=== PATIENT | female | born 1965 | race Caucasian/White ===

== ENCOUNTER → 2017-02-22 | Outpatient (CLI) | payer OTHER ==
[~2017-02-22] MED LIST: ACET-2267 PO; AMLO1CAP PO; GABA-488 PO; GABA300S2 PO; HYDR4TAB49 PO; IBUP-2055 PO; METF500T4 PO; METF500T8 PO; OMEP40CA36 PO; [UNRECOGNIZED DRUG - CODE] PO
--- NOTE | 2017-02-22 12:03 | Diagnostic Imaging Report ---
Ultrasound of the neck. INDICATION: Left neck fullness. FINDINGS: The area of fullness in the lateral left side of the neck demonstrates no underlying fluid collection or mass. IMPRESSION: Negative study. If symptoms persist or there is high index of suspicion, then further evaluation with an MRI or CT could be considered. Dictated by: Dictated on workstation # [id number]
== END ==
LOC: RAD 08:06
PROVIDERS: ATTEND Nurse Practitioner Family
DX: R22.1 Localized swelling, mass and lump, neck (principal)
CPT/HCPCS: 76536

== ENCOUNTER → 2017-10-16 | Outpatient (CLI) | payer OTHER | LOC: CARD 11:44 | PROVIDERS: ATTEND Internal Medicine Cardiovascular Disease | DX: R07.89 Other chest pain (principal); R06.09 Other forms of dyspnea; I10 Essential (primary) hypertension; G47.33 Obstructive sleep apnea (adult) (pediatric); E78.5 Hyperlipidemia, unspecified | CPT/HCPCS: 93306 ==

== ENCOUNTER → 2017-10-31 | Outpatient (CLI) | payer OTHER ==
[~2017-10-31] MED LIST changes: +CATHETER FLUSH 10 ML SYR IV PRN; +REGADENOSON 0.4 MG/5 ML SYR (LEXISCAN) IV ONE
[2017-10-31 13:32] VITALS: BP 166/82
--- NOTE | 2017-10-31 22:32 | STRESS TEST ---
DATE OF SERVICE: 10/31/2017 LEXISCAN MYOVIEW STRESS TEST REPORT Baseline heart rate is 78. Baseline blood pressure 149/88. Baseline EKG is sinus rhythm with no ischemic changes. SUMMARY: The patient was injected with 10.94 mCi of technetium-99 Myoview and the resting images were obtained. Then, the patient received 0.4 mg of Lexiscan followed by 30.9 mCi of technetium-99 Myoview. Throughout the test, there were no EKG changes. The resting and stress images were reviewed and compared in the short axis, horizontal long axis and vertical long axis views. Review of the images showed breast attenuation with reversible ischemia involving the whole anterior wall and anterolateral wall. SSS is 9. SDS 5. TID value is 0.99. On the gated images, the left ventricle appeared to be in normal size with normal contractility. Calculated ejection fraction 71%. CONCLUSION: 1. The patient tolerated Lexiscan well. 2. Breast attenuation with reversible ischemia involving the whole anterior wall and anterolateral wall. 3. Normal left ventricular size with normal contractility. Calculated ejection fraction 71%. Job ID: [id number] DocumentID: [id number] Dictated Date: 10/31/2017 16:14:28 Tar Roofer Date: 10/31/2017 19:20:13 Dictated By: FANI VALLEJO MD
== END ==
LOC: CARD 11:14
PROVIDERS: ATTEND Internal Medicine Cardiovascular Disease
DX: R07.89 Other chest pain (principal); R06.09 Other forms of dyspnea; I10 Essential (primary) hypertension; E78.5 Hyperlipidemia, unspecified; G47.33 Obstructive sleep apnea (adult) (pediatric)
CPT/HCPCS: 78452; 93017

== ENCOUNTER 2017-11-07 06:33 | Day surgery (SDC) | payer OTHER ==
[~2017-11-07] VITALS: Ht 167.6 cm; Wt 123.8 kg
[2017-11-07] VITALS (11 sets, daily range): BP systolic 116–138; BP diastolic 62–79
[~2017-11-07 06:33] MED LIST changes: -CATHETER FLUSH 10 ML SYR IV PRN; -REGADENOSON 0.4 MG/5 ML SYR (LEXISCAN) IV ONE
--- OUTSIDE RECORDS SUMMARY | 2017-11-07 06:36 | XMS REPORT ---
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 Problem Arthritis M19.90 Active Problem Gastroesophageal reflux disease without esophagitis K21.9 Active Problem Swelling of both eyes H57.8 Active Problem Edema R60.9 Active Problem Swelling R60.9 Active Problem General medical exam Z00.00 Active Problem Essential hypertension I10 Active Problem Mild intermittent asthma with acute exacerbation J45.21 Active Problem History of knee replacement procedure of right knee Z96.651 Active Assessment Swelling of both eyes H57.8 Active Assessment Swelling R60.9 Active Problem Moderate persistent asthma without complication J45.40 Active Medications Medication Code System Code Instructions Start Date End Date Status Dosage Lotrel [facility] 57191998014 10-40 MG Orally Once a day 1 capsule Hydrochlorothiazide [facility] [address]-05 25 MG Orally & Wednesday February 10, 2016 1 tablet Hydrocodone-Acetaminophen [facility] [address]-36 7.5-325 MG Orally every 6 hrs 1 tablet as needed Voltaren [facility] [address]-85 1 % Transdermal daily prn February 10, 2016 1 gram to 2 large joints Tylenol Extra Strength [facility] [address]-34 500 mg May 19, 2014 3 tablet 3 times per day Omeprazole [facility] [address]-77 40 MG Orally Once a day June 10, 2015 1 capsule Multi Complete [facility] 72851-[address] Orally not defined [place] [facility] [address]-94 5-325 MG Orally 2 times a day prn Sep 23, 2015 1 tablet as needed Aspir-81 [facility] [address]-35 81 MG Orally Once a day 1 tablet Procedures Procedure Coding System Code Date Office Visit, Est Pt., Level 3 CPT-4 65828 March 08, 2016 VENIPUNCT, ROUTINE* CPT-4 22732 March 08, 2016 COMPREHEN METABOLIC PANEL CPT-4 73831 March 08, 2016 Vital Signs Date/Time: March 08, 2016 Temperature 98.2 F Weight 274.0 lbs Height 66 in BMI 44.22 Index Blood Pressure Diastolic 80 mmHg Blood Pressure Systolic 128 mmHg Results Name Result Date Reference Range Unit Abnormality Flag ROUTINE VENIPUNCTURE Summary Purpose eClinicalWorks Submission
--- OUTSIDE RECORDS SUMMARY | 2017-11-07 06:36 | XMS REPORT ---
Author Author MISA KING [facility] Address [address] [place] [address] Care Team Providers Care Outsole Skiver Name Role Phone MISA KING Unavailable PROBLEMS Type Condition ICD9-CM Code [id number] Code Onset Dates Condition Status SNOMED Code Problem General medical exam Z00.00 Active 801340154 Problem Edema of both feet R60.0 Active 429580314 Problem Mild intermittent asthma with acute exacerbation J45.21 Active 919639748 Problem Moderate persistent asthma without complication J45.40 Active 475734151 Problem Gastroesophageal reflux disease without esophagitis K21.9 Active 653048897 Problem Arthritis M19.90 Active 8227626 Problem Essential hypertension I10 Active 64686661 Problem Dyspnea on exertion R06.09 Active 35241913 Problem Type 2 diabetes mellitus with diabetic nephropathy, 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 Active 39923410 Problem Long-term use of high-risk medication Z79.899 Active 532066472 Problem Hyperkalemia E87.5 Active 46499042 Problem Atypical mole D22.9 Active 053572344 Problem Hyperlipidemia LDL goal <70 E78.5 Active 36104059 ALLERGIES Substance Reaction Event Type Date Status Ultram Unknown Drug Allergy Jan, Active Tylox Unknown Drug Allergy Jan, Active Talwin Unknown Drug Allergy Jan, Active Fentanyl Unknown Drug Allergy Jan, Active Darvon Unknown Drug Allergy Jan, Active Darvocet-n 100 Unknown Drug Allergy Jan, Active SOCIAL HISTORY Never Assessed PLAN OF CARE Activity Details Follow Up 4 Weeks Reason:BP/Swelling VITAL SIGNS Height 66 in 2017-02-07 Weight 286.8 lbs 2017-02-07 Temperature 98.2 degrees Fahrenheit 2017-02-07 Heart Rate 78 bpm 2017-02-07 Respiratory Rate 18 2017-02-07 BMI 46.29 kg/m2 2017-02-07 Blood pressure systolic 144 mmHg 2017-02-07 Blood pressure diastolic 84 mmHg 2017-02-07 MEDICATIONS Medication Instructions Dosage Frequency Start Date End Date Duration Status Omeprazole 40 mg Orally Once a day 1 capsule 24h May, Active MetFORMIN HCl ER 500 MG Orally bid 1 tablet with evening meal 12h Active PredniSONE 20 MG Orally Once a day 1 tablet 24h Jan, Jan, 5 days Active Hydrocodone-Acetaminophen 5-325 MG Orally daily prn 1/2 tablet Jan, Active Lotrel 10-40 MG Orally Once a day 1 capsule 24h 30 days Active Albuterol Sulfate HFA 108 (90 Base) MCG/ACT Inhalation 4 times a day 2 puffs as needed 6h Oct, Active Glucocard Expression Monitor w/Device as directed Nov, Active Chlorthalidone 25 MG Orally Once a day 1 tablet in the morning 24h Jan, 30 day(s) Active [place] 5-325 MG Orally 2 times a day prn 1 tablet as needed Aug, Active Glucocard Expression Test - In Vitro test once daily as directed Nov, Active RESULTS Name Result Date Reference Range A1C (IN HOUSE) 2017-02-07 A1C IN HOUSE 6.6 4.3 - 5.6 % Previous A1c 6.4 Lot [id number] Exp date 11/2018 MICROALBUMIN, URINE (IN HOUSE) 2017-02-07 MICROALBUMIN normal Lot # [id number] Exp date 12/2017 Clarity clear Color yellow ALB 10 CRE 200 A:C (IN HOUSE) <30 Control + Control Lot # Exp date CMP 2017-02-07 Glucose, Serum 149 65-99 BUN 10 6-24 Creatinine, Serum 0.65 0.57-1.00 eGFR If NonAfricn Am 104 >59 eGFR If Africn Am 120 >59 BUN/Creatinine Ratio 15 9-23 Sodium, Serum 138 134-144 Potassium, Serum 4.7 3.5-5.2 Chloride, Serum 98 96-106 Carbon Dioxide, Total 25 18-29 Calcium, Serum 9.9 8.7-10.2 Protein, Total, Serum 7.2 6.0-8.5 Albumin, Serum 4.3 3.5-5.5 Globulin, Total 2.9 1.5-4.5 A/G Ratio 1.5 1.2-2.2 Bilirubin, Total 0.9 0.0-1.2 Alkaline Phosphatase, S 88 39-117 AST (SGOT) 21 0-40 ALT (SGPT) 28 0-32 Xray : Hip, Left 2 views (IN HOUSE) 2017-02-07 Xray : Knee, Left 3 views (IN HOUSE) 2017-02-07 PROCEDURES Procedure Date Ordered Result Body Site GLYCATED HEMOGLOBIN TEST February 07, 2017 MICROALBUMIN, SEMIQUANT February 07, 2017 VENIPUNCT, ROUTINE* February 07, 2017 X-RAY EXAM OF KNEE, 3 February 07, 2017 X-RAY EXAM HIP UNI 2-3 VIEWS February 07, 2017 COMPREHEN METABOLIC PANEL February 07, 2017 IMMUNIZATIONS No Known Immunizations MEDICAL (GENERAL) HISTORY Type Description Date Medical History hypertension Medical History gastroesophageal reflux disease (GERD) Medical History asthma Medical History type II diabetes Medical History depression Medical History anxiety Medical History ovarian cysts Medical History Moderate to severe arthritis knees Medical History BEATA- Has CPAP but doesn't use can't sleep with it on Surgical History tonsillectomy 1977 Surgical History appendectomy, cholecystectomy 1980 Surgical History arthroscopic knee surgery 1999 Surgical History total hysterectomy d/t endometriosis 2006 Surgical History right knee replacement 09/2015 Hospitalization History Hospitalization for surgery Hospitalization History Pneumonia
--- OUTSIDE RECORDS SUMMARY | 2017-11-07 06:36 | XMS REPORT ---
Author Author MISA KING [facility] eClinicalWorks Address Unknown Phone Unavailable Care Team Providers Care Weatherization Installer Name Role Phone MISA KING CP Unavailable Allergies, Adverse Reactions, Alerts Substance Reaction Event Type Ultram Info Not Available Drug Allergy Tylox Info Not Available Drug Allergy Talwin Info Not Available Drug Allergy Fentanyl Info Not Available Drug Allergy Darvon Info Not Available Drug Allergy Darvocet-n 100 Info Not Available Drug Allergy Problems Problem Type Condition Code Onset Dates Condition Status Problem Essential hypertension I10 Active Problem History of knee replacement procedure of right knee Z96.651 Active Problem General medical exam Z00.00 Active Problem Anxiety about health F41.8 Active Problem Edema of both feet R60.0 Active Problem Hyperkalemia E87.5 Active Problem Edema R60.9 Active Problem Mild intermittent asthma with acute exacerbation J45.21 Active Problem Swelling R60.9 Active Problem Swelling of both eyes H57.8 Active Assessment 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 Assessment Arthritis M19.90 Active Assessment Anxiety about health F41.8 Active Assessment Hyperkalemia E87.5 Active Problem Moderate persistent asthma without complication J45.40 Active Problem 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 Assessment Essential hypertension I10 Active Problem Gastroesophageal reflux disease without esophagitis K21.9 Active Assessment Edema of both feet R60.0 Active Problem Arthritis M19.90 Active Medications Medication Code System Code Instructions Start Date End Date Status Dosage Valium [facility] [address]-11 10 mg Orally 30 minutes prior to dental work Jul 13, 2016 1 Omeprazole [facility] [address]-83 40 MG Orally Once a day June 10, 2015 1 capsule Voltaren [facility] [address]-44 1 % Transdermal daily prn 1 gram to 2 large joints Lotrel [facility] 57802421007 10-40 MG Orally Once a day 1 capsule [place] [facility] [address]-66 5-325 MG Orally 2 times a day prn Sep 23, 2015 1 tablet as needed Hydrochlorothiazide [facility] [address]-14 25 MG Orally & Sunday 1 tablet Procedures Procedure Coding System Code Date COMPREHEN METABOLIC PANEL CPT-4 70302 Jul 13, 2016 VENIPUNCT, ROUTINE* CPT-4 09459 Jul 13, 2016 GLYCATED HEMOGLOBIN TEST CPT-4 40751 Jul 13, 2016 Office Visit, Est Pt., Level 4 CPT-4 31264 Jul 13, 2016 Vital Signs Date/Time: Jul 13, 2016 Cardiac Monitoring Heart Rate 80 bpm Weight 269.4 lbs Height 66 in BMI 43.48 Index Blood Pressure Diastolic 82 mmHg Blood Pressure Systolic 124 mmHg Results No Known Results Summary Purpose eClinicalWorks Submission
--- OUTSIDE RECORDS SUMMARY | 2017-11-07 06:36 | XMS REPORT ---
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 Problem Arthritis M19.90 Active Problem Gastroesophageal reflux disease without esophagitis K21.9 Active Problem Moderate persistent asthma without complication J45.40 Active Problem Swelling of both eyes H57.8 Active Problem Edema R60.9 Active Problem Swelling R60.9 Active Problem General medical exam Z00.00 Active Problem Essential hypertension I10 Active Problem Mild intermittent asthma with acute exacerbation J45.21 Active Problem History of knee replacement procedure of right knee Z96.651 Active Medications Medication Code System Code Instructions Start Date End Date Status Dosage Lotrel [facility] [address]-20 10-40 MG Orally Once a day- appt needed for futher refills 1 capsule Results No Known Results Summary Purpose eClinicalWorks Submission
--- OUTSIDE RECORDS SUMMARY | 2017-11-07 06:36 | XMS REPORT ---
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
--- OUTSIDE RECORDS SUMMARY | 2017-11-07 06:36 | XMS REPORT ---
Author Author MISA KING [facility] eClinicalWorks Address Unknown Phone Unavailable Care Team Providers Care Rag Willow Operator Name Role Phone MISA KING CP Unavailable Allergies, Adverse Reactions, Alerts Substance Reaction Event Type Ultram Info Not Available Drug Allergy Tylox Info Not Available Drug Allergy Talwin Info Not Available Drug Allergy Fentanyl Info Not Available Drug Allergy Darvon Info Not Available Drug Allergy Darvocet-n 100 Info Not Available Drug Allergy Problems Problem Type Condition Code Onset Dates Condition Status Problem Gastroesophageal reflux disease without esophagitis K21.9 Active Problem Essential hypertension I10 Active Problem Arthritis M19.90 Active Problem Swelling R60.9 Active Problem Swelling of both eyes H57.8 Active Problem Edema of both feet R60.0 Active Problem History of knee replacement procedure of right knee Z96.651 Active Problem General medical exam Z00.00 Active Problem Edema R60.9 Active Problem Mild intermittent asthma with acute exacerbation J45.21 Active Assessment Mild intermittent asthma with acute exacerbation J45.21 Active Assessment Essential hypertension I10 Active Assessment Edema of both feet R60.0 Active Assessment 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 Problem Moderate persistent asthma without complication J45.40 Active Assessment Arthritis M19.90 Active Problem 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 Medications Medication Code System Code Instructions Start Date End Date Status Dosage Omeprazole [facility] [address]-27 40 MG Orally Once a day June 10, 2015 1 capsule Lotrel [facility] 68934702512 10-40 MG Orally Once a day 1 capsule Multi Complete [facility] [address] Orally not defined Voltaren [facility] [address]-56 1 % Transdermal daily prn 1 gram to 2 large joints [place] [facility] [address]-96 5-325 MG Orally 2 times a day prn Sep 23, 2015 1 tablet as needed Hydrochlorothiazide [facility] [address]-43 25 MG Orally & Wednesday February 10, 2016 1 tablet Procedures Procedure Coding System Code Date COMPREHEN METABOLIC PANEL CPT-4 15936 Jul 06, 2016 ASSAY OF MAGNESIUM CPT-4 42175 Jul 06, 2016 NATRIURETIC PEPTIDE CPT-4 06529 Jul 06, 2016 VENIPUNCT, ROUTINE* CPT-4 66307 Jul 06, 2016 Office Visit, Est Pt., Level 4 CPT-4 11141 Jul 06, 2016 Vital Signs Date/Time: Jul 06, 2016 Cardiac Monitoring Heart Rate 80 bpm Weight 271.5 lbs Height 66 in BMI 43.82 Index Blood Pressure Diastolic 88 mmHg Blood Pressure Systolic 136 mmHg Results No Known Results Summary Purpose eClinicalWorks Submission
--- OUTSIDE RECORDS SUMMARY | 2017-11-07 06:37 | XMS REPORT ---
Author Author MISA KING [facility] eClinicalWorks Address Unknown Phone Unavailable Care Team Providers Care Oil Well Driller Name Role Phone MISA KING CP Unavailable Allergies, Adverse Reactions, Alerts Substance Reaction Event Type Ultram Info Not Available Drug Allergy Tylox Info Not Available Drug Allergy Talwin Info Not Available Drug Allergy Fentanyl Info Not Available Drug Allergy Darvon Info Not Available Drug Allergy Darvocet-n 100 Info Not Available Drug Allergy Problems Problem Type Condition Code Onset Dates Condition Status Problem Edema R60.9 Active Problem Swelling R60.9 Active Problem Swelling of both eyes H57.8 Active Problem Skin ulcer of foot including toes, right, limited to breakdown of skin L97.511 Active Assessment Long-term use of high-risk medication Z79.899 Active Problem Yeast dermatitis B37.2 Active Assessment Swelling R60.9 Active Assessment Bronchitis J40 Active Problem Long-term use of high-risk medication Z79.899 Active Problem Anxiety about health F41.8 Active Problem Edema of both feet R60.0 Active Problem Encounter for dental examination Z01.20 Active Problem Hyperkalemia E87.5 Active Problem Moderate persistent asthma without complication J45.40 Active Problem 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 Assessment 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 Assessment Essential hypertension I10 Active Problem Essential hypertension I10 Active Problem General medical exam Z00.00 Active Problem Gastroesophageal reflux disease without esophagitis K21.9 Active Problem History of knee replacement procedure of right knee Z96.651 Active Problem Arthritis M19.90 Active Problem Mild intermittent asthma with acute exacerbation J45.21 Active Medications Medication Code System Code Instructions Start Date End Date Status Dosage Potassium Chloride CR NDC 0 10 MEQ Orally every other day Oct 11, 2016 Nov 10, 2016 1 tablet [place] [facility] [address]-25 5-325 MG Orally 2 times a day prn Sep 23, 2015 1 tablet as needed Mucinex [facility] [address]-07 600 MG Orally every 12 hrs 1 tablet as needed Zaroxolyn [facility] [address]-31 2.5 MG Orally every other day Oct 11, 2016 1 tablet Augmentin [facility] [address]-37 875-125 MG Orally every 12 hrs Oct 11, 2016 Oct 21, 2016 1 tablet Omeprazole [facility] [address]-08 40 mg Orally Once a day June 10, 2015 1 capsule Lotrel [facility] 43190260542 10-40 MG Orally Once a day 1 capsule MetFORMIN HCl ER [facility] [address]-03 500 MG Orally Once a day 1 tablet with evening meal Procedures Procedure Coding System Code Date VENIPUNCT, ROUTINE* CPT-4 41545 Oct 11, 2016 Office Visit, Est Pt., Level 4 CPT-4 46893 Oct 11, 2016 COMPREHEN METABOLIC PANEL CPT-4 63641 Oct 11, 2016 Vital Signs Date/Time: Oct 11, 2016 Cardiac Monitoring Heart Rate 76 bpm Weight 281.1 lbs Height 66 in BMI 45.37 Index Blood Pressure Diastolic 98 mmHg Blood Pressure Systolic 150 mmHg Results Name Result Date Reference Range Unit Abnormality Flag ROUTINE VENIPUNCTURE CMP ----Sodium, Serum 141 26226321 136-144 mmol/L ----BUN/Creatinine Ratio 22 03950939 9-23 ----Chloride, Serum 98 82488737 97-106 mmol/L ----Potassium, Serum 4.5 96693732 3.5-5.2 mmol/L ----Calcium, Serum 9.8 88249684 8.7-10.2 mg/dL ----Protein, Total, Serum 7.3 78548484 6.0-8.5 g/dL ----Carbon Dioxide, Total 27 54608133 18-29 mmol/L ----A/G Ratio 1.5 15973993 1.1-2.5 ----eGFR If NonAfricn Am 103 35081249 >59 mL/min/1.73 ----Bilirubin, Total 0.4 41366879 0.0-1.2 mg/dL ----eGFR If Africn Am 119 75080477 >59 mL/min/1.73 ----BUN 15 63797960 6-24 mg/dL ----Albumin, Serum 4.4 89701642 3.5-5.5 g/dL ----Globulin, Total 2.9 20161011 1.5-4.5 g/dL ----Creatinine, Serum 0.67 20161011 0.57-1.00 mg/dL ----ALT (SGPT) 22 20161011 0-32 IU/L ----Glucose, Serum 124 20161011 65-99 mg/dL H ----Alkaline Phosphatase, S 99 20161011 39-117 IU/L ----AST (SGOT) 15 20161011 0-40 IU/L Summary Purpose eClinicalWorks Submission
--- OUTSIDE RECORDS SUMMARY | 2017-11-07 06:37 | XMS REPORT ---
Author Author MISA KING [facility] eClinicalWorks Address Unknown Phone Unavailable Care Team Providers Care Account Development Associate Name Role Phone MISA KING CP Unavailable Allergies, Adverse Reactions, Alerts Substance Reaction Event Type Ultram Info Not Available Drug Allergy Tylox Info Not Available Drug Allergy Talwin Info Not Available Drug Allergy Fentanyl Info Not Available Drug Allergy Darvon Info Not Available Drug Allergy Darvocet-n 100 Info Not Available Drug Allergy Problems Problem Type Condition Code Onset Dates Condition Status Problem Mild intermittent asthma with acute exacerbation J45.21 Active Problem Swelling of both eyes H57.8 Active Problem Edema R60.9 Active Problem Yeast dermatitis B37.2 Active Assessment Skin ulcer of foot including toes, right, limited to breakdown of skin L97.511 Active Problem Encounter for dental examination Z01.20 Active Assessment Yeast dermatitis B37.2 Active Problem Skin ulcer of foot including toes, right, limited to breakdown of skin L97.511 Active Problem Edema of both feet R60.0 Active Problem Swelling R60.9 Active Problem Hyperkalemia E87.5 Active Problem Anxiety about health F41.8 Active Assessment Edema of both feet R60.0 Active Problem Moderate persistent asthma without complication J45.40 Active Assessment 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 Assessment Essential hypertension I10 Active Problem Arthritis M19.90 Active Problem Essential hypertension I10 Active Problem 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 Problem General medical exam Z00.00 Active Problem Gastroesophageal reflux disease without esophagitis K21.9 Active Problem History of knee replacement procedure of right knee Z96.651 Active Medications Medication Code System Code Instructions Start Date End Date Status Dosage [place] [facility] [address]-42 5-325 MG Orally 2 times a day prn Sep 23, 2015 1 tablet as needed Bactrim DS [facility] [address]-26 800-160 MG Orally Twice a day Aug 29, 2016 Sep 08, 2016 1 tablet MetFORMIN HCl ER [facility] [address]-65 500 MG Orally Once a day 1 tablet with evening meal Lotrel [facility] 84011647653 10-40 MG Orally Once a day 1 capsule Ventolin HFA [facility] [address]-55 90 mcg/actuation May 18, 2014 inhale 2 puff by Inhalation route as needed every 6 hours PRN for cough or wheeze Diflucan [facility] [address]-56 100 MG Orally daily Aug 29, 2016 Sep 08, 2016 1 tablet Hydrochlorothiazide [facility] [address]-81 25 MG Orally & Sunday 1 tablet Omeprazole [facility] [address]-88 40 MG Orally Once a day June 10, 2015 1 capsule Procedures Procedure Coding System Code Date Office Visit, Est Pt., Level 5 CPT-4 30583 Aug 29, 2016 ROCEPHIN 1 GM (IM) CPT-4 J0696 Aug 29, 2016 GLUCOSE BLOOD TEST CPT-4 93018 Aug 29, 2016 THER/PROPH/DIAG INJ, SC/IM CPT-4 57304 Aug 29, 2016 Vital Signs Date/Time: Aug 29, 2016 Cardiac Monitoring Heart Rate 80 bpm Weight 277 lbs Height 66 in BMI 44.70 Index Blood Pressure Diastolic 90 mmHg Blood Pressure Systolic 140 mmHg Results Name Result Date Reference Range Unit Abnormality Flag GLUCOSE FINGERSTICK (IN HOUSE) ----GLU FINGERSTICK [id number] ----Lot # [id number] ----Exp date 10/08/201620160829 Summary Purpose eClinicalWorks Submission
--- OUTSIDE RECORDS SUMMARY | 2017-11-07 06:37 | XMS REPORT ---
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
--- OUTSIDE RECORDS SUMMARY | 2017-11-07 06:37 | XMS REPORT ---
Author Author BRENDAN KRAMER [facility] Address [address] [place] [address] Care Team Providers Care Furnace Door Tender Name Role Phone BRENDAN KRAMER Unavailable PROBLEMS Type Condition ICD9-CM Code [id number] Code Onset Dates Condition Status SNOMED Code Problem History of knee replacement procedure of right knee Z96.651 Active 584488171 Problem Edema R60.9 Active 035619588 Problem Mild intermittent asthma with acute exacerbation J45.21 Active 906789531 Problem Encounter for dental examination Z01.20 Active 343105094 Problem Hyperkalemia E87.5 Active 72663376 Problem Swelling R60.9 Active 09477665 Problem Swelling of both eyes H57.8 Active 15904869 Problem Anxiety about health F41.8 Active 150221627 Problem Edema of both feet R60.0 Active 247558134 Assessment Encounter for dental examination Z01.20 15 Jul, 2016 Active 171509281 Problem Gastroesophageal reflux disease without esophagitis K21.9 Active 182414438 Problem Arthritis M19.90 Active 4784870 Problem Moderate persistent asthma without complication J45.40 Active 599395255 Problem Essential hypertension I10 Active 29030105 Problem 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 79676639 Problem General medical exam Z00.00 Active 551296918 ALLERGIES Substance Reaction Event Type Date Status Ultram Unknown Drug Allergy 15 Jul, 2016 Active Tylox Unknown Drug Allergy 15 Jul, 2016 Active Talwin Unknown Drug Allergy 15 Jul, 2016 Active Fentanyl Unknown Drug Allergy Jul, Active Darvon Unknown Drug Allergy Jul, Active Darvocet-n 100 Unknown Drug Allergy Jul, Active SOCIAL HISTORY No smoking Hx information available PLAN OF CARE VITAL SIGNS Heart Rate 75 bpm 2016-08-10 Blood pressure systolic 123 mmHg 2016-08-10 Blood pressure diastolic 53 mmHg 2016-08-10 MEDICATIONS Medication Instructions Dosage Frequency Start Date End Date Duration Status Hydrochlorothiazide 25 MG Orally & Sunday 1 tablet 15 day(s) Active Lotrel 10-40 MG Orally Once a day 1 capsule 24h Active Omeprazole 40 MG Orally Once a day 1 capsule 24h 16 May, 2015 Active Omeprazole 40 MG Orally Once a day 1 capsule 24h 30 Active Singulair 10 MG Orally Once a day 1 tablet in the evening 24h Active Ventolin HFA 90 mcg/actuation inhale 2 puff by Inhalation route as needed every 6 hours PRN for cough or wheeze Apr, Active [place] 5-325 MG Orally 2 times a day prn 1 tablet as needed Aug, Active RESULTS No Results PROCEDURES Procedure Date Ordered Related Diagnosis Body Site INTRAORL-PERIAPICAL 1 FILM 16537 Aug 10, 2016 INTRAORL-PERIAPICAL EA ADD FILM Aug 10, 2016 INTRAORL-PERIAPICAL EA ADD FILM Aug 10, 2016 INTRAORL-PERIAPICAL EA ADD FILM Aug 10, 2016 INTRAORL-PERIAPICAL EA ADD FILM Aug 10, 2016 IMMUNIZATIONS No Known Immunizations
--- OUTSIDE RECORDS SUMMARY | 2017-11-07 06:37 | XMS REPORT ---
Author Author MISA KING Organization eClinicalWorks Address Unknown Phone Unavailable Care Team Providers Care Safety Inspector Name Role Phone MISA KING CP Unavailable [...]
--- OUTSIDE RECORDS SUMMARY | 2017-11-07 06:37 | XMS REPORT ---
Author Author MISA KING [facility] Address [address] [place] [address] Care Team Providers Care Encyclopedia Research Worker Name Role Phone MISA KING Unavailable PROBLEMS Type Condition ICD9-CM Code [id number] Code Onset Dates Condition Status SNOMED Code Problem History of knee replacement procedure of right knee Z96.651 Active 050204363 Problem Edema R60.9 Active 448125521 Problem Mild intermittent asthma with acute exacerbation J45.21 Active 291568673 Problem Encounter for dental examination Z01.20 Active 093762127 Problem Hyperkalemia E87.5 Active 71802395 Problem Swelling R60.9 Active 12772707 Problem Swelling of both eyes H57.8 Active 92759649 Problem Anxiety about health F41.8 Active 772416797 Problem Edema of both feet R60.0 Active 643834463 Problem Gastroesophageal reflux disease without esophagitis K21.9 Active 971817558 Problem Arthritis M19.90 Active 0414640 Problem Moderate persistent asthma without complication J45.40 Active 612204781 Problem Essential hypertension I10 Active 28039825 Problem 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
--- OUTSIDE RECORDS SUMMARY | 2017-11-07 06:37 | XMS REPORT ---
Author Author MISA KING Organization [facility] Address [address] [place] [address] Care Team Providers Care Clinical Nursing Manager Name Role Phone MISA KING Unavailable PROBLEMS Type Condition ICD9-CM Code [id number] Code Onset Dates Condition Status SNOMED Code Problem General medical exam Z00.00 Active 272194142 Problem Edema of both feet R60.0 Active 078076691 Problem Mild intermittent asthma with acute exacerbation J45.21 Active 056566457 Problem Moderate persistent asthma without complication J45.40 Active 933318462 Problem Gastroesophageal reflux disease without esophagitis K21.9 Active 326199021 Problem Arthritis M19.90 Active 6635373 Problem Essential hypertension I10 Active 60007974 Problem Dyspnea on exertion R06.09 Active 68642493 Problem Type 2 diabetes mellitus with diabetic nephropathy, 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 Active 68256845 Problem Long-term use of high-risk medication Z79.899 Active 910883499 Problem Hyperkalemia E87.5 Active 65626075 Problem Atypical mole D22.9 Active 345035018 Problem Hyperlipidemia LDL goal <70 E78.5 Active 53911398 ALLERGIES No Known Allergies SOCIAL HISTORY No smoking Hx information available PLAN OF CARE VITAL SIGNS MEDICATIONS Medication Instructions Dosage Frequency Start Date End Date Duration Status Glucocard Expression Test - In Vitro test once daily as directed Nov, Active Glucocard Expression Monitor w/Device as directed Nov, Active RESULTS No Results PROCEDURES No Known procedures IMMUNIZATIONS No Known Immunizations
--- OUTSIDE RECORDS SUMMARY | 2017-11-07 06:37 | XMS REPORT ---
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 Assessment Essential hypertension I10 Active Assessment Gastroesophageal reflux disease without esophagitis K21.9 Active Assessment History of knee replacement procedure of right knee Z96.651 Active Problem General medical exam Z00.00 Active Problem Essential hypertension I10 Active Problem History of knee replacement procedure of right knee Z96.651 Active Problem 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 [address]-22 7.5-325 MG Orally every 6 hrs 1 tablet as needed Hydromorphone HCl [facility] [address]-67 4 MG Orally every 4 hrs 1 tablet as needed [place] [facility] [address]-11 5-325 MG Orally 2 times a day prn Sep 23, 2015 1 tablet as needed Lotrel [facility] [address]-54 10-40 MG Orally Once a day 1 capsule Tylenol Extra Strength [facility] [address]-00 500 mg May 19, 2014 3 tablet 3 times per day Aspir-[address] [facility] [address]-25 81 MG Orally Once a day 1 tablet Omeprazole [facility] [address]-36 40 MG Orally Once a day June 10, 2015 1 capsule Multi Complete [facility] [address] Orally not defined Procedures Procedure Coding System Code Date Office Visit, Est Pt., Level 4 CPT-4 72592 Oct 19, 2015 Vital Signs Date/Time: Oct 19, 2015 Temperature 98.3 F Weight 262.5 lbs Height 66 in BMI 42.36 Index Blood Pressure Diastolic 82 mmHg Blood Pressure Systolic 132 mmHg Cardiac Monitoring Heart Rate 76 bpm Results No Known Results Summary Purpose eClinicalWorks Submission
--- OUTSIDE RECORDS SUMMARY | 2017-11-07 06:37 | XMS REPORT ---
Author Author MISA KING Organization [facility] Address [address] [place] [address] Care Team Providers Care Pharmacy Picking Tech Name Role Phone MISA KING Unavailable PROBLEMS Type Condition ICD9-CM Code LVV86-KS Code Onset Dates Condition Status SNOMED Code Problem General medical exam Z00.00 Active 111529306 Problem Edema of both feet R60.0 Active 830317119 Problem Mild intermittent asthma with acute exacerbation J45.21 Active 422672739 Problem Moderate persistent asthma without complication J45.40 Active 898410861 Problem Gastroesophageal reflux disease without esophagitis K21.9 Active 409187403 Problem Arthritis M19.90 Active 6448232 Problem Essential hypertension I10 Active 07263196 Problem Dyspnea on exertion R06.09 Active 83490420 Problem Type 2 diabetes mellitus with diabetic nephropathy, 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 Active 40031610 Problem Long-term use of high-risk medication Z79.899 Active 464225418 Problem Hyperkalemia E87.5 Active 00308493 Problem Atypical mole D22.9 Active 990976293 Problem Hyperlipidemia LDL goal <70 E78.5 Active 26474276 ALLERGIES No Information SOCIAL HISTORY Never Assessed PLAN OF CARE VITAL SIGNS MEDICATIONS No Known Medications RESULTS Name Result Date Reference Range Ultrasound : Neck 2017-02-22 PROCEDURES No Known procedures IMMUNIZATIONS No Known Immunizations MEDICAL (GENERAL) HISTORY [...]
--- OUTSIDE RECORDS SUMMARY | 2017-11-07 06:37 | XMS REPORT ---
Author Author MISA KING [facility] Address [address] [place] [address] Care Team Providers Care Court Manager Name Role Phone MISA KING Unavailable PROBLEMS Type Condition ICD9-CM Code GQS81-RA Code Onset Dates Condition Status SNOMED Code Problem General medical exam Z00.00 Active 640304944 Problem Edema of both feet R60.0 Active 040206026 Problem Mild intermittent asthma with acute exacerbation J45.21 Active 627120711 Problem Moderate persistent asthma without complication J45.40 Active 124756923 Problem Gastroesophageal reflux disease without esophagitis K21.9 Active 945630635 Problem Arthritis M19.90 Active 6057326 Problem Essential hypertension I10 Active 81449091 Problem Dyspnea on exertion R06.09 Active 76745637 Problem Type 2 diabetes mellitus with diabetic nephropathy, 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 Active 82398777 Problem Long-term use of high-risk medication Z79.899 Active 553442149 Problem Hyperkalemia E87.5 Active 47229163 Problem Atypical mole D22.9 Active 985648100 Problem Hyperlipidemia LDL goal <70 E78.5 Active 94348293 ALLERGIES Substance Reaction Event Type Date Status Ultram Unknown Drug Allergy March, Active Tylox Unknown Drug Allergy March, Active Talwin Unknown Drug Allergy March, Active Fentanyl Unknown Drug Allergy March, Active Darvon Unknown Drug Allergy March, Active Darvocet-n 100 Unknown Drug Allergy March, Active SOCIAL HISTORY Never Assessed PLAN OF CARE Activity Details Follow Up 6-8 weeks Reason:DM VITAL SIGNS Height 66 in 2017-04-19 Weight 275.7 lbs 2017-04-19 Temperature 98.0 degrees Fahrenheit 2017-04-19 Heart Rate 76 bpm 2017-04-19 Respiratory Rate 20 2017-04-19 BMI 44.49 kg/m2 2017-04-19 Blood pressure systolic 142 mmHg 2017-04-19 Blood pressure diastolic 94 mmHg 2017-04-19 MEDICATIONS Medication Instructions Dosage Frequency Start Date End Date Duration Status Glucocard Expression Test - In Vitro test once daily as directed Active Lotrel 10-40 MG Orally Once a day 1 capsule 24h 30 days Active Glucocard Expression Monitor w/Device as directed Nov, Active Chlorthalidone 25 MG Orally Once a day 1 tablet in the morning 24h 90 days Active Omeprazole 40 mg Orally Once a day 1 capsule 24h May, Active MetFORMIN HCl ER 500 mg Orally bid 2 am 1 pm 12h 30 days Active Krill Oil [place]-3 300 MG Orally 2 times a day 1 capsule 12h Active Pravastatin Sodium 20 mg Orally Once a day 1 tablet 24h Active Hydrocodone-Acetaminophen 5-325 MG Orally daily prn 1/2 tablet March, Active RESULTS No Results PROCEDURES Procedure Date Ordered Result Body Site COMPREHEN METABOLIC PANEL April 19, 2017 ASSAY OF MAGNESIUM April 19, 2017 VENIPUNCT, ROUTINE* April 19, 2017 IMMUNIZATIONS No Known Immunizations MEDICAL (GENERAL) [...]
--- OUTSIDE RECORDS SUMMARY | 2017-11-07 06:38 | XMS REPORT ---
Author Author MISA KING [facility] Address [address] [place] [address] Care Team Providers Care Embedded Linux Developer Name Role Phone MISA KING Unavailable PROBLEMS Type Condition ICD9-CM Code [id number] Code Onset Dates Condition Status SNOMED Code Problem History of knee replacement procedure of right knee Z96.651 Active 881330167 Problem Edema R60.9 Active 436138858 Problem Mild intermittent asthma with acute exacerbation J45.21 Active 849361095 Problem Encounter for dental examination Z01.20 Active 441916373 Problem Hyperkalemia E87.5 Active 19201288 Problem Swelling R60.9 Active 00680155 Problem Swelling of both eyes H57.8 Active 64083033 Problem Anxiety about health F41.8 Active 511762406 Problem Edema of both feet R60.0 Active 731499452 Problem Gastroesophageal reflux disease without esophagitis K21.9 Active 938665334 Problem Arthritis M19.90 Active 6451438 Problem Moderate persistent asthma without complication J45.40 Active 105692820 Problem Essential hypertension I10 Active 47386968 Problem 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
--- OUTSIDE RECORDS SUMMARY | 2017-11-07 06:38 | XMS REPORT ---
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 Medications Medication Code System Code Instructions Start Date End Date Status Dosage Diclofenac Sodium [facility] [address]-20 75 MG Orally Twice a day Oct 29, 2015 1 tablet Lotrel [facility] [address]-86 10-40 MG Orally Once a day 1 capsule Triamcinolone Acetonide [facility] [address]-53 0.1 % Externally Twice a day 1 application to affected area as needed Serafina [facility] [address]-57 5-325 MG Orally 2 times a day prn Sep 23, 2015 1 tablet as needed Gabapentin [facility] [address]-90 300 MG Orally Once a day at bed June 01, 2015 1 capsule Tylenol Extra Strength [facility] [address]-09 500 mg May 19, 2014 3 tablet 3 times per day MetFORMIN HCl ER [facility] [address]-88 500 MG Orally Once a day 1 tablet with evening meal Omeprazole [facility] [address]-19 40 MG Orally Once a day June 10, 2015 1 capsule Procedures Procedure Coding System Code Date COMPREHEN METABOLIC PANEL CPT-4 67881 Sep 23, 2015 ELECTROCARDIOGRAM, TRACING CPT-4 43021 Sep 23, 2015 COMPLETE CBC W/AUTO DIFF WBC CPT-4 03192 Sep 23, 2015 VENIPUNCT, ROUTINE* CPT-4 58856 Sep 23, 2015 Office Visit, Est Pt., Level 4 CPT-4 92727 Sep 23, 2015 Vital Signs Date/Time: Sep 23, 2015 Temperature 97.5 F Weight 270.8 lbs Height 66 in BMI 43.70 Index Blood Pressure Diastolic 84 mmHg Blood Pressure Systolic 138 mmHg Cardiac Monitoring Heart Rate 76 bpm Results Name Result Date Reference Range Unit Abnormality Flag ROUTINE VENIPUNCTURE Summary Purpose eClinicalWorks Submission
--- OUTSIDE RECORDS SUMMARY | 2017-11-07 06:38 | XMS REPORT ---
Author Author MISA KING Organization eClinicalWorks Address Unknown Phone Unavailable Care Team Providers Care Clinical Quality Analyst Name Role Phone MISA KING CP Unavailable Allergies No Known Allergies Problems Problem Type Condition Code Onset Dates Condition Status Problem Mild intermittent asthma with acute exacerbation J45.21 Active Problem Swelling of both eyes H57.8 Active Problem Edema R60.9 Active Problem Yeast dermatitis B37.2 Active Problem Encounter for dental examination Z01.20 Active Problem Skin ulcer of foot including toes, right, limited to breakdown of skin L97.511 Active Problem Edema of both feet R60.0 Active Problem Swelling R60.9 Active Problem Hyperkalemia E87.5 Active Problem Anxiety about health F41.8 Active Problem Moderate persistent asthma without complication J45.40 Active Problem Arthritis M19.90 Active Problem Essential hypertension I10 Active Problem 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
--- OUTSIDE RECORDS SUMMARY | 2017-11-07 06:38 | XMS REPORT ---
Author Author MISA KING [facility] eClinicalWorks Address Unknown Phone Unavailable Care Team Providers Care Bulk Delivery Driver Name Role Phone MISA KING CP Unavailable [...] procedure of right knee Z96.651 Active Medications No Known Medications Results No Known Results Summary Purpose eClinicalWorks Submission
--- OUTSIDE RECORDS SUMMARY | 2017-11-07 06:38 | XMS REPORT ---
Author Author MATTHEW YOST [facility] Address [address] [place] [address] Care Team Providers Care Cargo And Container Inspector Name Role Phone MATTHEW YOST Unavailable PROBLEMS Type Condition ICD9-CM Code [id number] Code Onset Dates Condition Status SNOMED Code Problem General medical exam Z00.00 Active 611083988 Problem Edema of both feet R60.0 Active 838120961 Problem Mild intermittent asthma with acute exacerbation J45.21 Active 614237617 Problem Moderate persistent asthma without complication J45.40 Active 765785555 Problem Gastroesophageal reflux disease without esophagitis K21.9 Active 602024689 Problem Arthritis M19.90 Active 0136869 Problem Essential hypertension I10 Active 57040452 Problem Dyspnea on exertion R06.09 Active 09994092 Problem Type 2 diabetes mellitus with diabetic nephropathy, 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 Active 08777856 Problem Long-term use of high-risk medication Z79.899 Active 923066717 Problem Hyperkalemia E87.5 Active 07521443 Problem Atypical mole D22.9 Active 465701746 Problem Hyperlipidemia LDL goal <70 E78.5 Active 80110052 ALLERGIES No Known Allergies SOCIAL HISTORY No smoking Hx information available PLAN OF CARE VITAL SIGNS MEDICATIONS No Known Medications RESULTS No Results PROCEDURES No Known procedures IMMUNIZATIONS No Known Immunizations
--- OUTSIDE RECORDS SUMMARY | 2017-11-07 06:38 | XMS REPORT ---
Author Author MISA KING Organization [employer] Address Unknown Phone Unavailable Care Team Providers Care Fishery Biologist Name Role Phone MISA KING CP Unavailable [...]
--- OUTSIDE RECORDS SUMMARY | 2017-11-07 06:38 | XMS REPORT ---
Author Author MATTHEW YOST [facility] Address [address] [place] [address] Care Team Providers Care Log Chain Worker Name Role Phone MATTHEW YOST Unavailable PROBLEMS Type Condition ICD9-CM Code [id number] Code Onset Dates Condition Status SNOMED Code Problem General medical exam Z00.00 Active 876678776 Problem Edema of both feet R60.0 Active 590936187 Problem Mild intermittent asthma with acute exacerbation J45.21 Active 723070340 Problem Moderate persistent asthma without complication J45.40 Active 401580705 Problem Gastroesophageal reflux disease without esophagitis K21.9 Active 356392710 Problem Arthritis M19.90 Active 7034945 Problem Essential hypertension I10 Active 38606363 Problem Dyspnea on exertion R06.09 Active 81245605 Problem Type 2 diabetes mellitus with diabetic nephropathy, 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 Active 98920462 Problem Long-term use of high-risk medication Z79.899 Active 914613831 Problem Hyperkalemia E87.5 Active 56615936 Problem Atypical mole D22.9 Active 944804168 Problem Hyperlipidemia LDL goal <70 E78.5 Active 58341793 ALLERGIES Substance Reaction Event Type Date Status Ultram Unknown Drug Allergy Nov, Active Tylox Unknown Drug Allergy Nov, Active Talwin Unknown Drug Allergy Nov, Active Fentanyl Unknown Drug Allergy Nov, Active Darvon Unknown Drug Allergy Nov, Active Darvocet-n 100 Unknown Drug Allergy Nov, Active SOCIAL HISTORY No smoking Hx information available PLAN OF CARE Activity Details Follow Up prn Reason: VITAL SIGNS Height 66 in 2016-12-04 Weight 280.7 lbs 2016-12-04 Temperature 97.4 degrees Fahrenheit 2016-12-04 Heart Rate 72 bpm 2016-12-04 Respiratory Rate 18 2016-12-04 BMI 45.30 kg/m2 2016-12-04 Blood pressure systolic 128 mmHg 2016-12-04 Blood pressure diastolic 80 mmHg 2016-12-04 MEDICATIONS Medication Instructions Dosage Frequency Start Date End Date Duration Status Albuterol Sulfate HFA 108 (90 Base) MCG/ACT Inhalation 4 times a day 2 puffs as needed 6h 10 Oct, 2016 Active Amlodipine Besylate 10 mg Orally Once a day MUST HAVE APPT FOR REFILL 1 tablet Jul, Active Fluticasone Propionate 0.005 % Externally Twice a day 1 application to affected area 12h Nov, Active MetFORMIN HCl ER 500 MG Orally Once a day 1 tablet with evening meal 24h Active Lotrel 10-40 MG Orally Once a day 1 capsule 24h 30 days Active Cortisporin 1 % Externally Twice a day 1 application to affected area 12h Nov, 14 days Active Omeprazole 40 mg Orally Once a day 1 capsule 24h May, Active RESULTS No Results PROCEDURES Procedure Date Ordered Related Diagnosis Body Site Office Visit, Est Pt., Level 3 Dec 04, 2016 IMMUNIZATIONS No Known Immunizations
--- OUTSIDE RECORDS SUMMARY | 2017-11-07 06:38 | XMS REPORT ---
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 Problem Gastroesophageal reflux disease without esophagitis K21.9 Active Assessment Dental examination Z01.20 Active Problem Arthritis M19.90 Active Medications Medication Code System Code Instructions Start Date End Date Status Dosage Voltaren [facility] [address]-94 1 % Transdermal daily prn 1 gram to 2 large joints [place] [facility] [address]-19 5-325 MG Orally 2 times a day prn Sep 23, 2015 1 tablet as needed Hydrochlorothiazide [facility] [address]-70 25 MG Orally & Wednesday February 10, 2016 1 tablet Omeprazole [facility] [address]-62 40 MG Orally Once a day June 10, 2015 1 capsule Multi Complete [facility] 49714-[address]12 Orally not defined Lotrel [facility] [id number] 10-40 MG Orally Once a day 1 capsule Amoxicillin [facility] [address]-02 500 MG Orally 1 hour before dental treatment Jul 13, 2016 4 tablets Procedures Procedure Coding System Code Date PANORAMIC FILM SEE ALSO CODE 65772 CPT-4 D0330 Jul 13, 2016 LTD ORAL EVALUATION - PROBLEM FOCUS CPT-4 D0140 Jul 13, 2016 Vital Signs Date/Time: Jul 13, 2016 Blood Pressure Diastolic 64 mmHg Blood Pressure Systolic 119 mmHg Results No Known Results Summary Purpose [employer] Submission
--- OUTSIDE RECORDS SUMMARY | 2017-11-07 06:38 | XMS REPORT ---
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 Name Role Phone MISA KING CP Unavailable Allergies, Adverse Reactions, Alerts Substance Reaction Event Type Ultram Info Not Available Drug Allergy Tylox Info Not Available Drug Allergy Talwin Info Not Available Drug Allergy Fentanyl Info Not Available Drug Allergy Darvon Info Not Available Drug Allergy Darvocet-n 100 Info Not Available Drug Allergy Problems Problem Type Condition ICD-9 Code Onset Dates Condition Status Problem Pain in joint, upper arm 719.42 Active Problem Elevated blood pressure reading without diagnosis of hypertension 796.2 Active Problem Pain in joint, lower leg 719.46 Active Problem Unspecified arthropathy, site unspecified 716.90 Active Problem Shortness of breath 786.05 Active Problem Screening for hypertension V81.1 Active Problem Essential hypertension, benign 401.1 Active Problem Urinary tract infection, site not specified 599.0 Active Problem Esophageal reflux 530.81 Active Problem Diabetes mellitus without mention of complication, type II or unspecified type, uncontrolled 250.02 Active Problem Unspecified bacterial pneumonia 482.9 Active Problem Other and unspecified hyperlipidemia 272.4 Active Assessment Upper respiratory infection 465.9 Active Problem Candidiasis of skin and nails 112.3 Active Problem Unspecified breast screening V76.10 Active Problem Other nonspecific abnormal serum enzyme levels 790.5 Active Problem Routine gynecological examination V72.31 Active Problem Chest pain, unspecified 786.50 Active Problem Other specified counseling V65.49 Active Medications Medication Code System Code Instructions Start Date End Date Status Dosage PrednisoLONE [facility] [address]-68 10 mg Orally 2 times a day Jul 28, 2015 Aug 02, 2015 1 Lotrel [facility] [address]-66 10-40 MG Orally Once a day 1 capsule Diclofenac Sodium [facility] [address]-00 75 MG Orally Twice a day Oct 29, 2015 1 tablet Tylenol Extra Strength [facility] [address]-70 500 mg May 19, 2014 3 tablet 3 times per day Azithromycin [facility] [address]-71 250 MG Orally Once a day Jul 28, 2015 Aug 04, 2015 2 tablets on the first day, then 1 tablet daily for 6 days Gabapentin [facility] [address]-00 300 MG Orally Once a day at bed June 01, 2015 1 capsule Omeprazole [facility] [address]-87 40 MG Orally Once a day June 10, 2015 1 capsule Triamcinolone Acetonide [facility] [address]-20 0.1 % Externally Twice a day 1 application to affected area as needed Procedures Procedure Coding System Code Date Office Visit, Est Pt., Level 3 CPT-4 78803 Jul 28, 2015 Vital Signs Date/Time: Jul 28, 2015 Temperature 97.1 F Weight 256.9 lbs Height 66 in BMI 41.46 Index Blood Pressure Diastolic 84 mmHg Blood Pressure Systolic 132 mmHg Cardiac Monitoring Heart Rate 76 bpm Results No Known Results Summary Purpose [employer] Submission
--- OUTSIDE RECORDS SUMMARY | 2017-11-07 06:38 | XMS REPORT ---
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 Director Name Role Phone MISA KING CP Unavailable Allergies, Adverse Reactions, Alerts Substance Reaction Event Type Ultram Info Not Available Drug Allergy Tylox Info Not Available Drug Allergy Talwin Info Not Available Drug Allergy Fentanyl Info Not Available Drug Allergy Darvon Info Not Available Drug Allergy Darvocet-n 100 Info Not Available Drug Allergy Problems Problem Type Condition Code Onset Dates Condition Status Assessment Moderate persistent asthma without complication J45.40 Active Assessment Arthritis M19.90 Active Assessment 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 Assessment History of long-term use of multiple prescription drugs Z92.29 Active Problem Arthritis M19.90 Active Problem Gastroesophageal reflux disease without esophagitis K21.9 Active Problem Essential hypertension I10 Active Assessment Essential hypertension I10 Active Assessment Gastroesophageal reflux disease without esophagitis K21.9 Active Problem 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 Problem Moderate persistent asthma without complication J45.40 Active Medications Medication Code System Code Instructions Start Date End Date Status Dosage Gabapentin [facility] [address]-80 300 MG Orally Once a day at bed June 01, 2015 1 capsule Lotrel [facility] [address]-21 10-40 MG Orally Once a day 1 capsule Omeprazole [facility] [address]-01 40 MG Orally Once a day June 10, 2015 1 capsule MetFORMIN HCl ER [facility] [address]-45 500 MG Orally Once a day 1 tablet with evening meal Triamcinolone Acetonide [facility] [address]-74 0.1 % Externally Twice a day 1 application to affected area as needed Tylenol Extra Strength [facility] [address]-21 500 mg May 19, 2014 3 tablet 3 times per day Diclofenac Sodium [facility] [address]-36 75 MG Orally Twice a day Oct 29, 2015 1 tablet Procedures Procedure Coding System Code Date COMPREHEN METABOLIC PANEL CPT-4 36395 Sep 09, 2015 COMPLETE CBC W/AUTO DIFF WBC CPT-4 36067 Sep 09, 2015 GLYCATED HEMOGLOBIN TEST CPT-4 49738 Sep 09, 2015 VENIPUNCT, ROUTINE* CPT-4 42494 Sep 09, 2015 Office Visit, Est Pt., Level 4 CPT-4 31579 Sep 09, 2015 Vital Signs Date/Time: Sep 09, 2015 Temperature 97.6 F Weight 264.3 lbs Height 66 in BMI 42.65 Index Blood Pressure Diastolic 86 mmHg Blood Pressure Systolic 142 mmHg Cardiac Monitoring Heart Rate 78 bpm Results Name Result Date Reference Range Unit Abnormality Flag A1C (IN HOUSE) Summary Purpose [employer] Submission
--- OUTSIDE RECORDS SUMMARY | 2017-11-07 06:40 | XMS REPORT | Continuity of Care Document ---
Author Author [facility] Address Unknown Phone Unavailable Allergies Active Description Code Type Severity Reaction Onset Reported/Identified Relationship to Patient Clinical Status Yes Darvocet-N 100 Drug Allergy N/A N/A 09/01/2013 Yes Darvon Drug Allergy N/A N/A 09/01/2013 Yes fentanyl Drug Allergy N/A N/A 09/01/2013 Yes Talwin Drug Allergy N/A N/A 09/01/2013 Yes Tylox Drug Allergy N/A N/A 09/01/2013 Yes Ultram Drug Allergy N/A N/A 09/01/2013 Yes acetaminophen [id number] Drug Allergy Severe RESP DISTRESS 09/30/2015 Yes fentanyl [id number] Drug Allergy Severe ARRHYTHMIA 09/30/2015 Yes oxycodone [id number] Drug Allergy Severe RESP DISTRESS 09/30/2015 Yes pentazocine [id number] Drug Allergy Severe RESP DISTRESS 09/30/2015 Yes propoxyphene [id number] Drug Allergy Severe ARRHYTHMIA 09/30/2015 Yes oxycodone [id number] Drug Allergy Severe RESP DISTRESS, 10/08/2015 Medications Problems Date Dx Coded Attending Type Code Diagnosis Diagnosed By 09/01/2013 ELVIS TREVINO DO 250.02 DIABETES MELLITUS WITHOUT MENTION OF COMPLICATION TYPE II OR UNSPECIFIED TYPE UNCONTROLLED 09/01/2013 ELVIS TREVINO DO 401.1 BENIGN ESSENTIAL HYPERTENSION 09/01/2013 ELVIS TREVINO DO 250.02 DIABETES MELLITUS WITHOUT MENTION OF COMPLICATION TYPE II OR UNSPECIFIED TYPE UNCONTROLLED 09/01/2013 ELVIS TREVINO DO 401.1 BENIGN ESSENTIAL HYPERTENSION 09/01/2013 ELVIS TREVINO DO 250.02 DIABETES MELLITUS WITHOUT MENTION OF COMPLICATION TYPE II OR UNSPECIFIED TYPE UNCONTROLLED 09/01/2013 ELVIS TREVINO DO 401.1 BENIGN ESSENTIAL HYPERTENSION 09/01/2013 ELVIS TREVINO DO 250.02 DIABETES MELLITUS WITHOUT MENTION OF COMPLICATION TYPE II OR UNSPECIFIED TYPE UNCONTROLLED 09/01/2013 TREVINO DO, ELVIS K 401.1 BENIGN ESSENTIAL HYPERTENSION 09/01/2013 TREVINO DO, ELVIS K 250.02 DIABETES MELLITUS WITHOUT MENTION OF COMPLICATION TYPE II OR UNSPECIFIED TYPE UNCONTROLLED 09/01/2013 TREVINO DO, ELVIS K 401.1 BENIGN ESSENTIAL HYPERTENSION 09/01/2013 TREVINO DO, ELVIS K 250.02 DIABETES MELLITUS WITHOUT MENTION OF COMPLICATION TYPE II OR UNSPECIFIED TYPE UNCONTROLLED 09/01/2013 TREVINO DO, ELVIS K 401.1 BENIGN ESSENTIAL HYPERTENSION 09/01/2013 TREVINO DO, ELVIS K 250.02 DIABETES MELLITUS WITHOUT MENTION OF COMPLICATION TYPE II OR UNSPECIFIED TYPE UNCONTROLLED 09/01/2013 TREVINO DO, ELVIS K 401.1 BENIGN ESSENTIAL HYPERTENSION 09/01/2013 TREVINO DO, ELVIS K 250.02 DIABETES MELLITUS WITHOUT MENTION OF COMPLICATION TYPE II OR UNSPECIFIED TYPE UNCONTROLLED 09/01/2013 TREVINO DO, ELVIS K 401.1 BENIGN ESSENTIAL HYPERTENSION 09/01/2013 TREVINO DO, ELVIS K 250.02 DIABETES MELLITUS WITHOUT MENTION OF COMPLICATION TYPE II OR UNSPECIFIED TYPE UNCONTROLLED 09/01/2013 TREVINO DO, ELVIS K 401.1 BENIGN ESSENTIAL HYPERTENSION 09/01/2013 RAJOTTE ONLINE JOURNALIST, ERICK A 250.02 DIABETES MELLITUS WITHOUT MENTION OF COMPLICATION TYPE II OR UNSPECIFIED TYPE UNCONTROLLED 09/01/2013 RAJOTTE ONLINE JOURNALIST, ERICK A 401.1 BENIGN ESSENTIAL HYPERTENSION 09/01/2013 TREVINO DO, ELVIS K 250.02 DIABETES MELLITUS WITHOUT MENTION OF COMPLICATION TYPE II OR UNSPECIFIED TYPE UNCONTROLLED 09/01/2013 TREVINO DO, ELVIS K 401.1 BENIGN ESSENTIAL HYPERTENSION 09/01/2013 TREVINO DO, ELVIS K 250.02 DIABETES MELLITUS WITHOUT MENTION OF COMPLICATION TYPE II OR UNSPECIFIED TYPE UNCONTROLLED 09/01/2013 TREVINO DO, ELVIS K 401.1 BENIGN ESSENTIAL HYPERTENSION 09/01/2013 TREVINO DO, ELVIS K 250.02 DIABETES MELLITUS WITHOUT MENTION OF COMPLICATION TYPE II OR UNSPECIFIED TYPE UNCONTROLLED 09/01/2013 TREVINO DO, ELVIS K 401.1 BENIGN ESSENTIAL HYPERTENSION 09/01/2013 MADL ONLINE JOURNALIST, MISA L 250.02 DIABETES MELLITUS WITHOUT MENTION OF COMPLICATION TYPE II OR UNSPECIFIED TYPE UNCONTROLLED 09/01/2013 MADL ONLINE JOURNALIST, MISA L 401.1 BENIGN ESSENTIAL HYPERTENSION 09/01/2013 TREVINO DO, ELVIS K 250.02 DIABETES MELLITUS WITHOUT MENTION OF COMPLICATION TYPE II OR UNSPECIFIED TYPE UNCONTROLLED 09/01/2013 TREVINO DO, ELVIS K 401.1 BENIGN ESSENTIAL HYPERTENSION 09/01/2013 MADL ONLINE JOURNALIST, MISA L 250.02 DIABETES MELLITUS WITHOUT MENTION OF COMPLICATION TYPE II OR UNSPECIFIED TYPE UNCONTROLLED 09/01/2013 MADL ONLINE JOURNALIST, MISA L 401.1 BENIGN ESSENTIAL HYPERTENSION 09/01/2013 TREVINO DO, ELVIS K 250.02 DIABETES MELLITUS WITHOUT MENTION OF COMPLICATION TYPE II OR UNSPECIFIED TYPE UNCONTROLLED 09/01/2013 TREVINO DO, ELVIS K 401.1 BENIGN ESSENTIAL HYPERTENSION 09/01/2013 MADL ONLINE JOURNALIST, MISA L 250.02 DIABETES MELLITUS WITHOUT MENTION OF COMPLICATION TYPE II OR UNSPECIFIED TYPE UNCONTROLLED 09/01/2013 MADL ONLINE JOURNALIST, MISA L 401.1 BENIGN ESSENTIAL HYPERTENSION 09/01/2013 TREVINO DO, ELVIS K 250.02 DIABETES MELLITUS WITHOUT MENTION OF COMPLICATION TYPE II OR UNSPECIFIED TYPE UNCONTROLLED 09/01/2013 TREVINO DO, ELVIS K 401.1 BENIGN ESSENTIAL HYPERTENSION 09/01/2013 TREVINO DO, ELVIS K 250.02 DIABETES MELLITUS WITHOUT MENTION OF COMPLICATION TYPE II OR UNSPECIFIED TYPE UNCONTROLLED 09/01/2013 TREVINO DO, ELVIS K 401.1 BENIGN ESSENTIAL HYPERTENSION 09/01/2013 MADL ONLINE JOURNALIST, MISA L 250.02 DIABETES MELLITUS WITHOUT MENTION OF COMPLICATION TYPE II OR UNSPECIFIED TYPE UNCONTROLLED 09/01/2013 MADL ONLINE JOURNALIST, MISA L 401.1 BENIGN ESSENTIAL HYPERTENSION 09/01/2013 MADL ONLINE JOURNALIST, MISA L 250.02 DIABETES MELLITUS WITHOUT MENTION OF COMPLICATION TYPE II OR UNSPECIFIED TYPE UNCONTROLLED 09/01/2013 MADL ONLINE JOURNALIST, MISA L 401.1 BENIGN ESSENTIAL HYPERTENSION 09/01/2013 TREVINO DO, ELVIS K 250.02 DIABETES MELLITUS WITHOUT MENTION OF COMPLICATION TYPE II OR UNSPECIFIED TYPE UNCONTROLLED 09/01/2013 TREVINO DO, ELVIS K 401.1 BENIGN ESSENTIAL HYPERTENSION 09/01/2013 TREVINO DO, ELVIS K 250.02 DIABETES MELLITUS WITHOUT MENTION OF COMPLICATION TYPE II OR UNSPECIFIED TYPE UNCONTROLLED 09/01/2013 TREVINO DO, ELVIS K 401.1 BENIGN ESSENTIAL HYPERTENSION 09/01/2013 MADL ONLINE JOURNALIST, MISA L 250.02 DIABETES MELLITUS WITHOUT MENTION OF COMPLICATION TYPE II OR UNSPECIFIED TYPE UNCONTROLLED 09/01/2013 MADL ONLINE JOURNALIST, MISA L 401.1 BENIGN ESSENTIAL HYPERTENSION 09/01/2013 TREVINO DO, ELVIS K 250.02 DIABETES MELLITUS WITHOUT MENTION OF COMPLICATION TYPE II OR UNSPECIFIED TYPE UNCONTROLLED 09/01/2013 TREVINO DO, ELVIS K 401.1 BENIGN ESSENTIAL HYPERTENSION 09/01/2013 MADL ONLINE JOURNALIST, MISA L 250.02 DIABETES MELLITUS WITHOUT MENTION OF COMPLICATION TYPE II OR UNSPECIFIED TYPE UNCONTROLLED 09/01/2013 MADL ONLINE JOURNALIST, MISA L 401.1 BENIGN ESSENTIAL HYPERTENSION 09/01/2013 MADL ONLINE JOURNALIST, MISA L 250.02 DIABETES MELLITUS WITHOUT MENTION OF COMPLICATION TYPE II OR UNSPECIFIED TYPE UNCONTROLLED 09/01/2013 MADL ONLINE JOURNALIST, MISA L 401.1 BENIGN ESSENTIAL HYPERTENSION 09/01/2013 TREVINO DO, ELVIS K 250.02 DIABETES MELLITUS WITHOUT MENTION OF COMPLICATION TYPE II OR UNSPECIFIED TYPE UNCONTROLLED 09/01/2013 TREVINO DO, ELVIS K 401.1 BENIGN ESSENTIAL HYPERTENSION 09/01/2013 MADL ONLINE JOURNALIST, MISA L 250.02 DIABETES MELLITUS WITHOUT MENTION OF COMPLICATION TYPE II OR UNSPECIFIED TYPE UNCONTROLLED 09/01/2013 MADL ONLINE JOURNALIST, MISA L 401.1 BENIGN ESSENTIAL HYPERTENSION 09/01/2013 MADL ONLINE JOURNALIST, MISA L 250.02 DIABETES MELLITUS WITHOUT MENTION OF COMPLICATION TYPE II OR UNSPECIFIED TYPE UNCONTROLLED 09/01/2013 MADL ONLINE JOURNALIST, MISA L 401.1 BENIGN ESSENTIAL HYPERTENSION 09/01/2013 MADL ONLINE JOURNALIST, MISA L 250.02 DIABETES MELLITUS WITHOUT MENTION OF COMPLICATION TYPE II OR UNSPECIFIED TYPE UNCONTROLLED 09/01/2013 MADL ONLINE JOURNALIST, MISA L 401.1 BENIGN ESSENTIAL HYPERTENSION 09/01/2013 TREVINO DO, ELVIS K 250.02 DIABETES MELLITUS WITHOUT MENTION OF COMPLICATION TYPE II OR UNSPECIFIED TYPE UNCONTROLLED 09/01/2013 TREVINO DO, ELVIS K 401.1 BENIGN ESSENTIAL HYPERTENSION 09/01/2013 MADL ONLINE JOURNALIST, MISA L 250.02 DIABETES MELLITUS WITHOUT MENTION OF COMPLICATION TYPE II OR UNSPECIFIED TYPE UNCONTROLLED 09/01/2013 MADL ONLINE JOURNALIST, MISA L 401.1 BENIGN ESSENTIAL HYPERTENSION 09/01/2013 MADL ONLINE JOURNALIST, MISA L 250.02 DIABETES MELLITUS WITHOUT MENTION OF COMPLICATION TYPE II OR UNSPECIFIED TYPE UNCONTROLLED 09/01/2013 MADL ONLINE JOURNALIST, MISA L 401.1 BENIGN ESSENTIAL HYPERTENSION 09/15/2013 URIEL SANDOVAL ELVIS K 272.4 HYPERLIPIDEMIA 09/15/2013 TREVINO DO, ELVIS K 272.4 HYPERLIPIDEMIA 09/15/2013 TREVINO DO, ELVIS K 272.4 HYPERLIPIDEMIA 09/15/2013 TREVINO DO, ELVIS K 272.4 HYPERLIPIDEMIA 09/15/2013 TREVINO DO, ELVIS K 272.4 HYPERLIPIDEMIA 09/15/2013 TREVINO DO, ELVIS K 272.4 HYPERLIPIDEMIA 09/15/2013 TREVINO DO, ELVIS K 272.4 HYPERLIPIDEMIA 09/15/2013 RAJOTTE ONLINE JOURNALIST, ERICK A 272.4 HYPERLIPIDEMIA 09/15/2013 TREVINO DO, ELVIS K 272.4 HYPERLIPIDEMIA 09/15/2013 TREVINO DO, ELVIS K 272.4 HYPERLIPIDEMIA 09/15/2013 TREVINO DO, ELVIS K 272.4 HYPERLIPIDEMIA 09/15/2013 MADL ONLINE JOURNALIST, MISA L 272.4 HYPERLIPIDEMIA 09/15/2013 TREVINO DO, ELVIS K 272.4 HYPERLIPIDEMIA 09/15/2013 MADL ONLINE JOURNALIST, MISA L 272.4 HYPERLIPIDEMIA 09/15/2013 TREVINO DO, ELVIS K 272.4 HYPERLIPIDEMIA 09/15/2013 MADL ONLINE JOURNALIST, MISA L 272.4 HYPERLIPIDEMIA 09/15/2013 TREVINO DO, ELVIS K 272.4 HYPERLIPIDEMIA 09/15/2013 TREVINO DO, ELVIS K 272.4 HYPERLIPIDEMIA 09/15/2013 MADL ONLINE JOURNALIST, MISA L 272.4 HYPERLIPIDEMIA 09/15/2013 MADL ONLINE JOURNALIST, MISA L 272.4 HYPERLIPIDEMIA 09/15/2013 TREVINO DO, ELVIS K 272.4 HYPERLIPIDEMIA 09/15/2013 TREVINO DO, ELVIS K 272.4 HYPERLIPIDEMIA 09/15/2013 MADL ONLINE JOURNALIST, MISA L 272.4 HYPERLIPIDEMIA 09/15/2013 TREVINO DO, ELVIS K 272.4 HYPERLIPIDEMIA 09/15/2013 MADL ONLINE JOURNALIST, MISA L 272.4 HYPERLIPIDEMIA 09/15/2013 MADL ONLINE JOURNALIST, MISA L 272.4 HYPERLIPIDEMIA 09/15/2013 TREVINO DO, ELVIS K 272.4 HYPERLIPIDEMIA 09/15/2013 MADL ONLINE JOURNALIST, MISA L 272.4 HYPERLIPIDEMIA 09/15/2013 MADL ONLINE JOURNALIST, MISA L 272.4 HYPERLIPIDEMIA 09/15/2013 MADL ONLINE JOURNALIST, MISA L 272.4 HYPERLIPIDEMIA 09/15/2013 TREVINO DO, ELVIS K 272.4 HYPERLIPIDEMIA 09/15/2013 MADL ONLINE JOURNALIST, MISA L 272.4 HYPERLIPIDEMIA 09/15/2013 MADL ONLINE JOURNALIST, MISA L 272.4 HYPERLIPIDEMIA 10/13/2013 TREVINO DO, ELVIS K 790.5 OTHER NONSPECIFIC ABNORMAL SERUM ENZYME LEVELS 10/13/2013 TREVINO DO, ELVIS K 790.5 ABNORMAL HEPATIC ENZYME 10/13/2013 TREVINO DO, ELVIS K 790.5 ABNORMAL HEPATIC ENZYME 10/13/2013 TREVINO DO, ELVIS K 790.5 ABNORMAL HEPATIC ENZYME 10/13/2013 TREVINO DO, ELVIS K 790.5 ABNORMAL HEPATIC ENZYME 10/13/2013 TREVINO DO, ELVIS K 790.5 ABNORMAL HEPATIC ENZYME 10/13/2013 RAJOTTE ONLINE JOURNALIST, ERICK A 790.5 ABNORMAL HEPATIC ENZYME 10/13/2013 TREVINO DO, ELVIS K 790.5 ABNORMAL HEPATIC ENZYME 10/13/2013 TREVINO DO, ELVIS K 790.5 ABNORMAL HEPATIC ENZYME 10/13/2013 TREVINO DO, ELVIS K 790.5 ABNORMAL HEPATIC ENZYME 10/13/2013 MADL ONLINE JOURNALIST, MISA L 790.5 ABNORMAL HEPATIC ENZYME 10/13/2013 TREVINO DO, ELVIS K 790.5 ABNORMAL HEPATIC ENZYME 10/13/2013 MADL ONLINE JOURNALIST, MISA L 790.5 ABNORMAL HEPATIC ENZYME 10/13/2013 TREVINO DO, ELVIS K 790.5 ABNORMAL HEPATIC ENZYME 10/13/2013 MADL ONLINE JOURNALIST, MISA L 790.5 ABNORMAL HEPATIC ENZYME 10/13/2013 TREVINO DO, ELVIS K 790.5 ABNORMAL HEPATIC ENZYME 10/13/2013 TREVINO DO, ELVIS K 790.5 ABNORMAL HEPATIC ENZYME 10/13/2013 MADL ONLINE JOURNALIST, MISA L 790.5 ABNORMAL HEPATIC ENZYME 10/13/2013 MADL ONLINE JOURNALIST, MISA L 790.5 ABNORMAL HEPATIC ENZYME 10/13/2013 TREVINO DO, ELVIS K 790.5 ABNORMAL HEPATIC ENZYME 10/13/2013 TREVINO DO, ELVIS K 790.5 ABNORMAL HEPATIC ENZYME 10/13/2013 MADL ONLINE JOURNALIST, MISA L 790.5 ABNORMAL HEPATIC ENZYME 10/13/2013 TREVINO DO, ELVIS K 790.5 ABNORMAL HEPATIC ENZYME 10/13/2013 MADL ONLINE JOURNALIST, MISA L 790.5 ABNORMAL HEPATIC ENZYME 10/13/2013 MADL ONLINE JOURNALIST, MISA L 790.5 ABNORMAL HEPATIC ENZYME 10/13/2013 TREVINO DO, ELVIS K 790.5 ABNORMAL HEPATIC ENZYME 10/13/2013 MADL ONLINE JOURNALIST, MISA L 790.5 ABNORMAL HEPATIC ENZYME 10/13/2013 MADL ONLINE JOURNALIST, MISA L 790.5 ABNORMAL HEPATIC ENZYME 10/13/2013 MADL ONLINE JOURNALIST, MISA L 790.5 ABNORMAL HEPATIC ENZYME 10/13/2013 TREVINO DO, ELVIS K 790.5 ABNORMAL HEPATIC ENZYME 10/13/2013 MADL ONLINE JOURNALIST, MISA L 790.5 ABNORMAL HEPATIC ENZYME 10/13/2013 MADL ONLINE JOURNALIST, MISA L 790.5 ABNORMAL HEPATIC ENZYME 11/17/2013 TREVINO DO, ELVIS K 465.9 UPPER RESPIRATORY INFECTION 11/17/2013 TREVINO DO, ELVIS K 465.9 UPPER RESPIRATORY INFECTION 11/17/2013 TREVINO DO, ELVIS K 465.9 UPPER RESPIRATORY INFECTION 11/17/2013 TREVINO DO, ELVIS K 465.9 UPPER RESPIRATORY INFECTION 11/17/2013 TREVINO DO, ELVIS K 465.9 UPPER RESPIRATORY INFECTION 11/17/2013 RAJOTTE ONLINE JOURNALIST, ERICK A 465.9 UPPER RESPIRATORY INFECTION 11/17/2013 TREVINO DO, ELVIS K 465.9 UPPER RESPIRATORY INFECTION 11/17/2013 TREVINO DO, ELVIS K 465.9 UPPER RESPIRATORY INFECTION 11/17/2013 TREVINO DO, ELVIS K 465.9 UPPER RESPIRATORY INFECTION 11/17/2013 MADL ONLINE JOURNALIST, MISA L 465.9 UPPER RESPIRATORY INFECTION 11/17/2013 TREVINO DO, ELVIS K 465.9 UPPER RESPIRATORY INFECTION 11/17/2013 MADL ONLINE JOURNALIST, MISA L 465.9 UPPER RESPIRATORY INFECTION 11/17/2013 TREVINO DO, ELVIS K 465.9 UPPER RESPIRATORY INFECTION 11/17/2013 MADL ONLINE JOURNALIST, MISA L 465.9 UPPER RESPIRATORY INFECTION 11/17/2013 TREVINO DO, ELVIS K 465.9 UPPER RESPIRATORY INFECTION 11/17/2013 TREVINO DO, ELVIS K 465.9 UPPER RESPIRATORY INFECTION 11/17/2013 MADL ONLINE JOURNALIST, MISA L 465.9 UPPER RESPIRATORY INFECTION 11/17/2013 MADL ONLINE JOURNALIST, MISA L 465.9 UPPER RESPIRATORY INFECTION 11/17/2013 TREVINO DO, ELVIS K 465.9 UPPER RESPIRATORY INFECTION 11/17/2013 TREVINO DO, ELVIS K 465.9 UPPER RESPIRATORY INFECTION 11/17/2013 MADL ONLINE JOURNALIST, MISA L 465.9 UPPER RESPIRATORY INFECTION 11/17/2013 TREVINO DO, ELVIS K 465.9 UPPER RESPIRATORY INFECTION 11/17/2013 MADL ONLINE JOURNALIST, MISA L 465.9 UPPER RESPIRATORY INFECTION 11/17/2013 MADL ONLINE JOURNALIST, MISA L 465.9 UPPER RESPIRATORY INFECTION 11/17/2013 TREVINO DO, ELVIS K 465.9 UPPER RESPIRATORY INFECTION 11/17/2013 MADL ONLINE JOURNALIST, MISA L 465.9 UPPER RESPIRATORY INFECTION 11/17/2013 MADL ONLINE JOURNALIST, MISA L 465.9 UPPER RESPIRATORY INFECTION 11/17/2013 MADL ONLINE JOURNALIST, MISA L 465.9 UPPER RESPIRATORY INFECTION 11/17/2013 TREVINO DO, ELVIS K 465.9 UPPER RESPIRATORY INFECTION 11/17/2013 MADL ONLINE JOURNALIST, MISA L 465.9 UPPER RESPIRATORY INFECTION 11/17/2013 MADL ONLINE JOURNALIST, MISA L 465.9 UPPER RESPIRATORY INFECTION 12/19/2013 TREVINO DO, ELVIS K 482.9 BACTERIAL PNEUMONIA 12/19/2013 TREVINO DO, ELVIS K 482.9 BACTERIAL PNEUMONIA 12/19/2013 TREVINO DO, ELVIS K 482.9 BACTERIAL PNEUMONIA 12/19/2013 TREVINO DO, ELVIS K 482.9 BACTERIAL PNEUMONIA 12/19/2013 RAJOTTE ONLINE JOURNALIST, ERICK A 482.9 BACTERIAL PNEUMONIA 12/19/2013 TREVINO DO, ELVIS K 482.9 BACTERIAL PNEUMONIA 12/19/2013 TREVINO DO, ELVIS K 482.9 BACTERIAL PNEUMONIA 12/19/2013 TREVINO DO, ELVIS K 482.9 BACTERIAL PNEUMONIA 12/19/2013 MADL ONLINE JOURNALIST, MISA L 482.9 BACTERIAL PNEUMONIA 12/19/2013 TREVINO DO, ELVIS K 482.9 BACTERIAL PNEUMONIA 12/19/2013 MADL ONLINE JOURNALIST, MISA L 482.9 BACTERIAL PNEUMONIA 12/19/2013 TREVINO DO, ELVIS K 482.9 BACTERIAL PNEUMONIA 12/19/2013 MADL ONLINE JOURNALIST, MISA L 482.9 BACTERIAL PNEUMONIA 12/19/2013 TREVINO DO, ELVIS K 482.9 BACTERIAL PNEUMONIA 12/19/2013 TREVINO DO, ELVIS K 482.9 BACTERIAL PNEUMONIA 12/19/2013 MADL ONLINE JOURNALIST, MISA L 482.9 BACTERIAL PNEUMONIA 12/19/2013 MADL ONLINE JOURNALIST, MISA L 482.9 BACTERIAL PNEUMONIA 12/19/2013 TREVINO DO, ELVIS K 482.9 BACTERIAL PNEUMONIA 12/19/2013 TREVINO DO, ELVIS K 482.9 BACTERIAL PNEUMONIA 12/19/2013 MADL ONLINE JOURNALIST, MISA L 482.9 BACTERIAL PNEUMONIA 12/19/2013 TREVINO DO, ELVIS K 482.9 BACTERIAL PNEUMONIA 12/19/2013 MADL ONLINE JOURNALIST, MISA L 482.9 BACTERIAL PNEUMONIA 12/19/2013 MADL ONLINE JOURNALIST, MISA L 482.9 BACTERIAL PNEUMONIA 12/19/2013 TREVINO DO, ELVIS K 482.9 BACTERIAL PNEUMONIA 12/19/2013 MADL ONLINE JOURNALIST, MISA L 482.9 BACTERIAL PNEUMONIA 12/19/2013 MADL ONLINE JOURNALIST, MISA L 482.9 BACTERIAL PNEUMONIA 12/19/2013 MADL ONLINE JOURNALIST, MISA L 482.9 BACTERIAL PNEUMONIA 12/19/2013 TREVINO DO, ELVIS K 482.9 BACTERIAL PNEUMONIA 12/19/2013 MADL ONLINE JOURNALIST, MISA L 482.9 BACTERIAL PNEUMONIA 12/19/2013 MADL ONLINE JOURNALIST, MISA L 482.9 BACTERIAL PNEUMONIA 01/27/2014 TREVINO DO, ELVIS K 716.90 ARTHRITIS/ ARTHROPATHY, UNSPECIFIED 01/27/2014 MITCH BENAVIDES APRNYL A 716.90 ARTHRITIS/ ARTHROPATHY, UNSPECIFIED 01/27/2014 TREVINO DO, ELVIS K 716.90 ARTHRITIS/ ARTHROPATHY, UNSPECIFIED 01/27/2014 TREVINO DO, ELVIS K 716.90 ARTHRITIS/ ARTHROPATHY, UNSPECIFIED 01/27/2014 TREVINO DO, ELVIS K 716.90 ARTHRITIS/ ARTHROPATHY, UNSPECIFIED 01/27/2014 MADL ONLINE JOURNALIST, MISA L 716.90 ARTHRITIS/ ARTHROPATHY, UNSPECIFIED 01/27/2014 TREVINO DO, ELVIS K 716.90 ARTHRITIS/ ARTHROPATHY, UNSPECIFIED 01/27/2014 MADL ONLINE JOURNALIST, MISA L 716.90 ARTHRITIS/ ARTHROPATHY, UNSPECIFIED 01/27/2014 TREVINO DO, ELVIS K 716.90 ARTHRITIS/ ARTHROPATHY, UNSPECIFIED 01/27/2014 MADL ONLINE JOURNALIST, MISA L 716.90 ARTHRITIS/ ARTHROPATHY, UNSPECIFIED 01/27/2014 TREVINO DO, ELVIS K 716.90 ARTHRITIS/ ARTHROPATHY, UNSPECIFIED 01/27/2014 TREVINO DO, ELVIS K 716.90 ARTHRITIS/ ARTHROPATHY, UNSPECIFIED 01/27/2014 MADL ONLINE JOURNALIST, MISA L 716.90 ARTHRITIS/ ARTHROPATHY, UNSPECIFIED 01/27/2014 MADL ONLINE JOURNALIST, MISA L 716.90 ARTHRITIS/ ARTHROPATHY, UNSPECIFIED 01/27/2014 TREVINO DO, ELVIS K 716.90 ARTHRITIS/ ARTHROPATHY, UNSPECIFIED 01/27/2014 TREVINO DO, ELVIS K 716.90 ARTHRITIS/ ARTHROPATHY, UNSPECIFIED 01/27/2014 MADL ONLINE JOURNALIST, MISA L 716.90 ARTHRITIS/ ARTHROPATHY, UNSPECIFIED 01/27/2014 TREVINO DO, ELVIS K 716.90 ARTHRITIS/ ARTHROPATHY, UNSPECIFIED 01/27/2014 MADL ONLINE JOURNALIST, MISA L 716.90 ARTHRITIS/ ARTHROPATHY, UNSPECIFIED 01/27/2014 MADL ONLINE JOURNALIST, MISA L 716.90 ARTHRITIS/ ARTHROPATHY, UNSPECIFIED 01/27/2014 TREVINO DO, ELVIS K 716.90 ARTHRITIS/ ARTHROPATHY, UNSPECIFIED 01/27/2014 MADL ONLINE JOURNALIST, MISA L 716.90 ARTHRITIS/ ARTHROPATHY, UNSPECIFIED 01/27/2014 MADL ONLINE JOURNALIST, MISA L 716.90 ARTHRITIS/ ARTHROPATHY, UNSPECIFIED 01/27/2014 MADL ONLINE JOURNALIST, MISA L 716.90 ARTHRITIS/ ARTHROPATHY, UNSPECIFIED 01/27/2014 TREVINO DO, ELVIS K 716.90 ARTHRITIS/ ARTHROPATHY, UNSPECIFIED 01/27/2014 MADL ONLINE JOURNALIST, MISA L 716.90 ARTHRITIS/ ARTHROPATHY, UNSPECIFIED 01/27/2014 MADL ONLINE JOURNALIST, MISA L 716.90 ARTHRITIS/ ARTHROPATHY, UNSPECIFIED 01/28/2014 MAKAYLA ONLINE JOURNALISTERICK 786.05 SHORTNESS OF BREATH 01/28/2014 TREVINO DO, ELVIS K 786.05 SHORTNESS OF BREATH 01/28/2014 TREVINO DO, ELVIS K 786.05 SHORTNESS OF BREATH 01/28/2014 TREVINO DO, ELVIS K 786.05 SHORTNESS OF BREATH 01/28/2014 MADL ONLINE JOURNALIST, MISA L 786.05 SHORTNESS OF BREATH 01/28/2014 TREVINO DO, ELVIS K 786.05 SHORTNESS OF BREATH 01/28/2014 MADL ONLINE JOURNALIST, MISA L 786.05 SHORTNESS OF BREATH 01/28/2014 TREVINO DO, ELVIS K 786.05 SHORTNESS OF BREATH 01/28/2014 MADL ONLINE JOURNALIST, MISA L 786.05 SHORTNESS OF BREATH 01/28/2014 TREVINO DO, ELVIS K 786.05 SHORTNESS OF BREATH 01/28/2014 TREVINO DO, ELVIS K 786.05 SHORTNESS OF BREATH 01/28/2014 MADL ONLINE JOURNALIST, MISA L 786.05 SHORTNESS OF BREATH 01/28/2014 MADL ONLINE JOURNALIST, MISA L 786.05 SHORTNESS OF BREATH 01/28/2014 TREVINO DO, ELVIS K 786.05 SHORTNESS OF BREATH 01/28/2014 TREVINO DO, ELVIS K 786.05 SHORTNESS OF BREATH 01/28/2014 MADL ONLINE JOURNALIST, MISA L 786.05 SHORTNESS OF BREATH 01/28/2014 TREVINO DO, ELVIS K 786.05 SHORTNESS OF BREATH 01/28/2014 MADL ONLINE JOURNALIST, MISA L 786.05 SHORTNESS OF BREATH 01/28/2014 MADL ONLINE JOURNALIST, MISA L 786.05 SHORTNESS OF BREATH 01/28/2014 TREVINO DO, ELVIS K 786.05 SHORTNESS OF BREATH 01/28/2014 MADL ONLINE JOURNALIST, MISA L 786.05 SHORTNESS OF BREATH 01/28/2014 MADL ONLINE JOURNALIST, MISA L 786.05 SHORTNESS OF BREATH 01/28/2014 MADL ONLINE JOURNALIST, MISA L 786.05 SHORTNESS OF BREATH 01/28/2014 TREVINO DO, ELVIS K 786.05 SHORTNESS OF BREATH 01/28/2014 MADL ONLINE JOURNALIST, MISA L 786.05 SHORTNESS OF BREATH 01/28/2014 MADL ONLINE JOURNALIST, MISA L 786.05 SHORTNESS OF BREATH 02/03/2014 TREVINO DO, ELVIS K V65.49 OTHER SPECIFIED COUNSELING 02/03/2014 TREVINO DO, ELVIS K V72.31 TRAINING AND DEVELOPMENT MANAGER EXAM, ROUTINE 02/03/2014 TREVINO DO, ELVIS K V76.10 BREAST CANCER SCREENING 02/03/2014 TREVINO DO, ELVIS K V65.49 OTHER SPECIFIED COUNSELING 02/03/2014 TREVINO DO, ELVIS K V72.31 TRAINING AND DEVELOPMENT MANAGER EXAM, ROUTINE 02/03/2014 TREVINO DO, ELVIS K V76.10 BREAST CANCER SCREENING 02/03/2014 TREVINO DO, ELVIS K V65.49 OTHER SPECIFIED COUNSELING 02/03/2014 TREVINO DO, ELVIS K V72.31 TRAINING AND DEVELOPMENT MANAGER EXAM, ROUTINE 02/03/2014 TREVINO DO, ELVIS K V76.10 BREAST CANCER SCREENING 02/03/2014 MADL ONLINE JOURNALIST, MISA L V65.49 OTHER SPECIFIED COUNSELING 02/03/2014 MADL ONLINE JOURNALIST, MISA L V72.31 TRAINING AND DEVELOPMENT MANAGER EXAM, ROUTINE 02/03/2014 MADL ONLINE JOURNALIST, MISA L V76.10 BREAST CANCER SCREENING 02/03/2014 TREVINO DO, ELVIS K V65.49 OTHER SPECIFIED COUNSELING 02/03/2014 TREVINO DO, ELVIS K V72.31 TRAINING AND DEVELOPMENT MANAGER EXAM, ROUTINE 02/03/2014 TREVINO DO, ELVIS K V76.10 BREAST CANCER SCREENING 02/03/2014 MADL ONLINE JOURNALIST, MISA L V65.49 OTHER SPECIFIED COUNSELING 02/03/2014 MADL ONLINE JOURNALIST, MISA L V72.31 TRAINING AND DEVELOPMENT MANAGER EXAM, ROUTINE 02/03/2014 MADL ONLINE JOURNALIST, MISA L V76.10 BREAST CANCER SCREENING 02/03/2014 TREVINO DO, ELVIS K V65.49 OTHER SPECIFIED COUNSELING 02/03/2014 TREVINO DO, ELVIS K V72.31 TRAINING AND DEVELOPMENT MANAGER EXAM, ROUTINE 02/03/2014 TREVINO DO, ELVIS K V76.10 BREAST CANCER SCREENING 02/03/2014 MADL ONLINE JOURNALIST, MISA L V65.49 OTHER SPECIFIED COUNSELING 02/03/2014 MADL ONLINE JOURNALIST, MISA L V72.31 TRAINING AND DEVELOPMENT MANAGER EXAM, ROUTINE 02/03/2014 MADL ONLINE JOURNALIST, MISA L V76.10 BREAST CANCER SCREENING 02/03/2014 TREVINO DO, ELVIS K V65.49 OTHER SPECIFIED COUNSELING 02/03/2014 TREVINO DO, ELVIS K V72.31 TRAINING AND DEVELOPMENT MANAGER EXAM, ROUTINE 02/03/2014 TREVINO DO, ELVIS K V76.10 BREAST CANCER SCREENING 02/03/2014 TREVINO DO, ELVIS K V65.49 OTHER SPECIFIED COUNSELING 02/03/2014 TREVINO DO, ELVIS K V72.31 TRAINING AND DEVELOPMENT MANAGER EXAM, ROUTINE 02/03/2014 TREVINO DO, ELVIS K V76.10 BREAST CANCER SCREENING 02/03/2014 MADL ONLINE JOURNALIST, MISA L V65.49 OTHER SPECIFIED COUNSELING 02/03/2014 MADL ONLINE JOURNALIST, MISA L V72.31 TRAINING AND DEVELOPMENT MANAGER EXAM, ROUTINE 02/03/2014 MADL ONLINE JOURNALIST, MISA L V76.10 BREAST CANCER SCREENING 02/03/2014 MADL ONLINE JOURNALIST, MISA L V65.49 OTHER SPECIFIED COUNSELING 02/03/2014 MADL ONLINE JOURNALIST, MISA L V72.31 TRAINING AND DEVELOPMENT MANAGER EXAM, ROUTINE 02/03/2014 MADL ONLINE JOURNALIST, MISA L V76.10 BREAST CANCER SCREENING 02/03/2014 TREVINO DO, ELVIS K V65.49 OTHER SPECIFIED COUNSELING 02/03/2014 TREVINO DO, ELVIS K V72.31 TRAINING AND DEVELOPMENT MANAGER EXAM, ROUTINE 02/03/2014 TREVINO DO, ELVIS K V76.10 BREAST CANCER SCREENING 02/03/2014 TREVINO DO, ELVIS K V65.49 OTHER SPECIFIED COUNSELING 02/03/2014 TREVINO DO, ELVIS K V72.31 TRAINING AND DEVELOPMENT MANAGER EXAM, ROUTINE 02/03/2014 TREVINO DO, ELVIS K V76.10 BREAST CANCER SCREENING 02/03/2014 MADL ONLINE JOURNALIST, MISA L V65.49 OTHER SPECIFIED COUNSELING 02/03/2014 MADL ONLINE JOURNALIST, MISA L V72.31 TRAINING AND DEVELOPMENT MANAGER EXAM, ROUTINE 02/03/2014 MADL ONLINE JOURNALIST, MISA L V76.10 BREAST CANCER SCREENING 02/03/2014 TREVINO DO, ELVIS K V65.49 OTHER SPECIFIED COUNSELING 02/03/2014 TREVINO DO, ELVIS K V72.31 TRAINING AND DEVELOPMENT MANAGER EXAM, ROUTINE 02/03/2014 TREVINO DO, ELVIS K V76.10 BREAST CANCER SCREENING 02/03/2014 MADL ONLINE JOURNALIST, MISA L V65.49 OTHER SPECIFIED COUNSELING 02/03/2014 MADL ONLINE JOURNALIST, MISA L V72.31 TRAINING AND DEVELOPMENT MANAGER EXAM, ROUTINE 02/03/2014 MADL ONLINE JOURNALIST, MISA L V76.10 BREAST CANCER SCREENING 02/03/2014 MADL ONLINE JOURNALIST, MISA L V65.49 OTHER SPECIFIED COUNSELING 02/03/2014 MADL ONLINE JOURNALIST, MISA L V72.31 TRAINING AND DEVELOPMENT MANAGER EXAM, ROUTINE 02/03/2014 MADL ONLINE JOURNALIST, MISA L V76.10 BREAST CANCER SCREENING 02/03/2014 TREVINO DO ELVIS K V65.49 OTHER SPECIFIED COUNSELING 02/03/2014 TREVINO DO ELVIS K V72.31 TRAINING AND DEVELOPMENT MANAGER EXAM, ROUTINE 02/03/2014 TREVINO DO ELVIS K V76.10 BREAST CANCER SCREENING 02/03/2014 MADL ONLINE JOURNALIST, MISA L V65.49 OTHER SPECIFIED COUNSELING 02/03/2014 MADL ONLINE JOURNALIST, MISA L V72.31 TRAINING AND DEVELOPMENT MANAGER EXAM, ROUTINE 02/03/2014 MADL ONLINE JOURNALIST, MISA L V76.10 BREAST CANCER SCREENING 02/03/2014 MADL ONLINE JOURNALIST, MISA L V65.49 OTHER SPECIFIED COUNSELING 02/03/2014 MADL ONLINE JOURNALIST, MISA L V72.31 TRAINING AND DEVELOPMENT MANAGER EXAM, ROUTINE 02/03/2014 MADL ONLINE JOURNALIST, MISA L V76.10 BREAST CANCER SCREENING 02/03/2014 MADL ONLINE JOURNALIST, MISA L V65.49 OTHER SPECIFIED COUNSELING 02/03/2014 MADL ONLINE JOURNALIST, MISA L V72.31 TRAINING AND DEVELOPMENT MANAGER EXAM, ROUTINE 02/03/2014 MADL ONLINE JOURNALIST, MISA L V76.10 BREAST CANCER SCREENING 02/03/2014 TREVINO DO ELVIS K V65.49 OTHER SPECIFIED COUNSELING 02/03/2014 TREVINO DO ELVIS K V72.31 TRAINING AND DEVELOPMENT MANAGER EXAM, ROUTINE 02/03/2014 TREVINO DO, ELVIS K V76.10 BREAST CANCER SCREENING 02/03/2014 MADL ONLINE JOURNALIST, MISA L V65.49 OTHER SPECIFIED COUNSELING 02/03/2014 MADL ONLINE JOURNALIST, MISA L V72.31 TRAINING AND DEVELOPMENT MANAGER EXAM, ROUTINE 02/03/2014 MADL ONLINE JOURNALIST, MISA L V76.10 BREAST CANCER SCREENING 02/03/2014 MADL ONLINE JOURNALIST, MISA L V65.49 OTHER SPECIFIED COUNSELING 02/03/2014 MADL ONLINE JOURNALIST, MISA L V72.31 TRAINING AND DEVELOPMENT MANAGER EXAM, ROUTINE 02/03/2014 MADL ONLINE JOURNALIST, MISA L V76.10 BREAST CANCER SCREENING 03/31/2014 TREVINO DO, ELVIS K 530.81 ESOPHAGEAL REFLUX 03/31/2014 MADL ONLINE JOURNALIST, MISA L 530.81 ESOPHAGEAL REFLUX 03/31/2014 TREVNIO DO, ELVIS K 530.81 ESOPHAGEAL REFLUX 03/31/2014 MADL ONLINE JOURNALIST, MISA L 530.81 ESOPHAGEAL REFLUX 03/31/2014 TREVINO DO, ELVIS K 530.81 ESOPHAGEAL REFLUX 03/31/2014 MADL ONLINE JOURNALIST, MISA L 530.81 ESOPHAGEAL REFLUX 03/31/2014 TREVINO DO, ELVIS K 530.81 ESOPHAGEAL REFLUX 03/31/2014 TREVINO DO, ELVIS K 530.81 ESOPHAGEAL REFLUX 03/31/2014 MADL ONLINE JOURNALIST, MISA L 530.81 ESOPHAGEAL REFLUX 03/31/2014 MADL ONLINE JOURNALIST, MISA L 530.81 ESOPHAGEAL REFLUX 03/31/2014 TREVINO DO, ELVIS K 530.81 ESOPHAGEAL REFLUX 03/31/2014 TREVINO DO, ELVIS K 530.81 ESOPHAGEAL REFLUX 03/31/2014 MADL ONLINE JOURNALIST, MISA L 530.81 ESOPHAGEAL REFLUX 03/31/2014 TREVINO DO, ELVIS K 530.81 ESOPHAGEAL REFLUX 03/31/2014 MADL ONLINE JOURNALIST, MISA L 530.81 ESOPHAGEAL REFLUX 03/31/2014 MADL ONLINE JOURNALIST, MISA L 530.81 ESOPHAGEAL REFLUX 03/31/2014 TREVINO DO, ELVIS K 530.81 ESOPHAGEAL REFLUX 03/31/2014 MADL ONLINE JOURNALIST, MISA L 530.81 ESOPHAGEAL REFLUX 03/31/2014 MADL ONLINE JOURNALIST, MISA L 530.81 ESOPHAGEAL REFLUX 03/31/2014 MADL ONLINE JOURNALIST, MISA L 530.81 ESOPHAGEAL REFLUX 03/31/2014 TREVINO DO, ELVIS K 530.81 ESOPHAGEAL REFLUX 03/31/2014 MADL ONLINE JOURNALIST, MISA L 530.81 ESOPHAGEAL REFLUX 03/31/2014 MADL ONLINE JOURNALIST, MISA L 530.81 ESOPHAGEAL REFLUX 05/05/2014 HUMPHREY SAMSON DO Ot 327.23 OBSTRUCTIVE SLEEP APNEA (ADULT) (PEDIATR 05/05/2014 HUMPHREY SAMSON DO Ot 401.9 HYPERTENSION NOS 05/12/2014 MADL ONLINE JOURNALIST, MISA L 786.50 UNSPECIFIED CHEST PAIN 05/12/2014 TREVINO DO, ELVIS K 786.50 UNSPECIFIED CHEST PAIN 05/12/2014 MADL ONLINE JOURNALIST, MISA L 786.50 UNSPECIFIED CHEST PAIN 05/12/2014 TREVINO DO, ELVIS K 786.50 UNSPECIFIED CHEST PAIN 05/12/2014 MADL ONLINE JOURNALIST, MISA L 786.50 UNSPECIFIED CHEST PAIN 05/12/2014 TREVINO DO, ELVIS K 786.50 UNSPECIFIED CHEST PAIN 05/12/2014 TREVINO DO, ELVIS K 786.50 UNSPECIFIED CHEST PAIN 05/12/2014 MADL ONLINE JOURNALIST, MISA L 786.50 UNSPECIFIED CHEST PAIN 05/12/2014 MADL ONLINE JOURNALIST, MISA L 786.50 UNSPECIFIED CHEST PAIN 05/12/2014 TREVINO DO, ELVIS K 786.50 UNSPECIFIED CHEST PAIN 05/12/2014 TREVINO DO, ELVIS K 786.50 UNSPECIFIED CHEST PAIN 05/12/2014 MADL ONLINE JOURNALIST, MISA L 786.50 UNSPECIFIED CHEST PAIN 05/12/2014 TREVINO DO, ELVIS K 786.50 UNSPECIFIED CHEST PAIN 05/12/2014 MADL ONLINE JOURNALIST, MISA L 786.50 UNSPECIFIED CHEST PAIN 05/12/2014 MADL ONLINE JOURNALIST, MISA L 786.50 UNSPECIFIED CHEST PAIN 05/12/2014 TREVINO DO, ELVIS K 786.50 UNSPECIFIED CHEST PAIN 05/12/2014 MADL ONLINE JOURNALIST, MISA L 786.50 UNSPECIFIED CHEST PAIN 05/12/2014 MADL ONLINE JOURNALIST, MISA L 786.50 UNSPECIFIED CHEST PAIN 05/12/2014 MADL ONLINE JOURNALIST, MISA L 786.50 UNSPECIFIED CHEST PAIN 05/12/2014 TREVINO DO, ELVIS K 786.50 UNSPECIFIED CHEST PAIN 05/12/2014 MADL ONLINE JOURNALIST, MISA L 786.50 UNSPECIFIED CHEST PAIN 05/12/2014 MADL ONLINE JOURNALIST, MISA L 786.50 UNSPECIFIED CHEST PAIN 05/23/2014 TREVINO DO, ELVIS K NODX NO DIAGNOSIS 05/23/2014 MADL ONLINE JOURNALIST, MISA L NODX NO DIAGNOSIS 05/23/2014 MADL ONLINE JOURNALIST, MISA L NODX NO DIAGNOSIS 05/23/2014 TREVINO DO, ELVIS K NODX NO DIAGNOSIS 05/23/2014 TREVINO DO, ELVIS K NODX NO DIAGNOSIS 05/23/2014 MADL ONLINE JOURNALIST, MISA L NODX NO DIAGNOSIS 05/23/2014 TREVINO DO, ELVIS K NODX NO DIAGNOSIS 05/23/2014 MADL ONLINE JOURNALIST, MISA L NODX NO DIAGNOSIS 05/23/2014 MADL ONLINE JOURNALIST, MISA L NODX NO DIAGNOSIS 05/23/2014 TREVINO DO, ELVIS K NODX NO DIAGNOSIS 05/23/2014 MADL ONLINE JOURNALIST, MISA L NODX NO DIAGNOSIS 05/23/2014 MADL ONLINE JOURNALIST, MISA L NODX NO DIAGNOSIS 05/23/2014 MADL ONLINE JOURNALIST, MISA L NODX NO DIAGNOSIS 05/23/2014 TREVINO DO, ELVIS K NODX NO DIAGNOSIS 05/23/2014 [facility] ONLINE JOURNALIST, MISA L NODX NO DIAGNOSIS 05/23/2014 [facility] ONLINE JOURNALIST, MISA L NODX NO DIAGNOSIS 05/27/2014 [facility] ONLINE JOURNALIST, MISA L V81.1 HYPERTENSION SCREENING 05/27/2014 [facility] ONLINE JOURNALIST, MISA L V81.1 HYPERTENSION SCREENING 05/27/2014 TREVINO DO, ELVIS K V81.1 HYPERTENSION SCREENING 05/27/2014 TREVINO DO, ELVIS K V81.1 HYPERTENSION SCREENING 05/27/2014 [facility] ONLINE JOURNALIST, MISA L V81.1 HYPERTENSION SCREENING 05/27/2014 TREVINO DO, ELVIS K V81.1 HYPERTENSION SCREENING 05/27/2014 [facility] ONLINE JOURNALIST, MISA L V81.1 HYPERTENSION SCREENING 05/27/2014 [facility] ONLINE JOURNALIST, MISA L V81.1 HYPERTENSION SCREENING 05/27/2014 TREVINO DO, ELVIS K V81.1 HYPERTENSION SCREENING 05/27/2014 [facility] ONLINE JOURNALIST, MISA L V81.1 HYPERTENSION SCREENING 05/27/2014 [facility] ONLINE JOURNALIST, MISA L V81.1 HYPERTENSION SCREENING 05/27/2014 MAD[facility] ONLINE JOURNALIST, MISA L V81.1 HYPERTENSION SCREENING 05/27/2014 TREVINO DO, ELVIS K V81.1 HYPERTENSION SCREENING 05/27/2014 [facility] ONLINE JOURNALIST, MISA L V81.1 HYPERTENSION SCREENING 05/27/2014 [facility] ONLINE JOURNALIST, MISA L V81.1 HYPERTENSION SCREENING 06/03/2014 TREVINO DO, ELVIS K 796.2 ELEVATED BLOOD PRESSURE READING WITHOUT DIAGNOSIS OF HYPERTENSION 06/03/2014 TREVINO DO, ELVIS K 796.2 ELEVATED BLOOD PRESSURE READING WITHOUT DIAGNOSIS OF HYPERTENSION 06/03/2014 MADL ONLINE JOURNALIST, MISA L 796.2 ELEVATED BLOOD PRESSURE READING WITHOUT DIAGNOSIS OF HYPERTENSION 06/03/2014 TREVINO DO, ELVIS K 796.2 ELEVATED BLOOD PRESSURE READING WITHOUT DIAGNOSIS OF HYPERTENSION 06/03/2014 MADL ONLINE JOURNALIST, MISA L 796.2 ELEVATED BLOOD PRESSURE READING WITHOUT DIAGNOSIS OF HYPERTENSION 06/03/2014 MADL ONLINE JOURNALIST, MISA L 796.2 ELEVATED BLOOD PRESSURE READING WITHOUT DIAGNOSIS OF HYPERTENSION 06/03/2014 TREVINO DO, ELVIS K 796.2 ELEVATED BLOOD PRESSURE READING WITHOUT DIAGNOSIS OF HYPERTENSION 06/03/2014 MADL ONLINE JOURNALIST, MISA L 796.2 ELEVATED BLOOD PRESSURE READING WITHOUT DIAGNOSIS OF HYPERTENSION 06/03/2014 MADL ONLINE JOURNALIST, MISA L 796.2 ELEVATED BLOOD PRESSURE READING WITHOUT DIAGNOSIS OF HYPERTENSION 06/03/2014 MADL ONLINE JOURNALIST, MISA L 796.2 ELEVATED BLOOD PRESSURE READING WITHOUT DIAGNOSIS OF HYPERTENSION 06/03/2014 TREVINO DO, ELVIS K 796.2 ELEVATED BLOOD PRESSURE READING WITHOUT DIAGNOSIS OF HYPERTENSION 06/03/2014 MADL ONLINE JOURNALIST, MISA L 796.2 ELEVATED BLOOD PRESSURE READING WITHOUT DIAGNOSIS OF HYPERTENSION 06/03/2014 MADL ONLINE JOURNALIST, MISA L 796.2 ELEVATED BLOOD PRESSURE READING WITHOUT DIAGNOSIS OF HYPERTENSION 07/21/2014 HUMPHREY SAMSON DO Ot 327.23 OBSTRUCTIVE SLEEP APNEA (ADULT) (PEDIATR 08/04/2014 MADL ONLINE JOURNALIST, MISA L 719.42 PAIN IN JOINT INVOLVING UPPER ARM 08/04/2014 MADL ONLINE JOURNALIST, MISA L 719.46 PAIN IN JOINT INVOLVING LOWER LEG 08/04/2014 TREVINO DO ELVIS K 719.42 PAIN IN JOINT INVOLVING UPPER ARM 08/04/2014 TREVINO DO ELVIS K 719.46 PAIN IN JOINT INVOLVING LOWER LEG 08/04/2014 MADL ONLINE JOURNALIST, MISA L 719.42 PAIN IN JOINT INVOLVING UPPER ARM 08/04/2014 MADL ONLINE JOURNALIST, MISA L 719.46 PAIN IN JOINT INVOLVING LOWER LEG 08/04/2014 MADL ONLINE JOURNALIST, MISA L 719.42 PAIN IN JOINT INVOLVING UPPER ARM 08/04/2014 MADL ONLINE JOURNALIST, MISA L 719.46 PAIN IN JOINT INVOLVING LOWER LEG 08/04/2014 MADL ONLINE JOURNALIST, MISA L 719.42 PAIN IN JOINT INVOLVING UPPER ARM 08/04/2014 MADL ONLINE JOURNALIST, MISA L 719.46 PAIN IN JOINT INVOLVING LOWER LEG 08/04/2014 TREVINO DO ELVIS K 719.42 PAIN IN JOINT INVOLVING UPPER ARM 08/04/2014 TREVINO DO, ELVIS K 719.46 PAIN IN JOINT INVOLVING LOWER LEG 08/04/2014 MADL ONLINE JOURNALIST, MISA L 719.42 PAIN IN JOINT INVOLVING UPPER ARM 08/04/2014 MADL ONLINE JOURNALIST, MISA L 719.46 PAIN IN JOINT INVOLVING LOWER LEG 08/04/2014 MADL ONLINE JOURNALIST, MISA L 719.42 PAIN IN JOINT INVOLVING UPPER ARM 08/04/2014 MADL ONLINE JOURNALIST, MISA L 719.46 PAIN IN JOINT INVOLVING LOWER LEG 09/01/2014 MADL ONLINE JOURNALIST, MISA L 599.0 URINARY TRACT INFECTION 09/01/2014 TREVINO DO, ELVIS K 599.0 URINARY TRACT INFECTION 09/01/2014 MADL ONLINE JOURNALIST, MISA L 599.0 URINARY TRACT INFECTION 09/01/2014 MADL ONLINE JOURNALIST, MISA L 599.0 URINARY TRACT INFECTION 02/08/2015 MADL ONLINE JOURNALIST, MISA L 112.3 CANDIDIASIS OF SKIN AND NAILS 09/28/2015 ARIADNA BHATT ONLINE JOURNALIST Ot V65.49 09/28/2015 ARIADNA BHATT ONLINE JOURNALIST Ot V72.31 09/28/2015 ARIADNA BHATT A ONLINE JOURNALIST Ot V76.12 09/28/2015 HUMPHREY SAMSON DO Ot 250.00 09/28/2015 HUMPHREY SAMSON DO Ot 278.01 09/28/2015 HUMPHREY SAMSON DO Ot 311 09/28/2015 HUMPHREY SAMSON DO Ot 401.9 09/28/2015 HUMPHREY SAMSON DO Ot 493.20 09/30/2015 ARIADNA BHATT APRN Ot V65.49 09/30/2015 ARIADNA BHATT ONLINE JOURNALIST Ot V72.31 09/30/2015 ARIADNA BHATT ONLINE JOURNALIST Ot V76.12 09/30/2015 HUMPHREY SAMSON DO Ot 250.00 09/30/2015 HUMPHREY SAMSON DO Ot 278.01 09/30/2015 HUMPHREY SAMSON DO Ot 311 09/30/2015 HUMPHREY SAMSON DO Ot 401.9 09/30/2015 HUMPHREY SAMSON DO Ot 493.20 10/04/2015 BROOKS THOMAS, KEYUR Candelario Ot M17.11 10/04/2015 BROOKS THOMAS, KEYUR P Ot R53.83 10/04/2015 BROOKS THOMAS, KEYUR P Ot Z01.812 10/04/2015 BROOKS THOMAS, KEYUR P Ot Z01.818 10/04/2015 BROOKS THOMAS, KEYUR P Ot Z11.2 10/08/2015 BROOKS THOMAS, KEYUR P Ot E11.9 10/08/2015 BROOKS THOMAS, KEYUR P Ot I10 10/08/2015 BROOKS THOMAS, KEYUR P Ot M17.11 10/09/2015 BROOKS THOMAS, KEYUR P Ot E11.9 TYPE 2 DIABETES MELLITUS WITHOUT COMPLIC 10/09/2015 BROOKS THOMAS, KEYUR Candelario Ot E66.01 MORBID (SEVERE) OBESITY DUE TO EXCESS CA 10/09/2015 BROOKS THOMAS, KEYUR Candelario Ot G47.33 OBSTRUCTIVE SLEEP APNEA (ADULT) ( PEDIATR 10/09/2015 BROOKS THOMAS, KEYUR Candelario Ot I10 ESSENTIAL (PRIMARY) HYPERTENSION 10/09/2015 BROOKS THOMAS, KEYUR P Ot J45.909 UNSPECIFIED ASTHMA, UNCOMPLICATED 10/09/2015 BROOKS THOMAS, KEYUR P Ot M17.11 UNILATERAL PRIMARY OSTEOARTHRITIS, RIGHT 10/09/2015 BROOKS THOMAS, KEYUR Candelario Ot Z68.41 BODY MASS INDEX (BMI) 40.0-44.9, ADULT 11/11/2015 BROOKS THOMAS, KEYUR Candelario Ot M17.11 11/11/2015 BROOKS THOMAS, KEYUR P Ot R53.83 11/11/2015 BROOKS THOMAS, KEYUR P Ot Z01.812 11/11/2015 BROOKS THOMAS, KEYUR P Ot Z01.818 11/11/2015 BROOKS THOMAS, KEYUR Candelario Ot Z11.2 12/06/2015 ARIADNA BHATT APRN Ot V65.49 12/06/2015 ARIADNA BHATT APRN Ot V72.31 12/06/2015 ARIADNA BHATT APRN Ot V76.12 12/06/2015 HUMPHREY SAMSON DO Ot 250.00 12/06/2015 HUMPHREY SAMSON DO Ot 278.01 12/06/2015 HUMPHREY SAMSON DO Ot 311 12/06/2015 HUMPHREY SAMSON DO Ot 401.9 12/06/2015 HUMPHREY SAMSON DO Ot 493.20 12/06/2015 BROOKS THOMAS, KEYUR Candelario Ot M17.11 12/06/2015 BROOKS THOMAS, KEYUR P Ot R53.83 12/06/2015 BROOKS THOMAS, KEYUR P Ot Z01.812 12/06/2015 BROOKS THOMAS, KEYUR P Ot Z01.818 12/06/2015 BROOKS THOMAS, KEYUR P Ot Z11.2 06/19/2016 BROOKS THOMAS, KEYUR P Ot M17.11 UNILATERAL PRIMARY OSTEOARTHRITIS, RIGHT 06/19/2016 BROOKS THOMAS, KEYUR P Ot R53.83 OTHER FATIGUE 06/19/2016 BROOKS THOMAS, KEYUR P Ot Z01.812 ENCOUNTER FOR PREPROCEDURAL LABORATORY E 06/19/2016 BROOKS THOMAS, KEYUR Candelario Ot Z01.818 ENCOUNTER FOR OTHER PREPROCEDURAL EXAMIN 06/19/2016 BROOKS THOMAS, KEYUR Candelario Ot Z11.2 ENCOUNTER FOR SCREENING FOR OTHER BACTER 02/09/2017 ARIADNA BHATT APRN Ot V65.49 OTHER SPECIFIED COUNSELING 02/09/2017 ARIADNA BHATT APRN Ot V72.31 ROUTINE GYNECOLOGICAL EXAMINATION 02/09/2017 ARIADNA BHATT APRN Ot V76.12 OTH SCREEN MAMMO-MALIGN NEOPLASM OF CARMELITA 02/09/2017 HUMPHREY SAMSON DO Ot 250.00 DIAB FLAQUITA WO COMPL, TYPE II OR UNSPEC TY 02/09/2017 HUMPHREY SAMSON DO Ot 278.01 MORBID OBESITY 02/09/2017 HUMPHREY SAMSON DO Ot 311 DEPRESSIVE DISORDER NEC 02/09/2017 HUMPHREY SAMSON DO Ot 401.9 HYPERTENSION NOS 02/09/2017 HUMPHREY SAMSON DO Ot 493.20 CHRONIC OBSTRUCTIVE ASTHMA, NOS 02/09/2017 KEYUR GUY MD Ot M17.11 UNILATERAL PRIMARY OSTEOARTHRITIS, RIGHT 02/09/2017 KEYUR GUY MD Ot R53.83 OTHER FATIGUE 02/09/2017 KEYUR GUY MD Ot Z01.812 ENCOUNTER FOR PREPROCEDURAL LABORATORY E 02/09/2017 KEYUR GUY MD Ot Z01.818 ENCOUNTER FOR OTHER PREPROCEDURAL EXAMIN 02/09/2017 KEYUR GUY MD Ot Z11.2 ENCOUNTER FOR SCREENING FOR OTHER BACTER 02/22/2017 ARIADNA BHATT ONLINE JOURNALIST Ot V65.49 OTHER SPECIFIED COUNSELING 02/22/2017 ARIADNA BHATT ONLINE JOURNALIST Ot V72.31 ROUTINE GYNECOLOGICAL EXAMINATION 02/22/2017 ARIADNA BHATT ONLINE JOURNALIST Ot V76.12 OTH SCREEN MAMMO-MALIGN NEOPLASM OF CARMELITA 02/22/2017 HUMPHREY SAMSON DO Ot 250.00 DIAB FLAQUITA WO COMPL, TYPE II OR UNSPEC TY 02/22/2017 HUMPHREY SAMSON DO Ot 278.01 MORBID OBESITY 02/22/2017 HUMPHREY SAMSON DO Ot 311 DEPRESSIVE DISORDER NEC 02/22/2017 HUMPHREY SAMSON DO Ot 401.9 HYPERTENSION NOS 02/22/2017 HUMPHREY SAMSON DO Ot 493.20 CHRONIC OBSTRUCTIVE ASTHMA, NOS 02/22/2017 KEYUR GUY MD Ot M17.11 UNILATERAL PRIMARY OSTEOARTHRITIS, RIGHT 02/22/2017 KEYUR GUY MD Ot R53.83 OTHER FATIGUE 02/22/2017 KEYUR GUY MD Ot Z01.812 ENCOUNTER FOR PREPROCEDURAL LABORATORY E 02/22/2017 KEYUR GUY MD Ot Z01.818 ENCOUNTER FOR OTHER PREPROCEDURAL EXAMIN 02/22/2017 KEYUR GUY MD Ot Z11.2 ENCOUNTER FOR SCREENING FOR OTHER BACTER 02/22/2017 ARIADNA BHATT ONLINE JOURNALIST Ot V65.49 OTHER SPECIFIED COUNSELING 02/22/2017 ARIADNA BHATT ONLINE JOURNALIST Ot V72.31 ROUTINE GYNECOLOGICAL EXAMINATION 02/22/2017 ARIADNA BHATT ONLINE JOURNALIST Ot V76.12 OTH SCREEN MAMMO-MALIGN NEOPLASM OF CARMELITA 02/22/2017 HUMPHREY SAMSON DO Ot 250.00 DIAB FLAQUITA WO COMPL, TYPE II OR UNSPEC TY 02/22/2017 HUMPHREY SAMSON DO Ot 278.01 MORBID OBESITY 02/22/2017 HUMPHREY SAMSON DO Ot 311 DEPRESSIVE DISORDER NEC 02/22/2017 HUMPHREY SAMSON DO Ot 401.9 HYPERTENSION NOS 02/22/2017 HUMPHREY SAMSON DO Ot 493.20 CHRONIC OBSTRUCTIVE ASTHMA, NOS 02/22/2017 KEYUR GUY MD Ot M17.11 UNILATERAL PRIMARY OSTEOARTHRITIS, RIGHT 02/22/2017 KEYUR GUY MD Ot R53.83 OTHER FATIGUE 02/22/2017 KEYUR GUY MD Ot Z01.812 ENCOUNTER FOR PREPROCEDURAL LABORATORY E 02/22/2017 KEYUR GUY MD Ot Z01.818 ENCOUNTER FOR OTHER PREPROCEDURAL EXAMIN 02/22/2017 KEYUR GUY MD Ot Z11.2 ENCOUNTER FOR SCREENING FOR OTHER BACTER 02/23/2017 MISA KING MANAGER PACKAGE Ot R22.1 LOCALIZED SWELLING, MASS AND LUMP, NECK 09/06/2017 ARIADNA BHATT ONLINE JOURNALIST Ot V65.49 OTHER SPECIFIED COUNSELING 09/06/2017 ARIADNA BHATT ONLINE JOURNALIST Ot V72.31 ROUTINE GYNECOLOGICAL EXAMINATION 09/06/2017 ARIADNA BHATT ONLINE JOURNALIST Ot V76.12 OTH SCREEN MAMMO-MALIGN NEOPLASM OF CARMELITA 09/06/2017 HUMPHREY SAMSON DO Ot 250.00 DIAB FLAQUITA WO COMPL, TYPE II OR UNSPEC TY 09/06/2017 HUMPHREY SAMSON DO Ot 278.01 MORBID OBESITY 09/06/2017 HUMPHREY SAMSON DO Ot 311 DEPRESSIVE DISORDER NEC 09/06/2017 HUMPHREY SAMSON DO Ot 401.9 HYPERTENSION NOS 09/06/2017 HUMPHREY SAMSON DO Ot 493.20 CHRONIC OBSTRUCTIVE ASTHMA, NOS 09/06/2017 KEYUR GUY MD Ot M17.11 UNILATERAL PRIMARY OSTEOARTHRITIS, RIGHT 09/06/2017 KEYUR GUY MD Ot R53.83 OTHER FATIGUE 09/06/2017 KEYUR GUY MD Ot Z01.812 ENCOUNTER FOR PREPROCEDURAL LABORATORY E 09/06/2017 KEYUR GUY MD Ot Z01.818 ENCOUNTER FOR OTHER PREPROCEDURAL EXAMIN 09/06/2017 KEYUR GUY MD Ot Z11.2 ENCOUNTER FOR SCREENING FOR OTHER BACTER 09/06/2017 MADLJOSEA L MANAGER PACKAGE Ot R22.1 LOCALIZED SWELLING, MASS AND LUMP, NECK 10/17/2017 FANI VALLEJO MD Ot E78.5 HYPERLIPIDEMIA, UNSPECIFIED 10/17/2017 FANI VALLEJO MD Ot G47.33 OBSTRUCTIVE SLEEP APNEA (ADULT) (PEDIATR 10/17/2017 FANI VALLEJO MD Ot I10 ESSENTIAL (PRIMARY) HYPERTENSION 10/17/2017 FANI VALLEJO MD Ot R06.09 OTHER FORMS OF DYSPNEA 10/17/2017 FANI VALLEJO MD Ot R07.89 OTHER CHEST PAIN 10/23/2017 ANUSHKAMISA Graham L MANAGER PACKAGE Ot R22.1 LOCALIZED SWELLING, MASS AND LUMP, NECK 10/23/2017 FANI VALLEJO MD Ot E78.5 HYPERLIPIDEMIA, UNSPECIFIED 10/23/2017 FANI VALLEJO MD Ot G47.33 OBSTRUCTIVE SLEEP APNEA (ADULT) (PEDIATR 10/23/2017 FANI VALLEJO MD Ot I10 ESSENTIAL (PRIMARY) HYPERTENSION 10/23/2017 FANI VALLEJO MD Ot R06.09 OTHER FORMS OF DYSPNEA 10/23/2017 FANI VALLEJO MD Ot R07.89 OTHER CHEST PAIN 10/30/2017 MADLJOSEA L MANAGER PACKAGE Ot R22.1 LOCALIZED SWELLING, MASS AND LUMP, NECK Procedures Code [place] [address] XRAY KNEE RIGHT 1 OR 2 VIEWS 09/01/2013 83486 CMP 09/01/2013 29200 LIPID PANEL 09/01 43247 A1C (IN-HOUSE) 60388 XRAY KNEE RIGHT 1 OR 2 VIEWS 09/04/2013 16023 A1C (IN-HOUSE) 65510 MICRO ALBUMIN-IN HOUSE 11/17/2013 96148 ROUTINE VENIPUNCTURE 11/17/2013 77700 CMP 11/17/2013 79205 CPK 11/17/2013 65696 PULMONARY FUNCTION TEST (IN-HOUSE) 12/26/2013 85407 PULMONARY EDUCATION 12/26/2013 64666 XRAY CHEST 2 VIEW 12/29/2013 04661 PULMONARY FUNCTION TEST (IN-HOUSE) 01/28/2014 75897 BRONCHODILATION PRE/POST 01/28/2014 92764 RESPIRATORY FLOW VOLUME LOOP 01/28/2014 86134 PULMONARY EDUCATION 01/28/2014 22951 MAMMOGRAM, SCREENING 02/03/2014 15393 ROUTINE VENIPUNCTURE 02/16/2014 Pulmonary Humphrey Samson 02/16/2014 [id number] GFR CALC (RESULT ONLY) 02/16/2014 76868 CMP 02/16/2014 22975 LIPID PANEL 02/16 61319 CPK 02/16/2014 60004 A1C (IN-HOUSE) 98915 ROUTINE VENIPUNCTURE 05/12/2014 98439 EKG, TRACING 24010 BMP 05/12/2014 57991 MAGNESIUM 2013 11280 CBC 05/12/2014 BLOOD PRESSURE CHECK 05/13/2014 BLOOD PRESSURE CHECK 05/14/2014 BLOOD PRESSURE CHECK 05/22/2014 42272 NO CHARGE 2013 BLOOD PRESSURE CHECK 05/27/2014 BLOOD PRESSURE CHECK 05/28/20141999 BLOOD PRESSURE CHECK 06/02/20141999 BLOOD PRESSURE CHECK 06/10/20141999 BLOOD PRESSURE CHECK 06/11/2014 BLOOD PRESSURE CHECK 06/12/20141999 BLOOD PRESSURE CHECK 06/18/2014 BLOOD PRESSURE CHECK 07/01/20141999 BLOOD PRESSURE CHECK 07/15/2014 27003 XRAY ELBOW R 2 VIEWS 08/04/2014 56445 XRAY KNEE RIGHT 3 VIEWS 08/04/20141999 BLOOD PRESSURE CHECK 08/05/2014 62728 NO CHARGE 2013 BLOOD PRESSURE CHECK 08/13/2014 BLOOD PRESSURE CHECK 09/14/2014 44226 UA LONG DIP 09/14 47273 CULTURE URINE BLOOD PRESSURE CHECK 09/21/2014 [id number] REPLACE OF R KNEE JT WITH SYNTH SUB, DANIELLE 10/06/2015 Results Encounters ACCT No. Visit Date/Time Discharge Status Pt. Type Provider Facility Loc./Unit Complaint [id number] 02/08/2015 12:23:00 02/08/2015 23: 59:59 CLS Outpatient MISA KING APRN [id number] 09/21/2014 11:14:00 09/21/2014 23: 59:59 CLS Outpatient MADL ONLINE JOURNALIST, MISA L [id number] 09/14/2014 09:40:00 09/14/2014 23: 59:59 CLS Outpatient TREVINO DO, ELVIS Karrie [id number] 09/01/2014 15:46:00 09/01/2014 23: 59:59 CLS Outpatient MADL ONLINE JOURNALIST, MISA L [id number] 08/12/2014 14:43:00 08/12/2014 23: 59:59 CLS Outpatient MADL ONLINE JOURNALIST, MISA L [id number] 08/07/2014 14:09:00 08/07/2014 23: 59:59 CLS Outpatient MADL ONLINE JOURNALIST, MISA L [id number] 08/05/2014 14:32:00 08/05/2014 23: 59:59 CLS Outpatient TREVINO DO, ELVIS Karrie [id number] 08/04/2014 10:00:00 08/04/2014 23: 59:59 CLS Outpatient MADL ONLINE JOURNALIST, MISA L [id number] 07/15/2014 14:53:00 07/15/2014 23: 59:59 CLS Outpatient MADL ONLINE JOURNALIST, MISA L [id number] 07/01/2014 14:50:00 07/01/2014 23: 59:59 CLS Outpatient TREVINO DO, ELVIS Karrie [id number] 06/22/2014 09:04:00 06/22/2014 23: 59:59 CLS Outpatient MADL ONLINE JOURNALIST, MISA L [id number] 06/18/2014 14:33:00 06/18/2014 23: 59:59 CLS Outpatient TREVINO DO, ELVIS Karrie [id number] 06/12/2014 14:33:00 06/12/2014 23: 59:59 CLS Outpatient TREVINO DO, ELVIS K [id number] 06/03/2014 14:40:00 06/03/2014 23: 59:59 CLS Outpatient MADL ONLINE JOURNALIST, MISA L [id number] 05/28/2014 14:36:00 05/28/2014 23: 59:59 CLS Outpatient MADL ONLINE JOURNALIST, MISA L [id number] 05/23/2014 14:20:00 05/23/2014 23: 59:59 CLS Outpatient TREVINO DO, ELVIS Yoon [id number] 05/22/2014 14:52:00 05/22/2014 23: 59:59 CLS Outpatient TREVINO DOELVIS [id number] 05/19/2014 13:20:00 05/19/2014 23: 59:59 CLS Outpatient MADL ONLINE JOURNALISTMISA [id number] 05/15/2014 14:45:00 05/15/2014 23: 59:59 CLS Outpatient TREVINO DOELVIS [id number] 05/14/2014 14:37:00 05/14/2014 23: 59:59 CLS Outpatient MADL ONLINE JOURNALISTMISA [id number] 05/13/2014 14:28:00 05/13/2014 23: 59:59 CLS Outpatient TREVINO DO, ELVIS Karrie [id number] 05/12/2014 13:18:00 05/12/2014 23: 59:59 CLS Outpatient MADL ONLINE JOURNALISTMISA [id number] 03/31/2014 09:45:00 03/31/2014 23: 59:59 CLS Outpatient TREVINO DO, ELVIS Yoon [id number] 02/16/2014 09:56:00 02/16/2014 23: 59:59 CLS Outpatient TREVINO DO, ELVIS K [id number] 02/03/2014 08:57:00 02/03/2014 23: 59:59 CLS Outpatient TREVINO DO, ELVIS K [id number] 01/28/2014 10:12:00 01/28/2014 23: 59:59 CLS Outpatient REJIOTTE ONLINE JOURNALISTERICK [id number] 01/27/2014 10:10:00 01/27/2014 23: 59:59 CLS Outpatient TREVINO DO, ELVIS K [id number] 12/29/2013 10:55:00 12/29/2013 23: 59:59 CLS Outpatient TREVINO DO, ELVIS K [id number] 12/26/2013 09:28:00 12/26/2013 23: 59:59 CLS Outpatient TREVINO DO, ELVIS K [id number] 12/19/2013 10:15:00 12/19/2013 23: 59:59 CLS Outpatient TREVINO DO, ELVIS K [id number] 11/17/2013 08:58:00 11/17/2013 23: 59:59 CLS Outpatient TREVINO DO, ELVIS K [id number] 10/13/2013 09:28:00 10/13/2013 23: 59:59 CLS Outpatient TREVINO DO, ELVIS Karrie [id number] 09/15/2013 09:10:00 09/15/2013 23: 59:59 CLS Outpatient ELVIS TREVINO DO Karrie [id number] 09/04/2013 10:09:00 09/04/2013 23: 59:59 CLS Outpatient ELVIS TREVINO DO Karrie [id number] 09/01/2013 08:49:00 09/01/2013 23: 59:59 CLS Outpatient ELVIS TREVINO DO [id number] 10/31/2017 11:14:00 2016 23:59:59 CLS Outpatient FANI VALLEJO MD [facility] CARD HTN I10 [id number] 10/16/2017 11:44:00 2016 23:59:59 CLS Outpatient FANI VALLEJO MD [facility] CARD HTN I10 [id number] 02/22/2017 08:06:00 2016 23:59:59 CLS Outpatient MISA KING [employer] [facility] RAD R22.1 [id number] 10/06/2015 06:00:00 2014 14:25:00 DIS Inpatient KEYUR GUY MD [facility] 4TH RIGHT KNEE OSTEOARTRITS [id number] 09/30/2015 11:39:00 2014 23:59:59 CLS Outpatient KEYUR GUY MD [facility] PREOP RIGHT KNEE OSTEOARTHRITIS [id number] 07/20/2014 20:38:00 2013 06:30:00 DIS Outpatient HUMPHREY SAMSON DO [facility] SLEEP SNORING,HTN,EXCESSIVE DAYTIME SLEEPINESS [id number] 05/04/2014 20:55:00 2013 06:45:00 DIS Outpatient HUMPHREY SAMSON DO [facility] SLEEP SNORING,EXCESSIVE DAYTIME SLEEPINESS [id number] 04/13/2014 12:49:00 2013 23:59:59 CLS Outpatient HU[facility]HREY SAMSON [facility] [facility] RT COPD,ASTHMA [id number] 02/09/2014 10:07:00 2013 23:59:59 CLS Outpatient ARIADNA BHATT APRN [facility] RAD SCREENING [id number] 11/07/2017 06:33:00 ACT Outpatient YONI THOMAS, FANI Gustafson [facility] CATH ABN STRESS, SOB
[2017-11-07] MEDS ORDERED: HEParin (CATH LAB) 2,000 ML IV ONE (07:05)
[2017-11-07] MEDS ORDERED: LIDOCAINE 1% INJ 50 ML (XYLOCAINE) VIAL ONE (07:05)
[2017-11-07] MEDS ORDERED: NS IV 1000 ML 1,000 ML ONE (07:05)
[2017-11-07] MEDS ORDERED: NS IV 1000 ML 1,000 ML IV SCH ×2 (07:08→08:28)
[2017-11-07 07:29] LABS: BILIRUBIN,URINE NEGATIVE (NEGATIVE); KETONES,URINE NEGATIVE (NEGATIVE); LEUKOCYTE ESTERASE ,URINE 2+ (NEGATIVE); NITRITE,URINE NEGATIVE (NEGATIVE); PH,URINE 7 (5-9); PROTEIN,URINE NEGATIVE (NEGATIVE); UROBILINOGEN,URINE NORMAL (NORMAL)
[2017-11-07 07:30] LABS: MEAN PLATELET VOLUME 10.3 FL (7.4-10.4); RED BLOOD COUNT 4.96 10^6/uL (4.35-5.85); RED CELL DISTRIBUTION WIDTH 12.4 % (10.0-14.5)
[2017-11-07 07:40] LABS: INR 0.9 (0.8-1.4); PROTHROMBIN TIME PATIENT 12.1 SEC (12.2-14.7)
[2017-11-07 07:51] LABS: ALANINE AMINOTRANSFERASE 32 U/L (0-55); ALBUMIN 4.3 GM/DL (3.2-4.5); ANION GAP 11 MMOL/L (5-14); ASPARTATE AMINO TRANSFERASE 22 U/L (5-34); BLOOD UREA NITROGEN 14 MG/DL (7-18); BUN/CREATININE RATIO 17; CALCIUM 10.1 MG/DL (8.5-10.1); CARBON DIOXIDE 29 MMOL/L (21-32); CHLORIDE 95 MMOL/L (98-107); CHOLESTEROL 215 MG/DL (< 200); CREATININE SERUM 0.83 MG/DL (0.60-1.30); DIRECT LDL 139 MG/DL (1-129); GFR ESTIMATED > 60; GLUCOSE 142 MG/DL (70-105); POTASSIUM 3.6 MMOL/L (3.6-5.0); SODIUM 135 MMOL/L (135-145); TOTAL PROTEIN 8.2 GM/DL (6.4-8.2); TRIGLYCERIDES 92 MG/DL (<150); VLDL CHOLESTEROL 18 MG/DL (5-40)
[2017-11-07] MEDS ORDERED: LORA10CA PO (07:52)
[2017-11-07] MEDS ORDERED: FOLI1TAB57 PO (07:52)
[2017-11-07] MEDS ORDERED: METF500T8 PO (07:52)
[2017-11-07] MEDS ORDERED: PRAV20TA3 PO (07:52)
[2017-11-07] MEDS ORDERED: KRIL1CAP18 PO (07:52)
[2017-11-07] MEDS ORDERED: CHLO25TA22 PO (07:52)
--- NOTE | 2017-11-07 07:58 | Cardiac Procedure Note-CS/ASA ---
Pre-Procedure Note Pre-Op Procedure Note H&P Reviewed The H&P was reviewed, patient examined and no changes noted. Date H&P Reviewed: Nov 07, 2017 Time H&P Reviewed: 07:30 Conscious Sedation Pre-Proced Time Reviewed: 07:30 ASA Class: 3 Airway Mallampati Classification: ([place] appropriate class) I. II. III, IV Lungs Heart ASA score ASA 1: a normal healthy patient ASA 2: a patient with a mild systemic disease (mid diabetes, controlled hypertension, obesity x ASA 3: a patient with a severe systemic disease that limits activity (angina , COPD, prior Myocardial infarction) ASA 4: a patient with an incapacitating disease that is a constant threat to life (CHF, renal failure) ASA 5: a moribund patient not expected to survive 24 hrs. (ruptured aneurysm) ASA 6: a declared brain patient whose organs are being harvested. For emergent operations, add the letter E after the classification Grade 3 Sedation Plan: Analgesia, Amnesia, Plan communicated to team members, Discussed options with patient/fam, Discussed risks with patient/fam Note The patient is an appropriate candidate to undergo the planned procedure, sedation, and anesthesia. The patient immediately re-assessed prior to indication. FANI VALLEJO MD Nov 07, 2017 07:58
[2017-11-07] MEDS ORDERED: fentaNYL INJECTION 100 MCG/2 ML AMP ONE (07:59)
[2017-11-07] MEDS ORDERED: MIDAZOLAM 2 MG/2 ML (VERSED) VIAL ONE (08:00)
--- NOTE | 2017-11-07 08:05 | Diagnostic Imaging Report ---
EXAMINATION: Portable upright radiograph of the chest. INDICATION: Diabetes, hypertension and abnormal stress test. FINDINGS: The lungs are hyperinflated. The heart size is at the upper limits of normal. No effusion or pneumothorax. The mediastinum and aram appear unremarkable. IMPRESSION: Pulmonary hyperinflation with no focal infiltrates. Dictated by: Dictated on workstation # [id number]
[2017-11-07] MEDS ORDERED: PATIENT MAY USE OWN MEDS, ALL PO SCH (08:30)
--- NOTE | 2017-11-07 08:40 | Discharge Inst-Post CATH ---
Discharge Inst-CATH Post Cardiac Cath D/C Inst Follow Up/Plan Hold metformin for [address] Luz's office in 2-4 weeks CARDIAC CATH DISCHARGE INSTRUCTIONS *Hold Metformin for 48 hours post heart cath. ACTIVITY * Go Home directly and rest. * Limit activity of the leg (or wrist if it was used) for 7 days including aerobics, swimming, jogging, bicycling, etc. * Restrict stair-climbing for 7 days if possible, if not, climb up with your non -cath leg, then bring together on the same step. * Avoid lifting, pushing, pulling or excessive movement of the affected extremity for 7 days. * Customary sexual activity may be resumed after 2 days-use caution not to use a position that strains or causes pain to the affected extremity. * No driving for 24 hours. * NO SMOKING. * Avoid straining for bowel movements for 7 days. * Gentle walking on level ground is allowed. * Returning to work will depend on the type of procedure and the results. Your doctor will discuss this with you. CALL YOUR DOCTOR FOR ANY OF THE FOLLOWING: *If bleeding from the puncture site occurs- Apply gentle pressure to site with clean cloth and call your doctor or EMS. * If a knot or lump forms under the skin, increases in size, or causes pain. * If bruising appears to be worsening or moving further down your leg instead of disappearing. * Temperature above 101 F. CARE OF YOUR GROIN INCISION; * Bruising or purple discoloration of the skin near the puncture site is common. * You may shower only, no bathtub bathing for 5 days. Be careful to avoid slipping as your leg may feel stiff. * If a closure device was used on your femoral artery, please see the attached guide regarding care of the device and your leg. * REMOVE the dressing from your groin the next day after your procedure in the shower. CARE OF YOUR WRIST INCISION; * Bruising or purple discoloration of the skin near the puncture site is common. * You may shower. * DO NOT submerge wrist. * Remove dressing in 24 hours. FANI LUZ MD Nov 07, 2017 08:40
--- NOTE | 2017-11-07 09:14 | Cardiac Cath Report ---
Cardiac Cath Report Physician (s)/Business Support Manager (s) Physician FANI VALLEJO MD Pre-Procedure Diagnosis Pre-Procedure Diagnosis: Coronary artery disease Post-Procedure Note Procedure Start Date: Nov 07, 2017 Name of Procedure: Left heart catheterization, left ventricular pressure. [id number] Findings/Procedure Note PROCEDURE NOTE: After explaining the procedure to the patient, all pros and cons were explained, all questions were answered. The patient signed the consent and then she was placed on the cardiac catheterization laboratory. The patient was placed on the cardiac catheterization laboratory. Groin was prepped SL fashion local anesthesia was used. Sheath placed in the left femoral artery. Erick right and left catheter were used to access the coronary system. Pigtail was used to access the left ventricular cavity. Left ventriculogram was not done, pressure was measured At the end of the procedure the sheath was removed. Closure device was used FINDINGS: Hemodynamics LV 117/8 end-diastolic pressure of 8 Aorta 118/67 mean of 90 ANATOMY: Left Main history of obstructive disease Left Anterior Descending is moderate in size with mild disease distally no significant obstructive disease Left Circumflex is moderate in size with no obstructive disease Right Coronory Artery is moderate in size with no obstructive disease LV Gram was not done, pressure was measured CONCLUSION: 1. Mild disease in the distal LAD nonobstructive disease otherwise no significant obstructive coronary artery disease 2. Normal left ventricular pressure. DISCUSSION AND RECOMMENDATION: Continue with risk factors modification, monitor blood pressure lipids, weight loss and exercise Anesthesia Type: Conscious Sedation Estimated blood loss (mL): 15 ml Contrast Amount: 32 ml Total Radiation Dose: 107 mGy Post-Procedure Diagnosis Post-operative diagnosis: Chest pain nonspecific etiology Coronary artery disease Hypertension Hyperlipidemia FANI VALLEJO MD Nov 07, 2017 09:14
== END 2017-11-07 12:45 | disposition home or self-care (01) ==
LOC: CATH 06:33 → SURG 08:51 → CATH 12:45
PROVIDERS: ATTEND Internal Medicine Cardiovascular Disease
DX: R07.9 Chest pain, unspecified (principal); I25.10 Atherosclerotic heart disease of native coronary artery without angina pectoris; I10 Essential (primary) hypertension; E78.5 Hyperlipidemia, unspecified; E11.9 Type 2 diabetes mellitus without complications; G47.33 Obstructive sleep apnea (adult) (pediatric); K21.9 Gastro-esophageal reflux disease without esophagitis; E66.9 Obesity, unspecified; Z68.41 Body mass index [BMI] 40.0-44.9, adult; Z79.84 Long term (current) use of oral hypoglycemic drugs; Z79.899 Other long term (current) drug therapy; Z82.49 Family history of ischemic heart disease and other diseases of the circulatory system; Z77.22 Contact with and (suspected) exposure to environmental tobacco smoke (acute) (chronic)
CPT/HCPCS: 36415; 71010; 80053; 80061; 81000; 85027; 85610; 85730; 87081; 87088; 93458

== ENCOUNTER 2018-08-11 07:35 | Emergency (ER) | payer BC, OTHER ==
[~2018-08-11] VITALS: Ht 170.2 cm; Wt 127.0 kg
[~2018-08-11 07:35] MED LIST changes: +CHLO25TA22 PO; +FOLI1TAB57 PO; +KRIL1CAP18 PO; +LORA10CA PO; +METF-397 PO; -METF500T4 PO; +PRAV20TA3 PO
[2018-08-11] MEDS ORDERED: ASPIRIN 81 MG CHEW (CHILDREN'S ASA) ONE (07:44)
[2018-08-11 07:57] LABS: BASOPHILS % (AUTO) 0 % (0-10); EOSINOPHILS # (AUTO) 0.2 10^3/uL (0.0-0.3); EOSINOPHILS % (AUTO) 3 % (0-10); HEMATOCRIT 41 % (35-52); HEMOGLOBIN 14.2 G/DL (11.5-16.0); LYMPHOCYTES # (AUTO) 1.6 X 10^3 (1.0-4.0); LYMPHOCYTES % (AUTO) 24 % (12-44); MEAN CORPUSCULAR HEMOGLOBIN 31 PG (25-34); MEAN CORPUSCULAR HGB CONC 34 G/DL (32-36); MEAN CORPUSCULAR VOLUME 89 FL (80-99); MEAN PLATELET VOLUME 10.6 FL (7.4-10.4); MONOCYTES # (AUTO) 0.5 X 10^3 (0.0-1.0); MONOCYTES % (AUTO) 7 % (0-12); NEUTROPHILS # (AUTO) 4.4 X 10^3 (1.8-7.8); NEUTROPHILS % (AUTO) 66 % (42-75); PLATELET COUNT 265 10^3/uL (130-400); RED BLOOD COUNT 4.66 10^6/uL (4.35-5.85); RED CELL DISTRIBUTION WIDTH 12.9 % (10.0-14.5); WHITE BLOOD COUNT 6.7 10^3/uL (4.3-11.0)
[2018-08-11] MEDS ORDERED: ASPIRIN 81 MG CHEW (CHILDREN'S ASA) PO ONE (08:00)
--- NOTE | 2018-08-11 08:08 | Diagnostic Imaging Report ---
CHEST 1 VIEW, AP/PA ONLY Indication: Chest pain. Comparison: 11/07/2017 Findings: No focal airspace disease in the visualized lungs. Please note that the posterior lower lobes are poorly evaluated by portable radiography. No pleural effusion or pneumothorax. Normal cardiomediastinal silhouette. Impression: No acute cardiopulmonary process by portable radiography. Dictated by: Dictated on workstation # [id number]
[2018-08-11] MEDS ORDERED: CETI10CA PO (08:09)
[2018-08-11] MEDS ORDERED: METF100P2 MC (08:09)
[2018-08-11 08:16] LABS: ALANINE AMINOTRANSFERASE 43 U/L (0-55); ALBUMIN 4.3 GM/DL (3.2-4.5); ALKALINE PHOSPHATASE 80 U/L (40-136); BILIRUBIN,TOTAL 1.6 MG/DL (0.1-1.0); BUN/CREATININE RATIO 14; CALCIUM 9.8 MG/DL (8.5-10.1); CARBON DIOXIDE 22 MMOL/L (21-32); CHLORIDE 103 MMOL/L (98-107); CREATININE SERUM 0.79 MG/DL (0.60-1.30); GFR ESTIMATED > 60; GLUCOSE 149 MG/DL (70-105); SODIUM 137 MMOL/L (135-145); TOTAL PROTEIN 7.5 GM/DL (6.4-8.2)
--- NOTE | 2018-08-11 08:49 | ED Cardiac General ---
History of Present Illness General Chief Complaint: Chest Pain Stated Complaint: CHEST TIGHNTESS,TINGLING L ARM,BLURRY VISION Nursing Triage Note: PT CO OF CHEST TIGHTNESS, PT STATES STARTED YESTERDAY AM, STOPPED AND STARTED THIS AM @ 0600. RATES 02/02, PT STATES HAS COUGH, HAS SL L ARM TINGLING. Source: patient Exam Limitations: no limitations History of Present Illness Date Seen by Provider: Aug 11, 2017 Time Seen by Provider: 08:55 Initial Comments The patient is a 52-year-old white female who presents with complaints of chest tightness or pressure which began yesterday then stopped and returned this morning. She reports she has a cough. She is not aware of any fever. There is no sputum production. She had a coronary angiogram in October 2017 which showed minimal disease. Timing/Duration: 24 hours Severity: mild Location: central Prior CP/Workup: cardiac cath NTG SL BARBECUE COOK: No ASA po BARBECUE COOK: No Associated Systoms: Cough Allergies and Home Medications Allergies Coded Allergies: acetaminophen (Verified Allergy, Severe, RESP DISTRESS, 09/30/15) fentanyl (Verified Allergy, Severe, ARRHYTHMIA, 09/30/15) oxycodone (Verified Allergy, Severe, RESP DISTRESS, RECEIVED MORPHINE W/O ISSUE, 10/08/15) pentazocine (Verified Allergy, Severe, RESP DISTRESS, 09/30/15) propoxyphene (Verified Allergy, Severe, ARRHYTHMIA, 09/30/15) Home Medications Acetaminophen 500 Mg Tablet, 1,500 MG PO DAILY, (Reported) TAKES 3 (500MG) TABLETS Amlodipine Besylate/Benazepril 1 Each Capsule, 1 CAP PO DAILY, (Reported) Krill/Om-3/Dha/Epa/Phospho/Ast 1 Each Capsule, 3 EACH PO DAILY, (Reported) Mv,Ca,Min/Iron Fum/FA/Vit K 1 Each Tablet, 1 EACH PO DAILY, (Reported) Omeprazole 40 Mg Capsule.dr, 40 MG PO DAILY, (Reported) LAST FILLED #30 IN MAY Pravastatin Sodium 20 Mg Tablet, 80 MG PO DAILY, (Reported) Patient Home Medication List Home Medication List Reviewed: Yes Review of Systems Review of Systems Constitutional: see HPI EENTM: No Symptoms Reported Respiratory: See HPI, Cough Cardiovascular: Chest Pain Gastrointestinal: No Symptoms Reported Genitourinary: No Symptoms Reported Musculoskeletal: no symptoms reported Skin: no symptoms reported Psychiatric/Neurological: No Symptoms Reported Endocrine: No Symptoms Reported Hematologic/Lymphatic: No Symptoms Reported Past Vvapbsl-Llceei-Ybixsz Hx Patient Social History Alcohol Use: Denies Use Recreational Drug Use: No Smoking Status: Never a Smoker Recent Foreign Travel: No Contact w/Someone Who Travel: No Recent Infectious Disease Expo: No Recent Hopitalizations: No Physical Abuse: No Sexual Abuse: No Immunizations Up To Date Date of Pneumonia Vaccine: Nov 26, 2013 Date of Influenza Vaccine: Aug 27, 2017 Past Medical History Surgeries: Yes Appendectomy, Gallbladder, Hysterectomy, Joint Replacement Respiratory: Yes Asthma, Sleep Apnea, COPD Currently Using CPAP: No Cardiac: Yes Hypertension Neurological: Yes (NEUROPATHY IN FEET) Reproductive Disorders: No Female Reproductive Disorders: Denies Sexually Transmitted Disease: No HIV/AIDS: No Genitourinary: No Gastrointestinal: Yes Gastroesophageal Reflux Musculoskeletal: Yes Osteoporosis, Arthritis Endocrine: Yes Diabetes, Non-Insulin dep Loss of Vision: Bilateral Hearing Impairment: Denies Cancer: No Psychosocial: Yes (PAST HX) Anxiety, Depression Integumentary: Yes (DRY SKIN) Blood Disorders: No Adverse Reaction/Blood Tranf: No Family Medical History Abdominal aortic aneurysm G8 BROTHER G8 SISTER Alcoholism G8 BROTHER BRAIN CANCER, MRSA G8 BROTHER Cardiovascular disease 19 MOTHER G8 SISTER Diabetes mellitus 19 MOTHER G8 BROTHER G8 SISTER Drug abuse G8 BROTHER Gastroenteritis G8 BROTHER G8 SISTER Hypertension 19 MOTHER G8 BROTHER G8 SISTER Respiratory disorder 19 FATHER G8 SISTER SKIN CANCER G8 SISTER STROKE 19 MOTHER G8 SISTER TB 19 FATHER Physical Exam Vital Signs Vital Signs - First Documented 08/11/18 07:35 Temp 97.5 Pulse 76 Resp 18 B/P (MAP) 150/78 (102) Pulse Ox 98 O2 Delivery Room Air Capillary Refill : Less Than 3 Seconds Height, Weight, BMI Height: 5'7.00" Weight: 280lbs. 0.0oz. 127.156211ju; 44.1 BMI Method:Stated General Appearance: No Apparent Distress HEENT: Normal ENT Inspection Neck: Full Range of Motion Respiratory: Chest Non Tender, Lungs Clear, Normal Breath Sounds, No Accessory Muscle Use, No Respiratory Distress Cardiovascular: Regular Rate, Rhythm, No Edema, No Gallop, No JVD, No Murmur, Normal Peripheral Pulses Gastrointestinal: Normal Bowel Sounds, No Organomegaly, No Pulsatile Mass, Non Tender Extremity: Normal Capillary Refill, Normal Inspection, Normal Range of Motion Neurologic/Psychiatric: Alert, Oriented x3, No Motor/Sensory Deficits, Normal Mood/Affect Skin: Normal Color, Warm/Dry Lymphatic: No Adenopathy Progress/Results/Core Measures Results/Orders Lab Results Laboratory Tests Test 08/11/18 07:48 Range/Units White Blood Count 6.7 4.3-11.0 10^3/uL Red Blood Count 4.66 4.35-5.85 10^6/uL Hemoglobin 14.2 11.5-16.0 G/DL Hematocrit 41 35-52 % Mean Corpuscular Volume 89 80-99 FL Mean Corpuscular Hemoglobin 31 25-34 PG Mean Corpuscular Hemoglobin Concent 34 32-36 G/DL Red Cell Distribution Width 12.9 10.0-14.5 % Platelet Count 265 130-400 10^3/uL Mean Platelet Volume 10.6 H 7.4-10.4 FL Neutrophils (%) (Auto) 66 42-75 % Lymphocytes (%) (Auto) 24 12-44 % Monocytes (%) (Auto) 7 0-12 % Eosinophils (%) (Auto) 3 0-10 % Basophils (%) (Auto) 0 0-10 % Neutrophils # (Auto) 4.4 1.8-7.8 X 10^3 Lymphocytes # (Auto) 1.6 1.0-4.0 X 10^3 Monocytes # (Auto) 0.5 0.0-1.0 X 10^3 Eosinophils # (Auto) 0.2 0.0-0.3 10^3/uL Basophils # (Auto) 0.0 0.0-0.1 10^3/uL Sodium Level 137 135-145 MMOL/L Potassium Level 4.0 3.6-5.0 MMOL/L Chloride Level 103 98-107 MMOL/L Carbon Dioxide Level 22 21-32 MMOL/L Anion Gap 12 5-14 MMOL/L Blood Urea Nitrogen 11 7-18 MG/DL Creatinine 0.79 0.60-1.30 MG/DL Estimat Glomerular Filtration Rate > 60 BUN/Creatinine Ratio 14 Glucose Level 149 H 70-105 MG/DL Calcium Level 9.8 8.5-10.1 MG/DL Corrected Calcium 9.6 8.5-10.1 MG/DL Total Bilirubin 1.6 H 0.1-1.0 MG/DL Aspartate Amino Transf (AST/SGOT) 37 H 5-34 U/L Alanine Aminotransferase (ALT/SGPT) 43 0-55 U/L Alkaline Phosphatase 80 40-136 U/L Troponin I < 0.30 <0.30 NG/ML Total Protein 7.5 6.4-8.2 GM/DL Albumin 4.3 3.2-4.5 GM/DL My Orders Orders - TOMMY LEGGETT MD Chest 1 View, Ap/Pa Only (08/11/18 07:45) Ekg Tracing (08/11/18 07:45) Cbc With Automated Diff (08/11/18 07:45) Comprehensive Metabolic Panel (08/11/18 07:45) Troponin I (08/11/18 07:45) Ua Culture If Indicated (08/11/18 07:45) Aspirin Chewable Tablet (Baby Aspirin Ch (08/11/18 08:00) Aspirin Chewable Tablet (Baby Aspirin Ch (08/11/18 07:44) Medications Given in ED Current Medications Medications Dose Ordered Sig/Philip Route Start Time Stop Time Status Last Admin Dose Admin Aspirin 81 mg ONCE ONCE PO 08/11/18 08:00 08/11/18 08:01 DC 08/11/18 07:51 81 MG Vital Signs/I&O 08/11/18 08/11/18 07:35 07:35 Temp 97.5 Pulse 76 Resp 18 B/P (MAP) 150/78 (102) Pulse Ox 98 O2 Delivery Room Air Blood Pressure Mean: 102 Departure Impression Primary Impression: upper respiratory infection Disposition: 01 HOME, SELF-CARE Condition: Stable/Unchanged Departure-Patient Inst. Decision time for Depature: 08:53 Referrals: [facility] (PCP) Primary Care Physician Patient Instructions: Chest Pain That Is Not Caused by the Heart (DC) Add. Discharge Instructions: All discharge instructions reviewed with patient and/or family. Voiced understanding. Use ibuprofen 400 or Tylenol 650 as needed for chest discomfort. I reviewed your angiography from October 2017 and it confirms that you have minimal disease in her coronary arteries which makes cardiac cause of this chest pressure unlikely. TOMMY LEGGETT MD Aug 11, 2018 08:49
[2018-08-11 09:04] VITALS: BP 139/79
== END 2018-08-11 09:19 | disposition home or self-care (01) ==
LOC: EDUNIT# 07:35 → ER 07:37
DX: J06.9 Acute upper respiratory infection, unspecified (principal); J44.9 Chronic obstructive pulmonary disease, unspecified; I10 Essential (primary) hypertension; K21.9 Gastro-esophageal reflux disease without esophagitis; M81.0 Age-related osteoporosis without current pathological fracture; E11.9 Type 2 diabetes mellitus without complications; F41.9 Anxiety disorder, unspecified; F32.9 Major depressive disorder, single episode, unspecified; G47.30 Sleep apnea, unspecified; Z88.6 Allergy status to analgesic agent; Z88.5 Allergy status to narcotic agent; Z80.8 Family history of malignant neoplasm of other organs or systems; Z82.49 Family history of ischemic heart disease and other diseases of the circulatory system; Z88.8 Allergy status to other drugs, medicaments and biological substances; Z90.89 Acquired absence of other organs; Z90.710 Acquired absence of both cervix and uterus
CPT/HCPCS: 36415; 71045; 80053; 84484; 85025; 93005

== ENCOUNTER 2018-09-11 06:22 | Outpatient (CLI) | payer BC ==
[~2018-09-11] VITALS: Ht 170.2 cm; Wt 127.0 kg
[~2018-09-11 06:22] MED LIST changes: +CETI10CA PO; +METF100P2 MC
[2018-09-12] MEDS ORDERED: CHLO25TA22 PO (16:25)
[2018-09-12] MEDS ORDERED: METF-397 PO (16:25)
== END 2018-09-12 16:27 | disposition home or self-care (01) ==
LOC: PREOP 06:22
PROVIDERS: ATTEND Surgery
DX: Z01.818 Encounter for other preprocedural examination (principal)

== ENCOUNTER 2018-10-02 09:21 | Day surgery (SDC) | payer BC ==
[~2018-10-02] VITALS: Ht 170.2 cm; Wt 127.0 kg
--- OUTSIDE RECORDS SUMMARY | 2018-10-02 09:30 | XMS REPORT ---
Author Author [facility] Address [address] [place] [address] Care Team Providers Care Practicing Md Anesthesiologist Name Role Phone CATALINO PONCE Unavailable PROBLEMS ALLERGIES No Information ENCOUNTERS IMMUNIZATIONS No Known Immunizations SOCIAL HISTORY No smoking Hx information available REASON FOR VISIT PLAN OF CARE VITAL SIGNS MEDICATIONS RESULTS No Results PROCEDURES No Known procedures INSTRUCTIONS MEDICATIONS ADMINISTERED No Known Medications MEDICAL (GENERAL) HISTORY
--- OUTSIDE RECORDS SUMMARY | 2018-10-02 09:30 | XMS REPORT ---
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 Active 91421188 Problem Hyperlipidemia LDL goal <70 E78.5 Active 80628642 Problem Dyslipidemia E78.5 Active 923557763 Problem Other chronic pain G89.29 Active 15018071 Problem Dyspnea on exertion R06.09 Active 79487925 Problem Atypical mole D22.9 Active 671566587 Problem Anxiety with depression F41.8 Active 80671057 Problem 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 237480131 Problem Moderate persistent asthma without complication J45.40 Active 088620776 Problem Gastroesophageal reflux disease without esophagitis K21.9 Active 548339479 Problem General medical exam Z00.00 Active 558690809 Problem Mild intermittent asthma with acute exacerbation J45.21 Active 074547999 Problem Arthritis M19.90 Active 6956304 Problem Edema of both feet R60.0 Active 732445412 Problem Essential hypertension I10 Active 16960855 Problem Hyperkalemia E87.5 Active 98870713 ALLERGIES No Information ENCOUNTERS Encounter Location Date Diagnosis [facility] [address] [id number] [place] [id number] Jun, Hyperlipidemia LDL goal <[address] [id number] [place] [id number] Jun, Dyslipidemia E78.5 and Hyperlipidemia LDL goal <70 E78.5 [facility] [address] [id number] [id number] Jun, 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.21 ; Hyperlipidemia LDL goal <70 E78.5 and Essential hypertension I10 [facility] [id number] [address] Apr, Anxiety with depression F41.8 [facility] [address] [facility] [id number] [address] Apr, Pain in left knee M25.562 ; Other chronic pain G89.29 ; Insect bite (nonvenomous), left lower leg, initial encounter S80.862A ; Bitten or stung by nonvenomous insect and other nonvenomous arthropods, initial encounter W57.XXXA and BMI 45.0-49.9, adult Z68.[address] [id number][place] [id number] March, Anxiety with depression F41.[address] [id number][place] [address] March, Anxiety with depression F41.[address] [id number][place] [id number] Feb, [address] [id number] [address] Feb, BMI 45.0-49.9, adult Z68.42 ; Essential hypertension I10 ; Arthritis M19.90 ; Gastroesophageal reflux disease without esophagitis K21.9 ; Hyperlipidemia LDL goal <70 E78.5 ; History of renal insufficiency Z87.448 and 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.21 [facility] [address] [facility] [id number] [address] Nov, Essential hypertension I10 ; Type 2 diabetes mellitus with diabetic nephropathy, 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 ; Long- term use of high-risk medication Z79.899 ; Hyperlipidemia LDL goal <70 E78.5 ; Dyspnea on exertion R06.09 and BMI 40.0-44.9, adult Z68.41 [place] [address]00565[address] [address] 14 Sep, 2017 Essential hypertension I10 and Type 2 diabetes mellitus with diabetic nephropathy, 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 [place] [address]00565100[place], [place] [address] Aug, [place] [address] [place] [id number] [place] [address] Jun, Essential hypertension I10 ; Type 2 diabetes mellitus with diabetic nephropathy, 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 ; Long- term use of high-risk medication Z79.899 ; Hyperlipidemia LDL goal <70 E78.5 ; Dyspnea on exertion R06.09 and Atypical mole D22.9 [address]00565100[place], [place] [address] May, Essential hypertension I10 [address]65100[place] [address] March, Essential hypertension I10 ; 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.21 ; Long-term use of high-risk medication Z79.899 ; Left hip pain M25.552 ; Pain in left knee M25.562 ; Fullness of neck R22.1 and Hyperlipidemia LDL goal <70 E78.5 [place] [address] [place] [id number] [address] Feb, Essential hypertension I10 ; 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.21 ; Long-term use of high-risk medication Z79.899 ; Left hip pain M25.552 ; Pain in left knee M25.562 ; Fullness of neck R22.1 and Hyperlipidemia LDL goal <70 E78.5 [place] [address] [place] [id number], [place] [address] Jan, Essential hypertension I10 [address] [id number][place] [address] Jan, Essential hypertension I10 [place] [id number] [place] [address]- 2167 17 Jan, 2017 Fullness of neck R22.1 [place] [address] [place] [address] [id number] [place] [address] 10021- 2354 15 Jan, 2017 Essential hypertension I10 ; 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.21 ; Long-term use of high-risk medication Z79.899 ; Left hip pain M25.552 ; Pain in left knee M25.562 ; Fullness of neck R22.1 and Eustachian tube disorder, bilateral H69.93 [place] [address] [place] [address] [id number] [place] [address]- 5848 Nov, [facility] [address] [facility] [address] [id number] [place] [id number] Nov, [facility] [address] [facility] [address] [address] [id number][place] [id number] Nov, Acute otitis externa of both ears, unspecified type H60.503 [facility] [address] [id number][place] [id number] Oct, Bronchitis J40 [place] [address] [place] [address] [id number] [place] [address] 89[address]- 1721 Sep, Essential hypertension I10 ; 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.21 ; Long-term use of high-risk medication Z79.899 ; Swelling R60.9 and Bronchitis J40 [place] [address] [place] [id number] [place] [address] 25972- 7530 Aug, [place] [address] [place] [id number] [place] [address]9735- 6740 Aug, Edema of both feet R60.0 ; Essential hypertension I10 ; 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.21 ; Skin ulcer of foot including toes, right, limited to breakdown of skin L97.511 and Yeast dermatitis B37.2 [place] [address] [place] [address] [id number] [place] [address] 889[address]- 8926 Jul, [facility] [address]100[place] [address] Jul, [facility] [address] [place] [id number] [place] [id number] Jul, Encounter for dental examination Z01.20 [facility] [address] [place] [address] [id number] [place] [address]28[address] 1073 Jun, Edema of both feet R60.0 ; Essential hypertension I10 ; Arthritis M19.90 ; 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.21 ; Hyperkalemia E87.5 and Anxiety about health F41.8 [facility] [address] [place] [id number] Jun, Dental examination Z01.20 [facility] [address] [place] [address] [id number] [place] [address] 66155- 5431 Jun, Edema of both feet R60.0 ; Essential hypertension I10 ; Arthritis M19.90 ; 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.21 and Mild intermittent asthma with acute exacerbation J45.21 [facility] [address] [place] [address] 94413- 7481 Jun, [facility] [address] [place] [address] [id number] [place] [address] 73635- 7440 Jun, [facility] [address] [place] [address] 79907- 3205 Feb, Swelling R60.9 and Swelling of both eyes H57.8 [facility] [address] [place] [address] 71406- 4594 Jan, Essential hypertension I10 ; Arthritis M19.90 ; 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.21 ; Mild intermittent asthma with acute exacerbation J45.21 and Edema R60.9 [facility] [address] [place] [address] 20761- 5473 16 Dec, 2015 [place] [address] [place] [address] [id number] [place] [address] 37362- 0273 03 Feb, 2016 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.21 ; Essential hypertension I10 ; Mild intermittent asthma with acute exacerbation J45.21 ; Upper respiratory infection J06.9 and Gastroesophageal reflux disease without esophagitis K21.9 [place] [address] [place] [address] [id number] [place] [address] 09791- 9697 24 Sep, 2015 Essential hypertension I10 ; Gastroesophageal reflux disease without esophagitis K21.9 ; 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.21 and History of knee replacement procedure of right knee Z96.651 [place] [address] [place] [id number] [place] [address] 66830- 2727 16 Sep, 2015 [place] [address] [address]- 8516 Aug, General medical exam Z00.00 [place] [address] 8[address]- 2[address] Aug, [place] [address] [address]- 4719 Aug, [place] [address] [place] [id number] [place] [address] 19300- 6057 Aug, [place] [address] [address]71- 1044 Aug, Essential hypertension I10 ; Gastroesophageal reflux disease without esophagitis K21.9 ; Arthritis M19.90 ; 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.21 ; Moderate persistent asthma without complication J45.40 and History of long-term use of multiple prescription drugs Z92.29 [place] [address] [place] [address] [id number] [place] [address] 30013- 7757 Jul, Upper respiratory infection 465.9 [place] [address] [address]- 7123 May, [address] [address]- [address] 07 May, 2015 Diabetes mellitus without mention of complication, type II or unspecified type, uncontrolled 250.02 ; Esophageal reflux 530.81 ; Essential hypertension, benign 401.1 ; Other and unspecified hyperlipidemia 272.4 ; Chest wall pain 786.52 ; Thickened nails 703.8 ; Foot pain 729.5 ; Arthritis 716.90 and Knee pain 719.46 [facility] [address] [address] 1271 22 Apr, 2015 [facility] [address] [place] [id number] [place] [address] 775425- 7180 14 Feb, 2015 [facility] [address] [place] [address] [id number] [place] [address] 41952- 9942 Feb, [facility] [address] [place] [address] [id number] [place] [address] 679178- 6240 19 Jan, 2015 [facility] [address] [place] [address] [id number] [place] [address] 62997- 5193 19 Jan, 2015 [facility] [address] [place] [address] [id number] [place] [address] 09973- 7144 17 Jan, 2015 [facility] [address], [place] [address]- 3791 17 Jan, 2015 [facility] [address] [place] [address] [id number] [place] [address] 71350- 3541 17 Jan, 2015 [facility] [address] [address]- 2355 17 Jan, 2015 [facility] [address], [place] [address]- 5994 16 Jan, 2015 [facility] [address] 4472 16 Jan, 2015 [facility] [address] [place] [address] [id number] [place] [address] 421269- 6385 16 Jan, 2015 [facility] [address] 0984 16 Jan, 2015 [facility] [address] [place] [address] 247974- 4229 Sep, [facility] [place] [facility] [address] [id number] [place] [address]- 9984 Sep, [facility] [place] [facility] [address] [id number] [place] [address]- 2896 Aug, [facility] [place] [facility] [address] [id number] [place] [address]- 0660 Aug, [facility] [place] [facility] [address] [id number] [place] [address]- 9750 Aug, [facility] [place] [facility] [address] [id number] [place] [address]- 5945 Aug, [facility] [place] [facility] [address] [id number] [place] [address]- 8270 Aug, [facility] [place] [facility] [address] [id number] [place] [address]- 4032 Aug, [facility] [place] [facility] [address] [id number] [place] [address]- 7453 Aug, [facility] [place] [facility] [address] [id number] [place] [address]- 4712 Aug, [facility] [place] [facility] [address] [id number] [address]- 8629 Aug, [facility] [place] [facility] [address] [id number], [place] [address]- 4351 Aug, [facility] [place] [facility] [address] [id number], [place] [address]- 3241 Aug, [facility] [place] [facility] [address] [id number] [place] [address]- 4266 Aug, [facility] [place] [facility] [address] [id number], [place] [address]- 7702 Aug, [facility] [place] [facility] [address] [id number]- 1433 Aug, [facility] [place] [facility] [address] [id number], [place] [address]- 5627 19 Jul, 2013 [facility] [place] [facility] [address] [id number] [place] [address]- 6925 19 Jul, 2013 [facility] [place] [facility] [address] [id number] [place] [address]- 7406 17 Jul, 2013 [facility] [place] [facility] [address] [id number] [place] [address]- 4497 17 Jul, 2013 [facility] [place] [facility] [address] [id number] [place] [address]- 5670 12 Jul, 2013 [facility] [place] [facility] [address] [id number] [place] [address]- 9188 12 Jul, 2013 [facility] [place] [facility] [address] [id number] [place] [address]- 4137 10 Jul, 2013 [facility] [place] [facility] [address] [id number] [place] [address]- 2008 Jul, 2013 [facility] [place] [facility] [address] [id number] [place] [address]- 1795 Jul, [facility] [place] [facility] [address] [id number] [place] [address]- 6804 Jul, [facility] [place] [facility] [address] [id number] [place] [address]- 6291 Jun, [facility] [place] [facility] [address] [id number] [place] [address]- 8434 Jun, [facility] [place] [facility] [address] [id number] [place] [address]- 4555 Jun, [facility] [place] [facility] [address] [id number] [place] [address]- 8836 Jun, [facility] [place] [facility] [address] [id number] [place] [address]- 1713 Jun, [facility] [place] [facility] [address] [id number] [place] [address]- 5397 Jun, [facility] [place] [facility] [address] [id number] [place] [address]- 1616 Jun, [facility] [place] [facility] [address] [id number] [place] [address]- 6621 Jun, [facility] [place] [facility] [address] [id number] [place] [address]- 4306 May, [facility] [place] [facility] [address] [id number] [place] [address]- 6656 May, [facility] [place] [facility] [address] [id number] [place] [address]- 5133 May, [facility] [place] [facility] [address] [id number] [place] [address]- 6121 May, [facility] [place] [facility] [address] [id number] [place] [address]- 5798 May, [facility] [place] [facility] [address] [id number] [place] [address]- 4876 May, [facility] [place] [facility] [address] [id number] [place] [address]- 0114 May, [facility] [place] [facility] [address] [id number] [place] [address]- 8610 May, [facility] [place] [facility] [address] [id number] [place] [address]- 2665 May, [facility] [place] [facility] [address] [id number] [place] [address]- 2328 May, [facility] [place] [facility] [address] [id number] [place] [address]- 7646 May, [facility] [place] [facility] [address] [id number] [place] [address]- 2337 May, [facility] [place] [facility] [address] [id number] [place] [address]- 4716 May, [facility] [place] [facility] [address] [id number] [place] [address]- 5574 May, [facility] [place] [facility] [address] [id number] [place] [address]- 9743 May, 2013 [facility] [place] [facility] [address] [id number] [place] [address]- 8492 May, [facility] [place] [facility] [address] [id number] [place] [address]- 1711 May, [facility] [place] [facility] [address] [id number] [place] [address]- 5148 May, [facility] [place] [facility] [address] [id number] [place] [address]- 5576 May, [facility] [place] [facility] [address] [id number] [place] [address]- 9234 May, [facility] [place] [facility] [address] [id number] [place] [address]- 3098 Apr, [facility] [place] [facility] [address] [id number] [place] [address]- 0338 Apr, [facility] [place] [facility] [address] [id number] [place] [address]- 4126 Apr, [facility] [place] [facility] [address] [id number] [place] [address]- 7102 Apr, [facility] [place] [facility] [address] [id number], [place] [address]- 9870 Apr, [facility] [place] [facility] [address] [id number], [place] [address]- 4660 Apr, [facility] [place] [facility] [address] [id number] [place] [address]- 8737 Apr, [facility] [place] [facility] [address] [id number], [place] [address]- 3819 Apr, [facility] [address] [id number] [place] [address] Apr, [facility] [place] [facility] [address] [id number], [place] [address]- 5244 Apr, [facility] [place] [facility] [address] [id number] [place] [address]- 9325 20 Apr, 2014 [facility] [place] [facility] [address] [id number] [place] [address]- 5287 20 Apr, 2014 [facility] [place] [facility] [address] [id number] [place] [address]- 0496 19 Apr, 2014 [facility] [place] [facility] [address] [id number] [place] [address]- 1362 19 Apr, 2014 [facility] [place] [facility] [address] [id number] [place] [address]- 6127 19 Apr, 2014 [facility] [place] [facility] [address] [id number] [place] [address]- 1746 19 Apr, 2014 [facility] [place] [facility] [address] [id number] [place] [address]- 3486 18 Apr, 2014 [facility] [place] [facility] [address] [id number] [place] [address]- 7551 18 Apr, 2014 [facility] [place] [facility] [address] [id number] [place] [address]- 0430 18 Apr, 2014 [facility] [place] [facility] [address] [id number] [place] [address]- 6946 18 Apr, 2014 [facility] [place] [facility] [address] [id number], [place] [address]- 5523 17 Apr, 2014 [facility] [place] [facility] [address] [id number], [place] [address]- 4998 17 Apr, 2014 [facility] [place] [facility] [address] [id number] [place] [address]- 8375 17 Apr, 2014 [facility] [place] [facility] [address] [id number] [place] [address]- 5185 17 Apr, 2014 [facility] [place] [facility] [address] [id number] [place] [address]- 3806 05 Apr, 2014 [facility] [place] [facility] [address] [id number] [place] [address]- 7836 Apr, [facility] [place] [facility] [address] [id number] [place] [address]- 3310 March, [facility] [place] [facility] [address] [id number] [place] [address]- 7646 March, [facility] [place] [facility] [address] [id number] [place] [address]- 0146 Feb, [facility] [place] [facility] [address] [id number] [place] [address]- 1769 Feb, [facility] [place] [facility] [address] [id number] [place] [address]- 8622 Jan, [facility] [place] [facility] [address] [id number] [place] [address]- 5776 Jan, [facility] [place] [facility] [address] [id number] [place] [address]- 4697 Jan, [facility] [place] [facility] [address] [id number] [place] [address]- 4885 Jan, [facility] [place] [facility] [address] [id number] [place] [address]- 9695 Jan, [facility] [place] [facility] [address] [id number] [place] [address]- 2474 Jan, [facility] [place] [facility] [address] [id number] [place] [address]- 9855 Jan, [facility] [place] [facility] [address] [id number] [place] [address]- 1594 24 Jan, 2014 [facility] [place] [facility] [address] [id number] [place] [address]- 9119 Jan, [facility] [place] [facility] [address] [id number] [place] [address]- 6086 24 Jan, 2014 [facility] [place] [facility] [address] [id number] [place] [address]- 1081 Jan, [facility] [place] [facility] [address] [id number] [place] [address]- 5351 Jan, [facility] [place] [facility] [address] [id number] [place] [address]- 9086 Jan, [facility] [place] [facility] [address] [facility] [id number] [place] [address]- 6703 Jan, [facility] [address] [facility] [id number] [place] [address] Jan, [facility] [place] [facility] [address] [id number] [place] [address]- 0374 Jan, [facility] [place] [facility] [address] [id number] [place] [address]- 8578 Jan, [facility] [place] [facility] [address] [facility] [id number] [place] [address] Jan, [facility] [place] [facility] [address] [id number] [place] [address] Jan, [facility] [place] [facility] [address] [id number] [place] [address] Jan, [facility] [place] [facility] [address] [id number] [place] [address] Jan, [facility] [place] [facility] [address] [id number] [place] [address] Dec, [facility] [place] [facility] [address] [id number] [address] Dec, [facility] [place] [facility] [address] [id number] [place] [address] Dec, [facility] [place] [facility] [address] [id number] [place] [address] Dec, [facility] [place] [facility] [address] [facility] [id number] [place] [address] Dec, [facility] [place] [facility] [address] [id number] [place] [address] Dec, [facility] [place] [facility] [address] [id number] [place] [address] Dec, [facility] [place] [facility] [address] [id number] [place] [address] Nov, [facility] [place] [facility] [address] [id number] [place] [address] Nov, [facility] [place] [facility] [address] [id number] [place] [address] Nov, [facility] [place] [facility] [address] [id number] [place] [address] Nov, [facility] [place] [facility] [address] [id number] [place] [address] Oct, [facility] [place] [facility] [address] [id number] [place] [address] Oct, [facility] [place] [facility] [address] [id number] [place] [address] Oct, [facility] [place] [facility] [address] [id number] [place] [address] Oct, [facility] [place] [facility] [address] [facility] [id number] [place] [address] Oct, [facility] [place] [facility] [address] [id number] [place] [address] Oct, [facility] [place] [facility] [address] [id number] [place] [address] Sep, [facility] [place] [facility] [address] [id number] [place] [address] Sep, [facility] [place] [facility] [address] [id number] [place] [address] Sep, [facility] [place] [facility] [address] [id number] [place] [address] Sep, [facility] [place] [facility] [address] [id number] [place] [address] Sep, [facility] [place] [facility] [address] [id number] [place] [address] Sep, [facility] [place] [facility] [address] [id number] [place] [address] Aug, [facility] [place] [facility] [address] [id number] [place] [address] Aug, [facility] [place] [facility] [address] [id number] [place] [address] Aug, [facility] [place] [facility] [address] [id number] [place] [address] Aug, [facility] [place] [facility] [address] [id number] [place] [address] Aug, [facility] [place] [facility] [address] [id number] [place] [address] Aug, [facility] [place] [facility] [address] [id number] [place] [address] Aug, [facility] [place] [facility] [address] [id number] [place] [address] 15 Aug, 2013 [facility] [place] [facility] [address] [id number] [place] [address] 10 Aug, 2013 [facility] [place] [facility] [address] [id number] [address] 10 Aug, 2013 [facility] [place] [facility] [address] [id number] [place] [address] 10 Aug, 2013 [facility] [place] [facility] [address] [id number] [place] [address] 10 Aug, 2013 [facility] [place] [facility] [address] [id number] [place] [address] 08 Aug, 2013 [facility] [place] [facility] [address] [id number] [place] [address] Aug, IMMUNIZATIONS No Known Immunizations SOCIAL HISTORY Never Assessed REASON FOR VISIT phone call PLAN OF CARE VITAL SIGNS MEDICATIONS Unknown Medications RESULTS No Results PROCEDURES No Known procedures INSTRUCTIONS MEDICATIONS ADMINISTERED No Known Medications MEDICAL (GENERAL) HISTORY Type Description Date Medical [...] 2006 Surgical History right knee replacement 09/2015 Surgical History Heart cath 10/2017 Hospitalization History Hospitalization for surgery Hospitalization History Pneumonia
--- OUTSIDE RECORDS SUMMARY | 2018-10-02 09:31 | XMS REPORT ---
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 Active 00856557 Problem Hyperlipidemia LDL goal <70 E78.5 Active 09771269 Problem Dyslipidemia E78.5 Active 181391876 Problem Other chronic pain G89.29 Active 27393114 Problem Dyspnea on exertion R06.09 Active 34506184 Problem Atypical mole D22.9 Active 463565833 Problem Anxiety with depression F41.8 Active 11670063 Problem 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 980481574 Problem Moderate persistent asthma without complication J45.40 Active 078203218 Problem Gastroesophageal reflux disease without esophagitis K21.9 Active 465992107 Problem General medical exam Z00.00 Active 371487012 Problem Mild intermittent asthma with acute exacerbation J45.21 Active 135128017 Problem Arthritis M19.90 Active 1836027 Problem Edema of both feet R60.0 Active 543520267 Problem Essential hypertension I10 Active 79889433 Problem Hyperkalemia E87.5 Active 95943159 ALLERGIES No Information ENCOUNTERS Encounter Location Date Diagnosis [facility] [address] [id number] [place] [id number] Jun, Hyperlipidemia LDL goal <[address] [address] [id number] [place] [id number] Jun, Dyslipidemia E78.5 and Hyperlipidemia LDL goal <[id number] [place] [id number] Jun, 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.21 ; Hyperlipidemia LDL goal <70 E78.5 and Essential hypertension I10 [address] [id number] [place] [address] Apr, Anxiety with depression F41.8 [facility] [address] [id number] [address] 15 Apr, 2018 Pain in left knee M25.562 ; Other chronic pain G89.29 ; Insect bite (nonvenomous), left lower leg, initial encounter S80.862A ; Bitten or stung by nonvenomous insect and other nonvenomous arthropods, initial encounter W57.XXXA and BMI 45.0-49.9, adult Z68.[address] [id number] [place] [id number] March, Anxiety with depression F41.[address] [id number] [place] [id number] March, Anxiety with depression F41.[address] [id number] [place] [address] Feb, [address] [id number] [place] [address] Feb, BMI 45.0-49.9, adult Z68.42 ; Essential hypertension I10 ; Arthritis M19.90 ; Gastroesophageal reflux disease without esophagitis K21.9 ; Hyperlipidemia LDL goal <70 E78.5 ; History of renal insufficiency Z87.448 and 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.21 [facility] [address] [facility] [id number] [address] Nov, Essential hypertension I10 ; Type 2 diabetes mellitus with diabetic nephropathy, 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 ; Long- term use of high-risk medication Z79.899 ; Hyperlipidemia LDL goal <70 E78.5 ; Dyspnea on exertion R06.09 and BMI 40.0-44.9, adult Z68.41 [address] [address] Sep, Essential hypertension I10 and Type 2 diabetes mellitus with diabetic nephropathy, 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 [address]00565[address] [address] Aug, [address]65100[place] [address] Jun, Essential hypertension I10 ; Type 2 diabetes mellitus with diabetic nephropathy, 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 ; Long- term use of high-risk medication Z79.899 ; Hyperlipidemia LDL goal <70 E78.5 ; Dyspnea on exertion R06.09 and Atypical mole D22.9 [address] [address] [place] [address] 8517 May, Essential hypertension I10 [address]65[address] [address] March, Essential hypertension I10 ; 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.21 ; Long-term use of high-risk medication Z79.899 ; Left hip pain M25.552 ; Pain in left knee M25.562 ; Fullness of neck R22.1 and Hyperlipidemia LDL goal <70 E78.5 [address]65[address] [address] Feb, Essential hypertension I10 ; 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.21 ; Long-term use of high-risk medication Z79.899 ; Left hip pain M25.552 ; Pain in left knee M25.562 ; Fullness of neck R22.1 and Hyperlipidemia LDL goal <70 E78.5 [address] [address] [facility] [id number], [place] [address] Jan, Essential hypertension I10 [address] [id number] [place] [address] Jan, Essential hypertension I10 [address] [id number], [place] [address] Jan, Fullness of neck R22.1 [place] [id number] [place] [address] 7[address] Jan, Essential hypertension I10 ; 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.21 ; Long-term use of high-risk medication Z79.899 ; Left hip pain M25.552 ; Pain in left knee M25.562 ; Fullness of neck R22.1 and Eustachian tube disorder, bilateral H69.93 [address] [id number] [place] [address]126 Nov, [facility] [address] [facility] [address] [id number] [id number] Nov, [facility] [facility] [address] [id number] [place] [address] Nov, Acute otitis externa of both ears, unspecified type H60.503 [facility] [address] [facility] [address] [id number] [place] [address] Oct, Bronchitis J40 [id number] [place] [address] Sep, Essential hypertension I10 ; 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.21 ; Long-term use of high-risk medication Z79.899 ; Swelling R60.9 and Bronchitis J40 [id number] [place] [address]- 5090 Aug, [address] [id number] [place] [address] 4441 Aug, Edema of both feet R60.0 ; Essential hypertension I10 ; 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.21 ; Skin ulcer of foot including toes, right, limited to breakdown of skin L97.511 and Yeast dermatitis B37.2 [place] [id number] [place] [address] 2064 Jul, [address] [address] Jul, [facility] [place] [facility] [address] [facility] [id number] [address] 15 Jul, 2016 Encounter for dental examination Z01.20 [facility] [id number] [place] [address]885- 2712 Jun, Edema of both feet R60.0 ; Essential hypertension I10 ; Arthritis M19.90 ; 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.21 ; Hyperkalemia E87.5 and Anxiety about health F41.8 [facility] [place] [facility] [address] [address] 18 Jun, 2016 Dental examination Z01.20 [facility] [id number] [place] [address] 0[address] 11 Jun, 2016 Edema of both feet R60.0 ; Essential hypertension I10 ; Arthritis M19.90 ; 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.21 and Mild intermittent asthma with acute exacerbation J45.21 [facility] [address] [place] [address] 1354 Jun, [facility] [id number] [place] [address]- 1496 Jun, [facility] [id number] [place] [address] 5[address]80- 8415 Feb, Swelling R60.9 and Swelling of both eyes H57.8 [facility] [address] [place] [address] 68890- 0426 Jan, Essential hypertension I10 ; Arthritis M19.90 ; 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.21 ; Mild intermittent asthma with acute exacerbation J45.21 and Edema R60.9 [facility] [id number] [place] [address] 61990- 1042 Dec, [facility] [address] [place] [address] 83393- 8064 Dec, 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.21 ; Essential hypertension I10 ; Mild intermittent asthma with acute exacerbation J45.21 ; Upper respiratory infection J06.9 and Gastroesophageal reflux disease without esophagitis K21.9 [place] [id number] [place] [address]65- 6478 24 Sep, 2015 Essential hypertension I10 ; Gastroesophageal reflux disease without esophagitis K21.9 ; 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.21 and History of knee replacement procedure of right knee Z96.651 [address] [address] [address] 16 Sep, 2015 [address] [address] [address] Aug, General medical exam Z00.00 [place] [address] [address] 27 Aug, 2015 [address] [address] [address] Aug, [address] [address] [address] Aug, [place] [id number] [place] [address] 34473- 4312 Aug, Essential hypertension I10 ; Gastroesophageal reflux disease without esophagitis K21.9 ; Arthritis M19.90 ; 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.21 ; Moderate persistent asthma without complication J45.40 and History of long-term use of multiple prescription drugs Z92.29 [place] [id number] [place] [address] 7[address]38- 5079 02 Jul, 2015 Upper respiratory infection 465.9 [place] [id number] [place] [address]2801- 1353 May, [address] [address] May, Diabetes mellitus without mention of complication, type II or unspecified type, uncontrolled 250.02 ; Esophageal reflux 530.81 ; Essential hypertension, benign 401.1 ; Other and unspecified hyperlipidemia 272.4 ; Chest wall pain 786.52 ; Thickened nails 703.8 ; Foot pain 729.5 ; Arthritis 716.90 and Knee pain 719.46 [facility] [address] [facility] [id number], [place] [address] 22 Apr, 2015 [facility] [address] [facility] [id number] [place] [address]- 7486 14 Feb, 2015 [facility] [address] [facility] [id number] [address] 8[address] Feb, [facility] [address] [facility] [id number] [place] [address]- 8198 19 Jan, 2015 [facility] [address] [facility] [id number] [place] [address]- 4759 19 Jan, 2015 [facility] [address] [facility] [id number] [place] [address] 17 Jan, 2015 [facility] [address] [id number] [address]- 9766 17 Jan, 2015 [facility] [address] [facility] [id number] 1837 17 Jan, 2015 [facility] [address] [id number] [address]- 9278 17 Jan, 2015 [facility] [address] [id number] 1715 16 Jan, 2015 [facility] [address] [facility] [id number][place] 9295 16 Jan, 2015 [facility] [address] [facility] [id number], [place] [address]- 0345 16 Jan, 2015 [facility] [address] [facility] [id number][place] [address]- 5915 16 Jan, 2015 [facility] [address] [facility] [id number], [place] [address]- 7190 24 Sep, 2014 [facility] [address] [facility] [id number], [place] [address]- 8718 Sep, [facility] [place] [facility] [address] [id number] [place] [address]- 6500 Aug, [facility] [place] [facility] [address] [id number] [place] [address]- 9244 Aug, [facility] [place] [facility] [address] [id number] [place] [address]- 6162 Aug, [facility] [place] [facility] [address] [id number] [place] [address]- 2112 Aug, [facility] [place] [facility] [address] [id number] [place] [address]- 7650 Aug, [facility] [place] [facility] [address] [id number] [place] [address]- 2798 Aug, [facility] [place] [facility] [address] [id number] [place] [address]- 8961 Aug, [facility] [place] [facility] [address] [id number] [place] [address]- 4201 Aug, [facility] [place] [facility] [address] [id number] [place] [address]- 2018 Aug, [facility] [place] [facility] [address] [id number] [place] [address]- 8581 Aug, [facility] [place] [facility] [address] [id number][place] [address]- 9834 Aug, [facility] [place] [facility] [address] [id number], [place] [address]- 9824 Aug, [facility] [place] [facility] [address] [id number] [place] [address]- 0096 Aug, [facility] [place] [facility] [address] [id number], [place] [address]- 4920 Aug, [facility] [place] [facility] [address] [id number] [place] [address]- 4901 Jul, [facility] [place] [facility] [address] [id number] [place] [address]- 2328 19 Jul, 2013 [facility] [place] [facility] [address] [id number] [place] [address]- 8046 17 Jul, 2013 [facility] [place] [facility] [address] [id number] [place] [address]- 4206 17 Jul, 2013 [facility] [place] [facility] [address] [id number] [place] [address]- 1761 12 Jul, 2013 [facility] [place] [facility] [address] [id number] [place] [address] 2549 12 Jul, 2013 [facility] [place] [facility] [address] [id number] [place] [address]- 2726 10 Jul, 2013 [facility] [place] [facility] [address] [id number] [place] [address]- 5610 10 Jul, 2013 [facility] [place] [facility] [address] [id number] [place] [address]- 4865 09 Jul, 2013 [facility] [place] [facility] [address] [id number] [place] [address]- 6220 09 Jul, 2013 [facility] [place] [facility] [address] [id number] [place] [address]- 4634 Jun, [facility] [place] [facility] [address] [id number] [place] [address]- 4574 Jun, [facility] [place] [facility] [address] [id number] [place] [address]- 9168 Jun, [facility] [place] [facility] [address] [id number] [place] [address]- 2542 Jun, [facility] [place] [facility] [address] [id number] [place] [address]- 4758 Jun, [facility] [place] [facility] [address] [id number] [place] [address]- 0832 Jun, [facility] [place] [facility] [address] [id number] [place] [address]- 1845 Jun, [facility] [place] [facility] [address] [id number] [place] [address]- 4345 Jun, [facility] [place] [facility] [address] [id number] [place] [address]- 5786 May, [facility] [place] [facility] [address] [id number] [place] [address]- 1058 May, [facility] [place] [facility] [address] [id number] [place] [address]- 4276 May, [facility] [place] [facility] [address] [id number] [place] [address]- 5441 May, [facility] [place] [facility] [address] [id number] [place] [address]- 8262 May, [facility] [place] [facility] [address] [id number] [place] [address]- 6410 May, [facility] [place] [facility] [address] [id number] [place] [address]- 0912 May, [facility] [place] [facility] [address] [id number] [place] [address]- 3928 May, [facility] [place] [facility] [address] [id number] [place] [address]- 2473 May, [facility] [place] [facility] [address] [id number] [place] [address]- 9717 May, [facility] [place] [facility] [address] [id number] [place] [address]- 5016 May, [facility] [place] [facility] [address] [id number] [place] [address]- 5229 May, [facility] [place] [facility] [address] [id number] [place] [address]- 2126 May, [facility] [place] [facility] [address] [id number] [place] [address]- 4184 May, [facility] [place] [facility] [address] [id number] [place] [address]- 8014 May, [facility] [place] [facility] [address] [id number] [place] [address]- 1509 May, [facility] [place] [facility] [address] [id number] [place] [address]- 0689 May, [facility] [place] [facility] [address] [id number] [place] [address]- 3303 May, [facility] [place] [facility] [address] [id number] [place] [address]- 3903 May, [facility] [place] [facility] [address] [id number] [place] [address]- 1695 May, [facility] [place] [facility] [address] [id number] [place] [address]- 2556 Apr, [facility] [place] [facility] [address] [id number] [place] [address]- 9830 Apr, [facility] [place] [facility] [address] [id number] [place] [address]- 4731 Apr, [facility] [place] [facility] [address] [id number] [place] [address]- 9719 Apr, [facility] [place] [facility] [address] [id number] [place] [address]- 4709 Apr, [facility] [place] [facility] [address] [id number], [place] [address]- 1220 Apr, [facility] [place] [facility] [address] [id number], [place] [address]- 2297 Apr, [facility] [place] [facility] [address] [id number], [place] [address]- 5965 Apr, [facility] [address] [id number] [address] Apr, [facility] [place] [facility] [address] [id number] [place] [address]- 0963 Apr, [facility] [place] [facility] [address] [id number] [place] [address]- 7667 20 Apr, 2014 [facility] [place] [facility] [address] [id number] [place] [address]- 7644 20 Apr, 2014 [facility] [place] [facility] [address] [id number] [place] [address]- 8687 19 Apr, 2014 [facility] [place] [facility] [address] [id number] [place] [address]- 9536 19 Apr, 2014 [facility] [place] [facility] [address] [id number] [place] [address]- 4630 19 Apr, 2014 [facility] [place] [facility] [address] [id number] [place] [address]- 4358 19 Apr, 2014 [facility] [place] [facility] [address] [id number] [place] [address]- 5979 18 Apr, 2014 [facility] [place] [facility] [address] [id number] [place] [address]- 4382 18 Apr, 2014 [facility] [place] [facility] [address] [id number] [place] [address]- 7377 18 Apr, 2014 [facility] [place] [facility] [address] [id number] [place] [address]- 2186 18 Apr, 2014 [facility] [place] [facility] [address] [id number] [place] [address]- 1118 17 Apr, 2014 [facility] [place] [facility] [address] [id number] [place] [address]- 5901 17 Apr, 2014 [facility] [place] [facility] [address] [id number] [place] [address]- 3948 17 Apr, 2014 [facility] [place] [facility] [address] [id number] [place] [address]- 2130 17 Apr, 2014 [facility] [place] [facility] [address] [id number] [place] [address]- 4085 05 Apr, 2014 [facility] [place] [facility] [address] [id number] [place] [address]- 4119 05 Apr, 2014 [facility] [place] [facility] [address] [id number] [place] [address]- 7738 March, [facility] [place] [facility] [address] [id number] [place] [address]- 7349 March, [facility] [place] [facility] [address] [id number] [place] [address]- 8606 Feb, [facility] [place] [facility] [address] [id number] [place] [address]- 2150 Feb, [facility] [place] [facility] [address] [id number] [place] [address]- 8200 Jan, [facility] [place] [facility] [address] [id number] [place] [address]- 9622 Jan, [facility] [place] [facility] [address] [id number] [place] [address]- 9666 Jan, [facility] [place] [facility] [address] [id number] [place] [address]- 3840 Jan, [facility] [place] [facility] [address] [id number] [place] [address]- 1416 Jan, [facility] [place] [facility] [address] [id number] [place] [address]- 7905 Jan, [facility] [place] [facility] [address] [id number] [place] [address]- 1835 Jan, [facility] [place] [facility] [address] [id number] [place] [address]- 3641 24 Jan, 2014 [facility] [place] [facility] [address] [id number] [place] [address]- 9004 24 Jan, 2014 [facility] [place] [facility] [address] [id number] [place] [address] 24 Jan, 2014 [facility] [place] [facility] [address] [id number] [place] [address] 20 Jan, 2014 [facility] [place] [facility] [address] [id number] [place] [address] Jan, [facility] [place] [facility] [address] [id number] [place] [address] Jan, [facility] [place] [facility] [address] [id number] [place] [address] Jan, [facility] [address] [id number] [place] [id number] Jan, [facility] [place] [facility] [address] [id number] [place] [address] Jan, [facility] [place] [facility] [address] [id number] [place] [address] Jan, [facility] [place] [facility] [address] [id number] [place] [address] Jan, [facility] [place] [facility] [address] [id number] [place] [address] Jan, [facility] [place] [facility] [address] [id number][place] [address] Jan, [facility] [place] [facility] [address] [id number] [place] [address] Jan, [facility] [place] [facility] [address] [id number] [place] [address] Dec, [facility] [place] [facility] [address] [id number], [place] [address] Dec, [facility] [place] [facility] [address] [id number], [place] [address] Dec, [facility] [place] [facility] [address] [id number] [place] [address] Dec, [facility] [place] [facility] [address] [id number] [address] Dec, [facility] [place] [facility] [address] [id number] [address] [address] Dec, [facility] [place] [facility] [address] [id number] [place] [address] Dec, [facility] [address] [id number] [place] [address] Nov, [facility] [address] [id number] [place] [address] Nov, [facility] [address] [id number] [place] [address] Nov, [facility] [address] [id number] [place] [address] Nov, [facility] [address] [id number] [place] [address] Oct, [facility] [address] [id number] [place] [address] Oct, [facility] [address] [id number] [place] [address] Oct, [facility] [address] [id number] [place] [address] Oct, [facility] [address] [id number] [place] [address] Oct, [facility] [address] [id number] [place] [address] Oct, [facility] [address] [id number] [place] [address] Sep, [facility] [address] [id number] [place] [address] Sep, [facility] [place] [facility] [address] [id number] [place] [address] Sep, [facility] [place] [facility] [address] [id number] [place] [address] Sep, [facility] [place] [facility] [address] [id number] [place] [address] Sep, [facility] [address] [id number], [place] [address] Sep, [facility] [address] [id number], [place] [address] Aug, [facility] [address] [id number], [place] [address] Aug, [facility] [address] [id number], [place] [address] Aug, [facility] [address] [id number] [place] [address] Aug, [facility] [address] [id number][place] [address] Aug, [facility] [address] [id number], [place] [address] Aug, [facility] [address] [id number], [place] [address] Aug, [facility] [address] [id number][place] [address] Aug, [facility] [address] [facility] [id number], [place] [address] Aug, [facility] [address] [id number], [place] [address] Aug, [facility] [address] [id number], [place] [address] Aug, [facility] [address] [id number][place] [address] Aug, [facility] [address] [facility] [id number][place] [address] Aug, [facility] [address] [facility] [id number], [place] [address] Aug, IMMUNIZATIONS No Known Immunizations SOCIAL HISTORY Never Assessed REASON FOR VISIT f/u PLAN OF CARE Activity Details Follow Up Next available Reason: VITAL SIGNS MEDICATIONS Unknown Medications RESULTS No Results PROCEDURES Procedure Date Ordered Result Body Site Psychotherapy, patient &/family, 30 minutes, established patient May 14, 2018 INSTRUCTIONS MEDICATIONS ADMINISTERED No Known Medications MEDICAL [...]
--- OUTSIDE RECORDS SUMMARY | 2018-10-02 09:31 | XMS REPORT ---
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 Active 19815740 Problem Hyperlipidemia LDL goal <70 E78.5 Active 83049590 Problem Dyslipidemia E78.5 Active 891041012 Problem Other chronic pain G89.29 Active 56392137 Problem Dyspnea on exertion R06.09 Active 96694556 Problem Atypical mole D22.9 Active 843156828 Problem Anxiety with depression F41.8 Active 66875362 Problem 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 782027751 Problem Moderate persistent asthma without complication J45.40 Active 316428363 Problem Gastroesophageal reflux disease without esophagitis K21.9 Active 100790127 Problem General medical exam Z00.00 Active 987650747 Problem Mild intermittent asthma with acute exacerbation J45.21 Active 516133732 Problem Arthritis M19.90 Active 3439171 Problem Edema of both feet R60.0 Active 061273470 Problem Essential hypertension I10 Active 60651000 Problem Hyperkalemia E87.5 Active 83058717 ALLERGIES No Information ENCOUNTERS Encounter Location Date Diagnosis [facility] [address] [id number] [place] [id number] Jun, Hyperlipidemia LDL goal <[address] [address] [id number] [place] [id number] Jun, Dyslipidemia E78.5 and Hyperlipidemia LDL goal <70 [facility]78.5 [facility] [address] [id number] [id number] Jun, 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.21 ; Hyperlipidemia LDL goal <70 E78.5 and Essential hypertension I10 [facility] [address] [id number] [id number] Apr, Anxiety with depression F41.8 [facility] [address] [facility] [id number], [place] [address] Apr, Pain in left knee M25.562 ; Other chronic pain G89.29 ; Insect bite (nonvenomous), left lower leg, initial encounter S80.862A ; Bitten or stung by nonvenomous insect and other nonvenomous arthropods, initial encounter W57.XXXA and BMI 45.0-49.9, adult Z68.[address] [id number] [id number] March, Anxiety with depression F41.[address] [id number][place] [id number] March, Anxiety with depression F41.[address] [id number][place] [id number] Feb, [address] [id number] [id number] Feb, BMI 45.0-49.9, adult Z68.42 ; Essential hypertension I10 ; Arthritis M19.90 ; Gastroesophageal reflux disease without esophagitis K21.9 ; Hyperlipidemia LDL goal <70 E78.5 ; History of renal insufficiency Z87.448 and 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.21 [facility] [address] [facility] [id number] [address] Nov, Essential hypertension I10 ; Type 2 diabetes mellitus with diabetic nephropathy, 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 ; Long- term use of high-risk medication Z79.899 ; Hyperlipidemia LDL goal <70 E78.5 ; Dyspnea on exertion R06.09 and BMI 40.0-44.9, adult Z68.41 [place] [address]005[address] [address] 14 Sep, 2017 Essential hypertension I10 and Type 2 diabetes mellitus with diabetic nephropathy, 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 [place] [address]00565100[place], [place] [address] Aug, [place] [address] [place] [id number] [place] [address]26- 8105 Jun, Essential hypertension I10 ; Type 2 diabetes mellitus with diabetic nephropathy, 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 ; Long- term use of high-risk medication Z79.899 ; Hyperlipidemia LDL goal <70 E78.5 ; Dyspnea on exertion R06.09 and Atypical mole D22.9 [address]00565100[place], [place] [address] May, Essential hypertension I10 [address]00565100[place], [place] [address] March, Essential hypertension I10 ; 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.21 ; Long-term use of high-risk medication Z79.899 ; Left hip pain M25.552 ; Pain in left knee M25.562 ; Fullness of neck R22.1 and Hyperlipidemia LDL goal <70 E78.5 [place] [address] [place] [id number], [place] [address] Feb, Essential hypertension I10 ; 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.21 ; Long-term use of high-risk medication Z79.899 ; Left hip pain M25.552 ; Pain in left knee M25.562 ; Fullness of neck R22.1 and Hyperlipidemia LDL goal <70 E78.5 [place] [address] [place] [id number], [place] [address] Jan, Essential hypertension I10 [address] [id number][place] [id number] Jan, Essential hypertension I10 [place] [id number] [place] [address]- 9821 17 Jan, 2017 Fullness of neck R22.1 [place] [address] [place] [id number] [place] [address] 58165- 2781 15 Jan, 2017 Essential hypertension I10 ; 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.21 ; Long-term use of high-risk medication Z79.899 ; Left hip pain M25.552 ; Pain in left knee M25.562 ; Fullness of neck R22.1 and Eustachian tube disorder, bilateral H69.93 [place] [address] [place] [id number] [place] [address]- 6160 Nov, [facility] [address] [facility] [address] [id number] [id number] Nov, [facility] [address] [facility] [address] [id number] [id number] Nov, Acute otitis externa of both ears, unspecified type H60.[address] [facility] [address] [id number] [id number] Oct, Bronchitis J40 [place] [address] [place] [id number] [place] [address]681- 9976 Sep, Essential hypertension I10 ; 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.21 ; Long-term use of high-risk medication Z79.899 ; Swelling R60.9 and Bronchitis J40 [place] [address] [place] [id number] [place] [address] 85548- 5759 Aug, [place] [address] [place] [id number] [place] [address] 28810- 6050 Aug, Edema of both feet R60.0 ; Essential hypertension I10 ; 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.21 ; Skin ulcer of foot including toes, right, limited to breakdown of skin L97.511 and Yeast dermatitis B37.2 [place] [address] [place] [id number] [place] [address] 86248- 1261 Jul, [facility] [address]00565100[place], [place] [address] Jul, [facility] [address] [place] [id number] [place] [id number] Jul, Encounter for dental examination Z01.20 [facility] [address] [place] [address] [id number] [place] [address] 57990- 5671 Jun, Edema of both feet R60.0 ; Essential hypertension I10 ; Arthritis M19.90 ; 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.21 ; Hyperkalemia E87.5 and Anxiety about health F41.8 [facility] [id number] [place] [id number] Jun, Dental examination Z01.20 [facility] [address] [id number] [place] [address] 95663- 9681 Jun, Edema of both feet R60.0 ; Essential hypertension I10 ; Arthritis M19.90 ; 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.21 and Mild intermittent asthma with acute exacerbation J45.21 [facility] [address] [place] [address] 38182- 7098 Jun, [facility] [address] [id number] [place] [address] 24[address]- 0044 Jun, [facility] [address] [place] [address] 91961- 2177 Feb, Swelling R60.9 and Swelling of both eyes H57.8 [facility] [address] [place] [address] 06689- 8734 Jan, Essential hypertension I10 ; Arthritis M19.90 ; 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.21 ; Mild intermittent asthma with acute exacerbation J45.21 and Edema R60.9 [facility] [address] [place] [address] 14735- 5452 16 Dec, 2015 [place] [address] [place] [id number] [place] [address] 70963- 3230 03 Feb, 2016 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.21 ; Essential hypertension I10 ; Mild intermittent asthma with acute exacerbation J45.21 ; Upper respiratory infection J06.9 and Gastroesophageal reflux disease without esophagitis K21.9 [place] [address] [place] [id number] [place] [address] 85535- 3758 24 Sep, 2015 Essential hypertension I10 ; Gastroesophageal reflux disease without esophagitis K21.9 ; 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.21 and History of knee replacement procedure of right knee Z96.651 [place] [address] [place] [id number] [place] [address] 01672- 0054 16 Sep, 2015 [place] [address] [address]21 Aug, General medical exam Z00.00 [place] [address] 6[address]- 7853 Aug, [place] [address] 62747- 9568 Aug, [place] [address] [place] [id number] [place] [address] 01337- 7506 Aug, [place] [address] [address]690- 3237 Aug, Essential hypertension I10 ; Gastroesophageal reflux disease without esophagitis K21.9 ; Arthritis M19.90 ; 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.21 ; Moderate persistent asthma without complication J45.40 and History of long-term use of multiple prescription drugs Z92.29 [place] [address] [place] [id number] [place] [address] 28963- 8192 Jul, Upper respiratory infection 465.9 [place] [address] 71547- 1494 May, [address] [address]- 5095 07 May, 2015 Diabetes mellitus without mention of complication, type II or unspecified type, uncontrolled 250.02 ; Esophageal reflux 530.81 ; Essential hypertension, benign 401.1 ; Other and unspecified hyperlipidemia 272.4 ; Chest wall pain 786.52 ; Thickened nails 703.8 ; Foot pain 729.5 ; Arthritis 716.90 and Knee pain 719.46 [facility] [address] [address]83 22 Apr, 2015 [facility] [address] [place] [id number] [place] [address] 799566- 5185 14 Feb, 2015 [facility] [address] [place] [id number] [place] [address] 48736- 6003 Feb, [facility] [address] [place] [address] [id number] [place] [address] 068627- 0710 19 Jan, 2015 [facility] [address] [place] [id number] [place] [address] 86039- 4406 19 Jan, 2015 [facility] [address] [place] [id number] [place] [address] 88474- 9349 17 Jan, 2015 [facility] [address], [place] [address]- 4277 17 Jan, 2015 [facility] [address] [place] [address] [id number] [place] [address] 86709- 4175 17 Jan, 2015 [facility] [address], [place] [address]- 7471 17 Jan, 2015 [facility] [address], [place] [address]- 6441 16 Jan, 2015 [facility] [address] 8376 16 Jan, 2015 [facility] [address] [place] [id number] [place] [address] 654527- 7993 16 Jan, 2015 [facility] [address] 6380 16 Jan, 2015 [facility] [address] [place] [address] 159905- 9462 Sep, [facility] [place] [facility] [address] [id number] [place] [address]- 5864 Sep, [facility] [place] [facility] [address] [id number] [place] [address]- 4298 Aug, [facility] [place] [facility] [address] [id number] [place] [address]- 5025 Aug, [facility] [place] [facility] [address] [id number] [place] [address]- 6295 Aug, [facility] [place] [facility] [address] [id number] [place] [address]- 8788 Aug, [facility] [place] [facility] [address] [id number] [place] [address]- 6380 Aug, [facility] [place] [facility] [address] [id number] [place] [address]- 9521 Aug, [facility] [place] [facility] [address] [id number] [place] [address]- 2610 Aug, [facility] [place] [facility] [address] [id number] [place] [address]- 9150 Aug, [facility] [place] [facility] [address] [id number], [place] [address]- 9874 Aug, [facility] [place] [facility] [address] [id number], [place] [address]- 2933 Aug, [facility] [place] [facility] [address] [id number], [place] [address]- 1665 Aug, [facility] [place] [facility] [address] [id number] [place] [address]- 7879 Aug, [facility] [place] [facility] [address] [id number], [place] [address]- 8302 Aug, [facility] [place] [facility] [address] [id number][place] 5143 Aug, [facility] [place] [facility] [address] [id number], [place] [address]- 2208 19 Jul, 2013 [facility] [place] [facility] [address] [id number] [place] [address]- 0937 19 Jul, 2013 [facility] [place] [facility] [address] [id number] [place] [address]- 5176 17 Jul, 2013 [facility] [place] [facility] [address] [id number] [place] [address]- 9835 17 Jul, 2013 [facility] [place] [facility] [address] [id number] [place] [address]- 7773 12 Jul, 2013 [facility] [place] [facility] [address] [id number] [place] [address]- 6552 12 Jul, 2013 [facility] [place] [facility] [address] [id number] [place] [address]- 1506 10 Jul, 2013 [facility] [place] [facility] [address] [id number] [place] [address]- 7816 Jul, 2013 [facility] [place] [facility] [address] [id number] [place] [address]- 3311 Jul, [facility] [place] [facility] [address] [id number] [place] [address]- 3574 Jul, [facility] [place] [facility] [address] [id number] [place] [address]- 7183 Jun, [facility] [place] [facility] [address] [id number] [place] [address]- 3767 Jun, [facility] [place] [facility] [address] [id number] [place] [address]- 0912 Jun, [facility] [place] [facility] [address] [id number] [place] [address]- 4409 Jun, [facility] [place] [facility] [address] [id number] [place] [address]- 4815 Jun, [facility] [place] [facility] [address] [id number] [place] [address]- 2608 Jun, [facility] [place] [facility] [address] [id number] [place] [address]- 0286 Jun, [facility] [place] [facility] [address] [id number] [place] [address]- 7303 Jun, [facility] [place] [facility] [address] [id number] [place] [address]- 6576 May, [facility] [place] [facility] [address] [id number] [place] [address]- 8192 May, [facility] [place] [facility] [address] [id number] [place] [address]- 1516 May, [facility] [place] [facility] [address] [id number] [place] [address]- 4550 May, [facility] [place] [facility] [address] [id number] [place] [address]- 0650 May, [facility] [place] [facility] [address] [id number] [place] [address]- 5534 May, [facility] [place] [facility] [address] [id number] [place] [address]- 0269 May, [facility] [place] [facility] [address] [id number] [place] [address]- 8263 May, [facility] [place] [facility] [address] [id number] [place] [address]- 7788 May, [facility] [place] [facility] [address] [id number] [place] [address]- 6110 May, [facility] [place] [facility] [address] [id number] [place] [address]- 1557 May, [facility] [place] [facility] [address] [id number] [place] [address]- 7629 May, [facility] [place] [facility] [address] [id number] [place] [address]- 9496 May, [facility] [place] [facility] [address] [id number] [place] [address]- 6849 May, [facility] [place] [facility] [address] [id number] [place] [address]- 0450 May, 2013 [facility] [place] [facility] [address] [id number] [place] [address]- 3375 May, [facility] [place] [facility] [address] [id number] [place] [address]- 6561 May, [facility] [place] [facility] [address] [id number] [place] [address]- 7157 May, [facility] [place] [facility] [address] [id number] [place] [address]- 0396 May, [facility] [place] [facility] [address] [id number] [place] [address]- 0425 May, [facility] [place] [facility] [address] [id number] [place] [address]- 0949 Apr, [facility] [place] [facility] [address] [id number] [place] [address]- 3806 Apr, [facility] [place] [facility] [address] [id number] [place] [address]- 8573 Apr, [facility] [place] [facility] [address] [id number] [place] [address]- 6544 Apr, [facility] [place] [facility] [address] [id number], [place] [address]- 3800 Apr, [facility] [place] [facility] [address] [id number], [place] [address]- 3228 Apr, [facility] [place] [facility] [address] [id number] [place] [address]- 6433 Apr, [facility] [place] [facility] [address] [id number], [place] [address]- 7836 Apr, [facility] [place] [address] [id number] [address] Apr, [facility] [place] [facility] [address] [id number], [place] [address]- 7867 Apr, [facility] [place] [facility] [address] [id number] [place] [address]- 8526 20 Apr, 2014 [facility] [place] [facility] [address] [id number] [place] [address]- 3346 20 Apr, 2014 [facility] [place] [facility] [address] [id number] [place] [address]- 5358 19 Apr, 2014 [facility] [place] [facility] [address] [id number] [place] [address]- 2701 19 Apr, 2014 [facility] [place] [facility] [address] [id number] [place] [address]- 3313 19 Apr, 2014 [facility] [place] [facility] [address] [id number] [place] [address]- 6464 19 Apr, 2014 [facility] [place] [facility] [address] [id number] [place] [address]- 9900 18 Apr, 2014 [facility] [place] [facility] [address] [id number] [place] [address]- 6250 18 Apr, 2014 [facility] [place] [facility] [address] [id number] [place] [address]- 6531 18 Apr, 2014 [facility] [place] [facility] [address] [id number] [place] [address]- 4709 18 Apr, 2014 [facility] [place] [facility] [address] [id number], [place] [address]- 8947 17 Apr, 2014 [facility] [place] [facility] [address] [id number], [place] [address]- 5807 17 Apr, 2014 [facility] [place] [facility] [address] [id number] [place] [address]- 0873 17 Apr, 2014 [facility] [place] [facility] [address] [id number] [place] [address]- 7166 17 Apr, 2014 [facility] [place] [facility] [address] [id number] [place] [address]- 7141 05 Apr, 2014 [facility] [place] [facility] [address] [id number] [place] [address]- 7786 Apr, [facility] [place] [facility] [address] [id number] [place] [address]- 8226 March, [facility] [place] [facility] [address] [id number] [place] [address]- 3486 March, [facility] [place] [facility] [address] [id number] [place] [address]- 8326 Feb, [facility] [place] [facility] [address] [id number] [place] [address]- 2483 Feb, [facility] [place] [facility] [address] [id number] [place] [address]- 6688 Jan, [facility] [place] [facility] [address] [id number] [place] [address]- 6808 Jan, [facility] [place] [facility] [address] [id number] [place] [address]- 5132 Jan, [facility] [place] [facility] [address] [id number] [place] [address]- 6919 Jan, [facility] [place] [facility] [address] [id number] [place] [address]- 6964 Jan, [facility] [place] [facility] [address] [id number] [place] [address]- 4413 Jan, [facility] [place] [facility] [address] [id number] [place] [address]- 6331 Jan, [facility] [place] [facility] [address] [id number] [place] [address]- 0008 24 Jan, 2014 [facility] [place] [facility] [address] [id number] [place] [address]- 1925 Jan, [facility] [place] [facility] [address] [id number] [place] [address]- 1396 24 Jan, 2014 [facility] [place] [facility] [address] [id number] [place] [address]- 1907 Jan, [facility] [place] [facility] [address] [id number] [place] [address]- 2540 Jan, [facility] [place] [facility] [address] [id number] [place] [address]- 5106 Jan, [facility] [place] [facility] [address] [facility] [id number] [place] [address]- [address] Jan, [facility] [address] [facility] [id number] [id number] Jan, [facility] [place] [facility] [address] [id number] [place] [address] Jan, [facility] [place] [facility] [address] [id number] [place] [address] Jan, [facility] [place] [facility] [address] [facility] [id number] [place] [address] Jan, [facility] [place] [facility] [address] [id number] [place] [address] Jan, [facility] [place] [facility] [address] [id number] [place] [address] Jan, [facility] [place] [facility] [address] [id number] [place] [address] Jan, [facility] [place] [facility] [address] [id number] [place] [address] Dec, [facility] [place] [facility] [address] [id number], [place] [address] Dec, [facility] [place] [facility] [address] [id number] [place] [address] Dec, [facility] [place] [facility] [address] [id number] [place] [address] Dec, [facility] [place] [facility] [address] [facility] [id number] [place] [address] Dec, [facility] [place] [facility] [address] [id number] [place] [address] Dec, [facility] [place] [facility] [address] [id number] [place] [address] Dec, [facility] [place] [facility] [address] [id number] [place] [address] Nov, [facility] [place] [facility] [address] [id number] [place] [address] Nov, [facility] [place] [facility] [address] [id number] [place] [address]279 Nov, [facility] [place] [facility] [address] [id number] [place] [address] Nov, [facility] [place] [facility] [address] [id number] [place] [address] Oct, [facility] [place] [facility] [address] [id number] [place] [address] Oct, [facility] [place] [facility] [address] [id number] [place] [address] Oct, [facility] [place] [facility] [address] [id number] [place] [address] Oct, [facility] [place] [facility] [address] [facility] [id number] [place] [address] Oct, [facility] [place] [facility] [address] [id number] [place] [address] Oct, [facility] [place] [facility] [address] [id number] [place] [address] Sep, [facility] [place] [facility] [address] [id number] [place] [address] Sep, [facility] [place] [facility] [address] [id number] [place] [address] Sep, [facility] [place] [facility] [address] [id number] [place] [address] Sep, [facility] [place] [facility] [address] [id number] [place] [address] Sep, [facility] [place] [facility] [address] [id number] [place] [address] Sep, [facility] [place] [facility] [address] [id number] [place] [address] Aug, [facility] [place] [facility] [address] [id number] [place] [address] Aug, [facility] [place] [facility] [address] [id number] [place] [address] Aug, [facility] [place] [facility] [address] [id number] [place] [address] Aug, [facility] [place] [facility] [address] [id number] [place] [address] Aug, [facility] [place] [facility] [address] [id number] [place] [address] Aug, [facility] [place] [facility] [address] [id number] [place] [address] Aug, [facility] [place] [facility] [address] [id number] [place] [address] 15 Aug, 2013 [facility] [place] [facility] [address] [id number] [place] [address] 10 Aug, 2013 [facility] [place] [facility] [address] [id number], [place] [address] 10 Aug, 2013 [facility] [place] [facility] [address] [id number] [place] [address] 10 Aug, 2013 [facility] [place] [facility] [address] [id number] [place] [address] 10 Aug, 2013 [facility] [place] [facility] [address] [id number] [place] [address] 08 Aug, 2013 [facility] [place] [facility] [address] [id number] [place] [address] Aug, IMMUNIZATIONS No Known Immunizations SOCIAL HISTORY Never Assessed REASON FOR VISIT Medication Change PLAN OF CARE VITAL SIGNS MEDICATIONS Medication Instructions Dosage Frequency Start Date End Date Duration Status Pravastatin Sodium 80 MG Orally Once a day 1 tablet 24h Jun, 30 day(s) Active RESULTS No Results PROCEDURES No Known [...]
--- OUTSIDE RECORDS SUMMARY | 2018-10-02 09:32 | XMS REPORT ---
Author Author NURYS Luciano [facility] Address Unknown Phone Unavailable Care Team Providers Care Filters Assembler Name Role Phone NURYS Luciano Unavailable Unavailable PROBLEMS Type Condition ICD9-CM Code EKV71-EW Code Onset Dates Condition Status SNOMED Code Problem Hyperkalemia E87.5 Active 85044337 Problem Hyperlipidemia LDL goal <70 E78.5 Active 87788766 Problem Long-term use of high-risk medication Z79.899 Active 470846585 Problem Other chronic pain G89.29 Active 87267217 Problem Anxiety with depression F41.8 Active 40260464 Problem Atypical mole D22.9 Active 031308134 Problem Type 2 diabetes mellitus with diabetic nephropathy, 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 Active 42625544 Problem 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 302291580 Problem Dyspnea on exertion R06.09 Active 76825857 Problem Moderate persistent asthma without complication J45.40 Active 572227236 Problem Essential hypertension I10 Active 78096928 Problem General medical exam Z00.00 Active 554537270 Problem Gastroesophageal reflux disease without esophagitis K21.9 Active 499155407 Problem Mild intermittent asthma with acute exacerbation J45.21 Active 368149466 Problem Arthritis M19.90 Active 5556396 Problem Edema of both feet R60.0 Active [id number] ALLERGIES No Information ENCOUNTERS Encounter Location Date Diagnosis [facility] [id number] [id number] Jun, 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.21 ; Hyperlipidemia LDL goal <70 E78.5 and Essential hypertension I[address] [id number] [place] [id number] Apr, Anxiety with depression F41.8 [facility] [address] [facility]NOTE 3] [id number], [place] [address] Apr, Pain in left knee M25.562 ; Other chronic pain G89.29 ; Insect bite (nonvenomous), left lower leg, initial encounter S80.862A ; Bitten or stung by nonvenomous insect and other nonvenomous arthropods, initial encounter W57.XXXA and BMI 45.0-49.9, adult Z68.[address] [id number][place] [id number] March, Anxiety with depression F41.[address] [id number][place] [id number] March, Anxiety with depression F41.[address] [id number][place] [id number] Feb, [address] [id number][place] [id number] Feb, BMI 45.0-49.9, adult Z68.42 ; Essential hypertension I10 ; Arthritis M19.90 ; Gastroesophageal reflux disease without esophagitis K21.9 ; Hyperlipidemia LDL goal <70 E78.5 ; History of renal insufficiency Z87.448 and 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.21 [place] [id number] [place] [address] 04162- 3132 Nov, Essential hypertension I10 ; Type 2 diabetes mellitus with diabetic nephropathy, 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 ; Long- term use of high-risk medication Z79.899 ; Hyperlipidemia LDL goal <70 E78.5 ; Dyspnea on exertion R06.09 and BMI 40.0-44.9, adult Z68.41 [place] [id number] [place] [address] 63548- 4120 14 Sep, 2017 Essential hypertension I10 and Type 2 diabetes mellitus with diabetic nephropathy, 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 [place] [id number] [place] [address] 32334- 8813 Aug, [place] [id number] [place] [address] 36864- 1093 Jun, Essential hypertension I10 ; Type 2 diabetes mellitus with diabetic nephropathy, 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 ; Long- term use of high-risk medication Z79.899 ; Hyperlipidemia LDL goal <70 E78.5 ; Dyspnea on exertion R06.09 and Atypical mole D22.9 [place] [address]00565100[place], [place] [address] May, Essential hypertension I10 [place] [id number] [place] [address] 75652- 3014 March, Essential hypertension I10 ; 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.21 ; Long-term use of high-risk medication Z79.899 ; Left hip pain M25.552 ; Pain in left knee M25.562 ; Fullness of neck R22.1 and Hyperlipidemia LDL goal <70 E78.5 [place] [address]00565100[place], [place] [address] Feb, Essential hypertension I10 ; 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.21 ; Long-term use of high-risk medication Z79.899 ; Left hip pain M25.552 ; Pain in left knee M25.562 ; Fullness of neck R22.1 and Hyperlipidemia LDL goal <70 E78.5 [place] [address] [id number], [place] [address] Jan, Essential hypertension I10 [address] [id number][place] [id number] Jan, Essential hypertension I10 [place] [address] [id number], [place] [address] 9[address] Jan, Fullness of neck R22.1 [place] [id number] [place] [address] 15606- 6494 Jan, Essential hypertension I10 ; 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.21 ; Long-term use of high-risk medication Z79.899 ; Left hip pain M25.552 ; Pain in left knee M25.562 ; Fullness of neck R22.1 and Eustachian tube disorder, bilateral H69.93 [facility] [id number] [place] [address] 91671- 5642 Nov, [facility] [address] [id number], [place] [id number] Nov, [facility] [address] [id number][place] [id number] Nov, Acute otitis externa of both ears, unspecified type H60.503 [facility] [address] [id number][place] [id number] Oct, Bronchitis J40 [place] [address] [address]- 9016 Sep, Essential hypertension I10 ; 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.21 ; Long-term use of high-risk medication Z79.899 ; Swelling R60.9 and Bronchitis J40 [place] [id number] [place] [address] 00892- 0665 Aug, [place] [id number] [place] [address] 95628- 1017 Aug, Edema of both feet R60.0 ; Essential hypertension I10 ; 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.21 ; Skin ulcer of foot including toes, right, limited to breakdown of skin L97.511 and Yeast dermatitis B37.2 [place] [id number] [place] [address] 47793- 0482 Jul, [facility] [id number] [place] [address] 39638- 4840 Jul, [facility] [id number] [place] [id number] Jul, Encounter for dental examination Z01.20 [facility] [id number] [place] [address] 28651- 1383 Jun, Edema of both feet R60.0 ; Essential hypertension I10 ; Arthritis M19.90 ; 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.21 ; Hyperkalemia E87.5 and Anxiety about health F41.8 [facility] [address]00565100[place] [id number] 18 Jun, 2016 Dental examination Z01.20 [facility] [id number] [place] [address] 25233- 2033 11 Jun, 2016 Edema of both feet R60.0 ; Essential hypertension I10 ; Arthritis M19.90 ; 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.21 and Mild intermittent asthma with acute exacerbation J45.21 [place] [id number] [place] [address] 13716- 6436 Jun, [place] [id number] [place] [address] 07088- 9007 Jun, [place] [id number] [place] [address] 11620- 3016 Feb, Swelling R60.9 and Swelling of both eyes H57.8 [place] [id number] [place] [address] 35155- 3663 Jan, Essential hypertension I10 ; Arthritis M19.90 ; 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.21 ; Mild intermittent asthma with acute exacerbation J45.21 and Edema R60.9 [place] [id number] [place] [address] 62195- 6821 16 Dec, 2015 [place] [id number] [place] [address] 61964- 4364 03 Dec, 2015 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.21 ; Essential hypertension I10 ; Mild intermittent asthma with acute exacerbation J45.21 ; Upper respiratory infection J06.9 and Gastroesophageal reflux disease without esophagitis K21.9 [place] [id number] [place] [address] 25208- 1516 Sep, Essential hypertension I10 ; Gastroesophageal reflux disease without esophagitis K21.9 ; 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.21 and History of knee replacement procedure of right knee Z96.651 [place] [address], [place] [address] 78[address] Sep, [facility] [id number] [place] [address] 30890- 6280 Aug, General medical exam Z00.00 [facility] [id number] [place] [address] 20139- 2334 Aug, [place] [address] 00671- 7251 Aug, [place] [id number] [place] [address] 30118- 5010 Aug, [place] [address] 88337- 7364 Aug, Essential hypertension I10 ; Gastroesophageal reflux disease without esophagitis K21.9 ; Arthritis M19.90 ; 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.21 ; Moderate persistent asthma without complication J45.40 and History of long-term use of multiple prescription drugs Z92.29 [place] [id number] [place] [address] 78099- 3495 Jul, Upper respiratory infection 465.9 [place] [id number] [place] [address] 44277- 4842 May, [place] [id number] [place] [address] 71434- 8395 May, Diabetes mellitus without mention of complication, type II or unspecified type, uncontrolled 250.02 ; Esophageal reflux 530.81 ; Essential hypertension, benign 401.1 ; Other and unspecified hyperlipidemia 272.4 ; Chest wall pain 786.52 ; Thickened nails 703.8 ; Foot pain 729.5 ; Arthritis 716.90 and Knee pain 719.46 [place] [id number] [place] [address] 29370- 8600 Apr, [place] [id number] [place] [address] 28919- 8778 Feb, [place] [address] [id number] [place] [address]- 0158 13 Feb, 2014 [facility] [place] [facility] [address] [id number] [place] [address]- 7680 19 Jan, 2014 [facility] [place] [facility] [address] [id number] [place] [address]- 4676 19 Jan, 2014 [facility] [place] [facility] [address] [id number] [place] [address]- 7371 17 Jan, 2014 [facility] [place] [facility] [address] [id number] [place] [address]- 7315 17 Jan, 2014 [facility] [place] [facility] [address] [id number] [place] [address]- 5922 17 Jan, 2014 [facility] [place] [facility] [address] [id number] [place] [address]- 0669 17 Jan, 2014 [facility] [place] [facility] [address] [id number] [place] [address]- 1438 16 Jan, 2014 [facility] [place] [facility] [address] [id number] [place] [address]- 0397 16 Jan, 2014 [facility] [place] [facility] [address] [id number] [place] [address]- 5606 16 Jan, 2014 [facility] [place] [facility] [address] [id number] [place] [address]- 6766 16 Jan, 2014 [facility] [place] [facility] [address] [id number] [place] [address]- 9321 24 Sep, 2014 [facility] [place] [facility] [address] [id number] [place] [address]- 6960 Sep, [facility] [place] [facility] [address] [id number] [place] [address]- 1691 Aug, [facility] [place] [facility] [address] [id number] [place] [address]- 2906 Aug, [facility] [place] [facility] [address] [id number] [place] [address]- 6833 Aug, [facility] [place] [facility] [address] [id number] [place] [address]- 2349 Aug, [facility] [place] [facility] [address] [id number] [place] [address]- 5579 Aug, [facility] [place] [facility] [address] [id number] [place] [address]- 1489 Aug, [facility] [place] [facility] [address] [id number] [place] [address]- 5077 Aug, [facility] [place] [facility] [address] [id number] [place] [address]- 8523 Aug, [facility] [place] [facility] [address] [id number] [place] [address]- 9918 Aug, [facility] [place] [facility] [address] [id number] [place] [address]- 6939 Aug, [facility] [place] [facility] [address] [id number] [place] [address]- 5186 Aug, [facility] [place] [facility] [address] [id number] [place] [address]- 1690 Aug, [facility] [place] [facility] [address] [id number] [place] [address]- 8513 Aug, [facility] [place] [facility] [address] [id number][place] [address]- 8646 Aug, [facility] [place] [facility] [address] [id number], [place] [address]- 7779 19 Jul, 2014 [facility] [place] [facility] [address] [id number] [place] [address]- 6857 19 Jul, 2014 [facility] [place] [facility] [address] [id number], [place] [address]- 4965 17 Jul, 2014 [facility] [place] [facility] [address] [id number] [place] [address]- 0557 17 Jul, 2014 [facility] [place] [facility] [address] [id number] [place] [address]- 7253 12 Jul, 2013 [facility] [place] [facility] [address] [id number] [place] [address]- 2338 12 Jul, 2014 [facility] [place] [facility] [address] [id number] [place] [address]- 6706 Jul, [facility] [place] [facility] [address] [id number] [place] [address]- 5873 Jul, [facility] [place] [facility] [address] [id number] [place] [address]- 5766 Jul, [facility] [place] [facility] [address] [id number] [place] [address]- 3642 Jul, [facility] [place] [facility] [address] [id number] [place] [address]- 9993 Jun, [facility] [place] [facility] [address] [id number] [place] [address]- 6402 Jun, [facility] [place] [facility] [address] [id number] [place] [address]- 7818 Jun, [facility] [place] [facility] [address] [id number] [place] [address]- 8857 Jun, [facility] [place] [facility] [address] [id number] [place] [address]- 6009 Jun, [facility] [place] [facility] [address] [id number] [place] [address]- 4572 Jun, [facility] [place] [facility] [address] [id number] [place] [address]- 0654 Jun, [facility] [place] [facility] [address] [id number] [place] [address]- 5101 Jun, [facility] [place] [facility] [address] [id number] [place] [address]- 5541 May, [facility] [place] [facility] [address] [id number] [place] [address]- 5672 May, [facility] [place] [facility] [address] [id number] [place] [address]- 4778 May, 2013 [facility] [place] [facility] [address] [id number] [place] [address]- 5308 May, 2013 [facility] [place] [facility] [address] [id number] [place] [address]- 0490 May, 2013 [facility] [place] [facility] [address] [id number] [place] [address]- 7223 May, 2013 [facility] [place] [facility] [address] [id number] [place] [address]- 4684 May, 2013 [facility] [place] [facility] [address] [id number] [place] [address]- 9013 May, 2013 [facility] [place] [facility] [address] [id number] [place] [address]- 1426 May, 2013 [facility] [place] [facility] [address] [id number] [place] [address]- 6967 May, 2013 [facility] [place] [facility] [address] [id number] [place] [address]- 4978 May, 2013 [facility] [place] [facility] [address] [id number] [place] [address]- 7464 May, 2013 [facility] [place] [facility] [address] [id number] [place] [address]- 3193 May, 2013 [facility] [place] [facility] [address] [id number] [place] [address]- 8471 May, 2013 [facility] [place] [facility] [address] [id number] [place] [address]- 8801 May, 2013 [facility] [place] [facility] [address] [id number] [place] [address]- 4249 May, 2013 [facility] [place] [facility] [address] [id number] [place] [address]- 8864 May, 2013 [facility] [place] [facility] [address] [id number] [place] [address]- 9532 May, [facility] [place] [facility] [address] [id number] [place] [address]- 4990 May, [facility] [place] [facility] [address] [id number] [place] [address]- 0546 May, [facility] [place] [facility] [address] [id number] [place] [address]- 0235 Apr, [facility] [place] [facility] [address] [id number] [place] [address]- 5034 Apr, [facility] [place] [facility] [address] [id number] [place] [address]- 4845 Apr, [facility] [place] [facility] [address] [id number] [place] [address]- 4840 Apr, [facility] [place] [facility] [address] [id number] [place] [address]- 7588 Apr, [facility] [place] [facility] [address] [id number] [place] [address]- 7682 Apr, [facility] [place] [facility] [address] [id number], [place] [address]- 4936 Apr, [facility] [place] [facility] [address] [id number], [place] [address]- 2746 Apr, [facility] [address] [id number][place] [address] Apr, [facility] [place] [facility] [address] [id number], [place] [address]- 2769 Apr, [facility] [place] [facility] [address] [id number] [place] [address]- 1688 Apr, [facility] [place] [facility] [address] [id number], [place] [address]- 7301 Apr, [facility] [place] [facility] [address] [id number] [place] [address]- 9625 Apr, [facility] [place] [facility] [address] [id number] [place] [address]- 0281 19 Apr, 2014 [facility] [place] [facility] [address] [id number] [place] [address]- 2530 Apr, [facility] [place] [facility] [address] [id number] [place] [address]- 8851 Apr, [facility] [place] [facility] [address] [id number] [place] [address]- 9909 18 Apr, 2014 [facility] [place] [facility] [address] [id number] [place] [address]- 7955 18 Apr, 2014 [facility] [place] [facility] [address] [id number] [place] [address]- 2086 Apr, [facility] [place] [facility] [address] [id number] [place] [address]- 0118 Apr, [facility] [place] [facility] [address] [id number] [place] [address]- 0548 Apr, [facility] [place] [facility] [address] [id number] [place] [address]- 3271 Apr, [facility] [place] [facility] [address] [id number] [place] [address]- 5949 Apr, [facility] [place] [facility] [address] [facility] [id number] [place] [address]- 8626 Apr, [facility] [place] [facility] [address] [id number] [place] [address]- 5044 Apr, [facility] [place] [facility] [address] [id number] [place] [address]- 3738 Apr, [facility] [place] [facility] [address] [id number] [place] [address]- 8158 March, [facility] [place] [facility] [address] [id number] [place] [address]- 9458 March, [facility] [place] [facility] [address] [id number] [place] [address]- 8954 Feb, [facility] [place] [facility] [address] [id number] [place] [address]- 1667 Feb, [facility] [place] [facility] [address] [id number] [place] [address]- 9576 31 Jan, 2014 [facility] [place] [facility] [address] [id number] [place] [address]- 9616 Jan, [facility] [place] [facility] [address] [id number] [place] [address]- 4186 Jan, [facility] [place] [facility] [address] [id number] [place] [address]- 3821 Jan, [facility] [place] [facility] [address] [id number] [place] [address]- 6556 Jan, [facility] [place] [facility] [address] [id number] [place] [address]- 4016 Jan, [facility] [place] [facility] [address] [id number] [place] [address]- 3413 Jan, [facility] [place] [facility] [address] [id number] [place] [address]- 3189 24 Jan, 2014 [facility] [place] [facility] [address] [id number] [place] [address]- 0488 24 Jan, 2014 [facility] [place] [facility] [address] [id number] [place] [address]- 8331 24 Jan, 2014 [facility] [place] [facility] [address] [id number] [place] [address]- 4220 Jan, [facility] [place] [facility] [address] [id number] [place] [address] Jan, [facility] [place] [facility] [address] [id number] [place] [address] Jan, [facility] [place] [facility] [address] [id number] [place] [address] Jan, [facility] [address] [id number] [id number] Jan, [facility] [place] [facility] [address] [id number] [place] [address] Jan, [facility] [place] [facility] [address] [id number] [place] [address] Jan, [facility] [place] [facility] [address] [id number] [place] [address] Jan, [facility] [place] [facility] [address] [id number] [place] [address] Jan, [facility] [place] [facility] [address] [id number] [place] [address] Jan, [facility] [place] [facility] [address] [id number] [place] [address] Jan, [facility] [place] [facility] [address] [id number] [place] [address] Dec, [facility] [place] [facility] [address] [id number] [place] [address] Dec, [facility] [place] [facility] [address] [id number] [place] [address] Dec, [facility] [place] [facility] [address] [id number] [place] [address] Dec, [facility] [place] [facility] [address] [id number] [place] [address] Dec, [facility] [place] [facility] [address] [id number] [place] [address] Dec, [facility] [place] [facility] [address] [id number] [place] [address] Dec, [facility] [place] [facility] [address] [id number] [place] [address] Nov, [facility] [place] [facility] [address] [id number] [place] [address] Nov, [facility] [place] [facility] [address] [id number] [place] [address] Nov, [facility] [address] [id number] [place] [address] Nov, [facility] [address] [id number] [place] [address] Oct, [facility] [address] [id number] [place] [address] Oct, [facility] [address] [id number] [place] [address] Oct, [facility] [address] [id number] [place] [address] Oct, [facility] [address] [id number] [place] [address] Oct, [facility] [address] [id number] [place] [address] Oct, [facility] [address] [id number] [place] [address] Sep, [facility] [address] [id number] [place] [address] Sep, [facility] [address] [id number] [place] [address] Sep, [facility] [place] [facility] [address] [id number] [place] [address] Sep, [facility] [address] [id number] [place] [address] Sep, [facility] [place] [facility] [address] [id number] [place] [address] Sep, [facility] [place] [facility] [address] [id number] [place] [address] Aug, [facility] [place] [facility] [address] [id number] [place] [address] Aug, [facility] [id number] [address] Aug, [facility] [address] [facility] [facility] [id number], [place] [address] Aug, [facility] [address] [facility]NOTE [facility]] [id number], [place] [address] Aug, [facility] [address] [facility]NOTE 3] [id number], [place] [address] Aug, [facility] [address] [facility]NOTE [facility]] [id number], [place] [address] Aug, [facility] [address] [facility]NOTE 3] [id number], [place] [address] Aug, [facility] [id number], [place] [address] Aug, [facility] [id number], [place] [address] Aug, [facility] [id number], [place] [address] Aug, [facility] [id number], [place] [address] Aug, [facility] [id number], [place] [address] Aug, [facility] [id number], [place] [address] Aug, IMMUNIZATIONS No Known Immunizations SOCIAL HISTORY Never Assessed REASON FOR VISIT f/u PLAN OF CARE Activity Details Follow Up Next available Reason:depressed mood and anxiety VITAL SIGNS MEDICATIONS Unknown Medications RESULTS No Results PROCEDURES Procedure Date Ordered Result Body Site Psychotherapy, patient &/family, 30 minutes, established patient April 23, 2018 INSTRUCTIONS MEDICATIONS ADMINISTERED No Known Medications [...]
--- OUTSIDE RECORDS SUMMARY | 2018-10-02 09:32 | XMS REPORT ---
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 Active 41056174 Problem Hyperlipidemia LDL goal <70 E78.5 Active 94830454 Problem Dyslipidemia E78.5 Active 342957013 Problem Other chronic pain G89.29 Active 35291151 Problem Dyspnea on exertion R06.09 Active 55753238 Problem Atypical mole D22.9 Active 255289401 Problem Anxiety with depression F41.8 Active 66736222 Problem 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 411296026 Problem Moderate persistent asthma without complication J45.40 Active 244900703 Problem Gastroesophageal reflux disease without esophagitis K21.9 Active 172128496 Problem General medical exam Z00.00 Active 753791717 Problem Mild intermittent asthma with acute exacerbation J45.21 Active 349221873 Problem Arthritis M19.90 Active 4668749 Problem Edema of both feet R60.0 Active 563255950 Problem Essential hypertension I10 Active 97298724 Problem Hyperkalemia E87.5 Active 55826034 ALLERGIES Substance Reaction Event Type Date Status Ultram Unknown Drug Allergy Apr, Active Tylox Unknown Drug Allergy Apr, Active Talwin Unknown Drug Allergy Apr, Active Fentanyl Unknown Drug Allergy Apr, Active Darvon Unknown Drug Allergy Apr, Active Darvocet-n 100 Unknown Drug Allergy Apr, Active ENCOUNTERS Encounter Location Date Diagnosis [address] [id number] [place] [id number] Jun, Hyperlipidemia LDL goal <[address] [facility] [id number] [id number] Jun, Dyslipidemia E78.5 and Hyperlipidemia LDL goal <[address] [facility] [id number] [id number] Jun, 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.21 ; Hyperlipidemia LDL goal <70 E78.5 and Essential hypertension I10 [facility] [id number] [id number] Apr, Anxiety with depression F41.8 [facility] [address] [facility] [id number] [address] Apr, Pain in left knee M25.562 ; Other chronic pain G89.29 ; Insect bite (nonvenomous), left lower leg, initial encounter S80.862A ; Bitten or stung by nonvenomous insect and other nonvenomous arthropods, initial encounter W57.XXXA and BMI 45.0-49.9, adult Z68.[address] [id number] [id number] March, Anxiety with depression F41.8 [facility] [id number] [id number] March, Anxiety with depression F41.8 [address] [id number] [id number] Feb, [address] [id number][place] [id number] Feb, BMI 45.0-49.9, adult Z68.42 ; Essential hypertension I10 ; Arthritis M19.90 ; Gastroesophageal reflux disease without esophagitis K21.9 ; Hyperlipidemia LDL goal <70 E78.5 ; History of renal insufficiency Z87.448 and 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.21 [facility] [address] [facility] [id number] [place] [address] Nov, Essential hypertension I10 ; Type 2 diabetes mellitus with diabetic nephropathy, 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 ; Long- term use of high-risk medication Z79.899 ; Hyperlipidemia LDL goal <70 E78.5 ; Dyspnea on exertion R06.09 and BMI 40.0-44.9, adult Z68.41 [place] [address] [address] Sep, Essential hypertension I10 and Type 2 diabetes mellitus with diabetic nephropathy, 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 [place] [address] [place] [id number] [place] [address] 48548- 2043 Aug, [place] [address] [place] [id number] [place] [address] 93667- 2061 Jun, Essential hypertension I10 ; Type 2 diabetes mellitus with diabetic nephropathy, 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 ; Long- term use of high-risk medication Z79.899 ; Hyperlipidemia LDL goal <70 E78.5 ; Dyspnea on exertion R06.09 and Atypical mole D22.9 [place] [address] [place] [id number] [place] [address] 42540- 7071 May, Essential hypertension I10 [place] [address] [place] [id number] [place] [address] 50558- 1095 March, Essential hypertension I10 ; 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.21 ; Long-term use of high-risk medication Z79.899 ; Left hip pain M25.552 ; Pain in left knee M25.562 ; Fullness of neck R22.1 and Hyperlipidemia LDL goal <70 E78.5 [place] [address] [place] [address] 21650- 4255 Feb, Essential hypertension I10 ; 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.21 ; Long-term use of high-risk medication Z79.899 ; Left hip pain M25.552 ; Pain in left knee M25.562 ; Fullness of neck R22.1 and Hyperlipidemia LDL goal <70 E78.5 [place] [address] [place] [id number] [address] 30 Jan, 2017 Essential hypertension I10 [facility] [address] [id number] [id number] 29 Jan, 2017 Essential hypertension I10 [facility] [address] [place] [address] 31093- 5570 17 Jan, 2017 Fullness of neck R22.1 [place] [address] [place] [id number] [place] [address] 98305- 4381 15 Jan, 2017 Essential hypertension I10 ; 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.21 ; Long-term use of high-risk medication Z79.899 ; Left hip pain M25.552 ; Pain in left knee M25.562 ; Fullness of neck R22.1 and Eustachian tube disorder, bilateral H69.93 [place] [address] [place] [address] 84026- 6055 Nov, [facility] [address] [id number] [id number] Nov, [facility] [address] [id number][place] [id number] Nov, Acute otitis externa of both ears, unspecified type H60.503 [facility] [address] [id number][place] [id number] Oct, Bronchitis J40 [place] [address] [place] [address] 63773- 0547 Sep, Essential hypertension I10 ; 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.21 ; Long-term use of high-risk medication Z79.899 ; Swelling R60.9 and Bronchitis J40 [place] [address] [place] [id number] [place] [address] 02465- 0970 Aug, [place] [address] [place] [address] 59692- 2597 Aug, Edema of both feet R60.0 ; Essential hypertension I10 ; 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.21 ; Skin ulcer of foot including toes, right, limited to breakdown of skin L97.511 and Yeast dermatitis B37.2 [place] [address] [place] [id number] [place] [address] 99499- 2715 Jul, [facility] [address] [place] [id number] [place] [address] 11884- 2910 Jul, [facility] [address] [id number] Jul, Encounter for dental examination Z01.20 [place] [address] [place] [id number] [place] [address] 69003- 4566 Jun, Edema of both feet R60.0 ; Essential hypertension I10 ; Arthritis M19.90 ; 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.21 ; Hyperkalemia E87.5 and Anxiety about health F41.8 [facility] [id number] [place] [id number] Jun, Dental examination Z01.20 [place] [address] [place] [id number] [place] [address] 69109- 1158 Jun, Edema of both feet R60.0 ; Essential hypertension I10 ; Arthritis M19.90 ; 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.21 and Mild intermittent asthma with acute exacerbation J45.21 [place] [address] [place] [id number] [place] [address] 07836- 3033 Jun, [place] [address] [place] [id number] [place] [address] 66685- 8015 Jun, [place] [address] [place] [id number] [place] [address] 32668- 5722 Feb, Swelling R60.9 and Swelling of both eyes H57.8 [place] [address] [place] [id number] [place] [address] 90780- 3104 17 Jan, 2016 Essential hypertension I10 ; Arthritis M19.90 ; 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.21 ; Mild intermittent asthma with acute exacerbation J45.21 and Edema R60.9 [place] [address] [place] [id number] [place] [address] 70359- 0576 16 Dec, 2015 [place] [address] [place] [id number] [place] [address] 02704- 7827 03 Dec, 2016 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.21 ; Essential hypertension I10 ; Mild intermittent asthma with acute exacerbation J45.21 ; Upper respiratory infection J06.9 and Gastroesophageal reflux disease without esophagitis K21.9 [place] [address] [place] [id number] [place] [address] 07713- 3325 24 Sep, 2015 Essential hypertension I10 ; Gastroesophageal reflux disease without esophagitis K21.9 ; 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.21 and History of knee replacement procedure of right knee Z96.651 [place] [address] [place] [id number] [place] [address] 73808- 2088 16 Sep, 2015 [place] [address] [address]99- 4614 Aug, General medical exam Z00.00 [place] [address] [place] [id number] [place] [address] 27343- 1543 Aug, [place] [address] [place] [id number] [place] [address] 38059- 6454 Aug, [place] [address] [place] [id number] [place] [address] 02929- 2311 Aug, [place] [address] [place] [id number] [place] [address] 98578- 9366 Aug, Essential hypertension I10 ; Gastroesophageal reflux disease without esophagitis K21.9 ; Arthritis M19.90 ; 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.21 ; Moderate persistent asthma without complication J45.40 and History of long-term use of multiple prescription drugs Z92.29 [place] [address] [place] [id number] [place] [address] 82970- 4911 02 Jul, 2015 Upper respiratory infection 465.9 [place] [address] [place] [id number] [place] [address] 97533- 2546 May, [facility] [address] [address] 3979 May, Diabetes mellitus without mention of complication, type II or unspecified type, uncontrolled 250.02 ; Esophageal reflux 530.81 ; Essential hypertension, benign 401.1 ; Other and unspecified hyperlipidemia 272.4 ; Chest wall pain 786.52 ; Thickened nails 703.8 ; Foot pain 729.5 ; Arthritis 716.90 and Knee pain 719.46 [facility] [address] [place] [address] [id number] [address]- 4581 Apr, [facility] [address] [place] [id number] [place] [address] 27000- 0887 14 Feb, 2015 [facility] [address] [place] [id number] [place] [address] 30274- 2496 Feb, [facility] [address] [place] [address] [id number] [place] [address] 489352- 9283 Jan, [facility] [address] 8584 19 Jan, 2015 [facility] [address] [place] [id number] [place] [address] 436175- 8555 Jan, [facility] [address] 6351 17 Jan, 2015 [facility] [address] 8863 17 Jan, 2015 [facility] [address] [address]- 7184 17 Jan, 2015 [facility] [address] [place] [id number] [place] [address] 24384- 7121 16 Jan, 2015 [facility] [address] [address]- 9626 16 Jan, 2015 [facility] [address] 7432 Jan, [facility] [place] [facility] [address] [id number] [place] [address]- 5408 16 Jan, 2015 [facility] [place] [facility] [address] [id number] [place] [address]- 7420 Sep, [facility] [place] [facility] [address] [id number] [place] [address]- 0595 Sep, [facility] [place] [facility] [address] [id number] [place] [address]- 1845 Aug, [facility] [place] [facility] [address] [id number] [place] [address]- 1362 Aug, [facility] [place] [facility] [address] [id number] [place] [address]- 5557 Aug, [facility] [place] [facility] [address] [id number] [place] [address]- 8499 Aug, [facility] [place] [facility] [address] [id number] [place] [address]- 9055 Aug, [facility] [place] [facility] [address] [id number] [place] [address]- 6348 Aug, [facility] [place] [facility] [address] [id number] [place] [address]- 9086 Aug, [facility] [place] [facility] [address] [id number] [place] [address]- 4764 Aug, [facility] [place] [facility] [address] [id number] [place] [address]- 8679 Aug, [facility] [place] [facility] [address] [id number] [place] [address]- 7228 Aug, [facility] [place] [facility] [address] [id number] [place] [address]- 0132 Aug, [facility] [place] [facility] [address] [id number] [place] [address]- 4967 Aug, [facility] [place] [facility] [address] [id number] [place] [address]- 0685 07 Aug, 2014 [facility] [place] [facility] [address] [id number] [place] [address]- 1993 03 Aug, 2014 [facility] [place] [facility] [address] [id number] [place] [address]- 8778 19 Jul, 2013 [facility] [place] [facility] [address] [id number] [place] [address]- 7166 19 Jul, 2013 [facility] [place] [facility] [address] [id number] [place] [address]- 6830 17 Jul, 2013 [facility] [place] [facility] [address] [id number] [place] [address]- 9017 17 Jul, 2013 [facility] [place] [facility] [address] [id number] [place] [address]- 1792 12 Jul, 2013 [facility] [place] [facility] [address] [id number] [place] [address]- 9545 12 Jul, 2013 [facility] [place] [facility] [address] [id number] [place] [address]- 8903 10 Jul, 2013 [facility] [place] [facility] [address] [id number] [place] [address]- 2060 10 Jul, 2013 [facility] [place] [facility] [address] [id number] [place] [address]- 3485 09 Jul, 2014 [facility] [place] [facility] [address] [id number] [place] [address]- 2938 09 Jul, 2013 [facility] [place] [facility] [address] [id number] [place] [address]- 4744 Jun, [facility] [place] [facility] [address] [id number] [place] [address]- 8397 Jun, [facility] [place] [facility] [address] [id number] [place] [address]- 5262 14 Jun, 2014 [facility] [place] [facility] [address] [id number] [place] [address]- 5783 Jun, [facility] [place] [facility] [address] [id number] [place] [address]- 4027 Jun, [facility] [place] [facility] [address] [id number] [place] [address]- 0051 Jun, [facility] [place] [facility] [address] [id number] [place] [address]- 1464 Jun, [facility] [place] [facility] [address] [id number] [place] [address]- 1460 Jun, [facility] [place] [facility] [address] [id number] [place] [address]- 7104 May, [facility] [place] [facility] [address] [id number] [place] [address]- 8820 May, [facility] [place] [facility] [address] [id number] [place] [address]- 6837 May, [facility] [place] [facility] [address] [id number] [place] [address]- 1337 May, [facility] [place] [facility] [address] [id number] [place] [address]- 8777 May, [facility] [place] [facility] [address] [id number] [place] [address]- 2806 May, [facility] [place] [facility] [address] [id number] [place] [address]- 0673 May, [facility] [place] [facility] [address] [id number] [place] [address]- 6120 May, [facility] [place] [facility] [address] [id number] [place] [address]- 8666 May, [facility] [place] [facility] [address] [id number] [place] [address]- 9248 May, [facility] [place] [facility] [address] [id number] [place] [address]- 8171 May, [facility] [place] [facility] [address] [id number] [place] [address]- 1758 May, 2013 [facility] [place] [facility] [address] [id number] [place] [address]- 1680 May, 2013 [facility] [place] [facility] [address] [id number] [place] [address]- 8872 May, 2013 [facility] [place] [facility] [address] [id number] [place] [address]- 6201 May, 2013 [facility] [place] [facility] [address] [id number] [place] [address]- 4888 May, 2013 [facility] [place] [facility] [address] [id number] [place] [address]- 2686 May, [facility] [place] [facility] [address] [id number] [place] [address]- 5539 May, [facility] [place] [facility] [address] [id number] [place] [address]- 6929 May, [facility] [place] [facility] [address] [id number] [place] [address]- 0065 May, [facility] [place] [facility] [address] [id number] [place] [address]- 9343 Apr, [facility] [place] [facility] [address] [id number] [place] [address]- 5662 Apr, [facility] [place] [facility] [address] [id number] [place] [address]- 1778 Apr, [facility] [place] [facility] [address] [id number] [place] [address]- 6651 Apr, [facility] [place] [facility] [address] [id number] [place] [address]- 5007 Apr, [facility] [place] [facility] [address] [id number] [place] [address]- 9681 Apr, [facility] [place] [facility] [address] [id number] [place] [address]- 5310 Apr, [facility] [place] [facility] [address] [facility] [id number] [place] [address]- 5282 23 Apr, 2014 [facility] [address] [id number] [place] [id number] Apr, [facility] [place] [facility] [address] [facility] [id number] [place] [address]- 0176 Apr, [facility] [place] [facility] [address] [facility] [id number] [place] [address]- 6204 Apr, [facility] [place] [facility] [address] [facility] [id number] [place] [address]- 0961 20 Apr, 2014 [facility] [place] [facility] [address] [facility] [id number] [place] [address]- 8604 Apr, [facility] [place] [facility] [address] [facility] [id number] [place] [address]- 3661 Apr, [facility] [place] [facility] [id number] [place] [address]- 5380 Apr, [facility] [place] [facility] [address] [facility] [id number] [place] [address]- 4259 Apr, [facility] [place] [facility] [address] [facility] [id number] [place] [address]- 7627 18 Apr, 2014 [facility] [place] [facility] [address] [facility] [id number] [place] [address]- 9577 18 Apr, 2014 [facility] [place] [facility] [address] [facility] [id number] [place] [address]- 6028 18 Apr, 2014 [facility] [place] [facility] [address] [facility] [id number] [place] [address]- 2421 18 Apr, 2014 [facility] [place] [facility] [address] [facility] [id number] [place] [address]- 9307 17 Apr, 2014 [facility] [place] [facility] [address] [facility] [id number] [place] [address]- 7984 17 Apr, 2014 [facility] [place] [facility] [address] [facility] [id number] [place] [address]- 8352 17 Apr, 2014 [facility] [place] [facility] [address] [id number] [place] [address]- 4106 Apr, [facility] [place] [facility] [address] [id number] [place] [address]- 2606 Apr, [facility] [place] [facility] [address] [id number] [place] [address]- 4796 Apr, [facility] [place] [facility] [address] [id number] [place] [address]- 1824 March, [facility] [place] [facility] [address] [id number] [place] [address]- 3066 March, [facility] [place] [facility] [address] [id number] [place] [address]- 5921 Feb, [facility] [place] [facility] [address] [id number] [place] [address]- 8450 Feb, [facility] [place] [facility] [address] [id number] [place] [address]- 4601 Jan, [facility] [place] [facility] [address] [id number] [place] [address]- 6509 31 Jan, 2014 [facility] [place] [facility] [address] [id number] [place] [address]- 0742 Jan, [facility] [place] [facility] [address] [id number] [place] [address]- 8694 Jan, [facility] [place] [facility] [address] [id number] [place] [address]- 58[address] Jan, [facility] [place] [facility] [address] [id number] [place] [address] Jan, [facility] [place] [facility] [address] [id number] [place] [address] Jan, [facility] [place] [facility] [address] [id number] [place] [address] Jan, [facility] [place] [facility] [address] [id number] [place] [address] Jan, [facility] [place] [facility] [address] [id number] [place] [address] Jan, [facility] [place] [facility] [address] [id number] [place] [address] Jan, [facility] [place] [facility] [address] [id number] [place] [address] Jan, [facility] [place] [facility] [address] [id number] [place] [address] Jan, [facility] [address] [id number] [place] [address] Jan, [facility] [address] [id number] [place] [id number] Jan, [facility] [place] [facility] [address] [id number] [place] [address] Jan, [facility] [place] [facility] [address] [id number] [place] [address] Jan, [facility] [place] [facility] [address] [id number] [place] [address] Jan, [facility] [place] [facility] [address] [id number] [place] [address] Jan, [facility] [place] [facility] [address] [id number] [place] [address]- [address] Jan, [facility] [place] [facility] [address] [id number] [place] [address] Jan, [facility] [place] [facility] [address] [id number] [place] [address] Dec, [facility] [place] [facility] [address] [id number] [place] [address] Dec, [facility] [place] [facility] [address] [id number] [place] [address] Dec, [facility] [place] [facility] [address] [id number] [place] [address] 07 Dec, 2013 [facility] [place] [facility] [address] [id number] [place] [address] Dec, [facility] [place] [facility] [address] [id number] [place] [address] Dec, [facility] [place] [facility] [address] [id number] [place] [address] Dec, [facility] [place] [facility] [address] [id number] [place] [address] Nov, [facility] [place] [facility] [address] [id number] [place] [address] Nov, [facility] [place] [facility] [address] [id number] [place] [address] Nov, [facility] [address] [id number] [place] [address] Nov, [facility] [place] [facility] [address] [id number] [place] [address] Oct, [facility] [place] [facility] [address] [id number] [place] [address] Oct, [facility] [place] [facility] [address] [id number] [place] [address] Oct, [facility] [place] [facility] [address] [id number] [place] [address] Oct, [facility] [place] [facility] [address] [id number] [place] [address] Oct, [facility] [place] [facility] [address] [id number] [place] [address] Oct, [facility] [place] [facility] [address] [id number] [place] [address] Sep, [facility] [place] [facility] [address] [id number] [place] [address] Sep, [facility] [place] [facility] [address] [id number] [place] [address] Sep, [facility] [place] [facility] [address] [id number] [place] [address] Sep, [facility] [place] [facility] [address] [id number] [place] [address] Sep, [facility] [place] [facility] [address] [id number] [place] [address] Sep, [facility] [place] [facility] [address] [id number] [place] [address] Aug, [facility] [place] [facility] [address] [id number] [place] [address] Aug, [facility] [place] [facility] [address] [id number] [place] [address] Aug, [facility] [place] [facility] [address] [id number] [place] [address] Aug, [facility] [place] [facility] [address] [id number] [place] [address] Aug, [facility] [place] [facility] [address] [id number] [place] [address] Aug, [facility] [place] [facility] [address] [id number] [place] [address] 15 Aug, 2013 [facility] [place] [facility] [address] [id number] [place] [address] 15 Aug, 2013 [facility] [place] [facility] [address] [id number] [place] [address] 10 Aug, 2013 [facility] [place] [facility] [address] [id number] [place] [address] 10 Aug, 2013 [facility] [place] [facility] [address] [id number] [place] [address] 10 Aug, 2013 [facility] [place] [facility] [address] [id number] [place] [address] Aug, [facility] [address] [facility] [id number] [place] [address] Aug, [facility] [address] [facility] [id number] [place] [address] Aug, IMMUNIZATIONS No Known Immunizations SOCIAL HISTORY Never Assessed REASON FOR VISIT Bite on leg--tcuppettRn, Bite on left leg x 2 weeks . Pt reports having swelling in that leg at times. PLAN OF CARE Activity Details Follow Up prn Reason: VITAL SIGNS Height 66 in 2018-05-10 Weight 295.1 lbs 2018-05-10 Temperature 98.6 degrees Fahrenheit 2018-05-10 Heart Rate 80 bpm 2018-05-10 Respiratory Rate 20 2018-05-10 BMI 47.63 kg/m2 2018-05-10 Blood pressure systolic 128 mmHg 2018-05-10 Blood pressure diastolic 84 mmHg 2018-05-10 MEDICATIONS Medication Instructions Dosage Frequency Start Date End Date Duration Status Zyrtec Allergy 10 MG Orally Once a day 1 tablet 24h Active Pravastatin Sodium 40 mg Orally Once a day 1 tablet 24h Active MetFORMIN HCl ER 500 mg Orally 3 times a day 1 tablet 8h Active Mupirocin 2 % Externally twice a day 1 application to affected area 12h Apr, Apr, 07 days Active Krill Oil [place]-3 300 MG Orally 3 times a day 1 capsule 8h Active Omeprazole 40 mg Orally Once a day 1 capsule 24h Active ibuprofen Active Glucocard Expression Test - In Vitro test once daily as directed Active Glucocard Expression Monitor w/Device as directed Nov, Active Womens Multivitamin Active tylenol Active Lotrel 10-40 MG Orally Once a day 1 capsule 24h Active Chlorthalidone 25 MG Orally Once a day as needed for swelling 1 tablet in the morning Active RESULTS Name Result Date Reference Range Xray : Knee, Left 3 views (IN HOUSE) 2018-05-10 PROCEDURES Procedure Date Ordered Result Body Site X-RAY EXAM OF KNEE, 3 May 10, 2018 INSTRUCTIONS MEDICATIONS ADMINISTERED No Known Medications [...]
--- OUTSIDE RECORDS SUMMARY | 2018-10-02 09:33 | XMS REPORT ---
Author Author NURYS MAXWELL [facility] Address Unknown Phone Unavailable Care Team Providers Care Business Development Assistant Name Role Phone NURYS MAXWELL Unavailable Unavailable PROBLEMS Type Condition ICD9-CM Code FXZ16-NS Code Onset Dates Condition Status SNOMED Code Problem Hyperkalemia E87.5 Active 83353657 Problem Hyperlipidemia LDL goal <70 E78.5 Active 19015010 Problem Long-term use of high-risk medication Z79.899 Active 572347315 Problem Other chronic pain G89.29 Active 93494543 Problem Anxiety with depression F41.8 Active 23228399 Problem Atypical mole D22.9 Active 650132776 Problem Type 2 diabetes mellitus with diabetic nephropathy, 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 Active 40642814 Problem 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 808775646 Problem Dyspnea on exertion R06.09 Active 07923707 Problem Moderate persistent asthma without complication J45.40 Active 265603930 Problem Essential hypertension I10 Active 14110848 Problem General medical exam Z00.00 Active 448071504 Problem Gastroesophageal reflux disease without esophagitis K21.9 Active 833714303 Problem Mild intermittent asthma with acute exacerbation J45.21 Active 754284472 Problem Arthritis M19.90 Active 2863404 Problem Edema of both feet R60.0 Active 409971240 ALLERGIES No Information ENCOUNTERS Encounter Location Date Diagnosis [facility] [address] [id number] [id number] Jun, [facility] [place] [id number] [facility] [address] [id number] [place] [id number] Apr, Anxiety with depression F41.8 [facility] [address] [facility] [id number] [place] [address] [address] 15 Apr, 2018 Pain in left knee M25.562 ; Other chronic pain G89.29 ; Insect bite (nonvenomous), left lower leg, initial encounter S80.862A ; Bitten or stung by nonvenomous insect and other nonvenomous arthropods, initial encounter W57.XXXA and BMI 45.0-49.9, adult Z68.[address] [id number] [place] [id number] March, Anxiety with depression F41.[address] [id number] [place] [id number] March, Anxiety with depression F41.8 [address] [id number] [place] [id number] Feb, [address] [id number] [place] [id number] Feb, BMI 45.0-49.9, adult Z68.42 ; Essential hypertension I10 ; Arthritis M19.90 ; Gastroesophageal reflux disease without esophagitis K21.9 ; Hyperlipidemia LDL goal <70 E78.5 ; History of renal insufficiency Z87.448 and 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.21 [place] [address] [id number] [place] [address] 6018 Nov, Essential hypertension I10 ; Type 2 diabetes mellitus with diabetic nephropathy, 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 ; Long- term use of high-risk medication Z79.899 ; Hyperlipidemia LDL goal <70 E78.5 ; Dyspnea on exertion R06.09 and BMI 40.0-44.9, adult Z68.41 [place] [id number] [place] [address] 07958- 6787 Sep, Essential hypertension I10 and Type 2 diabetes mellitus with diabetic nephropathy, 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 [place] [id number] [place] [address] 41825- 4854 Aug, [place] [address] [address] Jun, Essential hypertension I10 ; Type 2 diabetes mellitus with diabetic nephropathy, 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 ; Long- term use of high-risk medication Z79.899 ; Hyperlipidemia LDL goal <70 E78.5 ; Dyspnea on exertion R06.09 and Atypical mole D22.9 [place] [address] [address] May, Essential hypertension I10 [place] [address] [place] [address] 38805- 6750 March, Essential hypertension I10 ; 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.21 ; Long-term use of high-risk medication Z79.899 ; Left hip pain M25.552 ; Pain in left knee M25.562 ; Fullness of neck R22.1 and Hyperlipidemia LDL goal <70 E78.5 [place] [address] [place] [address] 59244- 1252 Feb, Essential hypertension I10 ; 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.21 ; Long-term use of high-risk medication Z79.899 ; Left hip pain M25.552 ; Pain in left knee M25.562 ; Fullness of neck R22.1 and Hyperlipidemia LDL goal <70 E78.5 [address] [address] Jan, Essential hypertension I10 [address] [id number] [place] [id number] Jan, Essential hypertension I10 [place] [id number] [address] Jan, Fullness of neck R22.1 [place] [address] [place] [address] 48822- 1886 Jan, Essential hypertension I10 ; 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.21 ; Long-term use of high-risk medication Z79.899 ; Left hip pain M25.552 ; Pain in left knee M25.562 ; Fullness of neck R22.1 and Eustachian tube disorder, bilateral H69.93 [address] [place] [address] 81465- 4399 Nov, [facility] [address] [facility] [address] [id number] [id number] Nov, [facility] [address] [facility] [address] [id number] [place] [id number] Nov, Acute otitis externa of both ears, unspecified type H60.503 [facility] [address] [facility] [address] [id number] [place] [id number] Oct, Bronchitis J40 [place] [address] [address]- 3567 Sep, Essential hypertension I10 ; 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.21 ; Long-term use of high-risk medication Z79.899 ; Swelling R60.9 and Bronchitis J40 [place] [id number] [place] [address] 82278- 2489 Aug, [address] [address]- 1623 Aug, Edema of both feet R60.0 ; Essential hypertension I10 ; 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.21 ; Skin ulcer of foot including toes, right, limited to breakdown of skin L97.511 and Yeast dermatitis B37.2 [place] [id number] [place] [address] 21317- 7430 Jul, [address] 97878- 8795 Jul, [facility] [id number] [place] [id number] Jul, Encounter for dental examination Z01.[address] 70882- 7429 Jun, Edema of both feet R60.0 ; Essential hypertension I10 ; Arthritis M19.90 ; 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.21 ; Hyperkalemia E87.5 and Anxiety about health F41.8 [facility] [address] [address] 18 Jun, 2016 Dental examination Z01.20 [place] [id number] [place] [address] 29421- 1467 11 Jun, 2016 Edema of both feet R60.0 ; Essential hypertension I10 ; Arthritis M19.90 ; 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.21 and Mild intermittent asthma with acute exacerbation J45.21 [place] [id number] [place] [address] 14478- 8590 Jun, [place] [id number] [place] [address] 07166- 9305 Jun, [place] [id number] [place] [address] 59313- 0619 Feb, Swelling R60.9 and Swelling of both eyes H57.8 [place] [id number] [place] [address] 00218- 7897 Jan, Essential hypertension I10 ; Arthritis M19.90 ; 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.21 ; Mild intermittent asthma with acute exacerbation J45.21 and Edema R60.9 [place] [id number] [place] [address] 08512- 2782 Dec, [place] [address] [place] [address] 46734- 2351 Dec, 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.21 ; Essential hypertension I10 ; Mild intermittent asthma with acute exacerbation J45.21 ; Upper respiratory infection J06.9 and Gastroesophageal reflux disease without esophagitis K21.9 [place] [address] [place] [address] 32799- 5634 Sep, Essential hypertension I10 ; Gastroesophageal reflux disease without esophagitis K21.9 ; 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.21 and History of knee replacement procedure of right knee Z96.651 [place] [address] [place] [address] 89144- 2054 Sep, [place] [address] [place] [address] 16425- 8401 Aug, General medical exam Z00.00 [place] [id number] [place] [address] 34854- 8523 Aug, [place] [address] [id number] [place] [address] 87581- 4786 Aug, [address] 67229- 4029 Aug, [place] [id number] [place] [address] 17693- 0873 Aug, Essential hypertension I10 ; Gastroesophageal reflux disease without esophagitis K21.9 ; Arthritis M19.90 ; 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.21 ; Moderate persistent asthma without complication J45.40 and History of long-term use of multiple prescription drugs Z92.29 [place] [id number] [place] [address] 07395- 5728 Jul, Upper respiratory infection 465.9 [place] [id number] [place] [address] 87714- 0266 May, [place] [id number] [place] [address] 62691- 0843 May, Diabetes mellitus without mention of complication, type II or unspecified type, uncontrolled 250.02 ; Esophageal reflux 530.81 ; Essential hypertension, benign 401.1 ; Other and unspecified hyperlipidemia 272.4 ; Chest wall pain 786.52 ; Thickened nails 703.8 ; Foot pain 729.5 ; Arthritis 716.90 and Knee pain 719.46 [place] [id number] [place] [address] 15489- 8597 Apr, [address] 51219- 9347 Feb, [place] [id number] [place] [address] 69862- 7531 Feb, [facility] [place] [facility] [address] [id number] [place] [address]- 5598 19 Jan, 2014 [facility] [place] [facility] [address] [id number] [place] [address]- 0622 19 Jan, 2014 [facility] [place] [facility] [address] [id number] [place] [address]- 2006 17 Jan, 2014 [facility] [place] [facility] [address] [id number] [place] [address]- 8506 17 Jan, 2014 [facility] [place] [facility] [address] [id number] [place] [address]- 7682 17 Jan, 2014 [facility] [place] [facility] [address] [id number] [place] [address]- 2973 17 Jan, 2014 [facility] [place] [facility] [address] [id number] [place] [address]- 7779 16 Jan, 2014 [facility] [place] [facility] [address] [id number] [place] [address]- 2926 16 Jan, 2014 [facility] [place] [facility] [address] [id number] [place] [address]- 5038 16 Jan, 2014 [facility] [place] [facility] [address] [id number] [place] [address]- 7632 16 Jan, 2014 [facility] [place] [facility] [address] [id number] [place] [address]- 0953 24 Sep, 2014 [facility] [place] [facility] [address] [id number] [place] [address]- 9628 Sep, [facility] [place] [facility] [address] [id number] [place] [address]- 7706 Aug, [facility] [place] [facility] [address] [id number] [place] 8661 Aug, [facility] [place] [facility] [address] [id number] [place] [address]- 6664 Aug, [facility] [place] [facility] [address] [id number] [place] [address]- 2452 Aug, [facility] [place] [facility] [address] [id number] [place] [address]- 1756 Aug, [facility] [place] [facility] [address] [id number] [place] [address]- 5360 Aug, [facility] [place] [facility] [address] [id number] [place] [address]- 8306 Aug, [facility] [place] [facility] [address] [id number] [place] [address]- 1530 Aug, [facility] [place] [facility] [address] [id number] [place] [address]- 1425 Aug, [facility] [place] [facility] [address] [id number] [place] [address]- 6085 Aug, [facility] [place] [facility] [address] [id number] [place] [address]- 6811 Aug, [facility] [place] [facility] [address] [id number] [place] [address]- 2329 Aug, [facility] [place] [facility] [address] [id number] [place] [address]- 8884 Aug, [facility] [place] [facility] [address] [id number] [place] [address]- 6328 Aug, [facility] [place] [facility] [address] [id number], [place] [address]- 7993 19 Jul, 2013 [facility] [place] [facility] [address] [id number], [place] [address]- 1485 19 Jul, 2013 [facility] [place] [facility] [address] [id number] [place] [address]- 8731 17 Jul, 2013 [facility] [place] [facility] [address] [id number], [place] [address]- 8716 17 Jul, 2013 [facility] [place] [facility] [address] [id number][place] [address]- 5612 12 Jul, 2013 [facility] [place] [facility] [address] [id number] [place] [address]- 9315 12 Jul, 2013 [facility] [place] [facility] [address] [id number] [place] [address]- 8100 10 Jul, 2014 [facility] [place] [facility] [address] [id number] [place] [address]- 4456 Jul, [facility] [place] [facility] [address] [id number] [place] [address]- 2709 Jul, [facility] [place] [facility] [address] [id number] [place] [address]- 8142 Jul, [facility] [place] [facility] [address] [id number] [place] [address]- 6805 Jun, [facility] [place] [facility] [address] [id number] [place] [address]- 3098 Jun, [facility] [place] [facility] [address] [id number] [place] [address]- 1713 Jun, [facility] [place] [facility] [address] [id number] [place] [address]- 8533 Jun, [facility] [place] [facility] [address] [id number] [place] [address]- 7623 Jun, [facility] [place] [facility] [address] [id number] [place] [address]- 2032 Jun, [facility] [place] [facility] [address] [id number] [place] [address]- 2300 Jun, [facility] [place] [facility] [address] [id number] [place] [address]- 9802 Jun, [facility] [place] [facility] [address] [id number] [place] [address]- 7281 May, [facility] [place] [facility] [address] [id number] [place] [address]- 2575 May, [facility] [place] [facility] [address] [id number] [place] [address]- 8006 May, [facility] [place] [facility] [address] [id number] [place] [address]- 5862 May, 2013 [facility] [place] [facility] [address] [id number] [place] [address]- 2511 May, 2013 [facility] [place] [facility] [address] [id number] [place] [address]- 3645 May, 2013 [facility] [place] [facility] [address] [id number] [place] [address]- 5253 May, 2013 [facility] [place] [facility] [address] [id number] [place] [address]- 8681 May, 2013 [facility] [place] [facility] [address] [id number] [place] [address]- 9761 May, 2013 [facility] [place] [facility] [address] [id number] [place] [address]- 2396 May, 2013 [facility] [place] [facility] [address] [id number] [place] [address]- 4680 May, 2013 [facility] [place] [facility] [address] [id number] [place] [address]- 5712 May, 2013 [facility] [place] [facility] [address] [id number] [place] [address]- 4747 May, 2013 [facility] [place] [facility] [address] [id number] [place] [address]- 5040 May, 2013 [facility] [place] [facility] [address] [id number] [place] [address]- 1926 May, 2013 [facility] [place] [facility] [address] [id number] [place] [address]- 9802 May, 2013 [facility] [place] [facility] [address] [id number] [place] [address]- 0497 May, 2013 [facility] [place] [facility] [address] [id number] [place] [address]- 2364 May, 2013 [facility] [place] [facility] [address] [id number] [place] [address]- 7559 May, [facility] [place] [facility] [address] [id number] [place] [address]- 5733 May, [facility] [place] [facility] [address] [id number] [place] [address]- 7381 Apr, [facility] [place] [facility] [address] [id number] [place] [address]- 7299 Apr, [facility] [place] [facility] [address] [id number] [place] [address]- 6527 Apr, [facility] [place] [facility] [address] [id number] [place] [address]- 4087 Apr, [facility] [place] [facility] [address] [id number] [place] [address]- 0764 Apr, [facility] [place] [facility] [address] [id number] [place] [address]- 3387 Apr, [facility] [place] [facility] [address] [id number] [place] [address]- 8554 Apr, [facility] [place] [facility] [address] [id number], [place] [address]- 6079 Apr, [facility] [address] [id number] [id number] Apr, [facility] [place] [facility] [address] [id number], [place] [address]- 2845 Apr, [facility] [place] [facility] [address] [id number], [place] [address]- 8026 Apr, [facility] [place] [facility] [address] [id number] [place] [address]- 2384 Apr, [facility] [place] [facility] [address] [id number] [place] [address]- 7496 Apr, [facility] [place] [facility] [address] [id number] [place] [address]- 5275 Apr, [facility] [place] [facility] [address] [id number] [place] [address]- 6016 19 Apr, 2014 [facility] [place] [facility] [address] [id number] [place] [address]- 0987 19 Apr, 2014 [facility] [place] [facility] [address] [id number] [place] [address]- 5560 18 Apr, 2014 [facility] [place] [facility] [address] [id number] [place] [address]- 3415 Apr, [facility] [place] [facility] [address] [id number] [place] [address]- 4557 Apr, [facility] [place] [facility] [address] [id number] [place] [address]- 3942 Apr, [facility] [place] [facility] [address] [id number] [place] [address]- 2831 Apr, [facility] [place] [facility] [address] [id number] [place] [address]- 1916 Apr, [facility] [place] [facility] [address] [id number] [place] [address]- 5194 Apr, [facility] [place] [facility] [address] [id number] [place] [address]- 1643 Apr, [facility] [place] [facility] [address] [id number] [place] [address]- 3126 Apr, [facility] [place] [facility] [address] [id number] [place] [address]- 4441 Apr, [facility] [place] [facility] [address] [id number] [place] [address]- 6842 March, [facility] [place] [facility] [address] [id number] [place] [address]- 9655 March, [facility] [place] [facility] [address] [id number] [place] [address]- 8892 Feb, [facility] [place] [facility] [address] [id number] [place] [address]- 1345 Feb, [facility] [place] [facility] [address] [id number] [place] [address]- 8591 31 Jan, 2014 [facility] [address] [id number] [place] [address]- 9276 31 Jan, 2014 [facility] [address] [id number] [place] [address]- 9776 28 Jan, 2014 [facility] [address] [id number] [place] [address]- 9626 Jan, [facility] [address] [id number] [place] [address]- 4152 Jan, [facility] [address] [id number] [place] [address]- 9512 Jan, [facility] [address] [id number] [place] [address]- 6344 Jan, [facility] [address] [id number] [place] [address]- 6029 Jan, [facility] [address] [id number] [place] [address]- 9365 24 Jan, 2014 [facility] [address] [id number] [place] [address]- 2623 24 Jan, 2014 [facility] [address] [id number] [place] [address]- 1519 Jan, [facility] [address] [id number] [place] [address]- 3238 20 Jan, 2014 [facility] [address] [id number] [place] [address]- 2598 17 Jan, 2014 [facility] [place] [facility] [address] [id number] [place] [address]- 7675 11 Jan, [address] [facility] [address] [id number] [place] [id number] Jan, [facility] [address] [id number] [place] [address]- 6886 Jan, [facility] [place] [facility] [address] [id number] [place] [address]- 3489 05 Jan, 2014 [facility] [place] [facility] [address] [id number] [place] [address]- 2128 Jan, [facility] [place] [facility] [address] [id number] [place] 4381 Jan, [facility] [place] [facility] [address] [id number] [place] [address]- 4584 Jan, [facility] [place] [facility] [address] [id number] [place] [address]- 5694 Jan, [facility] [place] [facility] [address] [id number] [place] [address]- 0864 Dec, [facility] [place] [facility] [address] [id number] [place] [address]- 2492 Dec, [facility] [place] [facility] [address] [id number] [place] [address] Dec, [facility] [place] [facility] [address] [id number] [place] [address] Dec, [facility] [place] [facility] [address] [id number] [place] [address] Dec, [facility] [place] [facility] [address] [id number] [place] [address] Dec, [facility] [place] [facility] [address] [id number] [place] [address] Dec, [facility] [place] [facility] [address] [id number] [place] [address] Nov, [facility] [place] [facility] [address] [id number] [place] [address] Nov, [facility] [place] [facility] [address] [id number] [place] [address] Nov, [facility] [place] [facility] [address] [id number] [place] [address] Nov, [facility] [address] [id number] [place] [address] Oct, [facility] [place] [facility] [address] [id number] [place] [address] Oct, [facility] [address] [id number] [place] [address] Oct, [facility] [address] [id number] [place] [address] Oct, [facility] [address] [id number] [place] [address] Oct, [facility] [address] [id number] [place] [address] Oct, [facility] [address] [id number] [place] [address] Sep, [facility] [address] [id number] [place] [address] Sep, [facility] [address] [id number] [place] [address] Sep, [facility] [address] [id number] [place] [address] Sep, [facility] [place] [facility] [address] [id number] [place] [address] Sep, [facility] [address] [id number] [place] [address] Sep, [facility] [place] [facility] [address] [id number] [place] [address] Aug, [facility] [place] [facility] [address] [id number] [place] [address] Aug, [facility] [place] [facility] [address] [id number] [place] [id number] Aug, [facility] [id number] [address] Aug, [facility] [address] [facility] [id number], [place] [address] Aug, [facility] [id number], [place] [address] Aug, [facility] [address] [facility] [id number], [place] [address] Aug, [facility] [address] [facility] [id number], [place] [address] Aug, [facility] [id number], [place] [address] Aug, [facility] [id number], [place] [address] Aug, [facility] [id number], [place] [address] Aug, [facility] [id number], [place] [address] Aug, [facility] [id number], [place] [address] Aug, [facility] [address] [id number] [address] Aug, IMMUNIZATIONS No Known Immunizations SOCIAL HISTORY Never Assessed REASON FOR VISIT [facility] Contact PLAN OF CARE Activity Details Follow Up Will use services at need. Reason:mood affected by diabetes at times. VITAL SIGNS MEDICATIONS Unknown Medications RESULTS No [...]
--- OUTSIDE RECORDS SUMMARY | 2018-10-02 09:33 | XMS REPORT ---
Author Author NURYS Luciano [facility] Address Unknown Phone Unavailable Care Team Providers Care Civil Engineering Director Name Role Phone NURYS Luciano Unavailable Unavailable PROBLEMS Type Condition ICD9-CM Code CEK17-VO Code Onset Dates Condition Status SNOMED Code Problem Hyperkalemia E87.5 Active 77135460 Problem Hyperlipidemia LDL goal <70 E78.5 Active 99363733 Problem Long-term use of high-risk medication Z79.899 Active 109974109 Problem Other chronic pain G89.29 Active 94029912 Problem Anxiety with depression F41.8 Active 52957923 Problem Atypical mole D22.9 Active 278468793 Problem Type 2 diabetes mellitus with diabetic nephropathy, 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 Active 99242305 Problem 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 511409861 Problem Dyspnea on exertion R06.09 Active 04548180 Problem Moderate persistent asthma without complication J45.40 Active 765626706 Problem Essential hypertension I10 Active 18778698 Problem General medical exam Z00.00 Active 004969592 Problem Gastroesophageal reflux disease without esophagitis K21.9 Active 720679494 Problem Mild intermittent asthma with acute exacerbation J45.21 Active 993844075 Problem Arthritis M19.90 Active 1084639 Problem Edema of both feet R60.0 Active 878844740 ALLERGIES No Information ENCOUNTERS Encounter Location Date Diagnosis [facility] [address] [id number] [id number] Jun, [facility] [address] [id number] [id number] Apr, Anxiety with depression F41.8 [facility] [address] [facility] [id number] [place] [id number] 15 Apr, 2018 Pain in left knee M25.562 ; Other chronic pain G89.29 ; Insect bite (nonvenomous), left lower leg, initial encounter S80.862A ; Bitten or stung by nonvenomous insect and other nonvenomous arthropods, initial encounter W57.XXXA and BMI 45.0-49.9, adult Z68.[address] [id number][place] [id number] March, Anxiety with depression F41.[address] [id number][place] [id number] March, Anxiety with depression F41.[address] [id number][place] [id number] Feb, [address] [id number][place] [id number] Feb, BMI 45.0-49.9, adult Z68.42 ; Essential hypertension I10 ; Arthritis M19.90 ; Gastroesophageal reflux disease without esophagitis K21.9 ; Hyperlipidemia LDL goal <70 E78.5 ; History of renal insufficiency Z87.448 and 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.21 [place] [id number] [place] [address]35- 5981 Nov, Essential hypertension I10 ; Type 2 diabetes mellitus with diabetic nephropathy, 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 ; Long- term use of high-risk medication Z79.899 ; Hyperlipidemia LDL goal <70 E78.5 ; Dyspnea on exertion R06.09 and BMI 40.0-44.9, adult Z68.41 [place] [id number] [place] [address] 57981- 5704 Sep, Essential hypertension I10 and Type 2 diabetes mellitus with diabetic nephropathy, 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 [address] Aug, [address] [address]- 7678 Jun, Essential hypertension I10 ; Type 2 diabetes mellitus with diabetic nephropathy, 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 ; Long- term use of high-risk medication Z79.899 ; Hyperlipidemia LDL goal <70 E78.5 ; Dyspnea on exertion R06.09 and Atypical mole D22.9 [place] [address], [place] [address] May, Essential hypertension I10 [place] [address] [place] [id number] [place] [address] 33410- 9421 March, Essential hypertension I10 ; 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.21 ; Long-term use of high-risk medication Z79.899 ; Left hip pain M25.552 ; Pain in left knee M25.562 ; Fullness of neck R22.1 and Hyperlipidemia LDL goal <70 E78.5 [place] [address] [place] [id number] [place] [address] 59318- 6635 Feb, Essential hypertension I10 ; 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.21 ; Long-term use of high-risk medication Z79.899 ; Left hip pain M25.552 ; Pain in left knee M25.562 ; Fullness of neck R22.1 and Hyperlipidemia LDL goal <70 E78.5 [address] [place] [address] 13243- 4955 Jan, Essential hypertension I10 [address] [id number][place] [id number] Jan, Essential hypertension I10 [address] [place] [address] 73924- 2675 Jan, Fullness of neck R22.1 [place] [address] [place] [address] 81385- 0715 Jan, Essential hypertension I10 ; 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.21 ; Long-term use of high-risk medication Z79.899 ; Left hip pain M25.552 ; Pain in left knee M25.562 ; Fullness of neck R22.1 and Eustachian tube disorder, bilateral H69.93 [place] [id number] [place] [address] 94896- 5634 Nov, [facility] [address] [facility] [address] [id number] [id number] Nov, [facility] [address] [facility] [address] [address] [id number] [id number] Nov, Acute otitis externa of both ears, unspecified type H60.503 [facility] [address] [id number][place] [id number] Oct, Bronchitis J40 [place] [address] 92495- 0471 Sep, Essential hypertension I10 ; 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.21 ; Long-term use of high-risk medication Z79.899 ; Swelling R60.9 and Bronchitis J40 [place] [address] [address]32- 1837 Aug, [facility] [address] 27042- 1426 04 Aug, 2016 Edema of both feet R60.0 ; Essential hypertension I10 ; 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.21 ; Skin ulcer of foot including toes, right, limited to breakdown of skin L97.511 and Yeast dermatitis B37.2 [place] [address] [place] [id number] [place] [address] 18015- 2069 Jul, [facility] [address] [address]84- 1529 Jul, [facility] [address] [place] [id number] [place] [id number] 15 Jul, 2016 Encounter for dental examination Z01.20 [place] [address] 03710- 5036 Jun, Edema of both feet R60.0 ; Essential hypertension I10 ; Arthritis M19.90 ; 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.21 ; Hyperkalemia E87.5 and Anxiety about health F41.8 [facility] [address] [id number] [id number] 18 Jun, 2016 Dental examination Z01.20 [place] [address] [place] [id number] [place] [address] 66270- 3838 Jun, Edema of both feet R60.0 ; Essential hypertension I10 ; Arthritis M19.90 ; 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.21 and Mild intermittent asthma with acute exacerbation J45.21 [place] [address] [place] [id number] [place] [address] 58699- 2422 Jun, [place] [address] [place] [id number] [place] [address] 72216- 3015 Jun, [place] [address] [place] [id number] [place] [address] 34549- 7565 Feb, Swelling R60.9 and Swelling of both eyes H57.8 [place] [address] [place] [id number] [place] [address] 49593- 9894 Jan, Essential hypertension I10 ; Arthritis M19.90 ; 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.21 ; Mild intermittent asthma with acute exacerbation J45.21 and Edema R60.9 [place] [address] [place] [address] 64289- 7139 Dec, [place] [address] [place] [address] 88227- 8817 Dec, 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.21 ; Essential hypertension I10 ; Mild intermittent asthma with acute exacerbation J45.21 ; Upper respiratory infection J06.9 and Gastroesophageal reflux disease without esophagitis K21.9 [place] [address] [place] [id number] [place] [address] 83093- 5796 Sep, Essential hypertension I10 ; Gastroesophageal reflux disease without esophagitis K21.9 ; 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.21 and History of knee replacement procedure of right knee Z96.651 [place] [address] [place] [id number] [place] [address] 10752- 4908 Sep, [place] [address] [place] [address] 28562- 7115 Aug, General medical exam Z00.00 [place] [address] [place] [id number] [place] [address] 82353- 9807 Aug, [place] [address] [place] [id number] [place] [address] 49689- 3756 Aug, [place] [address] 74069- 7962 Aug, [place] [id number] [place] [address] 49120- 0472 Aug, Essential hypertension I10 ; Gastroesophageal reflux disease without esophagitis K21.9 ; Arthritis M19.90 ; 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.21 ; Moderate persistent asthma without complication J45.40 and History of long-term use of multiple prescription drugs Z92.29 [place] [id number] [place] [address] 98835- 1153 Jul, Upper respiratory infection 465.9 [place] [id number] [place] [address] 99584- 9367 May, [place] [id number] [place] [address] 12846- 3474 May, Diabetes mellitus without mention of complication, type II or unspecified type, uncontrolled 250.02 ; Esophageal reflux 530.81 ; Essential hypertension, benign 401.1 ; Other and unspecified hyperlipidemia 272.4 ; Chest wall pain 786.52 ; Thickened nails 703.8 ; Foot pain 729.5 ; Arthritis 716.90 and Knee pain 719.[address] 42121- 3272 Apr, [address] 19874- 9360 Feb, [address] 66624- 8434 Feb, [facility] [place] [facility] [address] [id number] [place] [address]- 1660 19 Jan, 2014 [facility] [place] [facility] [address] [id number] [place] [address]- 4525 19 Jan, 2014 [facility] [place] [facility] [address] [id number] [place] [address]- 4277 17 Jan, 2014 [facility] [place] [facility] [address] [id number] [place] [address]- 2337 17 Jan, 2014 [facility] [place] [facility] [address] [id number] [place] [address]- 1257 17 Jan, 2014 [facility] [place] [facility] [address] [id number] [place] [address]- 5736 17 Jan, 2014 [facility] [place] [facility] [address] [id number] [place] [address]- 3712 16 Jan, 2014 [facility] [place] [facility] [address] [id number] [place] [address]- 3471 16 Jan, 2014 [facility] [place] [facility] [address] [id number] [place] [address]- 2182 16 Jan, 2014 [facility] [place] [facility] [address] [id number] [place] [address]- 6722 16 Jan, 2014 [facility] [place] [facility] [address] [id number] [place] [address]- 8238 24 Sep, 2014 [facility] [place] [facility] [address] [id number], [place] [address]- 4990 Sep, [facility] [place] [facility] [address] [id number] [place] 9246 Aug, [facility] [place] [facility] [address] [id number] [place] [address]- 4309 Aug, [facility] [place] [facility] [address] [id number] [place] [address]- 7573 Aug, [facility] [place] [facility] [address] [id number], [place] [address]- 4162 Aug, [facility] [place] [facility] [address] [id number] [place] [address]- 7070 Aug, [facility] [place] [facility] [address] [id number] [place] [address]- 1193 Aug, [facility] [place] [facility] [address] [id number] [place] [address]- 4473 Aug, [facility] [place] [facility] [address] [id number] [place] [address]- 2304 Aug, [facility] [place] [facility] [address] [id number] [place] [address]- 7380 Aug, [facility] [place] [facility] [address] [id number] [place] [address]- 8900 Aug, [facility] [place] [facility] [address] [id number] [place] [address]- 2204 Aug, [facility] [place] [facility] [address] [id number] [place] [address]- 8338 Aug, [facility] [place] [facility] [address] [id number] [place] [address]- 2207 Aug, [facility] [place] [facility] [address] [id number] [place] [address]- 1339 Aug, [facility] [place] [facility] [address] [id number], [place] [address]- 3554 19 Jul, 2013 [facility] [place] [facility] [address] [id number], [place] [address]- 7992 19 Jul, 2013 [facility] [place] [facility] [address] [id number] [place] [address]- 4691 17 Jul, 2013 [facility] [place] [facility] [address] [id number] [place] [address]- 4650 17 Jul, 2013 [facility] [place] [facility] [address] [id number] [place] [address]- 8321 12 Jul, 2013 [facility] [place] [facility] [address] [id number] [place] [address]- 9561 12 Jul, 2013 [facility] [place] [facility] [address] [id number] [place] [address]- 7874 Jul, [facility] [place] [facility] [address] [id number] [place] [address]- 6836 Jul, [facility] [place] [facility] [address] [id number] [place] [address]- 6266 Jul, [facility] [place] [facility] [address] [id number] [place] [address]- 1571 Jul, [facility] [place] [facility] [address] [id number] [place] [address]- 1229 Jun, [facility] [place] [facility] [address] [id number] [place] [address]- 6547 Jun, [facility] [place] [facility] [address] [id number] [place] [address]- 5533 Jun, [facility] [place] [facility] [address] [id number] [place] [address]- 0352 Jun, [facility] [place] [facility] [address] [id number] [place] [address]- 2784 Jun, [facility] [place] [facility] [address] [id number] [place] [address]- 3066 Jun, [facility] [place] [facility] [address] [id number] [place] [address]- 8803 Jun, [facility] [place] [facility] [address] [id number] [place] [address]- 4193 Jun, [facility] [place] [facility] [address] [id number] [place] [address]- 8052 May, [facility] [place] [facility] [address] [id number] [place] [address]- 0773 May, [facility] [place] [facility] [address] [id number] [place] [address]- 6593 May, [facility] [place] [facility] [address] [id number] [place] [address]- 4390 May, 2013 [facility] [place] [facility] [address] [id number] [place] [address]- 1694 May, 2013 [facility] [place] [facility] [address] [id number] [place] [address]- 6281 May, 2013 [facility] [place] [facility] [address] [id number] [place] [address]- 9776 May, 2013 [facility] [place] [facility] [address] [id number] [place] [address]- 2607 May, 2013 [facility] [place] [facility] [address] [id number] [place] [address]- 5595 May, 2013 [facility] [place] [facility] [address] [id number] [place] [address]- 4747 May, 2013 [facility] [place] [facility] [address] [id number] [place] [address]- 9751 May, 2013 [facility] [place] [facility] [address] [id number] [place] [address]- 0438 May, 2013 [facility] [place] [facility] [address] [id number] [place] [address]- 9445 May, 2013 [facility] [place] [facility] [address] [id number] [place] [address]- 5513 May, 2013 [facility] [place] [facility] [address] [id number] [place] [address]- 3742 May, 2013 [facility] [place] [facility] [address] [id number] [place] [address]- 0003 May, 2013 [facility] [place] [facility] [address] [id number] [place] [address]- 1852 May, 2013 [facility] [place] [facility] [address] [id number] [place] [address]- 8401 May, 2013 [facility] [place] [facility] [address] [id number] [place] [address]- 8891 May, [facility] [place] [facility] [address] [id number] [place] [address]- 1484 May, [facility] [place] [facility] [address] [id number] [place] [address]- 8053 Apr, [facility] [place] [facility] [address] [id number] [place] [address]- 3850 Apr, [facility] [place] [facility] [address] [id number] [place] [address]- 4287 Apr, [facility] [place] [facility] [address] [id number] [place] [address]- 3431 Apr, [facility] [place] [facility] [address] [id number] [place] [address]- 2223 Apr, [facility] [place] [facility] [address] [id number] [place] [address]- 3145 Apr, [facility] [place] [facility] [address] [id number] [place] [address]- 8432 Apr, [facility] [place] [facility] [address] [id number] [place] [address]- 2826 Apr, [facility] [address] [id number] [id number] Apr, [facility] [place] [facility] [address] [id number] [place] [address]- 5538 Apr, [facility] [place] [facility] [address] [id number], [place] [address]- 2373 Apr, [facility] [place] [facility] [address] [id number] [place] [address]- 1328 Apr, [facility] [place] [facility] [address] [id number] [place] [address]- 5942 Apr, [facility] [place] [facility] [address] [id number] [place] [address]- 6875 Apr, [facility] [place] [facility] [address] [id number] [place] [address]- 9331 19 Apr, 2014 [facility] [place] [facility] [address] [id number] [place] [address]- 3873 19 Apr, 2014 [facility] [place] [facility] [address] [id number] [place] [address]- 1013 18 Apr, 2014 [facility] [place] [facility] [address] [id number] [place] [address]- 8253 Apr, [facility] [place] [facility] [address] [id number] [place] [address]- 2948 Apr, [facility] [place] [facility] [address] [id number] [place] [address]- 1300 Apr, [facility] [place] [facility] [address] [id number] [place] [address]- 5333 Apr, [facility] [place] [facility] [address] [id number] [place] [address]- 3134 Apr, [facility] [place] [facility] [address] [id number] [place] [address]- 6282 Apr, [facility] [place] [facility] [address] [id number] [place] [address]- 0548 Apr, [facility] [place] [facility] [address] [id number] [place] [address]- 9021 Apr, [facility] [place] [facility] [address] [id number] [place] [address]- 6355 Apr, [facility] [place] [facility] [address] [id number] [place] [address]- 3012 March, [facility] [place] [facility] [address] [id number] [place] [address]- 5306 March, [facility] [place] [facility] [address] [id number] [place] [address]- 9930 Feb, [facility] [place] [facility] [address] [id number] [place] [address]- 7072 Feb, [facility] [address] [id number] [place] [address]- 0785 Jan, [facility] [place] [facility] [address] [id number] [place] [address]- 4743 Jan, [facility] [place] [facility] [address] [id number] [place] [address]- 0869 Jan, [facility] [place] [facility] [address] [id number] [place] [address]- 9715 Jan, [facility] [place] [facility] [address] [id number] [place] [address]- 9652 Jan, [facility] [place] [facility] [address] [id number] [place] [address]- 9173 Jan, [facility] [place] [facility] [address] [id number] [place] [address]- 6042 Jan, [facility] [place] [facility] [address] [id number] [place] [address]- 5066 Jan, [facility] [place] [facility] [address] [id number] [place] [address]- 0552 Jan, [facility] [place] [facility] [address] [id number] [place] [address]- 3688 Jan, [facility] [place] [facility] [address] [id number] [place] [address]- 6055 Jan, [facility] [place] [facility] [address] [id number] [place] [address]- 0071 Jan, [facility] [place] [facility] [address] [id number] [place] [address]- 1168 17 Jan, 2014 [facility] [place] [facility] [address] [id number] [place] [address]- 8558 Jan, [facility] [address] [id number] [place] [id number] Jan, [facility] [place] [facility] [address] [id number] [place] [address]- 7202 05 Jan, 2014 [facility] [place] [facility] [address] [id number] [place] [address]- 7099 Jan, [facility] [place] [facility] [address] [id number] [place] [address]- 4597 Jan, [facility] [place] [facility] [address] [facility] [id number] [place] [address]- 9660 Jan, [facility] [place] [facility] [address] [id number] [place] [address] Jan, [facility] [place] [facility] [address] [id number] [place] [address] Jan, [facility] [place] [facility] [address] [id number] [place] [address] Dec, [facility] [place] [facility] [address] [facility] [id number] [place] [address] Dec, [facility] [place] [facility] [address] [id number] [place] [address] Dec, [facility] [place] [facility] [address] [facility] [id number] [place] [address] Dec, [facility] [place] [facility] [address] [facility] [id number] [place] [address] Dec, [facility] [place] [facility] [address] [facility] [id number] [place] [address] Dec, [facility] [place] [facility] [address] [id number] [place] [address] Dec, [facility] [place] [facility] [address] [id number] [place] [address] Nov, [facility] [place] [facility] [address] [id number] [place] [address] Nov, [facility] [place] [facility] [address] [id number], [place] [address] Nov, [facility] [place] [facility] [address] [id number] [place] [address] Nov, [facility] [place] [facility] [address] [id number] [place] [address] Oct, [facility] [place] [facility] [address] [id number] [place] [address] Oct, [facility] [place] [facility] [address] [id number] [place] [address] Oct, [facility] [place] [facility] [address] [id number] [place] [address] Oct, [facility] [place] [facility] [address] [id number] [place] [address] Oct, [facility] [place] [facility] [address] [id number] [place] [address] Oct, [facility] [place] [facility] [address] [id number] [place] [address] Sep, [facility] [place] [facility] [address] [id number] [place] [address] Sep, [facility] [place] [facility] [address] [id number] [place] [address] Sep, [facility] [place] [facility] [address] [id number] [place] [address] Sep, [facility] [place] [facility] [address] [id number] [place] [address] Sep, [facility] [place] [facility] [address] [id number] [place] [address] Sep, [facility] [place] [facility] [address] [id number] [place] [address] Aug, [facility] [place] [facility] [address] [id number] [place] [address] Aug, [facility] [place] [facility] [address] [id number], [place] [address] Aug, [facility] [address] [facility] [id number], [place] [address] Aug, [facility] [address] [facility] [id number], [place] [address] Aug, [facility] [address] [facility] [id number], [place] [address] Aug, [facility] [address] [facility] [id number], [place] [address] Aug, [facility] [address] [facility] [id number], [place] [address] Aug, [facility] [address] [facility] [id number], [place] [address] Aug, [facility] [address] [facility] [id number], [place] [address] Aug, [facility] [id number], [place] [address] Aug, [facility] [address] [facility] [id number], [place] [address] Aug, [facility] [id number], [place] [address] Aug, [facility] [address] [id number], [place] [address] Aug, IMMUNIZATIONS No Known Immunizations SOCIAL HISTORY Never Assessed REASON FOR VISIT f/u PLAN OF CARE Activity Details Follow Up Next available Reason:anxiety with depression VITAL SIGNS MEDICATIONS Unknown Medications RESULTS No Results PROCEDURES Procedure Date Ordered Result Body Site Psychotherapy, patient &/family, 30 minutes, established patient April 02, 2018 INSTRUCTIONS MEDICATIONS ADMINISTERED No Known Medications [...]
--- OUTSIDE RECORDS SUMMARY | 2018-10-02 09:34 | XMS REPORT ---
Author Author CATALINO PONCE [facility] Address [address] [place] [address] Care Team Providers Care Gear Hobber Set Up Operator Name Role Phone CATALINO PNOCE Unavailable PROBLEMS Type Condition ICD9-CM Code NBR40-AI Code Onset Dates Condition Status SNOMED Code Problem Hyperkalemia E87.5 Active 57109099 Problem Hyperlipidemia LDL goal <70 E78.5 Active 12578832 Problem Long-term use of high-risk medication Z79.899 Active 291233060 Problem Other chronic pain G89.29 Active 44466787 Problem Anxiety with depression F41.8 Active 91951995 Problem Atypical mole D22.9 Active 939773236 Problem Type 2 diabetes mellitus with diabetic nephropathy, 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 Active 51695952 Problem 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 328659930 Problem Dyspnea on exertion R06.09 Active 33632566 Problem Moderate persistent asthma without complication J45.40 Active 807830333 Problem Essential hypertension I10 Active 98965631 Problem General medical exam Z00.00 Active 791669818 Problem Gastroesophageal reflux disease without esophagitis K21.9 Active 632053616 Problem Mild intermittent asthma with acute exacerbation J45.21 Active 373318233 Problem Arthritis M19.90 Active 2929222 Problem Edema of both feet R60.0 Active 229960482 ALLERGIES Substance Reaction Event Type Date Status Ultram Unknown Drug Allergy Feb, Active Tylox Unknown Drug Allergy Feb, Active Talwin Unknown Drug Allergy Feb, Active Fentanyl Unknown Drug Allergy Feb, Active Darvon Unknown Drug Allergy Feb, Active Darvocet-n 100 Unknown Drug Allergy Feb, Active ENCOUNTERS Encounter Location Date Diagnosis [facility] [address] [facility] [address] [id number] [id number] Jun, [facility] [address] [id number] [id number] Apr, Anxiety with depression F41.8 [place] [address] [place] [id number] [place] [address]- [address] Apr, Pain in left knee M25.562 ; Other chronic pain G89.29 ; Insect bite (nonvenomous), left lower leg, initial encounter S80.862A ; Bitten or stung by nonvenomous insect and other nonvenomous arthropods, initial encounter W57.XXXA and BMI 45.0-49.9, adult Z68.[address] [id number] [id number] March, Anxiety with depression F41.[address] [id number][place] [id number] March, Anxiety with depression F41.[address] [id number][place] [id number] Feb, [address] [id number] [id number] Feb, BMI 45.0-49.9, adult Z68.42 ; Essential hypertension I10 ; Arthritis M19.90 ; Gastroesophageal reflux disease without esophagitis K21.9 ; Hyperlipidemia LDL goal <70 E78.5 ; History of renal insufficiency Z87.448 and 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.21 [place] [address] [id number] [address] Nov, Essential hypertension I10 ; Type 2 diabetes mellitus with diabetic nephropathy, 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 ; Long- term use of high-risk medication Z79.899 ; Hyperlipidemia LDL goal <70 E78.5 ; Dyspnea on exertion R06.09 and BMI 40.0-44.9, adult Z68.41 [place] [address] [id number], [place] [address] 14 Sep, 2017 Essential hypertension I10 and Type 2 diabetes mellitus with diabetic nephropathy, 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 [place] [address]00565100[place], [place] [address] Aug, [place] [address] [place] [address]31- 1411 Jun, Essential hypertension I10 ; Type 2 diabetes mellitus with diabetic nephropathy, 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 ; Long- term use of high-risk medication Z79.899 ; Hyperlipidemia LDL goal <70 E78.5 ; Dyspnea on exertion R06.09 and Atypical mole D22.9 [place] [address]65[address], [place] [address] May, Essential hypertension I10 [place] [address] [place] [address]2971- 1451 March, Essential hypertension I10 ; 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.21 ; Long-term use of high-risk medication Z79.899 ; Left hip pain M25.552 ; Pain in left knee M25.562 ; Fullness of neck R22.1 and Hyperlipidemia LDL goal <70 E78.5 [place] [address] [address] Feb, Essential hypertension I10 ; 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.21 ; Long-term use of high-risk medication Z79.899 ; Left hip pain M25.552 ; Pain in left knee M25.562 ; Fullness of neck R22.1 and Hyperlipidemia LDL goal <70 E78.5 [place] [address] [id number] [address] Jan, Essential hypertension I10 [address] [id number][place] [id number] Jan, Essential hypertension I10 [place] [address] [place] [address] [id number] [address] Jan, Fullness of neck R22.1 [place] [address], [place] [address] Jan, Essential hypertension I10 ; 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.21 ; Long-term use of high-risk medication Z79.899 ; Left hip pain M25.552 ; Pain in left knee M25.562 ; Fullness of neck R22.1 and Eustachian tube disorder, bilateral H69.93 [facility] [address] [address] Nov, [facility] [address] [facility] [address] [id number] [id number] Nov, [facility] [address] [facility] [facility] [id number] [place] [id number] Nov, Acute otitis externa of both ears, unspecified type H60.503 [facility] [address] [facility] [id number] [place] [id number] Oct, Bronchitis J40 [address] [address] Sep, Essential hypertension I10 ; 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.21 ; Long-term use of high-risk medication Z79.899 ; Swelling R60.9 and Bronchitis J40 [facility] [address] [address] Aug, [facility] [address] [address] Aug, Edema of both feet R60.0 ; Essential hypertension I10 ; 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.21 ; Skin ulcer of foot including toes, right, limited to breakdown of skin L97.511 and Yeast dermatitis B37.2 [place] [address] [address] Jul, [facility] [address] [address] Jul, [facility] [address] [id number] Jul, Encounter for dental examination Z01.20 [facility] [address] [place] [address] 51095- 8745 18 Jun, 2016 Edema of both feet R60.0 ; Essential hypertension I10 ; Arthritis M19.90 ; 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.21 ; Hyperkalemia E87.5 and Anxiety about health F41.8 [facility] [address] [place] [id number] Jun, Dental examination Z01.20 [facility] [address] [id number] [place] [address] 59052- 4563 11 Jun, 2016 Edema of both feet R60.0 ; Essential hypertension I10 ; Arthritis M19.90 ; 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.21 and Mild intermittent asthma with acute exacerbation J45.21 [facility] [id number] [place] [address] 41584- 2990 Jun, [facility] [id number] [place] [address]- [address] Jun, [facility] [id number] [place] [address] 04932- 8778 Feb, Swelling R60.9 and Swelling of both eyes H57.8 [facility] [address] [place] [address] 21200- 7777 17 Jan, 2016 Essential hypertension I10 ; Arthritis M19.90 ; 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.21 ; Mild intermittent asthma with acute exacerbation J45.21 and Edema R60.9 [facility] [address] [place] [address] 47763- 5547 16 Dec, 2015 [facility] [address] [id number] [place] [address] 29109- 7873 Dec, 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.21 ; Essential hypertension I10 ; Mild intermittent asthma with acute exacerbation J45.21 ; Upper respiratory infection J06.9 and Gastroesophageal reflux disease without esophagitis K21.9 [facility] [id number] [place] [address] 98094- 9455 24 Sep, 2015 Essential hypertension I10 ; Gastroesophageal reflux disease without esophagitis K21.9 ; 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.21 and History of knee replacement procedure of right knee Z96.651 [place] [address] [address] [id number] [place] [address] 78562- 3486 16 Sep, 2015 [place] [address] [address]- [address]88 Aug, General medical exam Z00.00 [place] [address] [address]- 5396 27 Aug, [address] [address]- [address] Aug, [place] [address] [place] [id number] [place] [address] 33840- 6353 Aug, [place] [id number] [place] [address] 90984- 8192 Aug, Essential hypertension I10 ; Gastroesophageal reflux disease without esophagitis K21.9 ; Arthritis M19.90 ; 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.21 ; Moderate persistent asthma without complication J45.40 and History of long-term use of multiple prescription drugs Z92.29 [place] [id number] [place] [address] 41886- 5368 Jul, Upper respiratory infection 465.9 [place] [address] [address] [id number] [place] [address] 78269- 1806 May, [place] [id number] [place] [address] 89888- 9450 May, Diabetes mellitus without mention of complication, type II or unspecified type, uncontrolled 250.02 ; Esophageal reflux 530.81 ; Essential hypertension, benign 401.1 ; Other and unspecified hyperlipidemia 272.4 ; Chest wall pain 786.52 ; Thickened nails 703.8 ; Foot pain 729.5 ; Arthritis 716.90 and Knee pain 719.46 [place] [address] [id number] [place] [address]- 3135 22 Apr, 2015 [facility] [place] [facility] [address] [id number] [place] [address]- 1650 14 Feb, 2015 [facility] [place] [facility] [address] [id number] [place] [address]- 1656 13 Feb, 2015 [facility] [place] [facility] [address] [id number] [place] [address]- 3940 19 Jan, 2014 [facility] [place] [facility] [address] [id number] [place] [address]- 5949 19 Jan, 2015 [facility] [place] [facility] [address] [id number] [place] [address]- 6488 17 Jan, 2014 [facility] [place] [facility] [address] [id number] [place] [address]- 3379 17 Jan, 2014 [facility] [place] [facility] [address] [id number] [place] [address]- 3936 17 Jan, 2014 [facility] [place] [facility] [address] [id number] [place] [address]- 3522 17 Jan, 2015 [facility] [place] [facility] [address] [id number] [place] [address]- 2058 16 Jan, 2014 [facility] [place] [facility] [address] [id number] [place] [address]- 1214 16 Jan, 2014 [facility] [place] [facility] [address] [id number] [place] [address]- 1710 16 Jan, 2014 [facility] [place] [facility] [address] [id number] [place] [address]- 0654 16 Jan, 2015 [facility] [place] [facility] [address] [id number] [place] [address]- 3083 24 Sep, 2014 [facility] [place] [facility] [address] [id number] [place] [address]- 3509 24 Sep, 2014 [facility] [place] [facility] [address] [id number] [place] [address]- 0289 Aug, [facility] [place] [facility] [address] [id number] [place] [address]- 6938 31 Aug, 2014 [facility] [place] [facility] [address] [id number] [place] [address]- 5448 Aug, [facility] [place] [facility] [address] [id number] [place] [address]- 3235 Aug, [facility] [place] [facility] [address] [id number] [place] [address]- 8768 Aug, [facility] [place] [facility] [address] [id number] [place] [address]- 0714 Aug, [facility] [place] [facility] [address] [id number] [place] [address]- 8817 Aug, [facility] [place] [facility] [address] [id number] [place] [address]- 7858 Aug, [facility] [place] [facility] [address] [id number], [place] [address]- 5733 Aug, [facility] [place] [facility] [address] [id number] [place] [address]- 1736 Aug, [facility] [place] [facility] [address] [id number], [place] [address]- 0837 Aug, [facility] [place] [facility] [address] [id number], [place] [address]- 6442 07 Aug, 2014 [facility] [place] [facility] [address] [id number], [place] [address]- 6830 07 Aug, 2013 [facility] [place] [facility] [address] [id number] [place] [address]- 8472 03 Aug, 2014 [facility] [place] [facility] [address] [id number][place] [address]- 9423 19 Jul, 2013 [facility] [place] [facility] [address] [id number], [place] [address]- 7417 19 Jul, 2013 [facility] [place] [facility] [address] [id number] [place] [address]- 6503 17 Jul, 2013 [facility] [place] [facility] [address] [id number] [place] [address]- 3786 17 Jul, 2013 [facility] [place] [facility] [address] [id number] [place] [address]- 2546 12 Jul, 2013 [facility] [place] [facility] [address] [id number] [place] [address]- 7272 12 Jul, 2013 [facility] [place] [facility] [address] [id number] [place] [address] 254 10 Jul, 2013 [facility] [place] [facility] [address] [id number] [place] [address]- 2347 10 Jul, 2013 [facility] [place] [facility] [address] [id number] [place] [address]- 5570 Jul, 2013 [facility] [place] [facility] [address] [id number] [place] [address]- 6340 Jul, 2013 [facility] [place] [facility] [address] [id number] [place] [address]- 8862 Jun, [facility] [place] [facility] [address] [id number] [place] [address]- 3541 Jun, [facility] [place] [facility] [address] [id number] [place] [address]- 5345 Jun, [facility] [place] [facility] [address] [id number] [place] [address]- 2549 Jun, [facility] [place] [facility] [address] [id number] [place] [address]- 4833 Jun, [facility] [place] [facility] [address] [id number] [place] [address]- 0539 Jun, [facility] [place] [facility] [address] [id number] [place] [address]- 8031 Jun, [facility] [place] [facility] [address] [id number] [place] [address]- 7903 Jun, [facility] [place] [facility] [address] [id number] [place] [address]- 3527 May, [facility] [place] [facility] [address] [id number] [place] [address]- 5909 May, [facility] [place] [facility] [address] [id number] [place] [address]- 4186 May, [facility] [place] [facility] [address] [id number] [place] [address]- 3048 May, [facility] [place] [facility] [address] [id number] [place] [address]- 8246 May, [facility] [place] [facility] [address] [id number] [place] [address]- 4247 May, [facility] [place] [facility] [address] [id number] [place] [address]- 9088 May, [facility] [place] [facility] [address] [id number] [place] [address]- 7567 May, [facility] [place] [facility] [address] [id number] [place] [address]- 3230 May, [facility] [place] [facility] [address] [id number] [place] [address]- 3336 May, [facility] [place] [facility] [address] [id number] [place] [address]- 3430 May, [facility] [place] [facility] [address] [id number] [place] [address]- 6035 May, [facility] [place] [facility] [address] [id number] [place] [address]- 8392 May, [facility] [place] [facility] [address] [id number] [place] [address]- 3108 May, [facility] [place] [facility] [address] [id number] [place] [address]- 6506 May, [facility] [place] [facility] [address] [id number], [place] [address]- 5161 May, [facility] [place] [facility] [address] [id number] [place] [address]- 0634 May, [facility] [place] [facility] [address] [id number] [place] [address]- 5198 May, [facility] [place] [facility] [address] [id number] [place] [address]- 8611 May, [facility] [place] [facility] [address] [id number] [place] [address]- 3331 May, [facility] [place] [facility] [address] [id number] [place] [address]- 9855 Apr, [facility] [place] [facility] [address] [id number] [place] [address]- 0324 Apr, [facility] [place] [facility] [address] [id number] [place] [address]- 3668 Apr, [facility] [place] [facility] [address] [id number] [place] [address]- 9509 Apr, [facility] [place] [facility] [address] [id number], [place] [address]- 6347 Apr, [facility] [place] [facility] [address] [id number], [place] [address]- 4588 Apr, [facility] [place] [facility] [address] [id number], [place] [address]- 0444 Apr, [facility] [place] [facility] [address] [id number], [place] [address]- 3279 Apr, [facility] [address] [id number] [id number] Apr, [facility] [place] [facility] [address] [id number], [place] [address]- 9066 Apr, [facility] [place] [facility] [address] [id number] [place] [address]- 8177 Apr, [facility] [place] [facility] [address] [id number] [place] [address]- 3842 20 Apr, 2014 [facility] [place] [facility] [address] [id number] [place] [address]- 3149 19 Apr, 2014 [facility] [place] [facility] [address] [id number] [place] [address]- 8100 19 Apr, 2014 [facility] [place] [facility] [address] [id number] [place] [address]- 5865 19 Apr, 2014 [facility] [place] [facility] [address] [id number] [place] [address]- 8948 19 Apr, 2014 [facility] [place] [facility] [address] [id number] [place] [address]- 9814 18 Apr, 2014 [facility] [place] [facility] [address] [id number] [place] [address]- 4417 18 Apr, 2014 [facility] [place] [facility] [address] [id number] [place] [address]- 1232 18 Apr, 2014 [facility] [place] [facility] [address] [id number] [place] [address]- 3886 18 Apr, 2014 [facility] [place] [facility] [address] [id number] [place] [address]- 7309 17 Apr, 2014 [facility] [place] [facility] [address] [facility] [id number] [place] [address]- 8439 17 Apr, 2014 [facility] [place] [facility] [address] [id number] [place] [address]- 5293 Apr, [facility] [place] [facility] [address] [id number] [place] [address]- 1485 17 Apr, 2014 [facility] [place] [facility] [address] [id number] [place] [address]- 3095 05 Apr, 2014 [facility] [place] [facility] [address] [id number] [place] [address]- 6374 05 Apr, 2014 [facility] [place] [facility] [address] [id number] [place] [address]- 6469 March, [facility] [place] [facility] [address] [id number] [place] [address]- 0058 March, [facility] [place] [facility] [address] [id number] [place] [address]- 8516 Feb, [facility] [place] [facility] [address] [id number] [place] [address]- 3866 Feb, [facility] [place] [facility] [address] [id number] [place] [address]- 0530 Jan, [facility] [place] [facility] [address] [id number] [place] [address]- 5820 Jan, [facility] [place] [facility] [address] [id number] [place] [address]- 9503 Jan, [facility] [place] [facility] [address] [id number] [place] [address]- 2133 Jan, [facility] [place] [facility] [address] [id number] [place] [address]- 2666 Jan, [facility] [place] [facility] [address] [id number] [place] [address]- 7042 Jan, [facility] [place] [facility] [address] [id number] [place] [address]- 6681 Jan, [facility] [place] [facility] [address] [id number] [place] [address]- 8707 Jan, [facility] [place] [facility] [address] [id number] [place] [address]- 2305 Jan, [facility] [place] [facility] [address] [id number] [place] [address]- 4512 Jan, [facility] [place] [facility] [address] [id number] [place] [address]- 9298 Jan, [facility] [place] [facility] [address] [id number] [place] [address]- 6376 Jan, [facility] [place] [facility] [address] [id number] [place] [address]- 1286 Jan, [facility] [address] [id number] [place] [address]- 3989 Jan, [facility] [address] [id number] [place] [id number] Jan, [facility] [address] [id number] [place] [address]- 9160 Jan, [facility] [place] [facility] [address] [id number] [place] [address]- 1332 Jan, [facility] [place] [facility] [address] [id number] [place] [address]- 4722 Jan, [facility] [place] [facility] [address] [id number] [place] [address]- 0813 Jan, [facility] [place] [facility] [address] [facility] [id number] [place] [address] Jan, [facility] [place] [facility] [address] [id number], [place] [address] Jan, [facility] [place] [facility] [address] [id number] [place] [address] Dec, [facility] [place] [facility] [address] [id number] [place] [address] Dec, [facility] [place] [facility] [address] [id number], [place] [address] Dec, [facility] [place] [facility] [address] [id number], [place] [address] Dec, [facility] [place] [facility] [address] [id number] [place] [address] Dec, [facility] [place] [facility] [address] [facility] [id number], [place] [address] Dec, [facility] [place] [facility] [address] [facility] [id number], [place] [address] Dec, [facility] [place] [facility] [address] [id number] [place] [address] Nov, [facility] [address] [id number] [place] [address] Nov, [facility] [place] [facility] [address] [id number] [place] [address] Nov, [facility] [address] [id number] [place] [address] Nov, [facility] [address] [id number] [place] [address] Oct, [facility] [address] [id number] [place] [address] Oct, [facility] [address] [id number] [place] [address] Oct, [facility] [address] [id number] [place] [address] Oct, [facility] [address] [id number] [place] [address] Oct, [facility] [address] [id number] [place] [address] Oct, [facility] [address] [id number] [place] [address]- [address] Sep, [facility] [place] [facility] [address] [id number] [place] [address] Sep, [facility] [place] [facility] [address] [id number] [place] [address] Sep, [facility] [place] [facility] [address] [id number] [place] [address]- [address] Sep, [facility] [place] [facility] [address] [id number] [place] [address] Sep, [facility] [place] [facility] [address] [id number] [place] [address] Sep, [facility] [address] [facility] [id number], [place] [address] Aug, [facility] [address] [id number], [place] [address] Aug, [facility] [address] [facility] [id number], [place] [address] Aug, [facility] [address] [id number], [place] [address] Aug, [facility] [address] [facility] [id number], [place] [address] Aug, [facility] [address] [facility] [id number], [place] [address] Aug, [facility] [address] [facility] [id number], [place] [address] Aug, [facility] [address] [facility] [id number][place] [id number] Aug, [facility] [address] [facility] [id number] [address] Aug, [facility] [address] [facility] [id number] [address] Aug, [facility] [address] [facility] [id number][place] [address] Aug, [facility] [address] [facility] [id number] [address] Aug, [facility] [address] [facility] [id number][place] [address] Aug, [facility] [address] [facility] [id number], [place] [address] Aug, IMMUNIZATIONS No Known Immunizations SOCIAL HISTORY Never Assessed REASON FOR VISIT Transition of Care- Christiane PABLO PLAN OF CARE Activity Details Follow Up JUN Reason:DM/BP/Fasting labs VITAL SIGNS Height 66 in 2018-03-07 Weight 288.1 lbs 2018-03-07 Temperature 98.8 degrees Fahrenheit 2018-03-07 Heart Rate 78 bpm 2018-03-07 Respiratory Rate 20 2018-03-07 BMI 46.50 kg/m2 2018-03-07 Blood pressure systolic 137 mmHg 2018-03-07 Blood pressure diastolic 87 mmHg 2018-03-07 MEDICATIONS Medication Instructions Dosage Frequency Start Date End Date Duration Status Lotrel 10-40 MG Orally Once a day 1 capsule 24h Active Omeprazole 40 mg Orally Once a day 1 capsule 24h Active Chlorthalidone 25 MG Orally Once a day as needed for swelling 1 tablet in the morning Active MetFORMIN HCl ER 500 mg Orally 3 times a day 1 tablet 8h Active Glucocard Expression Monitor w/Device as directed Nov, Active Glucocard Expression Test - In Vitro test once daily as directed Active Womens Multivitamin Active Pravastatin Sodium 40 mg Orally Once a day 1 tablet 24h Active Krill Oil [place]-3 300 MG Orally 3 times a day 1 capsule 8h Active RESULTS No Results PROCEDURES Procedure Date Ordered Result Body Site COMPREHEN METABOLIC PANEL March 07, 2018 VENIPUNCT, ROUTINE* March 07, 2018 INSTRUCTIONS MEDICATIONS ADMINISTERED No Known Medications [...]
--- OUTSIDE RECORDS SUMMARY | 2018-10-02 09:35 | XMS REPORT ---
Author Author MISA KING [facility] Address [address] [place] [address] Care Team Providers Care Import/Export Specialist Name Role Phone MISA KING Unavailable PROBLEMS Type Condition ICD9-CM Code ZEM27-UZ Code Onset Dates Condition Status SNOMED Code Problem Hyperkalemia E87.5 Active 53945025 Problem Hyperlipidemia LDL goal <70 E78.5 Active 56551054 Problem Long-term use of high-risk medication Z79.899 Active 373972516 Problem Other chronic pain G89.29 Active 35105897 Problem Anxiety with depression F41.8 Active 50240769 Problem Atypical mole D22.9 Active 172075963 Problem Type 2 diabetes mellitus with diabetic nephropathy, 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 Active 18562053 Problem 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 026612742 Problem Dyspnea on exertion R06.09 Active 47880878 Problem Moderate persistent asthma without complication J45.40 Active 532557718 Problem Essential hypertension I10 Active 69403810 Problem General medical exam Z00.00 Active 109047184 Problem Gastroesophageal reflux disease without esophagitis K21.9 Active 372546983 Problem Mild intermittent asthma with acute exacerbation J45.21 Active 462448434 Problem Arthritis M19.90 Active 6648646 Problem Edema of both feet R60.0 Active 701650421 ALLERGIES Substance Reaction Event Type Date Status Ultram Unknown Drug Allergy Nov, Active Tylox Unknown Drug Allergy Nov, Active Talwin Unknown Drug Allergy Nov, Active Fentanyl Unknown Drug Allergy Nov, Active Darvon Unknown Drug Allergy Nov, Active Darvocet-n 100 Unknown Drug Allergy Nov, Active ENCOUNTERS Encounter Location Date Diagnosis [facility] [address] [id number] [place] [id number] Apr, [facility] [address] [facility] [id number] [place] [address] 94486- 5375 Apr, Pain in left knee M25.562 ; Other chronic pain G89.29 ; Insect bite (nonvenomous), left lower leg, initial encounter S80.862A ; Bitten or stung by nonvenomous insect and other nonvenomous arthropods, initial encounter W57.XXXA and BMI 45.0-49.9, adult Z68.[address] [id number] [place] [address] [id number] March, Anxiety with depression F41.[address] [id number] [place] [address] [id number] March, Anxiety with depression F41.[address] [id number] [place] [address] [id number] Feb, [address] [id number] [id number] Feb, BMI 45.0-49.9, adult Z68.42 ; Essential hypertension I10 ; Arthritis M19.90 ; Gastroesophageal reflux disease without esophagitis K21.9 ; Hyperlipidemia LDL goal <70 E78.5 ; History of renal insufficiency Z87.448 and 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.21 [place] [id number] [place] [address] 27912- 9434 Nov, Essential hypertension I10 ; Type 2 diabetes mellitus with diabetic nephropathy, 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 ; Long- term use of high-risk medication Z79.899 ; Hyperlipidemia LDL goal <70 E78.5 ; Dyspnea on exertion R06.09 and BMI 40.0-44.9, adult Z68.[address] [address] 14 Sep, 2017 Essential hypertension I10 and Type 2 diabetes mellitus with diabetic nephropathy, 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 [place] [id number] [place] [address] 02437- 7419 Aug, [address] [id number] [place] [address] Jun, Essential hypertension I10 ; Type 2 diabetes mellitus with diabetic nephropathy, 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 ; Long- term use of high-risk medication Z79.899 ; Hyperlipidemia LDL goal <70 E78.5 ; Dyspnea on exertion R06.09 and Atypical mole D22.9 [address] [address] 21[address] May, Essential hypertension I10 [place] [address] [address] 7[address] March, Essential hypertension I10 ; 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.21 ; Long-term use of high-risk medication Z79.899 ; Left hip pain M25.552 ; Pain in left knee M25.562 ; Fullness of neck R22.1 and Hyperlipidemia LDL goal <70 E78.5 [place] [id number] [place] [address] 38784- 2522 Feb, Essential hypertension I10 ; 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.21 ; Long-term use of high-risk medication Z79.899 ; Left hip pain M25.552 ; Pain in left knee M25.562 ; Fullness of neck R22.1 and Hyperlipidemia LDL goal <[address] [id number] [place] [address] 28[address] Jan, Essential hypertension I10 [address] [id number][place] [id number] Jan, Essential hypertension I10 [address] [id number] [place] [address]- 9565 Jan, Fullness of neck R22.[address] [id number] [place] [address]- 2964 Jan, Essential hypertension I10 ; 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.21 ; Long-term use of high-risk medication Z79.899 ; Left hip pain M25.552 ; Pain in left knee M25.562 ; Fullness of neck R22.1 and Eustachian tube disorder, bilateral H69.93 [facility] [address] [id number] [place] [address] 68637- 2359 Nov, [facility] [address] [id number][place] [id number] Nov, [facility] [address] [id number][place] [id number] Nov, Acute otitis externa of both ears, unspecified type H60.503 [facility] [address] [id number] [place] [address] [id number] Oct, Bronchitis J40 [place] [address] [address]- [address] Sep, Essential hypertension I10 ; 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.21 ; Long-term use of high-risk medication Z79.899 ; Swelling R60.9 and Bronchitis J40 [facility] [id number] [place] [address] 97881- 7407 Aug, [facility] [address] [place] [address] 79899- 8894 Aug, Edema of both feet R60.0 ; Essential hypertension I10 ; 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.21 ; Skin ulcer of foot including toes, right, limited to breakdown of skin L97.511 and Yeast dermatitis B37.2 [facility] [id number] [place] [address] 01984- 7039 Jul, [facility] [address] [address]- [address] Jul, [facility] [id number] [place] [address] [id number] Jul, Encounter for dental examination Z01.20 [place] [address] [address]- 3448 Jun, Edema of both feet R60.0 ; Essential hypertension I10 ; Arthritis M19.90 ; 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.21 ; Hyperkalemia E87.5 and Anxiety about health F41.8 [facility] [address] [place] [id number] Jun, Dental examination Z01.20 [facility] [id number] [place] [address] 50586- 5219 Jun, Edema of both feet R60.0 ; Essential hypertension I10 ; Arthritis M19.90 ; 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.21 and Mild intermittent asthma with acute exacerbation J45.21 [place] [address] [id number] [place] [address] 49301- 9991 Jun, [place] [address] [address] [id number] [place] [address] 34231- 0472 Jun, [facility] [id number] [place] [address] 82918- 3790 Feb, Swelling R60.9 and Swelling of both eyes H57.8 [place] [address] [id number] [place] [address] 97788- 0471 Jan, Essential hypertension I10 ; Arthritis M19.90 ; 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.21 ; Mild intermittent asthma with acute exacerbation J45.21 and Edema R60.9 [facility] [address] [place] [address] 19158- 6545 Dec, [facility] [address] [place] [address] 77873- 0722 Dec, 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.21 ; Essential hypertension I10 ; Mild intermittent asthma with acute exacerbation J45.21 ; Upper respiratory infection J06.9 and Gastroesophageal reflux disease without esophagitis K21.9 [facility] [address] [place] [address] 62603- 9431 Sep, Essential hypertension I10 ; Gastroesophageal reflux disease without esophagitis K21.9 ; 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.21 and History of knee replacement procedure of right knee Z96.651 [place] [address] [place] [address] 84917- 2731 Sep, [place] [address] [address] [id number] [place] [address] 85215- 5109 Aug, General medical exam Z00.00 [place] [address] [address]- [address] Aug, [place] [address] [id number] [place] [address] 04855- 1723 Aug, [place] [id number] [place] [address] 12573- 9034 Aug, [place] [address] [id number] [place] [address] 22386- 7848 Aug, Essential hypertension I10 ; Gastroesophageal reflux disease without esophagitis K21.9 ; Arthritis M19.90 ; 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.21 ; Moderate persistent asthma without complication J45.40 and History of long-term use of multiple prescription drugs Z92.29 [place] [id number] [place] [address] 35524- 6994 Jul, Upper respiratory infection 465.9 [address] [place] [address] 06355- 2298 May, [place] [id number] [place] [address] 29493- 0413 May, Diabetes mellitus without mention of complication, type II or unspecified type, uncontrolled 250.02 ; Esophageal reflux 530.81 ; Essential hypertension, benign 401.1 ; Other and unspecified hyperlipidemia 272.4 ; Chest wall pain 786.52 ; Thickened nails 703.8 ; Foot pain 729.5 ; Arthritis 716.90 and Knee pain 719.46 [place] [id number] [place] [address] 32214- 4646 Apr, [place] [id number] [place] [address]- 6651 14 Feb, 2014 [facility] [place] [address] [id number] [place] [address]- 6646 13 Feb, 2014 [facility] [place] [facility] [address] [id number] [place] [address]- 9428 19 Jan, 2014 [facility] [place] [facility] [address] [id number] [place] [address]- 3101 19 Jan, 2014 [facility] [place] [facility] [address] [id number] [place] [address]- 7009 17 Jan, 2014 [facility] [place] [facility] [address] [id number] [place] [address]- 3578 17 Jan, 2014 [facility] [place] [facility] [address] [id number] [place] [address]- 7225 17 Jan, 2014 [facility] [place] [facility] [address] [id number] [place] [address]- 5125 17 Jan, 2014 [facility] [place] [facility] [address] [id number] [place] [address]- 1553 16 Jan, 2015 [facility] [place] [facility] [address] [id number] [place] [address]- 2193 16 Jan, 2014 [facility] [place] [facility] [address] [id number] [place] [address]- 2838 16 Jan, 2014 [facility] [place] [facility] [address] [id number] [place] [address]- 5013 16 Jan, 2014 [facility] [place] [facility] [address] [id number] [place] [address]- 6272 24 Sep, 2014 [facility] [place] [facility] [address] [id number] [place] [address]- 3896 Sep, [facility] [place] [facility] [address] [id number] [place] [address]- 3946 Aug, [facility] [place] [facility] [address] [id number] [place] [address]- 5307 Aug, [facility] [place] [facility] [address] [id number] [place] [address]- 0796 Aug, [facility] [place] [facility] [address] [id number] [place] [address]- 7104 Aug, [facility] [place] [facility] [address] [id number] [place] [address]- 3657 Aug, [facility] [place] [facility] [address] [id number] [place] [address]- 5863 Aug, [facility] [place] [facility] [address] [id number] [place] [address]- 5827 Aug, [facility] [place] [facility] [address] [id number] [place] [address]- 0184 Aug, [facility] [place] [facility] [address] [id number] [place] [address]- 0934 Aug, [facility] [place] [facility] [address] [id number] [place] [address]- 0571 Aug, [facility] [place] [facility] [address] [id number] [place] [address]- 5656 Aug, [facility] [place] [facility] [address] [id number] [place] [address]- 9306 Aug, [facility] [place] [facility] [address] [id number] [place] [address]- 4354 Aug, [facility] [place] [facility] [address] [id number] [place] [address]- 8634 Aug, [facility] [place] [facility] [address] [id number] [place] [address]- 1812 19 Jul, 2014 [facility] [place] [facility] [address] [id number] [place] [address]- 5699 19 Jul, 2014 [facility] [place] [facility] [address] [id number] [place] [address]- 8531 17 Jul, 2014 [facility] [place] [facility] [address] [id number] [place] [address]- 3288 17 Jul, 2013 [facility] [place] [facility] [address] [id number] [place] [address]- 3578 12 Jul, 2013 [facility] [place] [facility] [address] [id number] [place] [address]- 3310 12 Jul, 2014 [facility] [place] [facility] [address] [id number] [place] [address]- 8547 10 Jul, 2014 [facility] [place] [facility] [address] [id number] [place] [address]- 9742 10 Jul, 2013 [facility] [place] [facility] [address] [id number] [place] [address]- 0482 Jul, [facility] [place] [facility] [address] [id number] [place] [address]- 1065 Jul, [facility] [place] [facility] [address] [id number] [place] [address]- 9506 Jun, [facility] [place] [facility] [address] [id number] [place] [address]- 5337 Jun, [facility] [place] [facility] [address] [id number] [place] [address]- 5063 Jun, [facility] [place] [facility] [address] [id number] [place] [address]- 8939 Jun, [facility] [place] [facility] [address] [id number] [place] [address]- 3164 Jun, [facility] [place] [facility] [address] [id number] [place] [address]- 7432 Jun, [facility] [place] [facility] [address] [id number] [place] [address]- 6796 Jun, [facility] [place] [facility] [address] [id number] [place] [address]- 9601 Jun, [facility] [place] [facility] [address] [id number] [place] [address]- 8887 May, [facility] [place] [facility] [address] [id number] [place] [address]- 5198 May, 2013 [facility] [place] [facility] [address] [id number] [place] [address]- 4158 May, 2013 [facility] [place] [facility] [address] [id number] [place] [address]- 1246 May, 2013 [facility] [place] [facility] [address] [id number] [place] [address]- 7174 May, 2013 [facility] [place] [facility] [address] [id number] [place] [address]- 9625 May, 2013 [facility] [place] [facility] [address] [id number] [place] [address]- 3628 May, 2013 [facility] [place] [facility] [address] [id number] [place] [address]- 3625 May, 2013 [facility] [place] [facility] [address] [id number] [place] [address]- 4692 May, 2013 [facility] [place] [facility] [address] [id number] [place] [address]- 4654 May, 2013 [facility] [place] [facility] [address] [id number] [place] [address]- 4815 May, 2013 [facility] [place] [facility] [address] [id number] [place] [address]- 6846 May, 2013 [facility] [place] [facility] [address] [id number] [place] [address]- 5328 May, 2013 [facility] [place] [facility] [address] [id number] [place] [address]- 5429 May, 2013 [facility] [place] [facility] [address] [id number] [place] [address]- 9504 May, 2013 [facility] [place] [facility] [address] [id number] [place] [address]- 5356 May, 2013 [facility] [place] [facility] [address] [id number] [place] [address]- 9236 May, [facility] [place] [facility] [address] [id number] [place] [address]- 5721 May, [facility] [place] [facility] [address] [id number] [place] [address]- 7259 May, [facility] [place] [facility] [address] [id number] [place] [address]- 4664 May, [facility] [place] [facility] [address] [id number] [place] [address]- 0112 Apr, [facility] [place] [facility] [address] [id number] [place] [address]- 5225 Apr, [facility] [place] [facility] [address] [id number] [place] [address]- 4925 Apr, [facility] [place] [facility] [address] [id number] [place] [address]- 4754 Apr, [facility] [place] [facility] [address] [id number] [place] [address]- 4824 Apr, [facility] [place] [facility] [address] [id number] [place] [address]- 0142 Apr, [facility] [place] [facility] [address] [id number] [place] [address]- 4437 Apr, [facility] [place] [facility] [address] [id number] [place] [address]- 8521 Apr, [facility] [address] [id number] [id number] Apr, [facility] [place] [facility] [address] [id number] [place] [address]- 8954 Apr, [facility] [place] [facility] [address] [id number] [place] [address]- 0350 Apr, [facility] [place] [facility] [address] [id number] [place] [address]- 9279 Apr, [facility] [place] [facility] [address] [id number] [place] [address]- 7726 Apr, [facility] [place] [facility] [address] [id number] [place] [address]- 4221 Apr, [facility] [place] [facility] [address] [id number] [place] [address]- 9182 Apr, [facility] [place] [facility] [address] [id number] [place] [address]- 5459 Apr, [facility] [place] [facility] [address] [id number] [place] [address]- 1003 18 Apr, 2014 [facility] [place] [facility] [address] [id number] [place] [address]- 8347 Apr, [facility] [place] [facility] [address] [id number] [place] [address]- 3278 Apr, [facility] [place] [facility] [address] [id number] [place] [address]- 3554 Apr, [facility] [place] [facility] [address] [id number] [place] [address]- 3235 Apr, [facility] [place] [facility] [address] [id number] [place] [address]- 6608 Apr, [facility] [place] [facility] [address] [id number] [place] [address]- 0194 Apr, [facility] [place] [facility] [address] [id number] [place] [address]- 9148 Apr, [facility] [place] [facility] [address] [id number] [place] [address]- 8125 Apr, [facility] [place] [facility] [address] [id number] [place] [address]- 2089 Apr, [facility] [place] [facility] [address] [id number] [place] [address]- 8655 March, [facility] [place] [facility] [address] [id number] [place] [address]- 6157 March, [facility] [place] [facility] [address] [id number] [place] [address]- 4416 17 Feb, 2014 [facility] [place] [facility] [address] [id number] [place] [address]- 4406 17 Feb, 2014 [facility] [place] [facility] [address] [id number] [place] [address]- 4746 31 Jan, 2014 [facility] [place] [facility] [address] [id number] [place] [address]- 3756 31 Jan, 2014 [facility] [place] [facility] [address] [id number] [place] [address]- 5416 28 Jan, 2014 [facility] [place] [facility] [address] [id number] [place] [address]- 8830 28 Jan, 2014 [facility] [place] [facility] [address] [id number] [place] [address]- 9812 Jan, [facility] [place] [facility] [address] [id number] [place] [address]- 3833 Jan, [facility] [place] [facility] [address] [id number] [place] [address]- 3195 24 Jan, 2014 [facility] [place] [facility] [address] [id number] [place] [address]- 7265 24 Jan, 2014 [facility] [place] [facility] [address] [id number] [place] [address]- 8635 24 Jan, 2014 [facility] [place] [facility] [address] [id number] [place] [address]- 8010 24 Jan, 2014 [facility] [place] [facility] [address] [id number] [place] [address]- 8298 Jan, [facility] [place] [facility] [address] [id number] [place] [address]- 0746 20 Jan, 2014 [facility] [place] [facility] [address] [id number] [place] [address]- 2546 17 Jan, 2014 [facility] [place] [facility] [address] [id number] [place] [address]- 6665 Jan, [facility] [address] [id number] [place] [id number] Jan, [facility] [place] [facility] [address] [id number] [place] [address]- 2340 Jan, [facility] [place] [facility] [address] [id number] [place] [address] Jan, [facility] [place] [facility] [address] [id number] [place] [address] Jan, [facility] [place] [facility] [address] [id number] [place] [address] Jan, [facility] [place] [facility] [address] [id number] [place] [address] Jan, [facility] [place] [facility] [address] [facility] [id number] [place] [address] Jan, [facility] [place] [facility] [address] [id number] [place] [address] Dec, [facility] [place] [facility] [address] [id number] [place] [address] Dec, [facility] [place] [facility] [address] [facility] [id number] [place] [address] Dec, [facility] [place] [facility] [address] [id number] [place] [address] Dec, [facility] [place] [facility] [address] [id number] [place] [address] Dec, [facility] [place] [facility] [address] [id number] [place] [address] Dec, [facility] [place] [facility] [address] [id number] [place] [address] Dec, [facility] [place] [facility] [address] [id number] [place] [address] Nov, [facility] [place] [facility] [address] [id number] [place] [address] Nov, [facility] [address] [id number] [place] [address] Nov, [facility] [place] [facility] [address] [id number] [place] [address] Nov, [facility] [address] [id number] [place] [address] Oct, [facility] [place] [facility] [address] [id number] [place] [address] Oct, [facility] [address] [id number] [place] [address] Oct, [facility] [place] [facility] [address] [id number] [place] [address] Oct, [facility] [address] [id number] [place] [address] Oct, [facility] [place] [facility] [address] [id number] [place] [address] Oct, [facility] [place] [facility] [address] [id number] [place] [address] Sep, [facility] [place] [facility] [address] [facility] [id number] [place] [address] Sep, [facility] [place] [facility] [address] [id number] [place] [address] Sep, [facility] [place] [facility] [address] [id number] [place] [address] Sep, [facility] [place] [facility] [address] [id number] [place] [address] Sep, [facility] [place] [facility] [address] [id number] [place] [address] Sep, [facility] [place] [facility] [address] [id number] [place] [address] Aug, [facility] [address] [id number] [place] [address] Aug, [facility] [address] [facility] [id number] [place] [address] Aug, [facility] [address] [facility] [id number] [place] [address] Aug, [facility] [address] [facility] [id number] [place] [address] Aug, [facility] [address] [id number] [place] [address] Aug, [facility] [address] [facility] [id number] [place] [address] Aug, [facility] [address] [id number] [address] Aug, [facility] [address] [id number] [address] Aug, [facility] [address] [facility] [id number] [place] [address] Aug, [facility] [id number] [place] [address] Aug, [facility] [id number] [place] [address] Aug, [facility] [id number] [place] [address] Aug, [facility] [address] [facility] [id number] [place] [address] Aug, IMMUNIZATIONS No Known Immunizations SOCIAL HISTORY Never Assessed REASON FOR VISIT bp f/u: no concerns, states is doing better. Had heart cath on 11/07/17 and has f/u with Dr. Luz on 12/11/17. petra [email or web address] PLAN OF CARE Activity Details Follow Up 3 Months Reason:DM VITAL SIGNS Height 66 in 2017-11-28 Weight 273.2 lbs 2017-11-28 Temperature 97.6 degrees Fahrenheit 2017-11-28 Heart Rate 74 bpm 2017-11-28 Respiratory Rate 22 2017-11-28 BMI 44.09 kg/m2 2017-11-28 Blood pressure systolic 120 mmHg 2017-11-28 Blood pressure diastolic 72 mmHg 2017-11-28 MEDICATIONS Medication Instructions Dosage Frequency Start Date End Date Duration Status Pravastatin Sodium 20 mg Orally Once a day 1 tablet 24h Active Omeprazole 40 mg Orally Once a day 1 capsule 24h 30 Active Albuterol Sulfate HFA 108 (90 Base) MCG/ACT Inhalation 4 times a day 2 puffs as needed 6h 10 Oct, 2016 Not-Taking Krill Oil Dailey-3 300 MG Orally 3 times a day 1 capsule 8h Active Glucocard Expression Monitor w/Device as directed Nov, Active Glucocard Expression Test - In Vitro test once daily as directed Active Lotrel 10-40 MG Orally Once a day 1 capsule 24h 30 days Active Chlorthalidone 25 MG Orally Once a day 1 tablet in the morning 24h 90 days Active Advair Diskus 250-50 MCG/DOSE Inhalation Twice a day 1 puff 12h Not-Taking Womens Multivitamin Active Aspir-81 81 MG Orally Once a day 1 tablet 24h Not-Taking MetFORMIN HCl ER 500 mg Orally bid 2 am 1 pm 12h 30 days Active Hydrocodone-Acetaminophen 5-325 MG Orally daily prn 1/2 tablet March, Active RESULTS Name Result Date Reference Range A1C (IN HOUSE) 2017-11-28 A1C IN HOUSE 6.8 4.3 - 5.6 % Previous A1c 6.4 Lot [id number] Exp date 06/2019 PROCEDURES Procedure Date Ordered Result Body Site GLYCATED HEMOGLOBIN TEST Nov 28, 2017 INSTRUCTIONS MEDICATIONS ADMINISTERED No Known Medications MEDICAL [...]
[2018-10-02] MEDS ORDERED: LACTATED RINGERS 1,000 ML IV ONE (09:36)
--- OUTSIDE RECORDS SUMMARY | 2018-10-02 09:38 | XMS REPORT | Continuity of Care Document ---
Author Author [facility] Address Unknown Phone Unavailable Allergies Active Description Code Type Severity Reaction Onset Reported/Identified Relationship to Patient Clinical Status Yes Darvocet-N 100 Drug Allergy N /A N/A 09/01/2013 Yes Darvon Drug Allergy N/A N/A 09/01/2013 Yes fentanyl Drug Allergy N/A N/A 09/01/2013 Yes Talwin Drug Allergy N/A N/A 09/01/2013 Yes Tylox Drug Allergy N/A N/A 09/01/2013 Yes Ultram Drug Allergy N/A N/A 09/01/2013 Yes acetaminophen [id number] Drug Allergy Severe RESP DISTRESS 09/30/2015 Yes fentanyl [id number] Drug Allergy Severe ARRHYTHMIA 09/30/2015 Yes oxycodone [id number] Drug Allergy Severe RESP DISTRESS 09/30/2015 Yes pentazocine [id number] Drug Allergy Severe RESP DISTRESS 09/30/2015 Yes propoxyphene [id number] Drug Allergy Severe ARRHYTHMIA 09/30/2015 Yes oxycodone [id number] Drug Allergy Severe RESP DISTRESS, 10/08/2015 Medications There is no data. Problems Date Dx Coded Attending Type Code [...] K 401.1 BENIGN ESSENTIAL HYPERTENSION 09/01/[address] MAKER, ERICK A 250.02 DIABETES MELLITUS WITHOUT MENTION OF COMPLICATION TYPE II OR UNSPECIFIED TYPE UNCONTROLLED 09/01/[address] MAKER, ERICK A 401.1 BENIGN ESSENTIAL HYPERTENSION 09/01/2013 [...] K 401.1 BENIGN ESSENTIAL HYPERTENSION 09/01/[address] MAKER, MISA L 250.02 DIABETES MELLITUS WITHOUT MENTION OF COMPLICATION TYPE II OR UNSPECIFIED TYPE UNCONTROLLED 09/01/[address] MAKER, MISA L 401.1 BENIGN ESSENTIAL HYPERTENSION 09/01/2013 TREVINO DO, ELVIS K 250.02 DIABETES MELLITUS WITHOUT MENTION OF COMPLICATION TYPE II OR UNSPECIFIED TYPE UNCONTROLLED 09/01/2013 TREVINO DO, ELVIS K 401.1 BENIGN ESSENTIAL HYPERTENSION 09/01/[address] MAKER, MISA L 250.02 DIABETES MELLITUS WITHOUT MENTION OF COMPLICATION TYPE II OR UNSPECIFIED TYPE UNCONTROLLED 09/01/[address] MAKER, MISA L 401.1 BENIGN ESSENTIAL HYPERTENSION 09/01/2013 TREVINO DO, ELVIS K 250.02 DIABETES MELLITUS WITHOUT MENTION OF COMPLICATION TYPE II OR UNSPECIFIED TYPE UNCONTROLLED 09/01/2013 TREVINO DO, ELVIS K 401.1 BENIGN ESSENTIAL HYPERTENSION 09/01/[address] MAKER, MISA L 250.02 DIABETES MELLITUS WITHOUT MENTION OF COMPLICATION TYPE II OR UNSPECIFIED TYPE UNCONTROLLED 09/01/[address] MAKER, MISA L 401.1 BENIGN ESSENTIAL HYPERTENSION 09/01/2013 TREVINO DO, ELVIS K 250.02 DIABETES MELLITUS WITHOUT MENTION OF COMPLICATION TYPE II OR UNSPECIFIED TYPE UNCONTROLLED 09/01/2013 TREVINO DO, ELVIS K 401.1 BENIGN ESSENTIAL HYPERTENSION 09/01/2013 TREVINO DO, ELVIS K 250.02 DIABETES MELLITUS WITHOUT MENTION OF COMPLICATION TYPE II OR UNSPECIFIED TYPE UNCONTROLLED 09/01/2013 TREVINO DO, ELVIS K 401.1 BENIGN ESSENTIAL HYPERTENSION 09/01/[address] MAKER, MISA L 250.02 DIABETES MELLITUS WITHOUT MENTION OF COMPLICATION TYPE II OR UNSPECIFIED TYPE UNCONTROLLED 09/01/[address] MAKER, MISA L 401.1 BENIGN ESSENTIAL HYPERTENSION 09/01/[address] MAKER, MISA L 250.02 DIABETES MELLITUS WITHOUT MENTION OF COMPLICATION TYPE II OR UNSPECIFIED TYPE UNCONTROLLED 09/01/[address] MAKER, MISA L 401.1 BENIGN ESSENTIAL HYPERTENSION 09/01/2013 TREVINO DO, ELVIS K 250.02 DIABETES MELLITUS WITHOUT MENTION OF COMPLICATION TYPE II OR UNSPECIFIED TYPE UNCONTROLLED 09/01/2013 TREVINO DO, ELVIS K 401.1 BENIGN ESSENTIAL HYPERTENSION 09/01/2013 TREVINO DO, ELVIS K 250.02 DIABETES MELLITUS WITHOUT MENTION OF COMPLICATION TYPE II OR UNSPECIFIED TYPE UNCONTROLLED 09/01/2013 TREVINO DO, ELVIS K 401.1 BENIGN ESSENTIAL HYPERTENSION 09/01/[address] MAKER, MISA L 250.02 DIABETES MELLITUS WITHOUT MENTION OF COMPLICATION TYPE II OR UNSPECIFIED TYPE UNCONTROLLED 09/01/[address] MAKER, MISA L 401.1 BENIGN ESSENTIAL HYPERTENSION 09/01/2013 TREVINO DO, ELVIS K 250.02 DIABETES MELLITUS WITHOUT MENTION OF COMPLICATION TYPE II OR UNSPECIFIED TYPE UNCONTROLLED 09/01/2013 TREVINO DO, ELVIS K 401.1 BENIGN ESSENTIAL HYPERTENSION 09/01/[address] MAKER, MISA L 250.02 DIABETES MELLITUS WITHOUT MENTION OF COMPLICATION TYPE II OR UNSPECIFIED TYPE UNCONTROLLED 09/01/[address] MAKER, MISA L 401.1 BENIGN ESSENTIAL HYPERTENSION 09/01/[address] MAKER, MISA L 250.02 DIABETES MELLITUS WITHOUT MENTION OF COMPLICATION TYPE II OR UNSPECIFIED TYPE UNCONTROLLED 09/01/[address] MAKER, MISA L 401.1 BENIGN ESSENTIAL HYPERTENSION 09/01/2013 TREVINO DO, ELVIS K 250.02 DIABETES MELLITUS WITHOUT MENTION OF COMPLICATION TYPE II OR UNSPECIFIED TYPE UNCONTROLLED 09/01/2013 TREVINO DO ELVIS K 401.1 BENIGN ESSENTIAL HYPERTENSION 09/01/[address] MAKER, MISA L 250.02 DIABETES MELLITUS WITHOUT MENTION OF COMPLICATION TYPE II OR UNSPECIFIED TYPE UNCONTROLLED 09/01/[address] MAKER, MISA L 401.1 BENIGN ESSENTIAL HYPERTENSION 09/01/[address] MAKER, MISA L 250.02 DIABETES MELLITUS WITHOUT MENTION OF COMPLICATION TYPE II OR UNSPECIFIED TYPE UNCONTROLLED 09/01/[address] MAKER, MISA L 401.1 BENIGN ESSENTIAL HYPERTENSION 09/01/[address] MAKER, MISA L 250.02 DIABETES MELLITUS WITHOUT MENTION OF COMPLICATION TYPE II OR UNSPECIFIED TYPE UNCONTROLLED 09/01/[address] MAKER, MISA L 401.1 BENIGN ESSENTIAL HYPERTENSION 09/01/2013 TREVINO DO ELVIS K 250.02 DIABETES MELLITUS WITHOUT MENTION OF COMPLICATION TYPE II OR UNSPECIFIED TYPE UNCONTROLLED 09/01/2013 TREVINO DO, ELVIS K 401.1 BENIGN ESSENTIAL HYPERTENSION 09/01/[address] MAKER, MISA L 250.02 DIABETES MELLITUS WITHOUT MENTION OF COMPLICATION TYPE II OR UNSPECIFIED TYPE UNCONTROLLED 09/01/[address] MAKER, MISA L 401.1 BENIGN ESSENTIAL HYPERTENSION 09/01/[address] MAKER, MISA L 250.02 DIABETES MELLITUS WITHOUT MENTION OF COMPLICATION TYPE II OR UNSPECIFIED TYPE UNCONTROLLED 09/01/[address] MAKER, MISA L 401.1 BENIGN ESSENTIAL HYPERTENSION 09/15/2013 TREVINO DO ELVIS K 272.4 HYPERLIPIDEMIA 09/15/2013 TREVINO DO, ELVIS K 272.4 HYPERLIPIDEMIA 09/15/2013 TREVINO DO, ELVIS K 272.4 HYPERLIPIDEMIA 09/15/2013 TREVINO DO, ELVIS K 272.4 HYPERLIPIDEMIA 09/15/2013 TREVINO DO, ELVIS K 272.4 HYPERLIPIDEMIA 09/15/2013 TREVINO DO, ELVIS K 272.4 HYPERLIPIDEMIA 09/15/2013 TREVINO DO, ELVIS K 272.4 HYPERLIPIDEMIA 09/15/[address] MAKER, ERICK A 272.4 HYPERLIPIDEMIA 09/15/2013 TREVINO DO, ELVIS K 272.4 HYPERLIPIDEMIA 09/15/2013 TREVINO DO, ELVIS K 272.4 HYPERLIPIDEMIA 09/15/2013 TREVINO DO, ELVIS K 272.4 HYPERLIPIDEMIA 09/15/[address] MAKER, MISA L 272.4 HYPERLIPIDEMIA 09/15/2013 TREVINO DO, ELVIS K 272.4 HYPERLIPIDEMIA 09/15/[address] MAKER, MISA L 272.4 HYPERLIPIDEMIA 09/15/2013 TREVINO DO, ELVIS K 272.4 HYPERLIPIDEMIA 09/15/[address] MAKER, MISA L 272.4 HYPERLIPIDEMIA 09/15/2013 TREVINO DO, ELVIS K 272.4 HYPERLIPIDEMIA 09/15/2013 TREVINO DO, ELVIS K 272.4 HYPERLIPIDEMIA 09/15/[address] MAKER, MISA L 272.4 HYPERLIPIDEMIA 09/15/[address] MAKER, MISA L 272.4 HYPERLIPIDEMIA 09/15/2013 TREVINO DO, ELVIS K 272.4 HYPERLIPIDEMIA 09/15/2013 TREVINO DO, ELVIS K 272.4 HYPERLIPIDEMIA 09/15/[address] MAKER, MISA L 272.4 HYPERLIPIDEMIA 09/15/2013 TREVINO DO, ELVIS K 272.4 HYPERLIPIDEMIA 09/15/[address] MAKER, MISA L 272.4 HYPERLIPIDEMIA 09/15/[address] MAKER, MISA L 272.4 HYPERLIPIDEMIA 09/15/2013 TREVINO DO, ELVIS K 272.4 HYPERLIPIDEMIA 09/15/[address] MAKER, MISA L 272.4 HYPERLIPIDEMIA 09/15/[address] MAKER, MISA L 272.4 HYPERLIPIDEMIA 09/15/[address] MAKER, MISA L 272.4 HYPERLIPIDEMIA 09/15/2013 TREVINO DO, ELVIS K 272.4 HYPERLIPIDEMIA 09/15/[address] MAKER, MISA L 272.4 HYPERLIPIDEMIA 09/15/[address] MAKER, MISA L 272.4 HYPERLIPIDEMIA 10/13/2013 TREVINO DO, ELVIS K 790.5 OTHER NONSPECIFIC ABNORMAL SERUM ENZYME LEVELS 10/13/2013 TREVINO DO, ELVIS K 790.5 ABNORMAL HEPATIC ENZYME 10/13/2013 TREVINO DO, ELVIS K 790.5 ABNORMAL HEPATIC ENZYME 10/13/2013 TREVINO DO, ELVIS K 790.5 ABNORMAL HEPATIC ENZYME 10/13/2013 TREVINO DO, ELVIS K 790.5 ABNORMAL HEPATIC ENZYME 10/13/2013 TREVINO DO, ELVIS K 790.5 ABNORMAL HEPATIC ENZYME 10/13/[address] MAKER, ERICK A 790.5 ABNORMAL HEPATIC ENZYME 10/13/2013 TREVINO DO, ELVIS K 790.5 ABNORMAL HEPATIC ENZYME 10/13/2013 TREVINO DO, ELVIS K 790.5 ABNORMAL HEPATIC ENZYME 10/13/2013 TREVINO DO, ELVIS K 790.5 ABNORMAL HEPATIC ENZYME 10/13/[address] MAKER, MISA L 790.5 ABNORMAL HEPATIC ENZYME 10/13/2013 TREVINO DO, ELVIS K 790.5 ABNORMAL HEPATIC ENZYME 10/13/[address] MAKER, MISA L 790.5 ABNORMAL HEPATIC ENZYME 10/13/2013 TREVINO DO, ELVIS K 790.5 ABNORMAL HEPATIC ENZYME 10/13/[address] MAKER, MISA L 790.5 ABNORMAL HEPATIC ENZYME 10/13/2013 TREVINO DO, ELVIS K 790.5 ABNORMAL HEPATIC ENZYME 10/13/2013 TREVINO DO, ELVIS K 790.5 ABNORMAL HEPATIC ENZYME 10/13/[address] MAKER, MISA L 790.5 ABNORMAL HEPATIC ENZYME 10/13/[address] MAKER, MISA L 790.5 ABNORMAL HEPATIC ENZYME 10/13/2013 TREVINO DO, ELVIS K 790.5 ABNORMAL HEPATIC ENZYME 10/13/2013 TREVINO DO, ELVIS K 790.5 ABNORMAL HEPATIC ENZYME 10/13/[address] MAKER, MISA L 790.5 ABNORMAL HEPATIC ENZYME 10/13/2013 TREVINO DO, ELVIS K 790.5 ABNORMAL HEPATIC ENZYME 10/13/[address] MAKER, MISA L 790.5 ABNORMAL HEPATIC ENZYME 10/13/[address] MAKER, MISA L 790.5 ABNORMAL HEPATIC ENZYME 10/13/2013 TREVINO DO, ELVIS K 790.5 ABNORMAL HEPATIC ENZYME 10/13/[address] MAKER, MISA L 790.5 ABNORMAL HEPATIC ENZYME 10/13/[address] MAKER, MISA L 790.5 ABNORMAL HEPATIC ENZYME 10/13/[address] MAKER, MISA L 790.5 ABNORMAL HEPATIC ENZYME 10/13/2013 TREVINO DO, ELVIS K 790.5 ABNORMAL HEPATIC ENZYME 10/13/[address] MAKER, MISA L 790.5 ABNORMAL HEPATIC ENZYME 10/13/[address] MAKER, MISA L 790.5 ABNORMAL HEPATIC ENZYME 11/17/2013 TREVINO DO, ELVIS K 465.9 UPPER RESPIRATORY INFECTION 11/17/2013 TREVINO DO, ELVIS K 465.9 UPPER RESPIRATORY INFECTION 11/17/2013 TREVINO DO, ELVIS K 465.9 UPPER RESPIRATORY INFECTION 11/17/2013 TREVINO DO, ELVIS K 465.9 UPPER RESPIRATORY INFECTION 11/17/2013 TREVINO DO, ELVIS K 465.9 UPPER RESPIRATORY INFECTION 11/17/[address] MAKER, ERICK A 465.9 UPPER RESPIRATORY INFECTION 11/17/2013 TREVINO DO, ELVIS K 465.9 UPPER RESPIRATORY INFECTION 11/17/2013 TREVINO DO, ELVIS K 465.9 UPPER RESPIRATORY INFECTION 11/17/2013 TREVINO DO, ELVIS K 465.9 UPPER RESPIRATORY INFECTION 11/17/[address] MAKER, MISA L 465.9 UPPER RESPIRATORY INFECTION 11/17/2013 TREVINO DO, ELVIS K 465.9 UPPER RESPIRATORY INFECTION 11/17/[address] MAKER, MISA L 465.9 UPPER RESPIRATORY INFECTION 11/17/2013 TREVINO DO, ELVIS K 465.9 UPPER RESPIRATORY INFECTION 11/17/[address] MAKER, MISA L 465.9 UPPER RESPIRATORY INFECTION 11/17/2013 TREVINO DO, ELVIS K 465.9 UPPER RESPIRATORY INFECTION 11/17/2013 TREVINO DO, ELVIS K 465.9 UPPER RESPIRATORY INFECTION 11/17/[address] MAKER, MISA L 465.9 UPPER RESPIRATORY INFECTION 11/17/[address] MAKER, MISA L 465.9 UPPER RESPIRATORY INFECTION 11/17/2013 TREVINO DO, ELVIS K 465.9 UPPER RESPIRATORY INFECTION 11/17/2013 TREVINO DO, ELVIS K 465.9 UPPER RESPIRATORY INFECTION 11/17/[address] MAKER, MISA L 465.9 UPPER RESPIRATORY INFECTION 11/17/2013 TREVINO DO, ELVIS K 465.9 UPPER RESPIRATORY INFECTION 11/17/[address] MAKER, MISA L 465.9 UPPER RESPIRATORY INFECTION 11/17/[address] MAKER, MISA L 465.9 UPPER RESPIRATORY INFECTION 11/17/2013 TREVINO DO, ELVIS K 465.9 UPPER RESPIRATORY INFECTION 11/17/[address] MAKER, MISA L 465.9 UPPER RESPIRATORY INFECTION 11/17/[address] MAKER, MISA L 465.9 UPPER RESPIRATORY INFECTION 11/17/[address] MAKER, MISA L 465.9 UPPER RESPIRATORY INFECTION 11/17/2013 TREVINO DO, ELVIS K 465.9 UPPER RESPIRATORY INFECTION 11/17/[address] MAKER, MISA L 465.9 UPPER RESPIRATORY INFECTION 11/17/[address] MAKER, MISA L 465.9 UPPER RESPIRATORY INFECTION 12/19/2013 TREVINO DO, ELVIS K 482.9 BACTERIAL PNEUMONIA 12/19/2013 TREVINO DO, ELVIS K 482.9 BACTERIAL PNEUMONIA 12/19/2013 TREVINO DO, ELVIS K 482.9 BACTERIAL PNEUMONIA 12/19/2013 TREVINO DO, ELVIS K 482.9 BACTERIAL PNEUMONIA 12/19/[address] MAKER, ERICK A 482.9 BACTERIAL PNEUMONIA 12/19/2013 TREVINO DO, ELVIS K 482.9 BACTERIAL PNEUMONIA 12/19/2013 TREVINO DO, ELVIS K 482.9 BACTERIAL PNEUMONIA 12/19/2013 TREVINO DO, ELVIS K 482.9 BACTERIAL PNEUMONIA 12/19/[address] MAKER, MISA L 482.9 BACTERIAL PNEUMONIA 12/19/2013 TREVINO DO, ELVIS K 482.9 BACTERIAL PNEUMONIA 12/19/[address] MAKER, MISA L 482.9 BACTERIAL PNEUMONIA 12/19/2013 TREVINO DO, ELVIS K 482.9 BACTERIAL PNEUMONIA 12/19/[address] MAKER, MISA L 482.9 BACTERIAL PNEUMONIA 12/19/2013 TREVINO DO, ELVIS K 482.9 BACTERIAL PNEUMONIA 12/19/2013 TREVINO DO, ELVIS K 482.9 BACTERIAL PNEUMONIA 12/19/[address] MAKER, MISA L 482.9 BACTERIAL PNEUMONIA 12/19/[address] MAKER, MISA L 482.9 BACTERIAL PNEUMONIA 12/19/2013 TREVINO DO, ELVIS K 482.9 BACTERIAL PNEUMONIA 12/19/2013 TREVINO DO, ELVIS K 482.9 BACTERIAL PNEUMONIA 12/19/[address] MAKER, MISA L 482.9 BACTERIAL PNEUMONIA 12/19/2013 TREVINO DO, ELVIS K 482.9 BACTERIAL PNEUMONIA 12/19/[address] MAKER, MISA L 482.9 BACTERIAL PNEUMONIA 12/19/[address] MAKER, MISA L 482.9 BACTERIAL PNEUMONIA 12/19/2013 TREVINO DO, ELVIS K 482.9 BACTERIAL PNEUMONIA 12/19/[address] MAKER, MISA L 482.9 BACTERIAL PNEUMONIA 12/19/[address] MAKER, MISA L 482.9 BACTERIAL PNEUMONIA 12/19/[address] MAKER, MISA L 482.9 BACTERIAL PNEUMONIA 12/19/2013 TREVINO DO, ELVIS K 482.9 BACTERIAL PNEUMONIA 12/19/[address] MAKER, MISA L 482.9 BACTERIAL PNEUMONIA 12/19/[address] MAKER, MISA L 482.9 BACTERIAL PNEUMONIA 01/27/2014 TREVINO DO, ELVIS K 716.90 ARTHRITIS/ ARTHROPATHY, UNSPECIFIED 01/27/2014 MITCH BENAVIDES APRNYL A 716.90 ARTHRITIS/ ARTHROPATHY, UNSPECIFIED 01/27/2014 TREVINO DO, ELVIS K 716.90 ARTHRITIS/ ARTHROPATHY, UNSPECIFIED 01/27/2014 TREVINO DO, ELVIS K 716.90 ARTHRITIS/ ARTHROPATHY, UNSPECIFIED 01/27/2014 TREVINO DO, ELVIS K 716.90 ARTHRITIS/ ARTHROPATHY, UNSPECIFIED 01/27/[address] MAKER, MISA L 716.90 ARTHRITIS/ ARTHROPATHY, UNSPECIFIED 01/27/2014 TREVINO DO, ELVIS K 716.90 ARTHRITIS/ ARTHROPATHY, UNSPECIFIED 01/27/[address] MAKER, MISA L 716.90 ARTHRITIS/ ARTHROPATHY, UNSPECIFIED 01/27/2014 TREVINO DO, ELVIS K 716.90 ARTHRITIS/ ARTHROPATHY, UNSPECIFIED 01/27/[address] MAKER, MISA L 716.90 ARTHRITIS/ ARTHROPATHY, UNSPECIFIED 01/27/2014 TREVINO DO, ELVIS K 716.90 ARTHRITIS/ ARTHROPATHY, UNSPECIFIED 01/27/2014 TREVINO DO, ELVIS K 716.90 ARTHRITIS/ ARTHROPATHY, UNSPECIFIED 01/27/[address] MAKER, MISA L 716.90 ARTHRITIS/ ARTHROPATHY, UNSPECIFIED 01/27/[address] MAKER, MISA L 716.90 ARTHRITIS/ ARTHROPATHY, UNSPECIFIED 01/27/2014 TREVINO DO, ELVIS K 716.90 ARTHRITIS/ ARTHROPATHY, UNSPECIFIED 01/27/2014 TREVINO DO, ELVIS K 716.90 ARTHRITIS/ ARTHROPATHY, UNSPECIFIED 01/27/[address] MAKER, MISA L 716.90 ARTHRITIS/ ARTHROPATHY, UNSPECIFIED 01/27/2014 TREVINO DO, ELVIS K 716.90 ARTHRITIS/ ARTHROPATHY, UNSPECIFIED 01/27/[address] MAKER, MISA L 716.90 ARTHRITIS/ ARTHROPATHY, UNSPECIFIED 01/27/[address] MAKER, MISA L 716.90 ARTHRITIS/ ARTHROPATHY, UNSPECIFIED 01/27/2014 TREVINO DO, ELVIS K 716.90 ARTHRITIS/ ARTHROPATHY, UNSPECIFIED 01/27/[address] MAKER, MISA L 716.90 ARTHRITIS/ ARTHROPATHY, UNSPECIFIED 01/27/[address] MAKER, MISA L 716.90 ARTHRITIS/ ARTHROPATHY, UNSPECIFIED 01/27/[address] MAKER, MISA L 716.90 ARTHRITIS/ ARTHROPATHY, UNSPECIFIED 01/27/2014 TREVINO DO, ELVIS K 716.90 ARTHRITIS/ ARTHROPATHY, UNSPECIFIED 01/27/[address] MAKER, MISA L 716.90 ARTHRITIS/ ARTHROPATHY, UNSPECIFIED 01/27/[address] MAKER, MISA L 716.90 ARTHRITIS/ ARTHROPATHY, UNSPECIFIED 01/28/2014 ERICK BENAVIDES APRN 786.05 SHORTNESS OF BREATH 01/28/2014 TREVINO DO, ELVIS K 786.05 SHORTNESS OF BREATH 01/28/2014 TREVINO DO, ELVIS K 786.05 SHORTNESS OF BREATH 01/28/2014 TREVINO DO, ELVIS K 786.05 SHORTNESS OF BREATH 01/28/[address] MAKER, MISA L 786.05 SHORTNESS OF BREATH 01/28/2014 TREVINO DO, ELVIS K 786.05 SHORTNESS OF BREATH 01/28/[address] MAKER, MISA L 786.05 SHORTNESS OF BREATH 01/28/2014 TREVINO DO, ELVIS K 786.05 SHORTNESS OF BREATH 01/28/[address] MAKER, MISA L 786.05 SHORTNESS OF BREATH 01/28/2014 TREVINO DO, ELVIS K 786.05 SHORTNESS OF BREATH 01/28/2014 TREVINO DO, ELVIS K 786.05 SHORTNESS OF BREATH 01/28/[address] MAKER, MISA L 786.05 SHORTNESS OF BREATH 01/28/[address] MAKER, MISA L 786.05 SHORTNESS OF BREATH 01/28/2014 TREVINO DO, ELVIS K 786.05 SHORTNESS OF BREATH 01/28/2014 TREVINO DO, ELVIS K 786.05 SHORTNESS OF BREATH 01/28/[address] MAKER, MISA L 786.05 SHORTNESS OF BREATH 01/28/2014 TREVINO DO, ELVIS K 786.05 SHORTNESS OF BREATH 01/28/[address] MAKER, MISA L 786.05 SHORTNESS OF BREATH 01/28/[address] MAKER, MISA L 786.05 SHORTNESS OF BREATH 01/28/2014 TREVINO DO, ELVIS K 786.05 SHORTNESS OF BREATH 01/28/[address] MAKER, MISA L 786.05 SHORTNESS OF BREATH 01/28/[address] MAKER, MISA L 786.05 SHORTNESS OF BREATH 01/28/[address] MAKER, MISA L 786.05 SHORTNESS OF BREATH 01/28/2014 TREVINO DO, ELVIS K 786.05 SHORTNESS OF BREATH 01/28/[address] MAKER, MISA L 786.05 SHORTNESS OF BREATH 01/28/[address] MAKER, MISA L 786.05 SHORTNESS OF BREATH 02/03/2014 TREVINO DO, ELVIS K V65.49 OTHER SPECIFIED COUNSELING 02/03/2014 TREVINO DO, ELVIS K V72.31 MARKETING DEVELOPMENT REPRESENTATIVE EXAM, ROUTINE 02/03/2014 TREVINO DO, ELVIS K V76.10 BREAST CANCER SCREENING 02/03/2014 TREVINO DO, ELVIS K V65.49 OTHER SPECIFIED COUNSELING 02/03/2014 TREVINO DO, ELVIS K V72.31 MARKETING DEVELOPMENT REPRESENTATIVE EXAM, ROUTINE 02/03/2014 TREVINO DO, ELVIS K V76.10 BREAST CANCER SCREENING 02/03/2014 TREVINO DO, ELVIS K V65.49 OTHER SPECIFIED COUNSELING 02/03/2014 TREVINO DO, ELVIS K V72.31 MARKETING DEVELOPMENT REPRESENTATIVE EXAM, ROUTINE 02/03/2014 TREVINO DO, ELVIS K V76.10 BREAST CANCER SCREENING 02/03/[address] MAKER, MISA L V65.49 OTHER SPECIFIED COUNSELING 02/03/[address] MAKER, MISA L V72.31 MARKETING DEVELOPMENT REPRESENTATIVE EXAM, ROUTINE 02/03/[address] MAKER, MISA L V76.10 BREAST CANCER SCREENING 02/03/2014 TREVINO DO, ELVIS K V65.49 OTHER SPECIFIED COUNSELING 02/03/2014 TREVINO DO, ELVIS K V72.31 MARKETING DEVELOPMENT REPRESENTATIVE EXAM, ROUTINE 02/03/2014 TREVINO DO, ELVIS K V76.10 BREAST CANCER SCREENING 02/03/[address] MAKER, MISA L V65.49 OTHER SPECIFIED COUNSELING 02/03/[address] MAKER, MISA L V72.31 MARKETING DEVELOPMENT REPRESENTATIVE EXAM, ROUTINE 02/03/[address] MAKER, MISA L V76.10 BREAST CANCER SCREENING 02/03/2014 TREVINO DO, ELVIS K V65.49 OTHER SPECIFIED COUNSELING 02/03/2014 TREVINO DO, ELVIS K V72.31 MARKETING DEVELOPMENT REPRESENTATIVE EXAM, ROUTINE 02/03/2014 TREVINO DO, ELVIS K V76.10 BREAST CANCER SCREENING 02/03/[address] MAKER, MISA L V65.49 OTHER SPECIFIED COUNSELING 02/03/[address] MAKER, MISA L V72.31 MARKETING DEVELOPMENT REPRESENTATIVE EXAM, ROUTINE 02/03/[address] MAKER, MISA L V76.10 BREAST CANCER SCREENING 02/03/2014 TREVINO DO, ELVIS K V65.49 OTHER SPECIFIED COUNSELING 02/03/2014 TREVINO DO, ELVIS K V72.31 MARKETING DEVELOPMENT REPRESENTATIVE EXAM, ROUTINE 02/03/2014 TREVINO DO, ELVIS K V76.10 BREAST CANCER SCREENING 02/03/2014 TREVINO DO, ELVIS K V65.49 OTHER SPECIFIED COUNSELING 02/03/2014 TREVINO DO, ELVIS K V72.31 MARKETING DEVELOPMENT REPRESENTATIVE EXAM, ROUTINE 02/03/2014 TREVINO DO, ELVIS K V76.10 BREAST CANCER SCREENING 02/03/[address] MAKER, MISA L V65.49 OTHER SPECIFIED COUNSELING 02/03/[address] MAKER, MISA L V72.31 MARKETING DEVELOPMENT REPRESENTATIVE EXAM, ROUTINE 02/03/[address] MAKER, MISA L V76.10 BREAST CANCER SCREENING 02/03/[address] MAKER, MISA L V65.49 OTHER SPECIFIED COUNSELING 02/03/[address] MAKER, MISA L V72.31 MARKETING DEVELOPMENT REPRESENTATIVE EXAM, ROUTINE 02/03/[address] MAKER, MISA L V76.10 BREAST CANCER SCREENING 02/03/2014 TREVINO DO, ELVIS K V65.49 OTHER SPECIFIED COUNSELING 02/03/2014 TREVINO DO, ELVIS K V72.31 MARKETING DEVELOPMENT REPRESENTATIVE EXAM, ROUTINE 02/03/2014 TREVINO DO, ELVIS K V76.10 BREAST CANCER SCREENING 02/03/2014 TREVINO DO, ELVIS K V65.49 OTHER SPECIFIED COUNSELING 02/03/2014 TREVINO DO, ELVIS K V72.31 MARKETING DEVELOPMENT REPRESENTATIVE EXAM, ROUTINE 02/03/2014 TREVINO DO, ELVIS K V76.10 BREAST CANCER SCREENING 02/03/[address] MAKER, MISA L V65.49 OTHER SPECIFIED COUNSELING 02/03/[address] MAKER, MISA L V72.31 MARKETING DEVELOPMENT REPRESENTATIVE EXAM, ROUTINE 02/03/[address] MAKER, MISA L V76.10 BREAST CANCER SCREENING 02/03/2014 TREVINO DO, ELVIS K V65.49 OTHER SPECIFIED COUNSELING 02/03/2014 TREVINO DO, ELVIS K V72.31 MARKETING DEVELOPMENT REPRESENTATIVE EXAM, ROUTINE 02/03/2014 TREVINO DO, ELVIS K V76.10 BREAST CANCER SCREENING 02/03/[address] MAKER, MISA L V65.49 OTHER SPECIFIED COUNSELING 02/03/[address] MAKER, MISA L V72.31 MARKETING DEVELOPMENT REPRESENTATIVE EXAM, ROUTINE 02/03/[address] MAKER, MISA L V76.10 BREAST CANCER SCREENING 02/03/[address] MAKER, MISA L V65.49 OTHER SPECIFIED COUNSELING 02/03/[address] MAKER, MISA L V72.31 MARKETING DEVELOPMENT REPRESENTATIVE EXAM, ROUTINE 02/03/[address] MAKER, MISA L V76.10 BREAST CANCER SCREENING 02/03/2014 TREVINO DO, ELVIS K V65.49 OTHER SPECIFIED COUNSELING 02/03/2014 TREVINO DO, ELVIS K V72.31 MARKETING DEVELOPMENT REPRESENTATIVE EXAM, ROUTINE 02/03/2014 TREVINO DO, ELVIS K V76.10 BREAST CANCER SCREENING 02/03/[address] MAKER, MISA L V65.49 OTHER SPECIFIED COUNSELING 02/03/[address] MAKER, MISA L V72.31 MARKETING DEVELOPMENT REPRESENTATIVE EXAM, ROUTINE 02/03/[address] MAKER, MISA L V76.10 BREAST CANCER SCREENING 02/03/[address] MAKER, MISA L V65.49 OTHER SPECIFIED COUNSELING 02/03/[address] MAKER, MISA L V72.31 MARKETING DEVELOPMENT REPRESENTATIVE EXAM, ROUTINE 02/03/[address] MAKER, MISA L V76.10 BREAST CANCER SCREENING 02/03/[address] MAKER, MISA L V65.49 OTHER SPECIFIED COUNSELING 02/03/[address] MAKER, MISA L V72.31 MARKETING DEVELOPMENT REPRESENTATIVE EXAM, ROUTINE 02/03/[address] MAKER, MISA L V76.10 BREAST CANCER SCREENING 02/03/2014 TREVINO DO, ELVIS K V65.49 OTHER SPECIFIED COUNSELING 02/03/2014 TREVINO DO, ELVIS K V72.31 MARKETING DEVELOPMENT REPRESENTATIVE EXAM, ROUTINE 02/03/2014 TREVINO DO, ELVIS K V76.10 BREAST CANCER SCREENING 02/03/[address] MAKER, MISA L V65.49 OTHER SPECIFIED COUNSELING 02/03/[address] MAKER, MISA L V72.31 MARKETING DEVELOPMENT REPRESENTATIVE EXAM, ROUTINE 02/03/[address] MAKER, MISA L V76.10 BREAST CANCER SCREENING 02/03/[address] MAKER, MISA L V65.49 OTHER SPECIFIED COUNSELING 02/03/[address] MAKER, MISA L V72.31 MARKETING DEVELOPMENT REPRESENTATIVE EXAM, ROUTINE 02/03/[address] MAKER, MISA L V76.10 BREAST CANCER SCREENING 03/31/2014 TREVINO DO, ELVIS K 530.81 ESOPHAGEAL REFLUX 03/31/[address] MAKER, MISA L 530.81 ESOPHAGEAL REFLUX 03/31/2014 TREVINO DO, ELVIS K 530.81 ESOPHAGEAL REFLUX 03/31/[address] MAKER, MISA L 530.81 ESOPHAGEAL REFLUX 03/31/2014 TREVINO DO, ELVIS K 530.81 ESOPHAGEAL REFLUX 03/31/[address] MAKER, MISA L 530.81 ESOPHAGEAL REFLUX 03/31/2014 TREVINO DO, ELVIS K 530.81 ESOPHAGEAL REFLUX 03/31/2014 TREVINO DO, ELVIS K 530.81 ESOPHAGEAL REFLUX 03/31/[address] MAKER, MISA L 530.81 ESOPHAGEAL REFLUX 03/31/[address] MAKER, MISA L 530.81 ESOPHAGEAL REFLUX 03/31/2014 TREVINO DO, ELVIS K 530.81 ESOPHAGEAL REFLUX 03/31/2014 TREVINO DO, ELVIS K 530.81 ESOPHAGEAL REFLUX 03/31/[address] MAKER, MISA L 530.81 ESOPHAGEAL REFLUX 03/31/2014 TREVINO DO, ELVIS K 530.81 ESOPHAGEAL REFLUX 03/31/[address] MAKER, MISA L 530.81 ESOPHAGEAL REFLUX 03/31/[address] MAKER, MISA L 530.81 ESOPHAGEAL REFLUX 03/31/2014 TREVINO DO, ELVIS K 530.81 ESOPHAGEAL REFLUX 03/31/[address] MAKER, MISA L 530.81 ESOPHAGEAL REFLUX 03/31/[address] MAKER, MISA L 530.81 ESOPHAGEAL REFLUX 03/31/[address] MAKER, MISA L 530.81 ESOPHAGEAL REFLUX 03/31/2014 TREVINO DO, ELVIS K 530.81 ESOPHAGEAL REFLUX 03/31/[address] MAKER, MISA L 530.81 ESOPHAGEAL REFLUX 03/31/[address] MAKER, MISA L 530.81 ESOPHAGEAL REFLUX 05/05/2014 HUMPHREY SAMSON DO Ot 327.23 OBSTRUCTIVE SLEEP APNEA (ADULT) (PEDIATR 05/05/2014 HUMPHREY SAMSON DO Ot 401.9 HYPERTENSION NOS 05/12/[address] MAKER, MISA L 786.50 UNSPECIFIED CHEST PAIN 05/12/2014 TREVINO DO, ELVIS K 786.50 UNSPECIFIED CHEST PAIN 05/12/[address] MAKER, MISA L 786.50 UNSPECIFIED CHEST PAIN 05/12/2014 TREVINO DO, ELVIS K 786.50 UNSPECIFIED CHEST PAIN 05/12/[address] MAKER, MISA L 786.50 UNSPECIFIED CHEST PAIN 05/12/2014 TREVINO DO, ELVIS K 786.50 UNSPECIFIED CHEST PAIN 05/12/2014 TREVINO DO, ELVIS K 786.50 UNSPECIFIED CHEST PAIN 05/12/[address] MAKER, MISA L 786.50 UNSPECIFIED CHEST PAIN 05/12/[address] MAKER, MISA L 786.50 UNSPECIFIED CHEST PAIN 05/12/2014 TREVINO DO, ELVIS K 786.50 UNSPECIFIED CHEST PAIN 05/12/2014 TREVINO DO, ELVIS K 786.50 UNSPECIFIED CHEST PAIN 05/12/[address] MAKER, MISA L 786.50 UNSPECIFIED CHEST PAIN 05/12/2014 TREVINO DO, ELVIS K 786.50 UNSPECIFIED CHEST PAIN 05/12/[address] MAKER, MISA L 786.50 UNSPECIFIED CHEST PAIN 05/12/[address] MAKER, MISA L 786.50 UNSPECIFIED CHEST PAIN 05/12/2014 TREVINO DO, ELVIS K 786.50 UNSPECIFIED CHEST PAIN 05/12/[address] MAKER, MISA L 786.50 UNSPECIFIED CHEST PAIN 05/12/[address] MAKER, MISA L 786.50 UNSPECIFIED CHEST PAIN 05/12/[address] MAKER, MISA L 786.50 UNSPECIFIED CHEST PAIN 05/12/2014 TREVINO DO, ELVIS K 786.50 UNSPECIFIED CHEST PAIN 05/12/[address] MAKER, MISA L 786.50 UNSPECIFIED CHEST PAIN 05/12/[address] MAKER, MISA L 786.50 UNSPECIFIED CHEST PAIN 05/23/2014 TREVINO DO, ELVIS K NODX NO DIAGNOSIS 05/23/[address] MAKER, MISA L NODX NO DIAGNOSIS 05/23/[address] MAKER, MISA L NODX NO DIAGNOSIS 05/23/2014 TREVINO DO, ELVIS K NODX NO DIAGNOSIS 05/23/2014 TREVINO DO, ELVIS K NODX NO DIAGNOSIS 05/23/[address] MAKER, MISA L NODX NO DIAGNOSIS 05/23/2014 TREVINO DO, ELVIS K NODX NO DIAGNOSIS 05/23/[address] MAKER, MISA L NODX NO DIAGNOSIS 05/23/[address] MAKER, MISA L NODX NO DIAGNOSIS 05/23/2014 TREVINO DO, ELVIS K NODX NO DIAGNOSIS 05/23/[address] MAKER, MISA L NODX NO DIAGNOSIS 05/23/[address] MAKER, MISA L NODX NO DIAGNOSIS 05/23/[address] MAKER, MISA L NODX NO DIAGNOSIS 05/23/2014 TREVINO DO, ELVIS K NODX NO DIAGNOSIS 05/23/[address] [facility], MISA L NODX NO DIAGNOSIS 05/23/[address] [facility] MAKER, MISA L NODX NO DIAGNOSIS 05/27/[address] [facility], MISA L V81.1 HYPERTENSION SCREENING 05/27/[address] [facility] MAKER, MISA L V81.1 HYPERTENSION SCREENING 05/27/2014 TREVINO DO, ELVIS K V81.1 HYPERTENSION SCREENING 05/27/2014 TREVINO DO, ELVIS K V81.1 HYPERTENSION SCREENING 05/27/[address] [facility] MAKER, MISA L V81.1 HYPERTENSION SCREENING 05/27/2014 TREVINO DO, ELVIS K V81.1 HYPERTENSION SCREENING 05/27/[address] [facility] MAKER, MISA L V81.1 HYPERTENSION SCREENING 05/27/[address] MAKER, MISA L V81.1 HYPERTENSION SCREENING 05/27/2014 TREVINO DO, ELVIS K V81.1 HYPERTENSION SCREENING 05/27/[address] MAKER, MISA L V81.1 HYPERTENSION SCREENING 05/27/[address] MAKER, MISA L V81.1 HYPERTENSION SCREENING 05/27/[address] MAKER, MISA L V81.1 HYPERTENSION SCREENING 05/27/2014 TREVINO DO, ELVIS K V81.1 HYPERTENSION SCREENING 05/27/[address] [facility] MAKER, MISA L V81.1 HYPERTENSION SCREENING 05/27/[address] [facility] MAKER, MISA L V81.1 HYPERTENSION SCREENING 06/03/2014 TREVINO DO, ELVIS K 796.2 ELEVATED BLOOD PRESSURE READING WITHOUT DIAGNOSIS OF HYPERTENSION 06/03/2014 TREVINO DO, ELVIS K 796.2 ELEVATED BLOOD PRESSURE READING WITHOUT DIAGNOSIS OF HYPERTENSION 06/03/[address] MAKER, MISA L 796.2 ELEVATED BLOOD PRESSURE READING WITHOUT DIAGNOSIS OF HYPERTENSION 06/03/2014 TREVINO DO, ELVIS K 796.2 ELEVATED BLOOD PRESSURE READING WITHOUT DIAGNOSIS OF HYPERTENSION 06/03/[address] MAKER, MISA L 796.2 ELEVATED BLOOD PRESSURE READING WITHOUT DIAGNOSIS OF HYPERTENSION 06/03/[address] MAKER, MISA L 796.2 ELEVATED BLOOD PRESSURE READING WITHOUT DIAGNOSIS OF HYPERTENSION 06/03/2014 TREVINO DO, ELVIS K 796.2 ELEVATED BLOOD PRESSURE READING WITHOUT DIAGNOSIS OF HYPERTENSION 06/03/[address] MAKER, MISA L 796.2 ELEVATED BLOOD PRESSURE READING WITHOUT DIAGNOSIS OF HYPERTENSION 06/03/[address] MAKER, MISA L 796.2 ELEVATED BLOOD PRESSURE READING WITHOUT DIAGNOSIS OF HYPERTENSION 06/03/[address] MAKER, MISA L 796.2 ELEVATED BLOOD PRESSURE READING WITHOUT DIAGNOSIS OF HYPERTENSION 06/03/2014 TREVINO DO, ELVIS K 796.2 ELEVATED BLOOD PRESSURE READING WITHOUT DIAGNOSIS OF HYPERTENSION 06/03/[address] MAKER, MISA L 796.2 ELEVATED BLOOD PRESSURE READING WITHOUT DIAGNOSIS OF HYPERTENSION 06/03/[address] MAKER, MISA L 796.2 ELEVATED BLOOD PRESSURE READING WITHOUT DIAGNOSIS OF HYPERTENSION 07/21/2014 HUMPHREY SAMSON DO Ot 327.23 OBSTRUCTIVE SLEEP APNEA (ADULT) (PEDIATR 08/04/[address] MAKER, MISA L 719.42 PAIN IN JOINT INVOLVING UPPER ARM 08/04/[address] MAKER, MISA L 719.46 PAIN IN JOINT INVOLVING LOWER LEG 08/04/2014 DUSTY TREVINO DOA K 719.42 PAIN IN JOINT INVOLVING UPPER ARM 08/04/2014 TREVINO DO ELVIS K 719.46 PAIN IN JOINT INVOLVING LOWER LEG 08/04/[address] MAKER, MISA L 719.42 PAIN IN JOINT INVOLVING UPPER ARM 08/04/[address] MAKER, MISA L 719.46 PAIN IN JOINT INVOLVING LOWER LEG 08/04/[address] MAKER, MISA L 719.42 PAIN IN JOINT INVOLVING UPPER ARM 08/04/[address] MAKER, MISA L 719.46 PAIN IN JOINT INVOLVING LOWER LEG 08/04/[address] MAKER, MISA L 719.42 PAIN IN JOINT INVOLVING UPPER ARM 08/04/[address] MAKER, MISA L 719.46 PAIN IN JOINT INVOLVING LOWER LEG 08/04/2014 TREVINO DO ELVIS K 719.42 PAIN IN JOINT INVOLVING UPPER ARM 08/04/2014 TREVINO DO, ELVIS K 719.46 PAIN IN JOINT INVOLVING LOWER LEG 08/04/[address] MAKER, MIAS L 719.42 PAIN IN JOINT INVOLVING UPPER ARM 08/04/[address] MAKER, MISA L 719.46 PAIN IN JOINT INVOLVING LOWER LEG 08/04/[address] MAKER, MISA L 719.42 PAIN IN JOINT INVOLVING UPPER ARM 08/04/[address] MAKER, MISA L 719.46 PAIN IN JOINT INVOLVING LOWER LEG 09/01/[address] MAKER, MISA L 599.0 URINARY TRACT INFECTION 09/01/2014 TREVINO DO, ELVIS K 599.0 URINARY TRACT INFECTION 09/01/[address] MAKER, MISA L 599.0 URINARY TRACT INFECTION 09/01/[address] MAKER, MISA L 599.0 URINARY TRACT INFECTION 02/08/[address] MAKER, MISA L 112.3 CANDIDIASIS OF SKIN AND NAILS 09/28/[address] MAKER Ot V65.49 09/28/[address] MAKER Ot V72.31 09/28/[address] MAKER Ot V76.12 09/28/2015 HUMPHREY SAMSON DO Ot 250.00 09/28/2015 HUMPHREY SAMSON DO Ot 278.01 09/28/2015 HUMPHREY SAMSON DO Ot 311 09/28/2015 HUMPHREY SAMSON DO Ot 401.9 09/28/2015 HUMPHREY SAMSON DO Ot 493.20 09/30/[address] MAKER Ot V65.49 09/30/[address] MAKER Ot V72.31 09/30/[address] MAKER Ot V76.12 09/30/2015 MELISSA HUMPHREY Teixeira Ot 250.00 09/30/2015 MELISSA HUMPHREY Teixeira Ot 278.01 09/30/2015 HUMPHREY SAMSON DO Ot 311 09/30/2015 LILLIAM SAMSON DORAJESH Teixeira Ot 401.9 09/30/2015 HUMPHREY SAMSON DO Ot 493.20 10/04/2015 BROOKS THOMAS, KEYUR P Ot M17.11 10/04/2015 BROOKS THOMAS, KEYUR P [...] MELLITUS WITHOUT COMPLIC 10/09/2015 BROOKS THOMAS, KEYUR P Ot E66.01 MORBID (SEVERE) OBESITY DUE TO EXCESS CA 10/09/2015 BROOKS THOMAS, KEYUR Candelario Ot G47.33 OBSTRUCTIVE SLEEP APNEA (ADULT) (PEDIATR 10/09/2015 BROOKS THOMAS, KEYUR P Ot I10 ESSENTIAL (PRIMARY) HYPERTENSION 10/09/2015 BROOKS THOMAS, KEYUR P Ot J45.909 UNSPECIFIED ASTHMA, UNCOMPLICATED 10/09/2015 BROOKS THOMAS, KEYUR P Ot M17.11 UNILATERAL PRIMARY OSTEOARTHRITIS, RIGHT 10/09/2015 BROOKS THOMAS, KEYUR Candelario Ot Z68.41 BODY MASS INDEX (BMI) 40.0-44.9, ADULT 11/11/2015 BROOKS THOMAS, KEYUR P Ot M17.11 11/11/2015 BROOKS THOMAS, KEYUR P Ot R53.83 11/11/2015 BROOKS THOMAS, KEYUR P Ot Z01.812 11/11/2015 BROOKS THOMAS, KEYUR P Ot Z01.818 11/11/2015 BROOKS THOMAS, KEYUR P Ot Z11.2 12/06/2015 ARIADNA BHATT APRN Ot V65.49 12/06/2015 ARIADNA BHATT APRN Ot V72.31 12/06/2015 ARIADNA BHATT APRN Ot V76.12 12/06/2015 HUMPHREY SAMSON DO Ot 250.00 12/06/2015 HUMPHREY SAMSON DO Ot 278.01 12/06/2015 HUMPHREY SAMSON DO Ot 311 12/06/2015 HUMPHREY SAMSON DO Ot 401.9 12/06/2015 HUMPHREY SAMSON DO Ot 493.20 12/06/2015 BROOKS THOMAS, KEYUR Candelario Ot M17.11 12/06/2015 BROOKS THOMAS, KEYUR Candelario Ot R53.83 12/06/2015 BROOKS THOMAS, KEYUR Candelario Ot Z01.812 12/06/2015 BROOKS THOMAS, KEYUR Candelario Ot Z01.818 12/06/2015 BROOKS THOMAS, KEYUR P Ot Z11.2 06/19/2016 BROOKS THOMAS, KEYUR Candelario Ot M17.11 UNILATERAL PRIMARY OSTEOARTHRITIS, RIGHT 06/19/2016 BROOKS THOMAS, KEYUR P Ot R53.83 OTHER FATIGUE 06/19/2016 BROOKS THOMAS, KEYUR Candelario Ot Z01.812 ENCOUNTER FOR PREPROCEDURAL LABORATORY E [...] DO Ot 401.9 HYPERTENSION NOS 02/09/2017 HUMPHREY SAMOSN DO Ot 493.20 CHRONIC OBSTRUCTIVE ASTHMA, NOS 02/09/2017 KEYUR GUY MD Ot M17.11 UNILATERAL PRIMARY OSTEOARTHRITIS, RIGHT 02/09/2017 KEYUR GUY MD Ot R53.83 OTHER FATIGUE 02/09/2017 KEYUR GUY MD Ot Z01.812 ENCOUNTER FOR PREPROCEDURAL LABORATORY E 02/09/2017 KEYUR GUY MD Ot Z01.818 ENCOUNTER FOR OTHER PREPROCEDURAL EXAMIN 02/09/2017 KEYUR GUY MD Ot Z11.2 ENCOUNTER FOR SCREENING FOR OTHER BACTER 02/22/[address] MAKER Ot V65.49 OTHER SPECIFIED COUNSELING 02/22/[address] MAKER Ot V72.31 ROUTINE GYNECOLOGICAL EXAMINATION 02/22/[address] MAKER Ot V76.12 OTH SCREEN MAMMO-MALIGN NEOPLASM OF [...] SCREENING FOR OTHER BACTER 02/22/[address] MAKER Ot V65.49 OTHER SPECIFIED COUNSELING 02/22/[address] MAKER Ot V72.31 ROUTINE GYNECOLOGICAL EXAMINATION 02/22/[address] MAKER Ot V76.12 OTH SCREEN MAMMO-MALIGN NEOPLASM OF CARMELITA 02/22/2017 HUMPHREY SAMSON DO Ot 250.00 DIAB FLAQUITA WO COMPL, TYPE II OR UNSPEC TY 02/22/2017 HUMPHREY SAMSON DO Ot 278.01 MORBID OBESITY 02/22/2017 HUMPHREY SAMSON DO Ot 311 DEPRESSIVE DISORDER NEC 02/22/2017 HUMPHREY SAMSON DO Ot 401.9 HYPERTENSION NOS 02/22/2017 HUMPHREY SAMSON DO Ot 493.20 CHRONIC OBSTRUCTIVE ASTHMA, NOS 02/22/2017 BROOKS THOMAS, KEYUR Candelario Ot M17.11 UNILATERAL PRIMARY OSTEOARTHRITIS, RIGHT 02/22/2017 KEYUR GUY MD Ot R53.83 OTHER FATIGUE 02/22/2017 KEYUR GUY MD Ot Z01.812 ENCOUNTER FOR PREPROCEDURAL LABORATORY E 02/22/2017 KEYUR GUY MD Ot Z01.818 ENCOUNTER FOR OTHER PREPROCEDURAL EXAMIN 02/22/2017 KEYUR GUY MD Ot Z11.2 ENCOUNTER FOR SCREENING FOR OTHER BACTER 02/23/2017 MISA KING POST CLOSING SPECIALIST Ot R22.1 LOCALIZED SWELLING, MASS AND LUMP, NECK 09/06/2017 ARIADNA BHATT APRN Ot V65.49 OTHER SPECIFIED COUNSELING 09/06/[address] MAKER Ot V72.31 ROUTINE GYNECOLOGICAL EXAMINATION 09/06/2017 ARIADNA BHATT APRN Ot V76.12 OTH SCREEN [...] ENCOUNTER FOR SCREENING FOR OTHER BACTER 09/06/2017 MADL, MISA L POST CLOSING SPECIALIST Ot R22.1 LOCALIZED SWELLING, MASS AND LUMP, NECK 10/17/2017 FANI VALLEJO MD Ot E78.5 HYPERLIPIDEMIA, UNSPECIFIED 10/17/2017 FANI VALLEJO MD Ot G47.33 OBSTRUCTIVE SLEEP APNEA (ADULT) (PEDIATR 10/17/2017 FANI VALLEJO MD Ot I10 ESSENTIAL (PRIMARY) HYPERTENSION 10/17/2017 FANI VALLEJO MD Ot R06.09 OTHER FORMS OF DYSPNEA 10/17/2017 FANI VALLEJO MD Ot R07.89 OTHER CHEST PAIN 10/23/2017 MADL, MISA L POST CLOSING SPECIALIST Ot R22.1 LOCALIZED SWELLING, MASS AND LUMP, NECK 10/23/2017 FANI VALLEJO MD Ot E78.5 HYPERLIPIDEMIA, UNSPECIFIED 10/23/2017 FANI VALLEJO MD Ot G47.33 OBSTRUCTIVE SLEEP APNEA (ADULT) (PEDIATR 10/23/2017 FANI VALLEJO MD Ot I10 ESSENTIAL (PRIMARY) HYPERTENSION 10/23/2017 FANI VALLEJO MD Ot R06.09 OTHER FORMS OF DYSPNEA 10/23/2017 FANI VALLEJO MD Ot R07.89 OTHER CHEST PAIN 10/30/2017 MADL, MISA L POST CLOSING SPECIALIST Ot R22.1 LOCALIZED SWELLING, MASS AND LUMP, NECK 11/07/2017 FANI VALLEJO MD Ot E11.9 TYPE 2 DIABETES MELLITUS WITHOUT COMPLIC 11/07/2017 FANI VALLEJO MD Ot E66.9 OBESITY, UNSPECIFIED 11/07/2017 FANI VALLEJO MD Ot E78.5 HYPERLIPIDEMIA, UNSPECIFIED 11/07/2017 FANI VALLEJO MD Ot G47.33 OBSTRUCTIVE SLEEP APNEA (ADULT) (PEDIATR 11/07/2017 FANI VALLEJO MD Ot I10 ESSENTIAL (PRIMARY) HYPERTENSION 11/07/2017 FANI VALLEJO MD Ot I25.10 ATHSCL HEART DISEASE OF [place] CORONARY 11/07/2017 FANI VALLEJO MD Ot K21.9 GASTRO-ESOPHAGEAL REFLUX DISEASE WITHOUT 11/07/2017 FANI VALLEJO MD Ot R07.9 CHEST PAIN, UNSPECIFIED 11/07/2017 FANI VALLEJO MD Ot Z68.41 BODY MASS INDEX (BMI) 40.0-44.9, ADULT 11/07/2017 FANI VALLEJO MD Ot Z77.22 CNTCT W AND EXPSR TO ENVIRON TOBACCO SMO 11/07/2017 FANI VALLEJO MD Ot Z79.84 RETIREMENT (CURRENT) USE OF ORAL HYPOGLYC 11/07/2017 FANI VALLEJO MD Ot Z79.899 OTHER RETIREMENT (CURRENT) DRUG THERAPY 11/07/2017 FANI VALLEJO MD Ot Z82.49 FAMILY HX OF ISCHEM HEART DIS AND OTH DI 11/13/2017 FANI VALLEJO MD Ot E11.9 TYPE 2 DIABETES MELLITUS WITHOUT COMPLIC 11/13/2017 FANI VALLEJO MD Ot E66.9 OBESITY, UNSPECIFIED 11/13/2017 FANI VALLEJO MD Ot E78.5 HYPERLIPIDEMIA, UNSPECIFIED 11/13/2017 FANI VALLEJO MD Ot G47.33 OBSTRUCTIVE SLEEP APNEA (ADULT) (PEDIATR 11/13/2017 FANI VALLEJO MD Ot I10 ESSENTIAL (PRIMARY) HYPERTENSION 11/13/2017 FANI VALLEJO MD Ot I25.10 ATHSCL HEART DISEASE OF [place] CORONARY 11/13/2017 FANI VALLEJO MD Ot K21.9 GASTRO-ESOPHAGEAL REFLUX DISEASE WITHOUT 11/13/2017 FANI VALLEJO MD Ot R07.9 CHEST PAIN, UNSPECIFIED 11/13/2017 FANI VALLEJO MD Ot Z68.41 BODY MASS INDEX (BMI) 40.0-44.9, ADULT 11/13/2017 FANI VALLEJO MD Ot Z77.22 CNTCT W AND EXPSR TO ENVIRON TOBACCO SMO 11/13/2017 FANI VALLEJO MD Ot 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 11/13/2017 FANI VALLEJO MD Ot Z79.899 OTHER MOLD DESIGNER (CURRENT) DRUG THERAPY 11/13/2017 FANI VALLEJO MD Ot Z82.49 FAMILY HX OF ISCHEM HEART DIS AND OTH DI 12/11/2017 FANI VALLEJO MD Ot E78.5 HYPERLIPIDEMIA, UNSPECIFIED 12/11/2017 FANI VALLEJO MD Ot G47.33 OBSTRUCTIVE SLEEP APNEA (ADULT) (PEDIATR 12/11/2017 FANI VALLEJO MD Ot I10 ESSENTIAL (PRIMARY) HYPERTENSION 12/11/2017 FANI VALLEJO MD Ot R06.09 OTHER FORMS OF DYSPNEA 12/11/2017 FANI VALLEJO MD Ot R07.89 OTHER CHEST PAIN 08/11/2018 FAIN VALLEJO MD Ot E78.5 HYPERLIPIDEMIA, UNSPECIFIED 08/11/2018 FANI VALLEJO MD Ot G47.33 OBSTRUCTIVE SLEEP APNEA (ADULT) (PEDIATR 08/11/2018 FANI VALLEJO MD Ot I10 ESSENTIAL (PRIMARY) HYPERTENSION 08/11/2018 FANI VALLEJO MD Ot R06.09 OTHER FORMS OF DYSPNEA 08/11/2018 FANI VALLEJO MD Ot R07.89 OTHER CHEST PAIN 08/11/2018 FANI VALLEJO MD Ot E78.5 HYPERLIPIDEMIA, UNSPECIFIED 08/11/2018 FANI VALLEJO MD Ot G47.33 OBSTRUCTIVE SLEEP APNEA (ADULT) (PEDIATR 08/11/2018 FANI VALLEJO MD Ot I10 ESSENTIAL (PRIMARY) HYPERTENSION 08/11/2018 FANI VALLEJO MD Ot R06.09 OTHER FORMS OF DYSPNEA 08/11/2018 FANI VALLEJO MD Ot R07.89 OTHER CHEST PAIN 08/11/2018 TOMMY LEGGETT MD Ot E11.9 TYPE 2 DIABETES MELLITUS WITHOUT COMPLIC 08/11/2018 TOMMY LEGGETT MD Ot F32.9 MAJOR DEPRESSIVE DISORDER, SINGLE EPISOD 08/11/2018 TOMMY LEGGETT MD Ot F41.9 ANXIETY DISORDER, UNSPECIFIED 08/11/2018 TOMMY LEGGETT MD Ot G47.30 SLEEP APNEA, UNSPECIFIED 08/11/2018 TOMMY LEGGETT MD Ot I10 ESSENTIAL (PRIMARY) HYPERTENSION 08/11/2018 TOMMY LEGGETT MD Ot J06.9 ACUTE UPPER RESPIRATORY INFECTION, UNSPE 08/11/2018 TOMMY LEGGETT MD Ot J44.9 CHRONIC OBSTRUCTIVE PULMONARY DISEASE, U 08/11/2018 TOMMY LEGGETT MD Ot K21.9 GASTRO-ESOPHAGEAL REFLUX DISEASE WITHOUT 08/11/2018 TOMMY LEGGETT MD Ot M81.0 AGE-RELATED OSTEOPOROSIS W/O CURRENT PAT 08/11/2018 TOMMY LEGGETT MD Ot R07.89 OTHER CHEST PAIN 08/11/2018 TOMMY LEGGETT MD Ot Z80.8 FAMILY HISTORY OF MALIGNANT NEOPLASM OF 08/11/2018 TOMMY LEGGETT MD Ot Z82.49 FAMILY HX OF ISCHEM HEART DIS AND OTH DI 08/11/2018 TOMMY LEGGETT MD Ot Z88.5 ALLERGY STATUS TO NARCOTIC AGENT STATUS 08/11/2018 TOMMY LEGGETT MD Ot Z88.6 ALLERGY STATUS TO ANALGESIC AGENT STATUS 08/11/2018 TOMMY LEGGETT MD Ot Z88.8 ALLERGY STATUS TO OTH DRUG/MEDS/BIOL SUB 08/11/2018 TOMMY LEGGETT MD Ot Z90.710 ACQUIRED ABSENCE OF BOTH CERVIX AND UTER 08/11/2018 TOMMY LEGGETT MD Ot Z90.89 ACQUIRED ABSENCE OF OTHER ORGANS 08/13/2018 TOMMY LEGGETT MD Ot E11.9 TYPE 2 DIABETES MELLITUS WITHOUT COMPLIC 08/13/2018 TOMMY LEGGETT MD Ot F32.9 MAJOR DEPRESSIVE DISORDER, SINGLE EPISOD 08/13/2018 TOMMY LEGGETT MD Ot F41.9 ANXIETY DISORDER, UNSPECIFIED 08/13/2018 TOMMY LEGGETT MD Ot G47.30 SLEEP APNEA, UNSPECIFIED 08/13/2018 TOMMY LEGGETT MD Ot I10 ESSENTIAL (PRIMARY) HYPERTENSION 08/13/2018 TOMMY LEGGETT MD Ot J06.9 ACUTE UPPER RESPIRATORY INFECTION, UNSPE 08/13/2018 TOMMY LEGGETT MD Ot J44.9 CHRONIC OBSTRUCTIVE PULMONARY DISEASE, U 08/13/2018 TOMMY LEGGETT MD Ot K21.9 GASTRO-ESOPHAGEAL REFLUX DISEASE WITHOUT 08/13/2018 TOMMY LEGGETT MD Ot M81.0 AGE-RELATED OSTEOPOROSIS W/O CURRENT PAT 08/13/2018 TOMMY LEGGETT MD Ot R07.89 OTHER CHEST PAIN 08/13/2018 TOMMY LEGGETT MD Ot Z80.8 FAMILY HISTORY OF MALIGNANT NEOPLASM OF 08/13/2018 TOMMY LEGGETT MD Ot Z82.49 FAMILY HX OF ISCHEM HEART DIS AND OTH DI 08/13/2018 TOMMY LEGGETT MD Ot Z88.5 ALLERGY STATUS TO NARCOTIC AGENT STATUS 08/13/2018 TOMMY LEGGETT MD Ot Z88.6 ALLERGY STATUS TO ANALGESIC AGENT STATUS 08/13/2018 TOMMY LEGGETT MD Ot Z88.8 ALLERGY STATUS TO OTH DRUG/MEDS/BIOL SUB 08/13/2018 TOMMY LEGGETT MD Ot Z90.710 ACQUIRED ABSENCE OF BOTH CERVIX AND UTER 08/13/2018 TOMMY LEGGETT MD Ot Z90.89 ACQUIRED ABSENCE OF OTHER ORGANS 09/12/2018 ANTONI CÁRDENAS DO Ot Z01.818 ENCOUNTER FOR OTHER PREPROCEDURAL EXAMIN 09/12/2018 ANTONI CÁRDENAS DO Ot Z01.818 ENCOUNTER FOR OTHER PREPROCEDURAL EXAMIN 09/12/2018 ANTONI CÁRDENAS DO Ot Z01.818 ENCOUNTER FOR OTHER PREPROCEDURAL EXAMIN Procedures Code [place] [address] XRAY KNEE RIGHT 1 OR 2 VIEWS 09/01/2013 65250 CMP 09/01/2013 81414 LIPID PANEL 09/01/2013 45388 A1C (IN-HOUSE) 09/01/2013 08003 XRAY KNEE RIGHT 1 OR 2 VIEWS 09/04/2013 81886 A1C (IN-HOUSE) 09/15/2013 83747 MICRO ALBUMIN-IN HOUSE 11/17/2013 55230 ROUTINE VENIPUNCTURE 11/17/2013 81045 CMP 11/17/2013 60023 CPK 11/17/2013 66798 PULMONARY FUNCTION TEST (IN- HOUSE) 12/26/2013 45801 PULMONARY EDUCATION 12/26/2013 42036 XRAY CHEST 2 VIEW 12/29/2013 56130 PULMONARY FUNCTION TEST (IN- HOUSE) 01/28/2014 59679 BRONCHODILATION PRE/POST 01/28/2014 88033 RESPIRATORY FLOW VOLUME LOOP 01/28/2014 48014 PULMONARY EDUCATION 01/28/2014 81080 MAMMOGRAM, SCREENING 02/03/2014 43073 ROUTINE VENIPUNCTURE 02/16/2014 Pulmonary Humphrey Samson 02/16/2014 [id number] GFR CALC (RESULT ONLY) 02/16/2014 82471 CMP 02/16/2014 16766 LIPID PANEL 02/16/2014 86285 CPK 02/16/2014 73520 A1C (IN-HOUSE) 03/31/2014 59832 ROUTINE VENIPUNCTURE 05/12/2014 97995 EKG, TRACING 05/12/2014 09085 BMP 05/12/2014 14225 MAGNESIUM 05/12/2014 07430 CBC 05/12/2014 BLOOD PRESSURE CHECK 05/13/2014 BLOOD PRESSURE CHECK 05/14/2014 BLOOD PRESSURE CHECK 05/22/2014 04436 NO CHARGE 05/25/2014 BLOOD PRESSURE CHECK 05/27/2014 BLOOD PRESSURE CHECK 05/28/2014 BLOOD PRESSURE CHECK 06/02/2014 BLOOD PRESSURE CHECK 06/10/2014 BLOOD PRESSURE CHECK 06/11/2014 BLOOD PRESSURE CHECK 06/12/2014 BLOOD PRESSURE CHECK 06/18/2014 BLOOD PRESSURE CHECK 07/01/2014 BLOOD PRESSURE CHECK 07/15/2014 91324 XRAY ELBOW R 2 VIEWS 08/04/2014 44268 XRAY KNEE RIGHT 3 VIEWS 08/04/2014 BLOOD PRESSURE CHECK 08/05/2014 94498 NO CHARGE 08/07/2014 BLOOD PRESSURE CHECK 08/13/2014 BLOOD PRESSURE CHECK 09/14/2014 [id number] UA LONG DIP 09/14/2014 [id number] CULTURE URINE 09/16/2014 BLOOD PRESSURE CHECK 09/21/2014 [id number] REPLACE OF R KNEE JT WITH SYNTH SUB, DANIELLE 10/06/2015 Results Test Result Range Comp. Metabolic Panel (14) - 10/11/16 18:41 Glucose, Serum 124 mg/dL 65-99 BUN 15 mg/dL 6-24 Creatinine, Serum 0.67 mg/dL 0.57-1.00 eGFR If NonAfricn Am 103 mL/min/1.73 >59 eGFR If Africn Am 119 mL/min/1.73 >59 BUN/Creatinine Ratio 22 9-23 Sodium, Serum 141 mmol/L 136-144 Potassium, Serum 4.5 mmol/L 3.5-5.2 Chloride, Serum 98 mmol/L 97-106 Carbon Dioxide, Total 27 mmol/L 18-29 Calcium, Serum 9.8 mg/dL 8.7-10.2 Protein, Total, Serum 7.3 g/dL 6.0-8.5 Albumin, Serum 4.4 g/dL 3.5-5.5 Globulin, Total 2.9 g/dL 1.5-4.5 A/G Ratio 1.5 1.1-2.5 Bilirubin, Total 0.4 mg/dL 0.0-1.2 Alkaline Phosphatase, S 99 IU/L 39-117 AST (SGOT) 15 IU/L 0-40 ALT (SGPT) 22 IU/L 0-32 Comp. Metabolic Panel (14) - 02/07/17 09:42 Glucose, Serum 149 mg/dL 65-99 BUN 10 mg/dL 6-24 Creatinine, Serum 0.65 mg/dL 0.57-1.00 eGFR If NonAfricn Am 104 mL/min/1.73 >59 eGFR If Africn Am 120 mL/min/1.73 >59 BUN/Creatinine Ratio 15 9-23 Sodium, Serum 138 mmol/L 134-144 Potassium, Serum 4.7 mmol/L 3.5-5.2 Chloride, Serum 98 mmol/L 96-106 Carbon Dioxide, Total 25 mmol/L 18-29 Calcium, Serum 9.9 mg/dL 8.7-10.2 Protein, Total, Serum 7.2 g/dL 6.0-8.5 Albumin, Serum 4.3 g/dL 3.5-5.5 Globulin, Total 2.9 g/dL 1.5-4.5 A/G Ratio 1.5 1.2-2.2 Bilirubin, Total 0.9 mg/dL 0.0-1.2 Alkaline Phosphatase, S 88 IU/L 39-117 AST (SGOT) 21 IU/L 0-40 ALT (SGPT) 28 IU/L 0-32 Comp. Metabolic Panel (14) - 04/19/17 09:40 Glucose, Serum 139 mg/dL 65-99 BUN 14 mg/dL 6-24 Creatinine, Serum 0.87 mg/dL 0.57-1.00 eGFR If NonAfricn Am 78 mL/min/1.73 >59 eGFR If Africn Am 90 mL/min/1.73 >59 BUN/Creatinine Ratio 16 9-23 Sodium, Serum 139 mmol/L 134-144 Potassium, Serum 4.6 mmol/L 3.5-5.2 Chloride, Serum 96 mmol/L 96-106 Carbon Dioxide, Total 25 mmol/L 18-29 Calcium, Serum 10.2 mg/dL 8.7-10.2 Protein, Total, Serum 7.2 g/dL 6.0-8.5 Albumin, Serum 4.4 g/dL 3.5-5.5 Globulin, Total 2.8 g/dL 1.5-4.5 A/G Ratio 1.6 1.2-2.2 Bilirubin, Total 1.0 mg/dL 0.0-1.2 Alkaline Phosphatase, S 87 IU/L 39-117 AST (SGOT) 39 IU/L 0-40 ALT (SGPT) 68 IU/L 0-32 Magnesium, Serum - 04/19/17 09:40 Magnesium, Serum 2.2 mg/dL 1.6-2.3 CBC With Differential/Platelet - 06/27/17 14:57 WBC 8.1 x10E3/uL 3.4-10.8 RBC 4.76 x10E6/uL 3.77-5.28 Hemoglobin 14.4 g/dL 11.1-15.9 Hematocrit 43.5 % 34.0-46.6 MCV 91 fL 79-97 MCH 30.3 pg 26.6-33.0 MCHC 33.1 g/dL 31.5-35.7 RDW 13.2 % 12.3-15.4 Platelets 318 x10E3/uL 150-379 Neutrophils 63 % Lymphs 24 % Monocytes 9 % Eos 4 % Basos 0 % Neutrophils (Absolute) 5.2 x10E3/uL 1.4-7.0 Lymphs (Absolute) 1.9 x10E3/uL 0.7-3.1 Monocytes(Absolute) 0.7 x10E3/uL 0.1-0.9 Eos (Absolute) 0.3 x10E3/uL 0.0-0.4 Baso (Absolute) 0.0 x10E3/uL 0.0-0.2 Immature Granulocytes 0 % Immature Grans (Abs) 0.0 x10E3/uL 0.0-0.1 Comp. Metabolic Panel (14) - 06/27/17 14:57 Glucose, Serum 108 mg/dL 65-99 BUN 16 mg/dL 6-24 Creatinine, Serum 1.03 mg/dL 0.57-1.00 eGFR If NonAfricn Am 64 mL/min/1.73 >59 eGFR If Africn Am 73 mL/min/1.73 >59 BUN/Creatinine Ratio 16 9-23 Sodium, Serum 140 mmol/L 134-144 Potassium, Serum 4.7 mmol/L 3.5-5.2 Chloride, Serum 94 mmol/L 96-106 Carbon Dioxide, Total 24 mmol/L 18-29 Calcium, Serum 10.7 mg/dL 8.7-10.2 Protein, Total, Serum 8.1 g/dL 6.0-8.5 Albumin, Serum 4.6 g/dL 3.5-5.5 Globulin, Total 3.5 g/dL 1.5-4.5 A/G Ratio 1.3 1.2-2.2 Bilirubin, Total 1.4 mg/dL 0.0-1.2 Alkaline Phosphatase, S 83 IU/L 39-117 AST (SGOT) 25 IU/L 0-40 ALT (SGPT) 32 IU/L 0-32 Lipid Panel - 06/27/17 14:57 Cholesterol, Total 223 mg/dL 100-199 Triglycerides 150 mg/dL 0-149 HDL Cholesterol 53 mg/dL >39 VLDL Cholesterol Ko 30 mg/dL 5-40 LDL Cholesterol Calc 140 mg/dL 0-99 TSH - 06/27/17 14:57 TSH 1.030 uIU/mL 0.450-4.500 Magnesium, Serum - 06/27/17 14:57 Magnesium, Serum 2.3 mg/dL 1.6-2.3 Automated blood complete blood count (hemogram) panel - 11/07/17 07:12 Blood leukocytes automated count (number/volume) 7.0 10*3/uL 4.3-11.0 Blood erythrocytes automated count (number/volume) 4.96 10*6/uL 4.35-5.85 Venous blood hemoglobin measurement (mass/volume) 14.7 g/dL 11.5-16.0 Blood hematocrit (volume fraction) 43 % 35-52 Automated erythrocyte mean corpuscular volume 88 [foz_us] 80-99 Automated erythrocyte mean corpuscular hemoglobin (mass per erythrocyte) 30 pg 25-34 Automated erythrocyte mean corpuscular hemoglobin concentration measurement ( mass/volume) 34 g/dL 32-36 Automated erythrocyte distribution width ratio 12.4 % 10.0-14.5 Automated blood platelet count (count/volume) 288 10*3/uL 130-400 Automated blood platelet mean volume measurement 10.3 [foz_us] 7.4-10.4 Complete urinalysis with reflex to culture - 11/07/17 07:12 Urine color determination YELLOW NRG Urine clarity determination CLEAR NRG Urine pH measurement by test strip 7 5-9 Specific gravity of urine by test strip 1.005 1.016- 1.022 Urine protein assay by test strip, semi-quantitative NEGATIVE NEGATIVE Urine glucose detection by automated test strip NEGATIVE NEGATIVE Erythrocytes detection in urine sediment by light microscopy NEGATIVE NEGATIVE Urine ketones detection by automated test strip NEGATIVE NEGATIVE Urine nitrite detection by test strip NEGATIVE NEGATIVE Urine total bilirubin detection by test strip NEGATIVE NEGATIVE Urine urobilinogen measurement by automated test strip (mass/volume) NORMAL NORMAL Urine leukocyte esterase detection by dipstick 2+ NEGATIVE Automated urine sediment erythrocyte count by microscopy (number/high power field) NONE NRG Automated urine sediment leukocyte count by microscopy (number/high power field ) [HPF] NRG Bacteria detection in urine sediment by light microscopy TRACE NRG Squamous epithelial cells detection in urine sediment by light microscopy 2-5 NRG Crystals detection in urine sediment by light microscopy NONE NRG Casts detection in urine sediment by light microscopy NONE NRG Mucus detection in urine sediment by light microscopy NEGATIVE NRG Complete urinalysis with reflex to culture YES NRG PT panel in platelet poor plasma by coagulation assay - 11/07/17 07:12 Prothrombin time (PT) in platelet poor plasma by coagulation assay 12.1 s 12.2-14.7 INR in platelet poor plasma or blood by coagulation assay 0.9 0.8-1.4 Activated partial thromboplastin time (aPTT) in platelet poor plasma bycoagulation assay - 11/07/17 07:12 Activated partial thromboplastin time (aPTT) in platelet poor plasma bycoagulation assay 25 s 24-35 Comprehensive metabolic panel - 11/07/17 07:12 Serum or plasma sodium measurement (moles/volume) 135 mmol/L 135-145 Serum or plasma potassium measurement (moles/volume) 3.6 mmol/L 3.6-5.0 Serum or plasma chloride measurement (moles/volume) 95 mmol/L 98-107 Carbon dioxide 29 mmol/L 21-32 Serum or plasma anion gap determination (moles/volume) 11 mmol/L 5-14 Serum or plasma urea nitrogen measurement (mass/volume) 14 mg/dL 7-18 Serum or plasma creatinine measurement (mass/volume) 0.83 mg/dL 0.60-1.30 Serum or plasma urea nitrogen/creatinine mass ratio 17 NRG Serum or plasma creatinine measurement with calculation of estimated glomerular filtration rate > NRG Serum or plasma glucose measurement (mass/volume) 142 mg/dL 70-105 Serum or plasma calcium measurement (mass/volume) 10.1 mg/dL 8.5-10.1 Serum or plasma total bilirubin measurement (mass/volume) 1.0 mg/dL 0.1-1.0 Serum or plasma alkaline phosphatase measurement (enzymatic activity/volume) 82 U/L 40-136 Serum or plasma aspartate aminotransferase measurement (enzymatic activity/ volume) 22 U/L 5-34 Serum or plasma alanine aminotransferase measurement (enzymatic activity/volume ) 32 U/L 0-55 Serum or plasma protein measurement (mass/volume) 8.2 g/dL 6.4-8.2 Serum or plasma albumin measurement (mass/volume) 4.3 g/dL 3.2-4.5 Lipid 1996 panel - 11/07/17 07:12 Serum or plasma triglyceride measurement (mass/volume) 92 mg/dL <150 Serum or plasma cholesterol measurement (mass/volume) 215 mg/dL < 200 Serum or plasma cholesterol in HDL measurement (mass/volume) 57 mg/ dL 40-60 Cholesterol in LDL [mass/volume] in serum or plasma by direct assay 139 mg/dL 1-129 Serum or plasma cholesterol in VLDL measurement (mass/volume) 18 mg/ dL 5-40 Methicillin resistant Staphylococcus aureus (MRSA) screening culture - 07:12 Methicillin resistant Staphylococcus aureus (MRSA) screening culture NEG [facility] Bacterial urine culture - 11/07/17 07:12 Bacterial urine culture [id number] NRG COLONY COUNT 10,000/ML - 100,000/ML NRG FTX;REPORTABLE SENSITIVITY NOT USUALLY PERFORMED ON NR FREE TEXT ENTRY 2 THIS ORGANISM NR FREE TEXT ENTRY 3 MIXED GRAM POSITIVE REENA <10,000/ML NR CMP - 03/07/18 15:07 GLUCOSE 134 mg/dL 65-99 UREA NITROGEN (BUN) 13 mg/dL 7-25 CREATININE 0.78 mg/dL 0.50-1.05 eGFR NON-AFR. TAJIK 88 mL/min/1.73m2 > OR=60 eGFR 102 mL/min/1.73m2 > OR=60 BUN/CREATININE RATIO NOT APPLICABLE (calc) 6-22 SODIUM 137 mmol/L 135-146 POTASSIUM 4.1 mmol/L 3.5-5.3 CHLORIDE 97 mmol/L 98-110 CARBON DIOXIDE 28 mmol/L 20-31 CALCIUM 9.8 mg/dL 8.6-10.4 PROTEIN, TOTAL 7.5 g/dL 6.1-8.1 ALBUMIN 4.4 g/dL 3.6-5.1 GLOBULIN 3.1 g/dL (calc) 1.9-3.7 ALBUMIN/GLOBULIN RATIO 1.4 (calc) 1.0-2.5 BILIRUBIN, TOTAL 0.7 mg/dL 0.2-1.2 ALKALINE PHOSPHATASE 84 U/L 33-130 AST 17 U/L 10-35 ALT 25 U/L 6-29 CBC - 07/10/18 10:31 WHITE BLOOD CELL COUNT 7.7 Thousand/uL 3.8-10.8 RED BLOOD CELL COUNT 5.14 Million/uL 3.80-5.10 HEMOGLOBIN 15.4 g/dL 11.7-15.5 HEMATOCRIT 45.6 % 35.0-45.0 MCV 88.7 fL 80.0-100.0 MCH 30.0 pg 27.0-33.0 MCHC 33.8 g/dL 32.0-36.0 RDW 12.5 % 11.0-15.0 PLATELET COUNT 319 Thousand/uL 140-400 MPV 10.5 fL 7.5-12.5 ABSOLUTE NEUTROPHILS 5467 cells/uL 0370-7271 ABSOLUTE LYMPHOCYTES 1586 cells/uL 850-3900 ABSOLUTE MONOCYTES 470 cells/uL 200-950 ABSOLUTE EOSINOPHILS 139 cells/uL 15-500 ABSOLUTE BASOPHILS 39 cells/uL 0-200 NEUTROPHILS 71 % NRG LYMPHOCYTES 20.6 % NRG MONOCYTES 6.1 % NRG EOSINOPHILS 1.8 % NRG BASOPHILS 0.5 % NRG Complete blood count (CBC) with automated white blood cell (WBC) differential - 08/11/18 07:48 Blood leukocytes automated count (number/volume) 6.7 10*3/uL 4.3-11.0 Blood erythrocytes automated count (number/volume) 4.66 10*6/uL 4.35-5.85 Venous blood hemoglobin measurement (mass/volume) 14.2 g/dL 11.5-16.0 Blood hematocrit (volume fraction) 41 % 35-52 Automated erythrocyte mean corpuscular volume 89 [foz_us] 80-99 Automated erythrocyte mean corpuscular hemoglobin (mass per erythrocyte) 31 pg 25-34 Automated erythrocyte mean corpuscular hemoglobin concentration measurement ( mass/volume) 34 g/dL 32-36 Automated erythrocyte distribution width ratio 12.9 % 10.0-14.5 Automated blood platelet count (count/volume) 265 10*3/uL 130-400 Automated blood platelet mean volume measurement 10.6 [foz_us] 7.4-10.4 Automated blood neutrophils/100 leukocytes 66 % 42-75 Automated blood lymphocytes/100 leukocytes 24 % 12-44 Blood monocytes/100 leukocytes 7 % 0-12 Automated blood eosinophils/100 leukocytes 3 % 0-10 Automated blood basophils/100 leukocytes 0 % 0-10 Blood neutrophils automated count (number/volume) 4.4 10*3 1.8-7.8 Blood lymphocytes automated count (number/volume) 1.6 10*3 1.0-4.0 Blood monocytes automated count (number/volume) 0.5 10*3 0.0-1.0 Automated eosinophil count 0.2 10*3/uL 0.0-0.3 Automated blood basophil count (count/volume) 0.0 10*3/uL 0.0-0.1 Comprehensive metabolic panel - 08/11/18 07:48 Serum or plasma sodium measurement (moles/volume) 137 mmol/L 135-145 Serum or plasma potassium measurement (moles/volume) 4.0 mmol/L 3.6-5.0 Serum or plasma chloride measurement (moles/volume) 103 mmol/L 98-107 Carbon dioxide 22 mmol/L 21-32 Serum or plasma anion gap determination (moles/volume) 12 mmol/L 5-14 Serum or plasma urea nitrogen measurement (mass/volume) 11 mg/dL 7-18 Serum or plasma creatinine measurement (mass/volume) 0.79 mg/dL 0.60-1.30 Serum or plasma urea nitrogen/creatinine mass ratio 14 NRG Serum or plasma creatinine measurement with calculation of estimated glomerular filtration rate > NRG Serum or plasma glucose measurement (mass/volume) 149 mg/dL 70-105 Serum or plasma calcium measurement (mass/volume) 9.8 mg/dL 8.5-10.1 Serum or plasma total bilirubin measurement (mass/volume) 1.6 mg/dL 0.1-1.0 Serum or plasma alkaline phosphatase measurement (enzymatic activity/volume) 80 U/L 40-136 Serum or plasma aspartate aminotransferase measurement (enzymatic activity/ volume) 37 U/L 5-34 Serum or plasma alanine aminotransferase measurement (enzymatic activity/volume ) 43 U/L 0-55 Serum or plasma protein measurement (mass/volume) 7.5 g/dL 6.4-8.2 Serum or plasma albumin measurement (mass/volume) 4.3 g/dL 3.2-4.5 CALCIUM CORRECTED 9.6 mg/dL 8.5-10.1 Serum or plasma troponin i.cardiac measurement (mass/volume) - 08/11/18 07:48 Serum or plasma troponin i.cardiac measurement (mass/volume) < ng/ mL <0.30 LIPID PANEL - 09/10/18 09:16 CHOLESTEROL, TOTAL 180 mg/dL <200 HDL CHOLESTEROL 56 mg/dL >50 TRIGLYCERIDES 103 mg/dL <150 LDL-CHOLESTEROL 104 mg/dL (calc) NRG CHOL/HDLC RATIO 3.2 (calc) <5.0 NON HDL CHOLESTEROL 124 mg/dL (calc) <130 Encounters ACCT No. Visit Date/Time Discharge Status Pt. Type Provider Facility Loc./Unit Complaint [id number] 02/08/2015 12:23:00 02/08/2015 23:59:[address] MAKERJOSEA L [id number] 09/21/2014 11:14:00 09/21/2014 23:59:[address] MAKERJOSEA L [id number] 09/14/2014 09:40:00 09/14/2014 23:59:59 CLS Outpatient ELVIS TREVINO DO [id number] 09/01/2014 15:46:00 09/01/2014 23:59:[address] MAKERJOSEA L [id number] 08/12/2014 14:43:00 08/12/2014 23:59:[address] MAKERAGUSTINMISA L [id number] 08/07/2014 14:09:00 08/07/2014 23:59:[address] MAKERJOSEA L [id number] 08/05/2014 14:32:00 08/05/2014 23:59:59 CLS Outpatient ELVIS TREVINO DO [id number] 08/04/2014 10:00:00 08/04/2014 23:59:[address] MAKER MISA L [id number] 07/15/2014 14:53:00 07/15/2014 23:59:[address] MAKER, MISA L [id number] 07/01/2014 14:50:00 07/01/2014 23:59:59 CLS Outpatient TREVINO DO, ELVIS Yoon [id number] 06/22/2014 09:04:00 06/22/2014 23:59:[address] MAKER, MISA L [id number] 06/18/2014 14:33:00 06/18/2014 23:59:59 CLS Outpatient TREVINO DO, ELVIS Karrie [id number] 06/12/2014 14:33:00 06/12/2014 23:59:59 CLS Outpatient TREVINO DO, ELVIS K [id number] 06/03/2014 14:40:00 06/03/2014 23:59:[address] MAKER, MISA L [id number] 05/28/2014 14:36:00 05/28/2014 23:59:[address] MAKER, MISA L [id number] 05/23/2014 14:20:00 05/23/2014 23:59:59 CLS Outpatient TREVINO DO, ELVIS K [id number] 05/22/2014 14:52:00 05/22/2014 23:59:59 CLS Outpatient TREVINO DO, EVLIS K [id number] 05/19/2014 13:20:00 05/19/2014 23:59:[address] MAKER, MISA L [id number] 05/15/2014 14:45:00 05/15/2014 23:59:59 CLS Outpatient TREVINO DO, ELVIS K [id number] 05/14/2014 14:37:00 05/14/2014 23:59:[address] MAKER, MISA L [id number] 05/13/2014 14:28:00 05/13/2014 23:59:59 CLS Outpatient TREVINO DO, ELVIS K [id number] 05/12/2014 13:18:00 05/12/2014 23:59:[address] MAKER, MISA L [id number] 03/31/2014 09:45:00 03/31/2014 23:59:59 CLS Outpatient TREVINO DO, ELVIS K [id number] 02/16/2014 09:56:00 02/16/2014 23:59:59 CLS Outpatient TREVINO DOELVIS [id number] 02/03/2014 08:57:00 02/03/2014 23:59:59 CLS Outpatient TREVINO DOELVIS [id number] 01/28/2014 10:12:00 01/28/2014 23:59:59 CLS Outpatient ERICK BENAVIDES APRN [id number] 01/27/2014 10:10:00 01/27/2014 23:59:59 CLS Outpatient TREVINO DO, ELVIS Yoon [id number] 12/29/2013 10:55:00 12/29/2013 23:59:59 CLS Outpatient TREVINO DO, ELVIS Yoon [id number] 12/26/2013 09:28:00 12/26/2013 23:59:59 CLS Outpatient TREVINO DO, ELVIS Yoon [id number] 12/19/2013 10:15:00 12/19/2013 23:59:59 CLS Outpatient TREVINO DOELVIS [id number] 11/17/2013 08:58:00 11/17/2013 23:59:59 CLS Outpatient TREVINO DO, ELVIS Yoon [id number] 10/13/2013 09:28:00 10/13/2013 23:59:59 CLS Outpatient TREVINO DO, LEVIS Yoon [id number] 09/15/2013 09:10:00 09/15/2013 23:59:59 CLS Outpatient TREVINO DO, ELVIS Yoon [id number] 09/04/2013 10:09:00 09/04/2013 23:59:59 CLS Outpatient TREVINO DOELVIS [id number] 09/01/2013 08:49:00 09/01/2013 23:59:59 CLS Outpatient TREVINO DOELVIS [id number] 02/08/2017 08:35:00 Document Registration [id number] 04/20/2017 08:42:00 Document Registration [id number] 05/14/2018 11:00:00 05/14/2018 23:59:59 [facility] [id number] 09/10/2018 08:20:00 Document Registration [id number] 07/10/2018 09:40:00 Document Registration [id number] 03/07/2018 14:20:00 Document Registration [id number] 06/28/2017 08:36:00 Document Registration [id number] 09/18/2018 13:40:00 09/18/2018 23:59:59 CLS Preadmit ANTONI CÁRDENAS DO [facility] ENDO SCREENING/CHRONIC GASTRITIS [id number] 09/11/2018 06:22:00 09/12/2018 16:27:00 DIS Outpatient ANTONI CÁRDENAS DO [facility] PREOP COLONOSCOPY/EGD [id number] 08/11/2018 07:37:00 08/11/2018 09:19:00 DIS Emergency TOMMY LEGGETT MD [facility] ER CHEST TIGHNTESS,TINGLING L ARM,BLURRY VISION [id number] 11/07/2017 06:33:00 11/07/2017 12:45:00 DIS Outpatient FANI VALLEJO MD [facility] CATH ABN STRESS, SOB [id number] 10/31/2017 11:14:00 10/31/2017 23:59:59 CLS Outpatient FANI VALLEJO MD [facility] CARD HTN I10 [id number] 10/16/2017 11:44:00 10/16/2017 23:59:59 CLS Outpatient FANI VALLEJO MD [facility] CARD HTN I10 [id number] 02/22/2017 08:06:00 02/22/2017 23:59:59 CLS Outpatient MISA KING POST [employer]OSING SPECIALIST [facility] RAD R22.1 [id number] 10/06/2015 06:00:00 10/09/2015 14:25:00 DIS Inpatient KEYUR GUY MD [facility] 4TH RIGHT KNEE OSTEOARTRITS [id number] 09/30/2015 11:39:00 09/30/2015 23:59:59 CLS Outpatient KEYUR GUY MD [facility] PREOP RIGHT KNEE OSTEOARTHRITIS [id number] 07/20/2014 20:38:00 07/21/2014 06:30:00 DIS Outpatient HUMPHREY SAMSON DO [facility] SLEEP SNORING,HTN,EXCESSIVE DAYTIME SLEEPINESS [id number] 05/04/2014 20:55:00 05/05/2014 06:45:00 DIS Outpatient HUMPHREY SAMSON DO [facility] SLEEP SNORING,EXCESSIVE DAYTIME SLEEPINESS [id number] 04/13/2014 12:49:00 04/13/2014 23:59:59 CLS Outpatient HUMPHREY SAMSON DO [facility] RT COPD,ASTHMA [id number] 02/09/2014 10:07:00 02/09/2014 23:59:59 CLS Outpatient ARIADNA BHATT APRN [facility] RAD SCREENING [id number] 10/13/2016 08:06:00 Document Registration
[2018-10-02 09:40] VITALS: BP 145/91
[2018-10-02] MEDS ORDERED: LACTATED RINGERS 1,000 ML IV STA (09:43)
[2018-10-02] MEDS ORDERED: HURRICAINE EXT TUBE (BENZOCAINE) XX PRN (09:45)
--- NOTE | 2018-10-02 09:52 | Progress Note-Pre Operative ---
Pre-Operative Progress Note H&P Reviewed The H&P was reviewed, patient examined and no changes noted. Time Seen by Provider: 09:50 Date H&P Reviewed: Oct 02, 2018 Time H&P Reviewed: 09:51 Pre-Operative Diagnosis: Chronic Gastritis, Screening Colonoscopy ANTONI CÁRDENAS DO Oct 02, 2018 09:52
[2018-10-02] MEDS ORDERED: MIDAZOLAM 2 MG/2 ML (VERSED) VIAL ONE ×2 (10:17→11:07)
[2018-10-02] MEDS ORDERED: PROPOFOL INJECTION 50 ML IV ONE (10:17)
--- NOTE | 2018-10-02 11:20 | Progress Note-Post Operative ---
Post-Operative Progess Note Surgeon (s)/Sane Rn (s) Surgeon ANTONI CÁRDENAS DO Sane Rn: JOSELINE Arriola Pre-Operative Diagnosis Chronic Gastritis, Screening Colonoscopy Post-Operative Diagnosis Gastritis with questionable Ulcers Hiatal Hernia ?? Beasley's esophagus Bile reflux Diverticula Poor prep Int and Ext hemorrhoids Procedure & Operative Findings Date of Procedure 10/02/18 Procedure Performed/Findings EGD with biopsy Colonoscopy Anesthesia Type IV sedation by LIFTER/DRIVER Estimated Blood Loss Estimated blood loss (mL): scant Specimens/Packing Specimens Removed Antral bx Body of stomach bx of ulcer GE jxn bx ANTONI CÁRDENAS DO Oct 02, 2018 11:20
--- NOTE | 2018-10-02 11:22 | Endoscopy Discharge Instruct ---
Endo Procedure/Findings Findings 1.: Gastric Ulcer, Gastritis 2.: Hiatal Hernia, Beasley's Esophagus 3.: Diverticulosis 4.: Internal Hemorrhoids Discharge Instructions - Activity: You might feel a little sleepy until tomorrow. This is due to the medicine you received to relax you. Until tomorrow, you should: NOT drive a car, operate machinery or power tools. NOT drink any alcoholic beverages. NOT make any important decisions or sign importortant papers. Do not return to work until tomorrow, unless otherwise instructed. Resume previous activities tomorrow. Diet: Start by taking liquids. If you tolerate liquids, advance to solid food. make an appointment for one week Instructions: 1.: Colonoscopy in 1 year Notify Physician - If you experience excessive bleeding, unusual abdominal pain, fever, or chest pain, contact your doctor immediately. Follow-Up: - I have received and understand the above instructions and will call my doctor if I have any further questions. Patient Signature Date Nurse Signature Other (Relationship) ANTONI CÁRDENAS DO Oct 02, 2018 11:22
[2018-10-02 11:45] VITALS: BP 138/93
--- NOTE | 2018-10-02 11:56 | Anesthesia-General Post-Op ---
MAC Patient Condition Mental Status/LOC: Same as Preop Cardiovascular: Satisfactory Nausea/Vomiting: Absent Respiratory: Satisfactory Pain: Controlled Complications: Absent Post Op Complications Complications None Follow Up Care/Instructions Patient Instructions None needed. Anesthesiology Discharge Order Discharge Order Patient is doing well, no complaints, stable vital signs, no apparent adverse anesthesia problems. No complications reported per nursing. MARÍA ELENA EASTON CRNA Oct 02, 2018 11:56
[2018-10-02 12:15] VITALS: BP 147/91
[2018-10-02 12:20] VITALS: BP 147/91
--- NOTE | 2018-10-02 14:14 | OPERATIVE REPORT ---
DATE OF SERVICE: 10/02/2018 PREOPERATIVE DIAGNOSES: 1. Chronic gastritis. 2. Screening colonoscopy. POSTOPERATIVE DIAGNOSES: 1. Gastritis. 2. Hiatal hernia. 3. Questionable Beasley esophagus. 4. Bile reflux. 5. Diverticulosis. 6. Poor prep. 7. Internal hemorrhoids. 8. External hemorrhoids. PROCEDURES PERFORMED: 1. Esophagogastroduodenoscopy with biopsy. 2. Colonoscopy. SURGEON: Ronald Cárdenas DO. GEOSPATIAL DEVELOPER: Nicholas Leary MS3. SPECIMEN: 1. One biopsy from the antrum. 2. One biopsy from the body of the stomach with possible ulcer. 3. Biopsy from the GE junction. BLOOD LOSS: Scant. FLUIDS: Per Anesthesia. POSTOPERATIVE CONDITION: Stable. INDICATION FOR PROCEDURE: The patient is a 53-year-old female who has been having some chronic gastritis and needed EGD with workup. She is also 53-year-old and needed a screening colonoscopy, I elected to do them both at the same time. FINDINGS: The patient had some gastritis with questionable ulcer in the stomach. She also had some bile reflux. She had small hiatal hernia and what looked like possible early Beasley esophagus. Unfortunately, in the colonoscopy, she had a very poor prep, unable to completely clear the garrett. She had diverticula throughout the colon and she had internal and some large external hemorrhoids. PROCEDURE NOTE: After informed consent was obtained, the patient was brought to the endoscopy suite, placed in the bed in left lateral decubitus position. She was administered IV sedation by the RAIL PROJECT ENGINEER who then monitored vitals the entire time, heart rate, blood pressure and pulse ox. Scope was inserted down the mouth through the esophagus and then the stomach. Upon entering the stomach, noted some gastritis and what looked like ulcers. Pictures were taken. Biopsy was done of the body of the stomach and what looked like an ulcer and pushed into the duodenum, duodenum looked fine, pulled back into the antrum and then took a biopsy of the antrum, retroflexed, saw what looked like a small hiatal hernia, actually also seen this on the way in, then pulled back into the GE junction, looked like there was a little bit creeping up of the Z line, so biopsy of the GE junction and then suctioned out the stomach and then slowly withdrew the scope up the esophagus. I did not see any obvious pathology and I then pulled it out the mouth. I then went to the other side, switched gloves and switched to different scope and started the colonoscopy and then pushing forward, unfortunately, there was a lot of retained fecal material, able to flex somewhat off but not all of it, pushed the scope all the way to the cecum. Cecum also had a lot of retained fecal material, able to flush most of this off, could see the appendiceal orifice, noted the ileocecal valve, could not get all of the fecal material off. All the way throughout the colon on the way in, noted diverticula in the sigmoid, descending, transverse colon and then saw some in the ascending colon as well as just outside the cecum. Once we had reached the cecum, slowly pulled back by insufflating the circumferential wall looking at the cecum, up the ascending colon to the hepatic flexure and then down the transverse colon, the splenic flexure, into the descending colon and down the sigmoid and finally into the rectum. Denies any large polyps, we could have missed some small polyps because of the fecal material we were not able to flush all of it off. Retroflexed the scope in the rectal vault, saw some internal hemorrhoids, took a picture of this and then removed the scope, saw some large external hemorrhoids, took a picture of this. The patient tolerated the procedure. She was recovered in the endoscopy suite. Job ID: [id number] DocumentID: [id number] Dictated Date: 10/02/2018 11:28:30 Building Custodial Supervisor Date: 10/02/2018 14:13:26 Dictated By: RONALD CÁRDENAS DO
== END 2018-10-02 12:20 | disposition home or self-care (01) ==
LOC: ENDO 09:21
PROVIDERS: ATTEND Surgery
DX: Z12.11 Encounter for screening for malignant neoplasm of colon (principal); K29.50 Unspecified chronic gastritis without bleeding; K44.9 Diaphragmatic hernia without obstruction or gangrene; K57.30 Diverticulosis of large intestine without perforation or abscess without bleeding; K64.4 Residual hemorrhoidal skin tags; K64.8 Other hemorrhoids; K21.9 Gastro-esophageal reflux disease without esophagitis; I10 Essential (primary) hypertension; J44.9 Chronic obstructive pulmonary disease, unspecified; E11.40 Type 2 diabetes mellitus with diabetic neuropathy, unspecified; G47.33 Obstructive sleep apnea (adult) (pediatric); F32.9 Major depressive disorder, single episode, unspecified; F41.9 Anxiety disorder, unspecified; E78.5 Hyperlipidemia, unspecified; Z77.22 Contact with and (suspected) exposure to environmental tobacco smoke (acute) (chronic); Z79.84 Long term (current) use of oral hypoglycemic drugs; Z79.899 Other long term (current) drug therapy; E66.01 Morbid (severe) obesity due to excess calories; Z68.41 Body mass index [BMI] 40.0-44.9, adult
CPT/HCPCS: 88305

== ENCOUNTER → 2019-07-17 | Outpatient (CLI) | payer BC, OTHER ==
--- NOTE | 2019-07-18 17:44 | Diagnostic Imaging Report ---
INDICATION: Routine screening. COMPARISON: Prior mammogram from 02/09/2014. EXAMINATION: 2D and 3D bilateral screening mammography was performed with CAD. The current study was also evaluated with a Computer Aided Detection (CAD) system. 3D tomographic images were obtained and reviewed. FINDINGS: Scattered fibroglandular densities are identified, bilaterally. Density in the central right breast appears to be slightly more prominent on today's study. This may represent fibroglandular tissue. No suspicious calcifications are seen. Axillae are unremarkable. IMPRESSION: Right breast density. Additional views are recommended for further evaluation. ACR BI-RADS Category 0: Incomplete. (Needs additional imaging evaluation). Result letter will be mailed to the patient. Note: At least 10% of breast cancer is not imaged by mammography. Dictated on workstation # [id number]
== END ==
LOC: RAD 15:30
PROVIDERS: ATTEND Nurse Practitioner Family
DX: Z12.31 Encounter for screening mammogram for malignant neoplasm of breast (principal); R92.8 Other abnormal and inconclusive findings on diagnostic imaging of breast
CPT/HCPCS: 77067

== ENCOUNTER → 2020-01-12 | Outpatient (CLI) | payer OTHER ==
[~2020-01-12] MED LIST changes: -IBUP-2055 PO; +IBUP-2473 PO; +METF500T19 PO; -METF500T8 PO; +OMEP40CA27 PO; -OMEP40CA36 PO
== END ==
LOC: CARD 11:45
PROVIDERS: ATTEND Internal Medicine Cardiovascular Disease
DX: I10 Essential (primary) hypertension (principal); G47.33 Obstructive sleep apnea (adult) (pediatric); E78.2 Mixed hyperlipidemia; R06.09 Other forms of dyspnea; E11.9 Type 2 diabetes mellitus without complications
CPT/HCPCS: 93306

== ENCOUNTER → 2020-01-12 | Outpatient (CLI) | payer OTHER ==
--- NOTE | 2020-01-12 12:51 | Diagnostic Imaging Report ---
INDICATION: Six-month follow-up for abnormal mammogram. COMPARISON: Comparison made with prior examination from 07/17/2019 and 02/09/2014. The current study was also evaluated with a Computer Aided Detection (CAD) system. 3-D Tomographic imaging was also performed. FINDINGS: There are scattered fibroglandular densities bilaterally. Faint density previously described is essentially unchanged. There is no new dominant mass, spiculated lesion, or suspicious calcification identified. There are a few benign-type calcifications. The skin, nipple, and axillae are unremarkable. IMPRESSION: Benign. The patient should resume bilateral yearly mammography in June 2020. ACR BI-RADS Category 2: Benign findings. Result letter will be mailed to the patient. Note: At least 10% of breast cancer is not imaged by mammography. Dictated by: Dictated on workstation # [id number]
== END ==
LOC: RAD 11:49
PROVIDERS: ATTEND Nurse Practitioner Family
DX: R92.1 Mammographic calcification found on diagnostic imaging of breast (principal)

== ENCOUNTER 2020-04-29 08:46 | Outpatient (RCR) | payer OTHER ==
[~2020-04-29] VITALS: Ht 170 cm; Wt 138.0 kg
[~2020-04-29 08:46] MED LIST changes: +DULA0.75 SQ; +FEXO-14 PO; +FLUT9.9S NS; +METF-865 PO; -METF500T19 PO; +PANT40TA2 PO; +PIOG15TA9 PO; +SUCR1TAB PO
== END 2020-04-29 16:15 | disposition home or self-care (01) ==
LOC: PREOP 08:46
PROVIDERS: ATTEND Surgery
DX: Z01.812 Encounter for preprocedural laboratory examination (principal); Z11.59 Encounter for screening for other viral diseases; K21.9 Gastro-esophageal reflux disease without esophagitis
CPT/HCPCS: 87635

== ENCOUNTER → 2020-09-16 | Outpatient (CLI) | payer OTHER ==
--- NOTE | 2020-09-16 11:08 | Diagnostic Imaging Report ---
INDICATION: Routine screening. COMPARISON is made with prior mammograms from 07/17/2019 and 02/09/2014. 2-D and 3-D bilateral screening mammography was performed with CAD. Scattered fibroglandular densities are identified bilaterally. Vague density central right breast appears stable. Left breast is stable. No dominant mass or malignant appearing microcalcifications are seen. Axillae are unremarkable. IMPRESSION: BI-RADS Category 2. No mammographic features suspicious for malignancy are identified. ACR BI-RADS Category 2: Benign findings. Result letter will be mailed to the patient. Note: At least 10% of breast cancer is not imaged by mammography. Dictated by: Dictated on workstation # [id number]
== END ==
LOC: RAD 08:00
PROVIDERS: ATTEND Nurse Practitioner Family
DX: Z12.31 Encounter for screening mammogram for malignant neoplasm of breast (principal)
CPT/HCPCS: 77063; 77067

== ENCOUNTER → 2021-09-30 | Outpatient (CLI) | payer OTHER ==
[~2021-09-30] MED LIST changes: -OMEP40CA27 PO; +OMEP40CA6 PO
--- NOTE | 2021-09-30 11:11 | Diagnostic Imaging Report ---
INDICATION: Routine screening Comparison is made prior mammogram from 09/14/2020 and 07/17/2019. 2-D and 3-D bilateral screening mammography was performed with CAD. Scattered fibroglandular densities are identified bilaterally. Densities in both breasts appear to be stable. No new mass or malignant-appearing microcalcifications are seen. Axillae are unremarkable. IMPRESSION: No mammographic features suspicious for malignancy are identified. BI-RADS Category 2 ACR BI-RADS Category 2: Benign findings. Result letter will be mailed to the patient. Note: At least 10% of breast cancer is not imaged by mammography. Dictated by: Dictated on workstation # [id number]
== END ==
LOC: RAD 08:34
PROVIDERS: ATTEND Nurse Practitioner Family
DX: Z12.31 Encounter for screening mammogram for malignant neoplasm of breast (principal)
CPT/HCPCS: 77063; 77067